=== PATIENT | female | born 1995 | race African-American/Black ===

== ENCOUNTER → 2016-06-06 | Outpatient (CLI) | payer OTHER ==
[~2016-06-06] MED LIST: CEPH500C PO; METR70GE16 VG
--- NOTE | 2016-06-06 14:19 | Diagnostic Imaging Report ---
First trimester OB ultrasound. INDICATION: Dating. FINDINGS: There is a normal-appearing single intrauterine . An embryo is seen with cardiac activity at 174 beats per minute. The crown-rump length is at 8 weeks and 2 days. REINA is 01/14/17. The ovaries are obscured by bowel gas. IMPRESSION: Live single intrauterine . Dictated by: Dictated on workstation # [id number]
== END ==
LOC: RAD 13:30
PROVIDERS: ATTEND Family Medicine
DX: Z34.91 Encounter for supervision of normal pregnancy, unspecified, first trimester (principal)
CPT/HCPCS: 76801

== ENCOUNTER 2016-06-16 11:25 | Emergency (ER) | payer OTHER ==
[~2016-06-16] VITALS: Ht 170.2 cm; Wt 72.6 kg
--- NOTE | 2016-06-16 11:50 | ED GU-Female ---
General Chief Complaint: -Female Stated Complaint: 9 WKS PREG/CRAMPING/VAG BLEEDING Nursing Triage Note: Stated she has been having cramping for 1 week. Stated at beginning of week she had mod bleeding that lasted 2 days. No bleeding at this time. Cramping all day has cont. No urinary sx Nursing Sepsis Screen: No Definite Risk Source: patient, other (FRIEND) Exam Limitations: no limitations History of Present Illness Time seen by provider: 11:50 Initial Comments 21-year-old female patient presents to the emergency department with complaints of vaginal bleeding beginning last Saturday. Lasted for approximately 2 days. States she's had cramping for approximately one week. States the cramping moves around and currently is in the left upper abdomen. Patient states she had an ultrasound as an outpatient last week which showed a viable intrauterine . States she is now 9 weeks 5 days gestation. Denies abnormal vaginal discharge, fever, nausea, vomiting, dysuria, frequency, hematuria. Patient was seen by Dr. Heredia last week. Reports she was treated for bacterial vaginosis and finished the antibiotics last week. Timing/Duration: week, intermittent Severity/Quality: cramping Location: other (LUQ) Radiation: none Activities at Onset: none Prior Genitourinary Problems: similar symptoms Sexual Villas History: less than 2 months ago, single partner Modifying Factors: Worsens With Other (denies modifying factors.) Allergies and Home Medications Allergies Coded Allergies: No Known Drug Allergies (Unverified , 06/16/16) Home Medications Cephalexin 500 Mg Capsule, 500 MG PO TID, #15 Ref 0 Prescribed by: SAQIB AKUR on 01/06/16 1719 Metronidazole 70 Gm Gel.w.appl, 70 GM VG UD, #1 Ref 0 Prescribed by: SAQIB KAUR on 01/06/16 1744 Constitutional: No chills, No dizziness, No fever, No malaise EENTM: no symptoms reported Respiratory: No cough, No short of breath Cardiovascular: No chest pain, No edema, No palpitations Gastrointestinal: abdominal pain (LUQ), No constipation, No diarrhea, No loss of appetite, No nausea, No vomiting Genitourinary: see HPI, denies burning, denies discharge, denies dysuria, denies frequency, denies flank pain, denies hematuria, denies pain : Yes Expected Date of Delivery: Jan 14, 2017 Musculoskeletal: No back pain Skin: no symptoms reported Psychiatric/Neurological: No Symptoms Reported All Other Systemes Reviewed Negative Unless Noted: Yes (Negative excepted noted.) Past Gunuald-Mhmnub-Lnazrs Hx Patient Social History Alcohol Use: Denies Use Recreational Drug Use: No Type Used: Cigarettes 2nd Hand Smoke Exposure: No Recent Foreign Travel: No Contact w/Someone Who Travel: No Recent Infectious Disease Expo: No Recent Hopitalizations: No Immunizations Up To Date Tetanus Booster (TDap): Less than 5yrs Seasonal Allergies Seasonal Allergies: No Surgeries HX Surgeries: No Respiratory Hx Respiratory Disorders: No Cardiovascular Hx Cardiac Disorders: No Neurological Hx Neurological Disorders: No Reproductive System : Yes Hx : 2 Hx Para: 0 Hx Total # of Abortions (Spona: 1 Hx Reproductive Disorders: No Female Reproductive Disorders: Denies Genitourinary Hx Genitourinary Disorders: No Gastrointestinal Hx Gastrointestinal Disorders: No Musculoskeletal Hx Musculoskeletal Disorders: No Endocrine Hx Endocrine Disorders: No HEENT HX ENT Disorders: No Cancer Hx Cancer: No Psychosocial Hx Psychiatric Problems: No Reviewed Nursing Assessment Reviewed/Agree w Nursing PMH: Yes Family Medical History Significant Family History: No Pertinent Family Hx Physical Exam Vital Signs Vital Sign - Last 12Hours 06/16/16 11:36 Temp 97.5 Pulse 80 Resp 18 B/P (MAP) 125/76 Pulse Ox 100 Capillary Refill : Less Than 3 Seconds General Appearance: WD/WN, no apparent distress HEENT: PERRL/EOMI, pharynx normal Neck: supple, normal inspection Cardiovascular: normal peripheral pulses, regular rate, rhythm, no edema, no murmur Respiratory: lungs clear, normal breath sounds, no respiratory distress Gastrointestinal: normal bowel sounds, non tender (unable to reproduce tenderness. ), soft, no organomegaly, No distended Pelvic: other (deferred by patient. patient requests to f/u with Dr. Heredia for pelvic exam.) Back: normal inspection Extremities: no pedal edema, normal capillary refill Neurologic/Psychiatric: alert, normal mood/affect, oriented x 3 Skin: normal color, warm/dry Progress/Results/Core Measures Results/Orders Lab Results Laboratory Tests Test 06/16/16 11:50 Range/Units White Blood Count 5.0 4.3-11.0 10^3/uL Red Blood Count 4.51 4.35-5.85 10^6/uL Hemoglobin 12.5 11.5-16.0 G/DL Hematocrit 36 35-52 % Mean Corpuscular Volume 79 L 80-99 FL Mean Corpuscular Hemoglobin 28 25-34 PG Mean Corpuscular Hemoglobin Concent 35 32-36 G/DL Red Cell Distribution Width 17.3 H 10.0-14.5 % Platelet Count 218 130-400 10^3/uL Mean Platelet Volume 9.2 7.4-10.4 FL Neutrophils (%) (Auto) 56 42-75 % Lymphocytes (%) (Auto) 32 12-44 % Monocytes (%) (Auto) 11 0-12 % Eosinophils (%) (Auto) 1 0-10 % Basophils (%) (Auto) 0 0-10 % Neutrophils # (Auto) 2.8 1.8-7.8 X 10^3 Lymphocytes # (Auto) 1.6 1.0-4.0 X 10^3 Monocytes # (Auto) 0.6 0.0-1.0 X 10^3 Eosinophils # (Auto) 0.1 0.0-0.3 10^3/uL Basophils # (Auto) 0.0 0.0-0.1 10^3/uL Urine Color YELLOW Urine Clarity CLEAR Urine pH 6.5 5-9 Urine Specific [place] 1.015 L 1.016-1.022 Urine Protein NEGATIVE NEGATIVE Urine Glucose (UA) NEGATIVE NEGATIVE Urine Ketones NEGATIVE NEGATIVE Urine Nitrite NEGATIVE NEGATIVE Urine Bilirubin NEGATIVE NEGATIVE Urine Urobilinogen NORMAL NORMAL MG/DL Urine Leukocyte Esterase 1+ H NEGATIVE Urine RBC (Auto) NEGATIVE NEGATIVE Urine RBC NONE /HPF Urine WBC NONE /HPF Urine Squamous Epithelial Cells TNTC H /HPF Urine Crystals NONE /LPF Urine Bacteria FEW H /HPF Urine Casts NONE /LPF Urine Mucus NEGATIVE /LPF Urine Culture Indicated NO Human Chorionic Gonadotropin, Quant [id number] H <5 MIU/ML My Orders Orders - SAQIB KAUR Cbc With Automated Diff (06/16/16 11:31) Hcg,Quantitative (06/16/16 11:31) Ua Culture If Indicated (06/16/16 11:31) Us Ob Single Fetus<14 [id number] (06/16/16 11:31) Vital Signs/I&O Vital Sign - Last 12Hours 06/16/16 06/16/16 11:36 13:42 Temp 97.5 97.9 Pulse 80 90 Resp 18 18 B/P (MAP) 125/76 Pulse Ox 100 99 Blood Pressure Mean: 92 Diagnostic Imaging Diagonstic Imaging: Ultrasound Plain Films/CT/US/NM/MRI: pelvis Comments INDICATION: Vaginal bleeding. The recent OB ultrasound exam of 06/06/16 noted a single live intrauterine approximately 8 weeks 2 days gestation plus or minus one week. On this exam the gestational sac containing the fetus is again evident. heart motion was noted at a rate of 174 bpm and was recorded. The crown rump length measurement suggest estimated gestational age is 9 weeks 5 days. This would correspond to measurements on the previous study. There is no obvious abnormality identified. The amniotic fluid volume is within normal limits. At this time it is not certain where the placenta will develop. There is no obvious subchorionic hemorrhage identified. No pelvic mass or free fluid collection. IMPRESSION: 1. There is a single live intrauterine approximately 9 weeks 5 days gestation plus or minus one week. EDC remains January 14, 2017. 2. There were no obvious abnormalities identified. If a more sensitive evaluation of anatomy is desired, then a short-term (8-10 weeks) followup exam should be obtained. 3. There is no subchorionic hemorrhage to account for patient's vaginal bleeding. Dictated on workstation # [id number] Reviewed: Reviewed by Me (radiology report reviewed by me) Departure Communication Progress Notes All laboratory and diagnostic findings discussed with the patient. Patient again refuses pelvic exam and states she'll follow-up with Dr. Heredia for outpatient pelvic exam. I have advised patient to repeat labs on Saturday or Saturday and follow-up with Dr. Heredia this week for recheck and scheduling outpatient repeat ultrasound. All return precautions were discussed with the patient as described in the discharge instructions of this report. Patient voices understanding and agrees with the treatment plan. Patient case discussed with Dr. Woodward, he agrees with the plan of care. Impression Impression: Primary Impression: Threatened miscarriage in early Disposition: HOME, SELF-CARE Condition: Improved Departure-Patient Inst. Decision time for Depature: 13:11 Referrals: ALBERT HEREDIA MD (PCP) Primary Care Physician GLENROY FLORES MD (Family) Primary Care Physician Patient Instructions: Threatened Miscarriage (DC) Add. Discharge Instructions: All discharge instructions reviewed with patient and/or family. Voiced understanding. Tylenol [id number] as needed for cramps or pain. Drink plenty of fluids. Rest. No strenuous activity, intercourse, or tampons until released by Dr. Heredia. Follow-up with Dr. Heredia this week for recheck and scheduling repeat outpatient ultrasound. Call for appointment time Saturday. Repeat labs on Saturday or Saturday. Return to the emergency department for worsened pain, fever, inability to urinate, vaginal bleeding with greater than 2 pads per hour for greater than 2 hours, vaginal discharge, or any other concerns. 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 HEREDIA. Copy Copies To 1: ALBERT HEREDIA MD, GRETCHEN L PA Jun 16, 2016 11:50
[2016-06-16 12:01] LABS: BASOPHILS % (AUTO) 0 % (0-10); EOSINOPHILS # (AUTO) 0.1 10^3/uL (0.0-0.3); EOSINOPHILS % (AUTO) 1 % (0-10); LYMPHOCYTES # (AUTO) 1.6 X 10^3 (1.0-4.0); LYMPHOCYTES % (AUTO) 32 % (12-44); MEAN CORPUSCULAR HEMOGLOBIN 28 PG (25-34); MEAN CORPUSCULAR HGB CONC 35 G/DL (32-36); MEAN CORPUSCULAR VOLUME 79 FL (80-99); MEAN PLATELET VOLUME 9.2 FL (7.4-10.4); MONOCYTES # (AUTO) 0.6 X 10^3 (0.0-1.0); MONOCYTES % (AUTO) 11 % (0-12); NEUTROPHILS # (AUTO) 2.8 X 10^3 (1.8-7.8); NEUTROPHILS % (AUTO) 56 % (42-75); PLATELET COUNT 218 10^3/uL (130-400); RED BLOOD COUNT 4.51 10^6/uL (4.35-5.85); RED CELL DISTRIBUTION WIDTH 17.3 % (10.0-14.5)
[2016-06-16 12:02] LABS: BILIRUBIN,URINE NEGATIVE (NEGATIVE); KETONES,URINE NEGATIVE (NEGATIVE); LEUKOCYTE ESTERASE ,URINE 1+ (NEGATIVE); NITRITE,URINE NEGATIVE (NEGATIVE); PH,URINE 6.5 (5-9); PROTEIN,URINE NEGATIVE (NEGATIVE); UROBILINOGEN,URINE NORMAL (NORMAL)
[2016-06-16 12:13] LABS: SQUAMOUS EPITHELIAL CELL,UR TNTC /HPF
--- NOTE | 2016-06-16 12:29 | Diagnostic Imaging Report ---
PROCEDURE: US OB SINGLE FETUS <14 WKS. TECHNIQUE: Multiple real-time grayscale images were obtained over the gravid uterus in various projections. INDICATION: Vaginal bleeding. The recent OB ultrasound exam of 06/06/16 noted a single live intrauterine approximately 8 weeks 2 days gestation plus or minus one week. On this exam the gestational sac containing the fetus is again evident. heart motion was noted at a rate of 174 bpm and was recorded. The crown rump length measurement suggest estimated gestational age is 9 weeks 5 days. This would correspond to measurements on the previous study. There is no obvious abnormality identified. The amniotic fluid volume is within normal limits. At this time it is not certain where the placenta will develop. There is no obvious subchorionic hemorrhage identified. No pelvic mass or free fluid collection. IMPRESSION: 1. There is a single live intrauterine approximately 9 weeks 5 days gestation plus or minus one week. EDC remains January 14, 2017. 2. There were no obvious abnormalities identified. If a more sensitive evaluation of anatomy is desired, then a short-term (8-10 weeks) followup exam should be obtained. 3. There is no subchorionic hemorrhage to account for patient's vaginal bleeding. Dictated by: Dictated on workstation # [id number]
[2016-06-16 13:42] VITALS: BP 115/71
== END 2016-06-16 13:36 | disposition home or self-care (01) ==
LOC: EDUNIT# 11:25 → ER 11:27
DX: O20.0 Threatened abortion (principal); Z3A.09 9 weeks gestation of pregnancy
CPT/HCPCS: 36415; 76801; 81000; 84702; 85025; 99282

== ENCOUNTER 2016-08-22 18:30 | Emergency (ER) | payer OTHER ==
[~2016-08-22] VITALS: Ht 170.2 cm; Wt 74.8 kg
--- NOTE | 2016-08-22 19:08 | ED Abdominal Pain ---
General Chief Complaint: -Female Stated Complaint: 19 WEEKS /CRAMPING,PRESSURE Nursing Triage Note: PT REPORTS SHE IS 19 WEEKS AND 3 DAYS , SHE C/O ABD CRAMPING, LOW BACK PAIN, AND VAGINAL PRESSURE FOR 3 DAYS. SHE DENIES ANY BLEEDING. Sepsis Screen: No Definite Risk Source of Information: Patient, Spouse Exam Limitations: No Limitations History of Present Illness Time Seen By Provider: 18:59 Initial Comments Patient is a 21-year-old female G2 P 0010 at 19 weeks and 3 days presenting with a 1-2 day progressively worsening abdominal crampy like pain is especially located in the right and left lower quadrants. She has had no nausea or vomiting or diarrhea. No constipation. No anorexia. She is a patient of Dr. You at [facility]. She denies any vaginal bleeding but didn't have some increased vaginal discharge which she said she had checked a week or 2 ago and was told that it was not from an infectious source. Allergies and Home Medications Allergies Coded Allergies: No Known Drug Allergies (Unverified , 06/16/16) Home Medications Cephalexin 500 Mg Capsule, 500 MG PO TID, #15 Ref 0 Prescribed by: SAQIB KAUR on 01/06/16 1719 Metronidazole 70 Gm Gel.w.appl, 70 GM VG UD, #1 Ref 0 Prescribed by: SAQIB KAUR on 01/06/16 1744 Review of Systems Constitutional: No chills, No diaphoresis, No fever, No malaise Respiratory: Denies Cough, Denies Shortness of Air Cardiovascular: Denies Chest Pain, Denies Irregular Heart Rate, Denies Lightheadedness, Denies Syncope Gastrointestinal: See HPI, Abdominal Pain (cramping right lower quadrant and left lower quadrant pain), Denies Nausea, Denies Poor Appetite, Denies Vomiting Musculoskeletal: No back pain, No joint pain Skin: No pruritus, No rash Past Obbnsbf-Jcmwyz-Wfujqv Hx Patient Social History Alcohol Use: Denies Use Recreational Drug Use: No Smoking Status: Current Everyday Smoker Type Used: Cigarettes 2nd Hand Smoke Exposure: No Recent Foreign Travel: No Contact w/Someone Who Travel: No Recent Infectious Disease Expo: No Recent Hopitalizations: No Immunizations Up To Date Tetanus Booster (TDap): Less than 5yrs Seasonal Allergies Seasonal Allergies: No Surgeries HX Surgeries: No Respiratory Hx Respiratory Disorders: No Cardiovascular Hx Cardiac Disorders: No Neurological Hx Neurological Disorders: No Reproductive System Hx Reproductive Disorders: No Female Reproductive Disorders: Denies Genitourinary Hx Genitourinary Disorders: No Gastrointestinal Hx Gastrointestinal Disorders: No Musculoskeletal Hx Musculoskeletal Disorders: No Endocrine Hx Endocrine Disorders: No HEENT HX ENT Disorders: No Cancer Hx Cancer: No Psychosocial Hx Psychiatric Problems: No Family Medical History Significant Family History: No Pertinent Family Hx Physical Exam Vital Signs VS - Last 72 Hours, by Label 08/22/16 18:56 Temp 98.2 Pulse 79 Resp 16 B/P (MAP) 130/82 Pulse Ox 98 O2 Delivery Room Air Capillary Refill : Less Than 3 Seconds General Appearance: WD/WN, no apparent distress HEENT: PERRL/EOMI, pharynx normal Neck: non-tender, normal inspection Respiratory: chest non-tender, lungs clear, normal breath sounds Cardiovascular: normal peripheral pulses, regular rate, rhythm, no edema Peripheral Pulses: 3+ Dorsalis Pedis (R), 3+ Left Dors-Pedis (L) Gastrointestinal: normal bowel sounds, soft, tenderness (right and left lower quadrants) Genital/Rectal: other ( heart tones regular at 1 60 bpm.) Extremities: non-tender, normal inspection, no pedal edema, normal capillary refill Neurologic/Psychiatric: alert, oriented x 3 Skin: normal color, warm/dry Lymphatic: no adenopathy Progress/Results/Core Measures Results/Orders Lab Results Laboratory Tests Test 08/22/16 19:17 08/22/16 19:31 Range/Units Urine Color YELLOW Urine Clarity SLIGHTLY CLOUDY Urine pH 7 5-9 Urine Specific [place] 1.005 L 1.016-1.022 Urine Protein NEGATIVE NEGATIVE Urine Glucose (UA) NEGATIVE NEGATIVE Urine Ketones NEGATIVE NEGATIVE Urine Nitrite NEGATIVE NEGATIVE Urine Bilirubin NEGATIVE NEGATIVE Urine Urobilinogen NORMAL NORMAL MG/DL Urine Leukocyte Esterase 2+ H NEGATIVE Urine RBC (Auto) NEGATIVE NEGATIVE Urine RBC NONE /HPF Urine WBC 5-10 H /HPF Urine Crystals NONE /LPF Urine Bacteria MODERATE H /HPF Urine Casts NONE /LPF Urine Mucus SMALL H /LPF Urine Culture Indicated YES White Blood Count 8.5 4.3-11.0 10^3/uL Red Blood Count 3.91 L 4.35-5.85 10^6/uL Hemoglobin 11.7 11.5-16.0 G/DL Hematocrit 33 L 35-52 % Mean Corpuscular Volume 83 80-99 FL Mean Corpuscular Hemoglobin 30 25-34 PG Mean Corpuscular Hemoglobin Concent 36 32-36 G/DL Red Cell Distribution Width 15.5 H 10.0-14.5 % Platelet Count 208 130-400 10^3/uL Mean Platelet Volume 10.0 7.4-10.4 FL Neutrophils (%) (Auto) 66 42-75 % Lymphocytes (%) (Auto) 22 12-44 % Monocytes (%) (Auto) 10 0-12 % Eosinophils (%) (Auto) 2 0-10 % Basophils (%) (Auto) 0 0-10 % Neutrophils # (Auto) 5.6 1.8-7.8 X 10^3 Lymphocytes # (Auto) 1.9 1.0-4.0 X 10^3 Monocytes # (Auto) 0.8 0.0-1.0 X 10^3 Eosinophils # (Auto) 0.2 0.0-0.3 10^3/uL Basophils # (Auto) 0.0 0.0-0.1 10^3/uL Sodium Level 138 135-145 MMOL/L Potassium Level 3.5 L 3.6-5.0 MMOL/L Chloride Level 108 H 98-107 MMOL/L Carbon Dioxide Level 22 21-32 MMOL/L Anion Gap 8 5-14 MMOL/L Blood Urea Nitrogen 5 L 7-18 MG/DL Creatinine 0.65 0.60-1.30 MG/DL Estimat Glomerular Filtration Rate > 60 BUN/Creatinine Ratio 8 Glucose Level 83 70-105 MG/DL Calcium Level 9.0 8.5-10.1 MG/DL Total Bilirubin 0.5 0.1-1.0 MG/DL Aspartate Amino Transf (AST/SGOT) 17 5-34 U/L Alanine Aminotransferase (ALT/SGPT) 15 0-55 U/L Alkaline Phosphatase 48 40-136 U/L Total Protein 6.6 6.4-8.2 GM/DL Albumin 3.4 3.2-4.5 GM/DL My Orders Orders - JEFERSON JACQUES Ua Culture If Indicated (08/22/16 19:09) Cbc With Automated Diff (08/22/16 19:11) Comprehensive Metabolic Panel (08/22/16 19:11) Urine Culture (08/22/16 19:17) Vital Signs/I&O Vital Sign - Last 12Hours 08/22/16 18:56 Temp 98.2 Pulse 79 Resp 16 B/P (MAP) 130/82 Pulse Ox 98 O2 Delivery Room Air Blood Pressure Mean: 98 Progress Note : Time: 19:27 Progress Note Presents with bilateral lower quadrant pain could be consistent with labor pain. She is not having constipation. No vaginal bleeding and the fetus is not in distress per Doppler heart tones. Consults Consults : Consulting Physician: BLAS GUTIERREZ MD Consults Notes [address] left message on voice mail. Dr Heredia 2019: Left voicemail Departure Impression Impression: Primary Impression: Urinary tract infection Qualified Codes: N30.00 - Acute cystitis without hematuria Additional Impression: Pelvic pain affecting in second trimester, antepartum Disposition: HOME, SELF-CARE Condition: Stable Departure-Patient Inst. Decision time for Depature: 20:21 Referrals: ALBERT HEREDIA MD (PCP/Family) Primary Care Physician Patient Instructions: Urinary Tract Infection, Adult (DC) Add. Discharge Instructions: You have a urinary tract infection and this may be the cause of your lower abdominal cramping and pain. There'll be a culture obtained which will take 2-3 days to get the results. You may call back to the ER or have your primary care physician or Dr. Heredia call and get those results for you to make sure the antibiotic to be placed you on will treat them. You will be on a medicine called Keflex to be taken twice daily with food for the next 7 days. If you're having nausea vomiting or other intolerable symptoms you can talk your primary care physician or if it is after hours and you're unable to tolerate the symptoms you may return to the ER. All discharge instructions reviewed with patient and/or family. Voiced understanding. Scripts Cephalexin (Cephalexin) 500 Mg Tablet 500 MG PO BID WITH MEALS for 7 Days, #14 TAB 0 Refills Prov: JEFERSON JACQUES 08/22/16 Copy Copies To 1: ALBERT HEREDIA MD, TITUS J Aug 22, 2016 19:08
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
[2016-08-22 19:21] LABS: BILIRUBIN,URINE NEGATIVE (NEGATIVE); KETONES,URINE NEGATIVE (NEGATIVE); LEUKOCYTE ESTERASE ,URINE 2+ (NEGATIVE); NITRITE,URINE NEGATIVE (NEGATIVE); PH,URINE 7 (5-9); PROTEIN,URINE NEGATIVE (NEGATIVE); UROBILINOGEN,URINE NORMAL (NORMAL)
[2016-08-22 19:45] LABS: BASOPHILS % (AUTO) 0 % (0-10); EOSINOPHILS # (AUTO) 0.2 10^3/uL (0.0-0.3); EOSINOPHILS % (AUTO) 2 % (0-10); LYMPHOCYTES # (AUTO) 1.9 X 10^3 (1.0-4.0); LYMPHOCYTES % (AUTO) 22 % (12-44); MEAN CORPUSCULAR HEMOGLOBIN 30 PG (25-34); MEAN CORPUSCULAR HGB CONC 36 G/DL (32-36); MEAN CORPUSCULAR VOLUME 83 FL (80-99); MONOCYTES # (AUTO) 0.8 X 10^3 (0.0-1.0); MONOCYTES % (AUTO) 10 % (0-12); NEUTROPHILS # (AUTO) 5.6 X 10^3 (1.8-7.8); NEUTROPHILS % (AUTO) 66 % (42-75); PLATELET COUNT 208 10^3/uL (130-400); RED BLOOD COUNT 3.91 10^6/uL (4.35-5.85); RED CELL DISTRIBUTION WIDTH 15.5 % (10.0-14.5); WHITE BLOOD COUNT 8.5 10^3/uL (4.3-11.0)
[2016-08-22 19:57] LABS: ALANINE AMINOTRANSFERASE 15 U/L (0-55); ALBUMIN 3.4 GM/DL (3.2-4.5); ANION GAP 8 MMOL/L (5-14); ASPARTATE AMINO TRANSFERASE 17 U/L (5-34); BILIRUBIN,TOTAL 0.5 MG/DL (0.1-1.0); BLOOD UREA NITROGEN 5 MG/DL (7-18); BUN/CREATININE RATIO 8; CARBON DIOXIDE 22 MMOL/L (21-32); CHLORIDE 108 MMOL/L (98-107); CREATININE SERUM 0.65 MG/DL (0.60-1.30); GFR ESTIMATED > 60; GLUCOSE 83 MG/DL (70-105); POTASSIUM 3.5 MMOL/L (3.6-5.0); SODIUM 138 MMOL/L (135-145); TOTAL PROTEIN 6.6 GM/DL (6.4-8.2)
[2016-08-22] MEDS ORDERED: CEPH500T PO (20:28)
[2016-08-22] MEDS ORDERED: RX-CEPHALEXIN (KEFLEX) 250 MG CAP PPK#4 PO STA (20:29)
[2016-08-22 20:42] VITALS: BP 115/75
== END 2016-08-22 20:42 | disposition home or self-care (01) ==
LOC: EDUNIT# 18:30 → ER 18:33
DX: O23.42 Unspecified infection of urinary tract in pregnancy, second trimester (principal); O99.332 Smoking (tobacco) complicating pregnancy, second trimester; F17.210 Nicotine dependence, cigarettes, uncomplicated; Z3A.19 19 weeks gestation of pregnancy
CPT/HCPCS: 36415; 80053; 81000; 85025; 87088; 99283

== ENCOUNTER → 2016-08-30 | Outpatient (CLI) | payer MEDICAID, OTHER ==
[~2016-08-30] MED LIST changes: +CEPH500T PO
--- NOTE | 2016-08-30 12:19 | Diagnostic Imaging Report ---
INDICATION: survey. TECHNIQUE: Multiple real-time grayscale images were obtained over the gravid uterus. COMPARISON: 06/16/2016. FINDINGS: heart rate is 153 beats per minute. The placenta is anterior. No placenta previa. The amniotic fluid appears adequate. There is no ventriculomegaly. The posterior fossa appears unremarkable. The four-chamber view, the stomach, the spine, the bladder, and kidneys appear unremarkable. The cord insertion and three-vessel cord are not well demonstrated due to position. Current gestational age based on REINA of 01/14/2017 is 20 weeks and 3 days with concordant growth parameters within normal limits. Biometrical measurements are as follows: Biparietal 5.1 cm, age 21 weeks 3 days. Head circumference 18.3 cm, age 20 weeks 5 days. Abdominal circumference 14.8 cm, age 20 weeks 1 days. Femur length 3.4 cm, age 20 weeks 6 days. Sonographic estimate age: 20 weeks 6 days. Sonographic estimated date of delivery: 01-11-17. Estimated Weight: 354 gm (+/- 52 gm). LMP percentile: 46%. heart rate: 153 beats per minute. number: 1 of 1. IMPRESSION: Followup study within one to two weeks is suggested to attempt better evaluation of the cord insertion and three-vessel cord. Dictated by: Dictated on workstation # [id number]
== END ==
LOC: RAD 09:57
PROVIDERS: ATTEND Family Medicine
DX: Z36 Encounter for antenatal screening of mother (principal); Z3A.20 20 weeks gestation of pregnancy
CPT/HCPCS: 76805

== ENCOUNTER 2016-09-11 10:23 | Outpatient (CLI) | payer MEDICAID ==
[~2016-09-11] VITALS: Ht 170.2 cm; Wt 74.8 kg
[2016-09-11 10:52] VITALS: BP 129/76
[2016-09-11 11:17] LABS: BASOPHILS % (AUTO) 0 % (0-10); EOSINOPHILS # (AUTO) 0.1 10^3/uL (0.0-0.3); EOSINOPHILS % (AUTO) 2 % (0-10); LYMPHOCYTES # (AUTO) 1.3 X 10^3 (1.0-4.0); LYMPHOCYTES % (AUTO) 21 % (12-44); MEAN CORPUSCULAR HEMOGLOBIN 30 PG (25-34); MEAN CORPUSCULAR HGB CONC 35 G/DL (32-36); MEAN CORPUSCULAR VOLUME 86 FL (80-99); MEAN PLATELET VOLUME 10.1 FL (7.4-10.4); MONOCYTES # (AUTO) 0.6 X 10^3 (0.0-1.0); MONOCYTES % (AUTO) 10 % (0-12); NEUTROPHILS # (AUTO) 4.3 X 10^3 (1.8-7.8); NEUTROPHILS % (AUTO) 68 % (42-75); PLATELET COUNT 186 10^3/uL (130-400); RED BLOOD COUNT 3.98 10^6/uL (4.35-5.85); RED CELL DISTRIBUTION WIDTH 14.4 % (10.0-14.5); WHITE BLOOD COUNT 6.3 10^3/uL (4.3-11.0)
[2016-09-11 11:34] LABS: ALANINE AMINOTRANSFERASE 20 U/L (0-55); ALBUMIN 3.4 GM/DL (3.2-4.5); ANION GAP 11 MMOL/L (5-14); ASPARTATE AMINO TRANSFERASE 21 U/L (5-34); BILIRUBIN,TOTAL 0.5 MG/DL (0.1-1.0); BLOOD UREA NITROGEN 4 MG/DL (7-18); BUN/CREATININE RATIO 6; CALCIUM 8.7 MG/DL (8.5-10.1); CARBON DIOXIDE 19 MMOL/L (21-32); CHLORIDE 108 MMOL/L (98-107); CREATININE SERUM 0.62 MG/DL (0.60-1.30); GFR ESTIMATED > 60; GLUCOSE 73 MG/DL (70-105); POTASSIUM 3.2 MMOL/L (3.6-5.0); SODIUM 138 MMOL/L (135-145); TOTAL PROTEIN 6.6 GM/DL (6.4-8.2)
[2016-09-11 11:52] LABS: BILIRUBIN,URINE NEGATIVE (NEGATIVE); KETONES,URINE NEGATIVE (NEGATIVE); LEUKOCYTE ESTERASE ,URINE 2+ (NEGATIVE); NITRITE,URINE NEGATIVE (NEGATIVE); PH,URINE 7 (5-9); PROTEIN,URINE NEGATIVE (NEGATIVE); UROBILINOGEN,URINE NORMAL (NORMAL)
[2016-09-11 12:07] LABS: WBC,URINE RARE /HPF
[2016-09-11] MEDS ORDERED: MULT1CAP27 PO (12:10)
--- NOTE | 2016-09-12 10:10 | Physician Query-Final Dx ---
RUBÉN MARQUEZ 09/12/16 1009: Clinic Account Progress/Dx Physician Query: Please give diagnosis Date of Service Sep 11, 2016 at 10:23 ALBERT HEREDIA MD 09/24/16 1336: Clinic Account Progress/Dx DIAGNOSIS: Diagnosis Backpain Urinary Tract infect during RUBÉN MARQUEZ Sep 12, 2016 10:09 ALBERT HEREDIA MD Sep 24, 2016 13:36
== END 2016-09-11 12:34 | disposition home or self-care (01) ==
LOC: WSo 10:23 → LDRP 10:24 → WSo 12:34
PROVIDERS: ATTEND Family Medicine
DX: O23.42 Unspecified infection of urinary tract in pregnancy, second trimester (principal); O26.892 Other specified pregnancy related conditions, second trimester; M54.9 Dorsalgia, unspecified; Z3A.22 22 weeks gestation of pregnancy
CPT/HCPCS: 36415; 80053; 81000; 85025; 99212

== ENCOUNTER 2016-11-01 17:21 | Outpatient (CLI) | payer OTHER, MEDICAID ==
[~2016-11-01] VITALS: Ht 170.2 cm; Wt 81.6 kg
[~2016-11-01 17:21] MED LIST changes: +MULT1CAP27 PO
[2016-11-01 17:40] VITALS: BP 140/87
[2016-11-01] MEDS ORDERED: FAMO-119 PO (17:46)
[2016-11-01 17:56] LABS: BILIRUBIN,URINE NEGATIVE (NEGATIVE); KETONES,URINE NEGATIVE (NEGATIVE); LEUKOCYTE ESTERASE ,URINE NEGATIVE (NEGATIVE); NITRITE,URINE NEGATIVE (NEGATIVE); PH,URINE 7 (5-9); PROTEIN,URINE NEGATIVE (NEGATIVE); UROBILINOGEN,URINE NORMAL (NORMAL)
[2016-11-01 18:07] LABS: SQUAMOUS EPITHELIAL CELL,UR 0-2 /HPF
[2016-11-01 18:15] VITALS: BP 138/82
--- NOTE | 2016-11-02 09:36 | Physician Query-Final Dx ---
RUBÉN MARQUEZ 11/02/16 0935: Clinic Account Progress/Dx Physician Query: Please give diagnosis Date of Service Nov 01, 2016 at 17:21 ALBERT HEREDIA MD 11/02/16 1002: Clinic Account Progress/Dx DIAGNOSIS: Diagnosis 29 week gestation Third trimester Round Ligament pain RUBÉN MARQUEZ Nov 02, 2016 09:35 ALBERT HEREDIA MD Nov 02, 2016 10:02
== END 2016-11-01 18:23 | disposition home or self-care (01) ==
LOC: WSo 17:21 → LDRP 17:21 → WSo 18:23
PROVIDERS: ATTEND Family Medicine
DX: O99.613 Diseases of the digestive system complicating pregnancy, third trimester (principal); R10.2 Pelvic and perineal pain; Z3A.29 29 weeks gestation of pregnancy
CPT/HCPCS: 81000; 87088; 99213

== ENCOUNTER → 2016-11-26 | Outpatient (CLI) | payer OTHER, MEDICAID ==
[~2016-11-26] MED LIST changes: +FAMO-119 PO
[2016-11-26 15:55] LABS: MEAN PLATELET VOLUME 10.5 FL (7.4-10.4); RED BLOOD COUNT 3.65 10^6/uL (4.35-5.85); RED CELL DISTRIBUTION WIDTH 12.2 % (10.0-14.5); WHITE BLOOD COUNT 7.7 10^3/uL (4.3-11.0)
[2016-11-26 16:20] LABS: ALANINE AMINOTRANSFERASE 15 U/L (0-55); ALBUMIN 3.3 GM/DL (3.2-4.5); ANION GAP 6 MMOL/L (5-14); ASPARTATE AMINO TRANSFERASE 22 U/L (5-34); BILIRUBIN,TOTAL 0.4 MG/DL (0.1-1.0); BLOOD UREA NITROGEN 7 MG/DL (7-18); BUN/CREATININE RATIO 9; CALCIUM 9.1 MG/DL (8.5-10.1); CARBON DIOXIDE 22 MMOL/L (21-32); CHLORIDE 109 MMOL/L (98-107); CREATININE SERUM 0.81 MG/DL (0.60-1.30); GFR ESTIMATED > 60; GLUCOSE 82 MG/DL (70-105); POTASSIUM 3.8 MMOL/L (3.6-5.0); SODIUM 137 MMOL/L (135-145)
== END ==
LOC: LAB 15:34
PROVIDERS: ATTEND Family Medicine
DX: R03.0 Elevated blood-pressure reading, without diagnosis of hypertension (principal)
CPT/HCPCS: 36415; 80053; 85027

== ENCOUNTER 2016-11-27 05:31 | Outpatient (CLI) | payer OTHER, MEDICAID ==
[2016-11-27] VITALS (18 sets, daily range): BP systolic 140–184; BP diastolic 81–115
[~2016-11-27] VITALS: Ht 170.2 cm; Wt 85.7 kg
[2016-11-27 05:49] LABS: BILIRUBIN,URINE NEGATIVE (NEGATIVE); KETONES,URINE NEGATIVE (NEGATIVE); LEUKOCYTE ESTERASE ,URINE 1+ (NEGATIVE); NITRITE,URINE NEGATIVE (NEGATIVE); PH,URINE 6 (5-9); PROTEIN,URINE 3+ (NEGATIVE); UROBILINOGEN,URINE NORMAL (NORMAL)
[2016-11-27 06:03] LABS: WBC,URINE RARE /HPF
[2016-11-27] MEDS ORDERED: LABETALOL HCL 20 MG/4 ML VIAL IV ONE ×3 (06:30→08:45)
[2016-11-27 06:34] LABS: BASOPHILS % (AUTO) 0 % (0-10); EOSINOPHILS # (AUTO) 0.1 10^3/uL (0.0-0.3); EOSINOPHILS % (AUTO) 2 % (0-10); LYMPHOCYTES # (AUTO) 1.7 X 10^3 (1.0-4.0); LYMPHOCYTES % (AUTO) 25 % (12-44); MEAN CORPUSCULAR HEMOGLOBIN 31 PG (25-34); MEAN CORPUSCULAR HGB CONC 35 G/DL (32-36); MEAN CORPUSCULAR VOLUME 88 FL (80-99); MEAN PLATELET VOLUME 10.4 FL (7.4-10.4); MONOCYTES # (AUTO) 0.8 X 10^3 (0.0-1.0); MONOCYTES % (AUTO) 11 % (0-12); NEUTROPHILS # (AUTO) 4.3 X 10^3 (1.8-7.8); NEUTROPHILS % (AUTO) 62 % (42-75); PLATELET COUNT 182 10^3/uL (130-400); RED BLOOD COUNT 3.58 10^6/uL (4.35-5.85); RED CELL DISTRIBUTION WIDTH 12.1 % (10.0-14.5); WHITE BLOOD COUNT 6.8 10^3/uL (4.3-11.0)
[2016-11-27 06:55] LABS: ALANINE AMINOTRANSFERASE 14 U/L (0-55); ALBUMIN 3.1 GM/DL (3.2-4.5); ANION GAP 8 MMOL/L (5-14); ASPARTATE AMINO TRANSFERASE 18 U/L (5-34); BILIRUBIN,TOTAL 0.4 MG/DL (0.1-1.0); BLOOD UREA NITROGEN 7 MG/DL (7-18); BUN/CREATININE RATIO 10; CALCIUM 8.7 MG/DL (8.5-10.1); CARBON DIOXIDE 19 MMOL/L (21-32); CHLORIDE 110 MMOL/L (98-107); CREATININE SERUM 0.72 MG/DL (0.60-1.30); GFR ESTIMATED > 60; GLUCOSE 73 MG/DL (70-105); LACTATE DEHYDROGENASE 196 U/L (125-220); POTASSIUM 3.5 MMOL/L (3.6-5.0); SODIUM 137 MMOL/L (135-145); TOTAL PROTEIN 6.4 GM/DL (6.4-8.2); URIC ACID 5.6 MG/DL (2.6-7.2)
[2016-11-27 08:15] LABS: PROTEIN/CREATININE RATIO 0.58
[2016-11-27] MEDS ORDERED: INFLUENZA TRIvalent 2017-2018 0.5 ML/45 MCG SYR IM ONE (08:30)
[2016-11-27] MEDS ORDERED: BETAMETHASONE ACE/NA PHOS 6 MG/ML (CELESTONE SOLUSPAN) ONE (08:39)
--- NOTE | 2016-11-27 08:54 | Short Stay Summary ---
HPI History of Present Illness: 21 yo at 32w5d by LMP c/w 8 week ultrasound with previously uncomplicated presented to L&D with report of increasing blood pressure at home. She had elevated blood pressure in the office yesterday and reportedly had labs that were okay. She did have headache with visual disturbance yesterday which is resolved, and she has right lower abdominal pain. She admits swelling in her hands and feet in the mornings which is better later in the day. +FM. -LOF/VB/ Ctx. Date seen by provider: Nov 27, 2016 Time Seen by Provider: 08:40 Attending Physician Blas Guevara MD PCP Albert Heredia MD Consult Date of Admission Home Medications Home Medications Reviewed patient Home Medication Reconciliation Form Allergies Coded Allergies: No Known Drug Allergies (Unverified , 06/16/16) HAR-Teyrmr-Bmrvkh Hx Patient Social History Smoking Status: Former Smoker Type Used: Cigarettes 2nd Hand Smoke Exposure: No Recent Foreign Travel: No Contact w/other who traveled: No Recent Hopitalizations: No Recent Infectious Disease Expo: No Physical Abuse Screen: No Sexual Abuse: No Immunizations Up To Date Tetanus Booster (TDap): Less than 5yrs Past Medical History PMHx: Denies PSurgHx: Denies Family Medical History Significant Family History: Other Conditions/Hx (cousin with sickle cell disease) Review of Systems ([facility]) Constitutional: see HPI EENTM: see HPI Respiratory: No cough, No short of breath Cardiovascular: No chest pain Gastrointestinal: see HPI Genitourinary: no symptoms reported Musculoskeletal: no symptoms reported Skin: no symptoms reported Psychiatric/Neurological: No Symptoms Reported Reviewed Test Results Reviewed Test Results Lab Laboratory Tests Test 11/27/16 05:39 11/27/16 06:20 Range/Units Urine Color YELLOW Urine Clarity CLEAR Urine pH 6 5-9 Urine Specific [place] 1.015 L 1.016-1.022 Urine Protein 63 H 6-12 MG/DL Urine Glucose (UA) NEGATIVE NEGATIVE Urine Ketones NEGATIVE NEGATIVE Urine Nitrite NEGATIVE NEGATIVE Urine Bilirubin NEGATIVE NEGATIVE Urine Urobilinogen NORMAL NORMAL MG/DL Urine Leukocyte Esterase 1+ H NEGATIVE Urine RBC (Auto) NEGATIVE NEGATIVE Urine RBC NONE /HPF Urine WBC RARE /HPF Urine Squamous Epithelial Cells 5-10 /HPF Urine Crystals NONE /LPF Urine Bacteria FEW H /HPF Urine Casts NONE /LPF Urine Mucus NEGATIVE /LPF Urine Culture Indicated NO Urine Creatinine 108 30-125 MG/DL Urine Protein/Creatinine Ratio 0.58 White Blood Count 6.8 4.3-11.0 10^3/uL Red Blood Count 3.58 L 4.35-5.85 10^6/uL Hemoglobin 11.0 L 11.5-16.0 G/DL Hematocrit 32 L 35-52 % Mean Corpuscular Volume 88 80-99 FL Mean Corpuscular Hemoglobin 31 25-34 PG Mean Corpuscular Hemoglobin Concent 35 32-36 G/DL Red Cell Distribution Width 12.1 10.0-14.5 % Platelet Count 182 130-400 10^3/uL Mean Platelet Volume 10.4 7.4-10.4 FL Neutrophils (%) (Auto) 62 42-75 % Lymphocytes (%) (Auto) 25 12-44 % Monocytes (%) (Auto) 11 0-12 % Eosinophils (%) (Auto) 2 0-10 % Basophils (%) (Auto) 0 0-10 % Neutrophils # (Auto) 4.3 1.8-7.8 X 10^3 Lymphocytes # (Auto) 1.7 1.0-4.0 X 10^3 Monocytes # (Auto) 0.8 0.0-1.0 X 10^3 Eosinophils # (Auto) 0.1 0.0-0.3 10^3/uL Basophils # (Auto) 0.0 0.0-0.1 10^3/uL Sodium Level 137 135-145 MMOL/L Potassium Level 3.5 L 3.6-5.0 MMOL/L Chloride Level 110 H 98-107 MMOL/L Carbon Dioxide Level 19 L 21-32 MMOL/L Anion Gap 8 5-14 MMOL/L Blood Urea Nitrogen 7 7-18 MG/DL Creatinine 0.72 0.60-1.30 MG/DL Estimat Glomerular Filtration Rate > 60 BUN/Creatinine Ratio 10 Glucose Level 73 70-105 MG/DL Uric Acid 5.6 2.6-7.2 MG/DL Calcium Level 8.7 8.5-10.1 MG/DL Total Bilirubin 0.4 0.1-1.0 MG/DL Aspartate Amino Transf (AST/SGOT) 18 5-34 U/L Alanine Aminotransferase (ALT/SGPT) 14 0-55 U/L Alkaline Phosphatase 84 40-136 U/L Lactate Dehydrogenase 196 125-220 U/L Total Protein 6.4 6.4-8.2 GM/DL Albumin 3.1 L 3.2-4.5 GM/DL Physical Exam-([facility]) Physical Exam Vital Signs VS - Last 72 Hours, by Label 11/27/16 11/27/16 11/27/16 11/27/16 05:45 06:05 06:20 06:50 Temp 97.6 Pulse 71 63 85 Resp 18 18 18 18 B/P (MAP) 160/103 163/104 184/115 181/105 O2 Delivery Room Air Room Air Room Air Room Air 11/27/16 07:05 Pulse 67 Resp 18 B/P (MAP) 149/81 O2 Delivery Room Air Capillary Refill : General Appearance: WD/WN, no apparent distress Respiratory: lungs clear, normal breath sounds Cardiovascular: regular rate, rhythm, no murmur Extremities: pedal edema (trace) Neurologic/Psychiatric: alert, normal mood/affect, other Reflexes: 1+ Knee (R), 1+ Knee (L) Skin: normal color, warm/dry Short Stay Diagnosis Discharge Diagnosis-Short Stay Admission Diagnosis 32 week intrauterine Preeclampsia with severe features Final Discharge Diagnosis 32 week intrauterine Preeclampsia with severe features- pr/cr ratio above 0.3, blood pressure max of 180/115, improved to 140s/80s with labetalol 20 mg, but returned to 165/98 and another 40 mg of IV labetalol given before transfer. First dose of betamethasone given before transfer due to possible need for delivery. Discussed with Dr. Coronado at [facility] in [place] who accepted in transfer. Conclusion Plan See final discharge diagnosis Copy Copies To 1: ALBERT HEREDIA MD,BLAS Hall MD Nov 27, 2016 08:54
[2016-11-27] MEDS ORDERED: BETAMETHASONE ACE/NA PHOS 6 MG/ML (CELESTONE SOLUSPAN) IM NR (09:00)
== END 2016-11-27 10:05 | disposition short-term general hospital (02) ==
LOC: LDRP 05:31 → WSo 05:31
PROVIDERS: ATTEND Family Medicine
DX: O14.13 Severe pre-eclampsia, third trimester (principal); Z3A.32 32 weeks gestation of pregnancy
CPT/HCPCS: 36415; 80053; 81000; 82570; 83615; 84156; 84550; 85025; 96372; 96374; 96376; 99213

== ENCOUNTER 2016-12-10 15:58 | Day surgery (SDC) | payer OTHER, MEDICAID ==
[~2016-12-10] VITALS: Ht 170.2 cm; Wt 77.3 kg
[2016-12-10 16:20] VITALS: BP 153/102
[2016-12-10] MEDS ORDERED: LABE100T2 PO (16:30)
[2016-12-10] MEDS ORDERED: IRON SUCROSE 300 MG/NS 250 ML (IVPB) IV ONE ×2 (16:45)
== END 2016-12-10 18:57 | disposition home or self-care (01) ==
LOC: SDC 15:58
PROVIDERS: ATTEND Family Medicine
DX: O90.81 Anemia of the puerperium (principal)
CPT/HCPCS: 96365

== ENCOUNTER 2018-12-03 20:06 | Emergency (ER) | payer MEDICAID, OTHER ==
[~2018-12-03] VITALS: Ht 170 cm; Wt 72.0 kg
[~2018-12-03 20:06] MED LIST changes: +LABE100T6 PO
[2018-12-03 20:54] LABS: BILIRUBIN,URINE NEGATIVE (NEGATIVE); CLARITY,URINE CLEAR; COLOR,URINE YELLOW; GLUCOSE, URINE (UA) NEGATIVE (NEGATIVE); KETONES,URINE NEGATIVE (NEGATIVE); LEUKOCYTE ESTERASE ,URINE 1+ (NEGATIVE); NITRITE,URINE NEGATIVE (NEGATIVE); PH,URINE 7 (5-9); PROTEIN,URINE NEGATIVE (NEGATIVE)
--- NOTE | 2018-12-03 21:03 | ED GU-Female ---
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 The patient states the cramping radiates into her vagina as well as her anus. She also complains of intermittent racing of her heart but does not present with tachycardia at this time. Patient denies heavy bleeding but does report spotting. Patient was pre-eclamptic with her first and presents with HTN during this visit; this is her second . Timing/Duration: this evening Severity/Quality: moderate, cramping Location: suprapubic, vaginal Radiation: vaginal Activities at Onset: none Prior Genitourinary Problems: none Sexual [place] History: single partner Modifying Factors: Improves With Lying down, Improves With Resting Associated Symptoms: abdominal pain (WALKER RUTLEDGE STUDENT) Initial Comments Here with report of cramping over the last couple of days as described above. Did have some spotting last week. Last sexual activity a few days ago without pain. Does have some discharge but states it's fairly normal. Does have history of bacterial vaginosis a few times and previous history of with preeclampsia and persistent hypertension. Timing/Duration: yesterday, changing over time Severity/Quality: cramping Location: suprapubic Sexual [place] History: less than 2 months ago, single partner Modifying Factors: Improves With Resting Associated Symptoms: abdominal pain; No nausea/vomiting, No urinary frequency (STAR BURCIAGA MD) Allergies and Home Medications Allergies Coded Allergies: ketorolac (Unverified Allergy, Unknown, ITCHING, 12/10/16) Home Medications Labetalol HCl 100 Mg Tablet, 100 MG PO BID Prescribed by: LES PICKETT on 12/10/16 1630 Multivitamin 1 Each Capsule, 1 EACH PO DAILY, (Reported) Patient Home Medication List Home Medication List Reviewed: Yes (STAR BURCIAGA MD) Review of Systems Review of Systems Constitutional: no symptoms reported EENTM: no symptoms reported Respiratory: no symptoms reported Cardiovascular: no symptoms reported Gastrointestinal: see HPI Genitourinary: no symptoms reported : Yes Expected Date of Delivery: July 05, 2019 LMP: Sep 26, 2018 Musculoskeletal: no symptoms reported Skin: no symptoms reported Psychiatric/Neurological: No Symptoms Reported Endocrine: No Symptoms Reported Hematologic/Lymphatic: No Symptoms Reported (WALKER RUTLEDGE) Respiratory: no symptoms reported Cardiovascular: no symptoms reported Gastrointestinal: see HPI Genitourinary: see HPI, discharge; denies dysuria (STAR BURCIAGA MD) Past Ljtiike-Wmovkp-Tjghtm Hx Past Med/Social Hx: Reviewed Nursing Past Med/Soc Hx (STAR BURCIAGA MD) Patient Social History Type Used: Cigarettes 2nd Hand Smoke Exposure: No Recent Foreign Travel: No Contact w/Someone Who Travel: No Recent Hopitalizations: No (POST 9 DAYS) (WALKER RUTLEDGE) Immunizations Up To Date Tetanus Booster (TDap): Less than 5yrs (WALKER RUTLEDGE) Seasonal Allergies Seasonal Allergies: No (WALKER RUTLEDGE) Past Medical History Surgeries: No Respiratory: No Cardiac: No Hypertension Neurological: No Reproductive Disorders: Yes (PRE-ECLAMPSIA WITH , DELIVERED 7WK EARLY 12/04) Female Reproductive Disorders: Denies Genitourinary: No Gastrointestinal: No Musculoskeletal: No Endocrine: No Cancer: No Psychosocial: No Integumentary: No (WALKER RUTLEDGE) Family Medical History Reviewed Nursing Family Hx (STAR BURCIAGA MD) Other Conditions/Hx (WALKER RUTLEDGE) Physical Exam Vital Signs Vital Signs - First Documented 12/03/18 20:29 Temp 37.5 Pulse 69 Resp 18 B/P (MAP) 133/92 (106) (STAR BURCIAGA MD) Vital Signs Capillary Refill : (WALKER RUTLEDGE) Height, Weight, BMI Height: 5'7.00" Weight: 170lbs. 6.0oz. [id number]; 26.7 BMI Method:Stated General Appearance: no apparent distress HEENT: PERRL/EOMI, pharynx normal Neck: non-tender, supple, normal inspection Cardiovascular: normal peripheral pulses, regular rate, rhythm, no edema, no gallop, no JVD, no murmur Respiratory: chest non-tender, lungs clear, normal breath sounds, no respiratory distress, no accessory muscle use Gastrointestinal: normal bowel sounds, non tender, soft, no organomegaly, no pulsatile mass Back: normal inspection, no CVA tenderness, no vertebral tenderness Extremities: normal range of motion, no pedal edema, no calf tenderness Neurologic/Psychiatric: alert, normal mood/affect, oriented x 3 Skin: normal color, warm/dry Lymphatic: no adenopathy (WALKER RUTLEDGE STUDENT) General Appearance: WD/WN, no apparent distress Cardiovascular: regular rate, rhythm, no murmur Respiratory: lungs clear, normal breath sounds Gastrointestinal: non tender, soft Pelvic: normal external exam, discharge (small amount of white doty discharge), other (posterior cervix with mild tenderness at round ligaments.) Neurologic/Psychiatric: alert, oriented x 3 Skin: normal color, warm/dry (STAR BURCIAGA MD) Progress/Results/Core Measures Suspected Sepsis SIRS Temperature: Pulse: Respiratory Rate: Blood Pressure / Mean: (WALKER RUTLEDGE STUDENT) Results/Orders Lab Results Laboratory Tests Test 12/03/18 20:35 12/03/18 21:45 Range/Units Urine Color YELLOW Urine Clarity CLEAR Urine pH 7 5-9 Urine Specific [place] 1.010 L 1.016-1.022 Urine Protein NEGATIVE NEGATIVE Urine Glucose (UA) NEGATIVE NEGATIVE Urine Ketones NEGATIVE NEGATIVE Urine Nitrite NEGATIVE NEGATIVE Urine Bilirubin NEGATIVE NEGATIVE Urine Urobilinogen NORMAL NORMAL MG/DL Urine Leukocyte Esterase 1+ H NEGATIVE Urine RBC (Auto) NEGATIVE NEGATIVE Urine RBC NONE /HPF Urine WBC RARE /HPF Urine Squamous Epithelial Cells 10-25 H /HPF Urine Crystals PRESENT H /LPF Urine Amorphous Sediment RARE KENYA PHOSPHATE H /LPF Urine Bacteria NEGATIVE /HPF Urine Casts NONE /LPF Urine Mucus NEGATIVE /LPF Urine Culture Indicated NO (STAR BURCIAGA MD) My Orders Orders - STAR BURCIAGA MD Wet Prep (12/03/18 21:28) Neisseria Gonorrhea Swab (12/03/18 21:28) Genital Culture (12/03/18 21:28) Chlamydia Trachomatis Swab (12/03/18 21:28) Abo Rh Type (12/03/18 21:29) (STAR BURCIAGA MD) Vital Signs/I&O 12/03/18 20:29 Temp 37.5 Pulse 69 Resp 18 B/P (MAP) 133/92 (106) (STAR BURCIAGA MD) Vital Signs/I&O Capillary Refill : (WALKER RUTLEDGE STUDENT) Progress Note : Progress Note Seen and evaluated the patient and agree with above except as indicated. I have directed the plan of care. UA ordered. We will go ahead and get a pelvic exam with cultures and wet mount. Bedside ultrasound performed and shows positive movement with heart tones of 165 and estimate gestational age 9-6/7 weeks by crown-rump length. Monitor patient. 2154: Pelvic complete. O positive blood type. Pending wet prep. 2206: Wet prep complete and shows few white cells with no yeast or cells. Pending cultures. We will hold treatment pending cultures. I will send a copy of the chart to Dr. Heredia. Discharged home with return precautions. Patient verbalize understanding instructions and agreement with plan. (STAR BURCIAGA MD) Departure Impression Primary Impression: Abdominal cramping affecting Disposition: 01 HOME, SELF-CARE Condition: Improved Departure-Patient Inst. Decision time for Depature: 22:08 (STAR BURCIAGA MD) Referrals: ALBERT HEREDIA MD (PCP/Family) Primary Care Physician Patient Instructions: Threatened Miscarriage (DC) Add. Discharge Instructions: All discharge instructions reviewed with patient and/or family. Voiced understanding. Follow-up with Dr. Heredia for recheck and further evaluation. Call clinic in the morning for appointment. Otherwise keep appointment next week as scheduled. Cultures are pending from the swabs and you will be called if you will need treatment for anything. Return for worse pain, vaginal bleeding, increasing discharge, problems with urination or other concerns as needed. Copy Copies To 1: ALBERT HEREDIA MD, BRODIE PA STUDENT Dec 03, 2018 21:03 STAR BURCIAGA MD Dec 03, 2018 21:34
[2018-12-03 21:04] LABS: AMORPHOUS SEDIMENT,UR RARE AMOR PHOSPHATE /LPF; BACTERIA,URINE NEGATIVE /HPF; WBC,URINE RARE /HPF
[2018-12-03 22:22] VITALS: BP 125/89
== END 2018-12-03 22:22 | disposition home or self-care (01) ==
LOC: EDUNIT# 20:06 → ER 20:08
DX: O26.891 Other specified pregnancy related conditions, first trimester (principal); R10.2 Pelvic and perineal pain; O10.911 Unspecified pre-existing hypertension complicating pregnancy, first trimester; Z88.6 Allergy status to analgesic agent; Z3A.10 10 weeks gestation of pregnancy
CPT/HCPCS: 36415; 81000; 86900; 86901; 87070; 87077; 87205; 87210; 87491; 87591

== ENCOUNTER → 2019-06-12 | Outpatient (CLI) | payer OTHER ==
[2019-06-12 19:18] LABS: PROTEIN URINE MG/DL 7 MG/DL (6-12)
[2019-06-12 19:41] LABS: PROTEIN 24 HOUR URINE 80 MG/24H (0-149); TOTAL VOLUME,URINE 1150 ML
== END ==
LOC: LABNPT 18:40
PROVIDERS: ATTEND Family Medicine
DX: O13.3 Gestational [pregnancy-induced] hypertension without significant proteinuria, third trimester (principal)
CPT/HCPCS: 84156

== ENCOUNTER 2019-06-19 03:05 | Outpatient (CLI) | payer OTHER ==
[~2019-06-19] VITALS: Ht 165 cm; Wt 90.0 kg
--- NOTE | 2019-06-19 03:10 | NUR ---
TOMER BARBOSA presented to unit via from ED, accompanied by S/O, with c/o PRESSURE/PAIN SINCE YESTERDAY. TOMER BARBOSA weighed, gowned, voided, and to bed. EFHM and TOCO applied, VS taken. TOMER BARBOSA oriented to bed controls, call light, TV, heat, and A/C controls.
[2019-06-19] MEDS ORDERED: FERR160T5 PO (03:19)
[2019-06-19] MEDS ORDERED: ASPI-999 PO (03:19)
[2019-06-19] MEDS ORDERED: SERT25TA PO (03:19)
[2019-06-19 03:45] VITALS: BP 138/86
--- NOTE | 2019-06-19 03:50 | NUR ---
notified of pt's arrival, complaint, sve, u/a results, history and vitals reported. new orders received.
--- NOTE | 2019-06-19 03:51 | NUR ---
Plan of care discussed with patient. U/A results given. Pt reports that she had trich before in the past and is familiar with the dx.
[2019-06-19 04:00] VITALS: BP_SYST 143; BP_SYST 144; BP_DIAS 87; BP_DIAS 88
[2019-06-19 04:15] VITALS: BP 139/88
[2019-06-19 04:30] VITALS: BP 140/88
[2019-06-19 04:45] VITALS: BP 140/94
--- NOTE | 2019-06-19 05:35 | NUR ---
SVE performed, no cervical change noted. pt ready to discharge home. monitor dc'd. pt is going to get dressed.
[2019-06-19] MEDS ORDERED: CEPH-507 PO (05:38)
--- NOTE | 2019-06-19 06:07 | NUR ---
Delia called into [facility] pharmacy per pt's request.
[2019-06-19] MEDS ORDERED: DCS100C PO (12:28)
[2019-06-19] MEDS ORDERED: HYDR-83 PO (12:28)
[2019-06-19] MEDS ORDERED: IBUP-844 PO (12:28)
[2019-06-19] MEDS ORDERED: METR500T PO (16:43)
[2019-06-20] MEDS ORDERED: METR500T PO (07:44)
--- NOTE | 2019-06-22 08:34 | Physician Query-Final Dx ---
Clinic Account Progress/Dx Physician Query: Please give diagnosis Please include # weeks gestation Date of Service June 19, 2019 at 03:05 KASSIDY SOTO June 22, 2019 08:34
== END 2019-06-19 05:50 | disposition home or self-care (01) ==
LOC: LDRP 03:05 → WSo 03:05
PROVIDERS: ATTEND Family Medicine
DX: O26.899 Other specified pregnancy related conditions, unspecified trimester (principal); R10.9 Unspecified abdominal pain; Z3A.00 Weeks of gestation of pregnancy not specified
CPT/HCPCS: 99214

== ENCOUNTER 2019-06-19 03:05 | Inpatient (IN) | payer OTHER ==
[2019-06-19] VITALS (14 sets, daily range): BP systolic 118–165; BP diastolic 70–99
[~2019-06-19] VITALS: Ht 172 cm; Wt 88.6 kg
[2019-06-19] MEDS ORDERED: FERR160T5 PO (03:19)
[2019-06-19] MEDS ORDERED: ASPI-999 PO (03:19)
[2019-06-19] MEDS ORDERED: SERT25TA PO (03:19)
[2019-06-19 03:28] LABS: BILIRUBIN,URINE NEGATIVE (NEGATIVE); CLARITY,URINE CLEAR; COLOR,URINE YELLOW; GLUCOSE, URINE (UA) NEGATIVE (NEGATIVE); KETONES,URINE NEGATIVE (NEGATIVE); LEUKOCYTE ESTERASE ,URINE 3+ (NEGATIVE); NITRITE,URINE NEGATIVE (NEGATIVE); PROTEIN,URINE NEGATIVE (NEGATIVE)
[2019-06-19 03:43] LABS: BACTERIA,URINE TRACE /HPF; SQUAMOUS EPITHELIAL CELL,UR 0-2 /HPF; TRICHOMONAS,URINE FEW /HPF
--- NOTE | 2019-06-19 03:50 | NUR ---
notified of pt's arrival, complaint, sve, u/a results, history and vitals reported. new orders received.
--- NOTE | 2019-06-19 03:51 | NUR ---
Plan of care discussed with patient. U/A results given. Pt reports that she had trich before in the past and is familiar with the dx.
[2019-06-19] MEDS ORDERED: metroNIDAZOLE 500 MG (FLAGYL) TAB PO ONE (04:00)
--- NOTE | 2019-06-19 05:35 | NUR ---
SVE performed, no cervical change noted. pt ready to discharge home. monitor dc'd. pt is going to get dressed.
[2019-06-19] MEDS ORDERED: CEPH-507 PO (05:38)
--- NOTE | 2019-06-19 05:50 | NUR ---
Discharge instructions verbalized with pt. Pt verbalized understanding. Labor precautions given, Discussed need for partner to be treated for STD as well. Pt verbalized understanding. Pt dc'd home with s/o at side.
--- NOTE | 2019-06-19 06:07 | NUR ---
Delia called into [facility] pharmacy per pt's request.
--- NOTE | 2019-06-19 11:46 | NUR ---
TOMER BARBOSA presented to unit via ambulatory from ED, accompanied by signifanct other , with c/o CONTRACTIONS. TOMER BARBOSA weighed, gowned, voided, and to bed. EFHM and TOCO applied, VS taken. TOMER BARBOSA oriented to bed controls, call light, TV, heat, and A/C controls. 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
[2019-06-19] MEDS: LACTATED RINGERS 1,000 ML IV PRN ×3 (12:04→13:25)
[2019-06-19] MEDS ORDERED: fentaNYL INJECTION 100 MCG/2 ML AMP ONE (12:13)
--- NOTE | 2019-06-19 12:14 | History & Physical-OB ---
OB - Chief Complaint & HPI Date/Time Date of Admission: Date of Admission: June 19, 2019 at 11:54 Date seen by a Provider: June 19, 2019 Time Seen by a Provider: 12:11 Chief Complaint/History OB-Reason for Admission/Chief: Section Hx : 3 Hx Para: 1 Expected Date of Delivery: July 04, 2019 Gestational Age in Weeks: 37 Gestational Age in Days: 6 Indication for : desires repeat Other reason for admission: Labor and previous Admission Nurse Assessment Rev: Yes History of Labs O pos Antibody neg RI RPR NR HBsAg NR HIV NR GC neg GBS unknown(PSYCHIATRIC may have this) Allergies and Home Medications Allergies Coded Allergies: ketorolac (Unverified Allergy, Unknown, ITCHING, 12/10/16) Home Medications Cephalexin 500 Mg Capsule, 500 MG PO BID PRN Prescribed by: VERONIQUE IRAHETA on 06/19/19 0538 Multivitamin 1 Each Capsule, 1 EACH PO DAILY, (Reported) Patient Home Medication List Home Medication List Reviewed: Yes OB - History Hx of Present Care: Yes Ultrasounds: Normal mid trimester US Obstetrical Complications: Gestational Hypertension Medical Complications: None Obstetrical History Hx : 3 Hx Para: 1 Hx Total # of Abortions (Spona: 1 Patient Past Medical History PMHx: Denies PSurgHx: Denies Social History/Family History Alcohol Use: Denies Use Recreational Drug Use: No 2nd Hand Smoke Exposure: No Immunizations Tetanus Booster (TDap): Less than 5yrs OB - Admission Exam Physical Exam Vitals: Vital Signs 06/19/19 06/19/19 04:08 05:50 Temp 36.6 Pulse 71 Resp 18 B/P (MAP) 140/94 Pulse Ox 100 O2 Delivery Room Air HEENT: NCAT Heart: Rhythm Normal Lungs: Clear Abdomen: Gravid Extremities: Normal Reflexes: Normal Heart Rate: 130's Accelerations: Accelerations Present Decelerations: No Decelerations Short 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) Contractions on Admission: 6-10 Minutes Apart Labs Laboratory Tests Test 06/19/19 03:20 Range/Units Urine Color YELLOW Urine Clarity CLEAR Urine pH 7.0 5-9 Urine Specific [place] <=1.005 1.016-1.022 Urine Protein NEGATIVE NEGATIVE Urine Glucose (UA) NEGATIVE NEGATIVE Urine Ketones NEGATIVE NEGATIVE Urine Nitrite NEGATIVE NEGATIVE Urine Bilirubin NEGATIVE NEGATIVE Urine Urobilinogen 0.2 < = 1.0 MG/DL Urine Leukocyte Esterase 3+ H NEGATIVE Urine RBC (Auto) NEGATIVE NEGATIVE Urine RBC NONE /HPF Urine WBC 10-25 H /HPF Urine Squamous Epithelial Cells 0-2 /HPF Urine Crystals NONE /LPF Urine Bacteria TRACE /HPF Urine Casts NONE /LPF Urine Mucus NEGATIVE /LPF Urine Trichomonas FEW H /HPF Urine Culture Indicated NO OB - Assessment/Plan/Diagnosis Assessment Assessment: active labor, section Admission Dx 24 yo @ 37.6 weeks Active labor Pains with contractions lower abdomen Admission Status: Inpatient Order (span 2 midnights) Reason for Inpatient Admission: Repeat section Plan Plan: Section KANE WORTHY DO June 19, 2019 12:14
[2019-06-19] MEDS ORDERED: ceFAZolin 2 GM IV Premixed 50 ML IV NR (12:15)
[2019-06-19] MEDS ORDERED: D5 LR IV SOLUTION 1,000 ML IV SCH (12:15)
[2019-06-19] MEDS ORDERED: OXYTOCIN PRE-MIX DRIP 500 ML IV SCH (12:20)
[2019-06-19] MEDS ORDERED: METOCLOPRAMIDE INJ 10 MG/2 ML (REGLAN) ONE (12:21)
[2019-06-19] MEDS ORDERED: CITRIC ACID/SOB CIT (BICITRA) 30 ML UDC ONE (12:21)
[2019-06-19] MEDS ORDERED: ceFAZolin 2 GM IV Premixed 50 ML ONE (12:21)
[2019-06-19] MEDS ORDERED: DEXAMETHASONE 10 MG/ML (DECADRON) 1 ML VIAL ONE (12:23)
[2019-06-19] MEDS ORDERED: ONDANSETRON 4 MG/2 ML (SDV) Z0FRAN ONE (12:23)
[2019-06-19 12:28] LABS: BASOPHILS % (AUTO) 0 % (0-10); EOSINOPHILS # (AUTO) 0.1 10^3/uL (0.0-0.3); EOSINOPHILS % (AUTO) 1 % (0-10); HEMATOCRIT 33 % (35-52); HEMOGLOBIN 11.2 G/DL (11.5-16.0); LYMPHOCYTES # (AUTO) 1.8 X 10^3 (1.0-4.0); LYMPHOCYTES % (AUTO) 19 % (12-44); MEAN CORPUSCULAR HEMOGLOBIN 28 PG (25-34); MEAN CORPUSCULAR HGB CONC 34 G/DL (32-36); MEAN CORPUSCULAR VOLUME 83 FL (80-99); MEAN PLATELET VOLUME 10.4 FL (7.4-10.4); MONOCYTES # (AUTO) 0.9 X 10^3 (0.0-1.0); MONOCYTES % (AUTO) 10 % (0-12); NEUTROPHILS # (AUTO) 6.5 X 10^3 (1.8-7.8); NEUTROPHILS % (AUTO) 70 % (42-75); PLATELET COUNT 196 10^3/uL (130-400); RED CELL DISTRIBUTION WIDTH 15.4 % (10.0-14.5); WHITE BLOOD COUNT 9.3 10^3/uL (4.3-11.0)
[2019-06-19] MEDS ORDERED: DCS100C PO (12:28)
[2019-06-19] MEDS ORDERED: IBUP-844 PO (12:28)
[2019-06-19] MEDS ORDERED: HYDR-83 PO (12:28)
[2019-06-19] MEDS ORDERED: ONDANSETRON 4 MG/2 ML (SDV) Z0FRAN IVP PRN (12:30)
[2019-06-19] MEDS ORDERED: MEASLES,MUMPS,RUBELLA 1 EA INJ SC SCH (12:30)
[2019-06-19] MEDS ORDERED: TETANUS,DIPTH,PERTUSS P/F (BOOSTRIX) 0.5 ML VIAL IM SCH (12:30)
--- NOTE | 2019-06-19 12:31 | Discharge Inst-Women's Service ---
Discharge Inst-Women's Serv Depart Medication/Instructions New, Converted or Re-Newed RX: RX on Chart Final Diagnosis POD 2 RLTCS Problems Reviewed?: Yes Consults/Follow Up Additional Follow Up: Yes Orders/Referrals Dr. Lucero in 7-10 days and in [address] Rondon Activity Activity: Activity as Tolerated Driving Instructions: No Driving for 1 Week NO SMOKING: NO SMOKING Nothing Inside Vagina: No Douching, No [place], No Tampons Diet Discharge Diet: No Restrictions Symptoms to Report to : Bleeding Excessive, Pain Increased, Fever Over 101 Degrees F, Vaginal Bleeding Increase, Questions/Concerns For Any Problems or Questions: Contact Your Physician Skin/Wound Care Infection Signs and Symptoms: Increased Redness, Foul Odor of Wound, Increased Drainage, Skin Itchy or Has a Rash, Increased Swelling, Temperature Above 101 F Operative Area Clean and Dry: Keep Incision Clean/Dry Stitches/Deepika/Dermabond: Dermabond, Care of Stitches Bathing Instructions: ShowKANE Cisneros DO June 19, 2019 12:30
[2019-06-19] MEDS ORDERED: CATHETER FLUSH 10 ML SYR IV PRN (12:45)
[2019-06-19] MEDS ORDERED: METOCLOPRAMIDE INJ 10 MG/2 ML (REGLAN) IV ONE (12:45)
[2019-06-19] MEDS ORDERED: CITRIC ACID/SOB CIT (BICITRA) 30 ML UDC PO ONE (12:45)
--- NOTE | 2019-06-19 12:45 | NUR ---
Ambulated to OR per OR staff.
[2019-06-19 12:49] LABS: ALANINE AMINOTRANSFERASE 10 U/L (0-55); ALBUMIN 3.4 GM/DL (3.2-4.5); ALKALINE PHOSPHATASE 147 U/L (40-136); BILIRUBIN,TOTAL 0.4 MG/DL (0.1-1.0); BUN/CREATININE RATIO 5; CALCIUM 8.8 MG/DL (8.5-10.1); CARBON DIOXIDE 18 MMOL/L (21-32); CHLORIDE 110 MMOL/L (98-107); CREATININE SERUM 0.65 MG/DL (0.60-1.30); GFR ESTIMATED > 60; GLUCOSE 71 MG/DL (70-105); POTASSIUM 3.3 MMOL/L (3.6-5.0); SODIUM 138 MMOL/L (135-145); TOTAL PROTEIN 6.8 GM/DL (6.4-8.2)
[2019-06-19] MEDS ORDERED: BUPIVACAINE 0.5% 30 ML (SENSORCAINE) VIAL ONE (13:22)
[2019-06-19] MEDS ORDERED: BUPIVACAINE 0.25% 30 ML (SENSORCAINE) VIAL ONE (13:22)
[2019-06-19] MEDS ORDERED: PHENYLEPHRINE 100 MCG/ML 10 ML (ANESTHESIA) SYR ONE (13:23)
[2019-06-19] MEDS ORDERED: OXYTOCIN PRE-MIX DRIP 1,000 ML IV ONE (13:39)
[2019-06-19] MEDS ORDERED: CATHETER FLUSH 10 ML SYR IV SCH ×2 (14:00)
[2019-06-19] MEDS ORDERED: metroNIDAZOLE 500MG/100ML IVPB 100 ML IV ONE (14:15)
[2019-06-19] MEDS: KETOROLAC 30 MG/ML VIAL IV SCH ×2 (14:17→20:04)
--- NOTE | 2019-06-19 14:55 | NUR ---
Report from Kimberlyn Calero Rn from PACU following a repeat .
[2019-06-19] MEDS ORDERED: METR500T PO (16:43)
[2019-06-19] MEDS: HYDROcodone/APAP 5 MG/325 MG (LORTAB) TAB PO PRN (16:45)
--- NOTE | 2019-06-19 18:00 | NUR ---
Fundus deviated to pt right. Up to BR with assistance and voided 700ml. Ambulate well - then walked to nursery to see infant (level 2 status).
--- NOTE | 2019-06-19 19:00 | NUR ---
[id number] charting entries: refer to chart [id number]
[2019-06-19] MEDS: DOCUSATE SODIUM 100 MG (COLACE) CAP PO SCH (20:06)
--- NOTE | 2019-06-19 20:10 | OPERATIVE REPORT ---
DATE OF SERVICE: 06/19/2019 PREOPERATIVE DIAGNOSES: 1. A 24-year-old G3, P1 at 37 weeks and 6 days gestation. 2. Previous section. 3. Active labor. POSTOPERATIVE DIAGNOSES: 1. A 24-year-old G3, P1 at 37 weeks and 6 days gestation. 2. Previous section. 3. Active labor. PROCEDURE: Repeat low transverse section. SURGEON: Jose Worthy DO ANESTHESIA: Spinal. ESTIMATED BLOOD LOSS: 400 mL. URINE OUTPUT: 75 mL clear at the end of procedure. FLUIDS: 1000 mL lactated Ringer's solution. FINDINGS: A live female with weight pending. Apgars of 8 and 8. Grossly normal appearing uterus, bilateral fallopian tubes and ovaries. SPECIMEN SENT WAS: Placenta. INDICATIONS FOR PROCEDURE: A 24-year-old female is a patient consulted to me from [facility] for repeat . She was starting to have some elevated blood pressures in the office. Biophysical profile done earlier today was found to be 8/8; however, on presentation [facility]. She did have contractions every 3 to 4 minutes and was reporting significant amounts of discomfort and pain with these. She was sent over to the hospital where her contractions were confirmed and an active pattern of every 3 to 4 minutes. Due to the patient's contraction pattern and significant amounts of pain, I discussed with the patient proceeding with delivery today. Risks of procedure have already been discussed with the patient in detail. After all of her questions were answered, consent was obtained, the patient was taken to the operating room. OPERATIVE REPORT IN DETAIL: Once in the operating room, spinal analgesia was found to be adequate, placed in supine position with leftward tilt, prepped and draped in normal sterile fashion. Timeout was performed. I then made an elliptical Pfannenstiel skin incision around the previously existing scar and excised the previously existing keloid. I proceeded my incision until fascia was encountered at which point I extended the fascial incision laterally using Bovie cautery. The superior aspect of the fascial incision was then grasped with Humera clamps, tented upward and dissected off the underlying rectus muscles. The inferior aspect of the fascial incision was grasped with Humera clamps, tented up and dissected off the underlying rectus muscles. The rectus muscles were dissected down the midline using sharp dissection, which exposed the peritoneum, which I entered bluntly and extended using blunt traction. An Finesse ring retractor was placed in the peritoneal incision, which offered excellent lateral sidewall retraction. The lower uterine segment was identified and found to be thinned out. I made a low transverse incision to the vesicouterine peritoneum and bluntly dissected off the lower uterine segment. Membranes are encountered. Shortly thereafter extended the uterine incision laterally and superiorly using blunt traction. Membranes were ruptured using Allis clamp. Clear fluid was noted. The infant was found in vertex presentation. With gentle fundal pressure, the 's head was elevated to the incision where it is partially delivered. There is a delay, unable to get the head through the incision. A Kiwi vacuum extractor was placed on the flexion point of the skull, which allows me to elevate and lift the 's head out through the incision. After that was done, I released the Kiwi vacuum extractor. The nares and oropharynx were bulb suctioned. Anterior and posterior shoulders were delivered. was then brought to the operative field. The cord was doubly clamped and cut and was handed off to blind hooker and nurses that are in attendance. Cord blood was collected. Three-vessel cord with intact placenta was delivered spontaneously thereafter. IV Pitocin was initiated to facilitate uterine contraction. Uterine fundus confirmed by manual massage. Uterus was then exteriorized and cleared of all endometrial clots and debris. I then proceeded with closing the uterine incision using 0 Vicryl suture in running locked fashion. Second layer of imbricating 0 Monocryl was placed. Excellent hemostasis was noted after doing this. I then placed the uterus back in the pelvis and copiously irrigated the pelvis using normal saline. Once again, no active bleeding noted from any of my dissection planes. I placed Interceed antiadhesive over my low transverse incision and proceeded with closing the peritoneum using 3-0 Vicryl suture in running fashion. The rectus muscle was reapproximated using 3-0 Vicryl suture in interrupted fashion. The fascia was reapproximated using 0 Vicryl suture in running fashion. Subcutaneous tissue is thin; therefore I leave it open and closed the skin using 4-0 Monocryl running subcuticular. Dermabond was applied to incision and sterile dressing with adhesive white tape. Two grams of Ancef were given preoperatively for infection prophylaxis. The patient tolerated the procedure well and sent to recovery area in stable condition. Lap and sponge counts were correct at the end of the procedure. Instrument counts correct as well. Job ID: [id number] DocumentID: [id number] Dictated Date: 06/19/2019 14:08:55 Plush Cutter Date: 06/19/2019 20:09:19 Dictated By: JOSE WORTHY DO
[2019-06-19] MEDS ORDERED: ASPIRIN 81 MG CHEW (CHILDREN'S ASA) PO ONE (21:00)
[2019-06-20] MEDS: HYDROcodone/APAP 5 MG/325 MG (LORTAB) TAB PO PRN ×3 (00:15→16:31)
[2019-06-20 00:46] VITALS: BP 131/86
[2019-06-20] MEDS: KETOROLAC 30 MG/ML VIAL IV SCH ×2 (02:18→08:13)
[2019-06-20 06:32] LABS: BASOPHILS % (AUTO) 0 % (0-10); EOSINOPHILS % (AUTO) 0 % (0-10); HEMATOCRIT 28 % (35-52); HEMOGLOBIN 9.7 G/DL (11.5-16.0); LYMPHOCYTES # (AUTO) 1.5 X 10^3 (1.0-4.0); LYMPHOCYTES % (AUTO) 10 % (12-44); MEAN CORPUSCULAR HEMOGLOBIN 29 PG (25-34); MEAN CORPUSCULAR HGB CONC 35 G/DL (32-36); MEAN CORPUSCULAR VOLUME 83 FL (80-99); MEAN PLATELET VOLUME 10.7 FL (7.4-10.4); MONOCYTES # (AUTO) 1.8 X 10^3 (0.0-1.0); MONOCYTES % (AUTO) 12 % (0-12); NEUTROPHILS # (AUTO) 11.4 X 10^3 (1.8-7.8); NEUTROPHILS % (AUTO) 78 % (42-75); PLATELET COUNT 213 10^3/uL (130-400); RED CELL DISTRIBUTION WIDTH 15.5 % (10.0-14.5); WHITE BLOOD COUNT 14.6 10^3/uL (4.3-11.0)
--- NOTE | 2019-06-20 07:42 | Postpartum Progress Note ---
Note Note Day # 1 Subjective: Patient is without complaints. Ambulating, voiding. Tolerating a regular diet without nausea or vomiting. Normal lochia. Pain is well controlled with oral pain medications. Objective: Physical Exam: General - Alert and oriented, no apparent distress Abdomen - Soft, appropriately tender to palpation, non-distended, fundus firm at umbilicus Extremities - no edema, negative Dayana's bilaterally Incision- c/d/i Assessment: POD 1 RLTCS Trichomoniasis diagnosis prior to delivery Acute blood loss anemia Plan: Routine care. Encourage breast feeding. Encourage ambulation. Ferrous sulfate supplementation. Plan for discharge tomorrow Vitals - Labs Vital Signs - I&O Vital Signs Date Time Temp Pulse Resp B/P (MAP) Pulse Ox O2 Delivery O2 Flow Rate FiO2 06/20/19 00:46 36.5 67 16 131/86 (101) 100 06/19/19 21:00 36.3 68 16 146/87 (106) 100 06/19/19 20:26 Room Air 06/19/19 16:00 36.7 58 16 165/93 (117) 100 06/19/19 15:00 36.7 54 16 135/82 (99) 100 Room Air 06/19/19 14:40 Room Air 06/19/19 14:40 36.7 18 136/97 (110) 100 Room Air 06/19/19 14:30 15 134/99 (111) 99 Room Air 06/19/19 14:28 Room Air 06/19/19 14:20 17 133/89 (104) 99 Room Air 06/19/19 14:20 Room Air 06/19/19 14:10 13 129/84 (99) 98 Room Air 06/19/19 14:05 Room Air 06/19/19 14:00 20 123/72 (89) 97 Room Air 06/19/19 13:53 Room Air 06/19/19 13:53 36.5 19 118/70 (86) 99 Room Air 06/19/19 12:00 36.9 83 16 99 Room Air I & O 06/20/19 07:00 Intake Total 1150 ml Output Total 1090 ml Balance 60 ml Labs Laboratory Tests 06/19/19 11:50: Urine Protein 14H, Urine Creatinine 90, Urine Protein/Creatinine Ratio 0.16 06/19/19 12:00: White Blood Count 9.3, Red Blood Count 3.98L, Hemoglobin 11.2L, Hematocrit 33L, Mean Corpuscular Volume 83, Mean Corpuscular Hemoglobin 28, Mean Corpuscular Hemoglobin Concent 34, Red Cell Distribution Width 15.4H, Platelet Count 196, Mean Platelet Volume 10.4, Neutrophils (%) (Auto) 70, Lymphocytes (%) (Auto) 19, Monocytes (%) (Auto) 10, Eosinophils (%) (Auto) 1, Basophils (%) (Auto) 0, Neutrophils # (Auto) 6.5, Lymphocytes # (Auto) 1.8, Monocytes # (Auto) 0.9, Eosinophils # (Auto) 0.1, Basophils # (Auto) 0.0, Sodium Level 138, Potassium Level 3.3L, Chloride Level 110H, Carbon Dioxide Level 18L, Anion Gap 10, Blood Urea Nitrogen 3L, Creatinine 0.65, Estimat Glomerular Filtration Rate > 60, BUN/Creatinine Ratio 5, Glucose Level 71, Calcium Level 8.8, Corrected Calcium 9.3, Total Bilirubin 0.4, Aspartate Amino Transf (AST/SGOT) 18, Alanine Aminotransferase (ALT/SGPT) 10, Alkaline Phosphatase 147H, Total Protein 6.8, Albumin 3.4 06/20/19 06:01: White Blood Count 14.6H, Red Blood Count 3.37L, Hemoglobin 9.7L, Hematocrit 28L, Mean Corpuscular Volume 83, Mean Corpuscular Hemoglobin 29, Mean Corpuscular Hemoglobin Concent 35, Red Cell Distribution Width 15.5H, Platelet Count 213, Mean Platelet Volume 10.7H, Neutrophils (%) (Auto) 78H, Lymphocytes (%) (Auto) 10L, Monocytes (%) (Auto) 12, Eosinophils (%) (Auto) 0, Basophils (%) (Auto) 0, Neutrophils # (Auto) 11.4H, Lymphocytes # (Auto) 1.5, Monocytes # (Auto) 1.8H, Eosinophils # (Auto) 0.0, Basophils # (Auto) 0.0 KANE WORTHY DO June 20, 2019 07:42
[2019-06-20] MEDS ORDERED: METR500T PO (07:44)
[2019-06-20] MEDS ORDERED: metroNIDAZOLE 500 MG (FLAGYL) TAB PO SCH (09:00)
[2019-06-20] MEDS ORDERED: IBUPROFEN 600 MG (MOTRIN) TAB PO ONE ×2 (09:08→14:36)
[2019-06-20 09:17] VITALS: BP 139/84
[2019-06-20] MEDS: metroNIDAZOLE 500 MG (FLAGYL) TAB PO SCH ×2 (09:18→20:51)
[2019-06-20] MEDS: DOCUSATE SODIUM 100 MG (COLACE) CAP PO SCH ×2 (09:18→20:51)
--- NOTE | 2019-06-20 09:29 | NUR ---
pt up to shower at this time. fresh ice water to bedside table. s.o. and infant remain in room
--- NOTE | 2019-06-20 09:32 | Anesthesia-Regional Post-Op ---
Regional Patient Condition Mental Status: Alert, Oriented x3 Circulation: Same as Pre-Op Headache: Absent Sensation: Full Recovery Motor Block: Absent Post Op Complications Complications None Follow Up Care/Instructions Patient Instructions None needed. Anesthesia/Patient Condition Patient is doing well, no complaints, stable vital signs, no apparent adverse anesthesia problems. No complications reported per nursing. MOISES ROCHA CRNA June 20, 2019 09:32
[2019-06-20] MEDS: IBUPROFEN 600 MG (MOTRIN) TAB PO SCH ×2 (14:52→20:51)
[2019-06-20 14:53] VITALS: BP 121/68
--- NOTE | 2019-06-20 16:31 | NUR ---
Warm blanket give to pt to place on shoulders
[2019-06-20 21:00] VITALS: BP 135/75
--- NOTE | 2019-06-20 21:00 | NUR ---
pt up ambulating around in room. assessment completed. bed linens changed. s/o remains at bedside. pt denies any needs at this time. will continue to monitor.
[2019-06-21] MEDS: HYDROcodone/APAP 5 MG/325 MG (LORTAB) TAB PO PRN ×2 (00:33→09:23)
[2019-06-21 03:00] VITALS: BP 159/78
[2019-06-21] MEDS: IBUPROFEN 600 MG (MOTRIN) TAB PO SCH ×2 (03:50→13:45)
--- NOTE | 2019-06-21 08:54 | Postpartum Progress Note ---
Note Note Day # 2 Subjective: Patient is without complaints. Ambulating, voiding. Tolerating a regular diet without nausea or vomiting. Normal lochia. Pain is well controlled with oral pain medications. Objective: Physical Exam: General - Alert and oriented, no apparent distress Abdomen - Soft, appropriately tender to palpation, non-distended, fundus firm at umbilicus Extremities - no edema, negative Dayana's bilaterally Incision- c/d/i Assessment: POD 2 RLTCS Acute blood loss anemia Plan: Routine care. Encourage breast feeding. Encourage ambulation. Ferrous sulfate supplementation. [facility] Vitals - Labs Vital Signs - I&O Vital Signs Date Time Temp Pulse Resp B/P (MAP) Pulse Ox O2 Delivery O2 Flow Rate FiO2 06/21/19 03:00 36.8 80 18 159/78 (105) 99 06/20/19 21:00 36.4 71 16 135/75 (95) 98 06/20/19 14:53 36.9 76 16 121/68 (85) 98 06/20/19 09:17 36.5 73 16 139/84 (102) 98 KANE WORTHY DO June 21, 2019 08:54
[2019-06-21 09:19] VITALS: BP 132/88
--- NOTE | 2019-06-21 09:19 | NUR ---
AM shift assessment completed and vital signs obtained, see interventions. Plan of care reviewed with patient. Patient verbalizes understanding and denies any current questions or concerns at this time. Addendum: 06/21/19 at 0938 by TUNG CORRAL RN Scheduled Colace, Flagyl PO given. Lortab 1 PO given for patient's c/o pain rated 3/10.
[2019-06-21] MEDS: metroNIDAZOLE 500 MG (FLAGYL) TAB PO SCH (09:22)
[2019-06-21] MEDS: DOCUSATE SODIUM 100 MG (COLACE) CAP PO SCH (09:23)
--- NOTE | 2019-06-21 13:42 | NUR ---
Discharge instructions and medications reviewed with patient both written and verbally. Patient verbalizes understanding and questions answered.
--- NOTE | 2019-06-21 15:05 | NUR ---
Patient discharged at this time and ambulated down to awaiting private vehicle accompanied by this RN. No signs or symptoms of distress noted.
== END 2019-06-21 15:05 | disposition home or self-care (01) | DRG 787 ==
LOC: WSo 03:05 → LDRP 03:06 → WSo 05:50 → LDRP 11:54 → WS 12:42 → LDRP 14:55
PROVIDERS: ADMIT Obstetrics & Gynecology; ATTEND Family Medicine
PROC: 10D00Z1 Extraction of Products of Conception, Low, Open Approach (ICD-10-PCS; principal; 2019-06-19 12:51)
DX: O34.211 Maternal care for low transverse scar from previous cesarean delivery (principal); O90.81 Anemia of the puerperium; D62 Acute posthemorrhagic anemia; O98.32 Other infections with a predominantly sexual mode of transmission complicating childbirth; A59.9 Trichomoniasis, unspecified; O13.4 Gestational [pregnancy-induced] hypertension without significant proteinuria, complicating childbirth; Z37.0 Single live birth; Z3A.37 37 weeks gestation of pregnancy; Z87.891 Personal history of nicotine dependence
CPT/HCPCS: 36415; 80053; 81000; 82570; 84156; 85025; 86850; 86900; 86901; 94664; 99212; 99214

== ENCOUNTER 2019-06-24 19:28 | Emergency (ER) | payer OTHER ==
[~2019-06-24] VITALS: Ht 170 cm; Wt 83.3 kg
[~2019-06-24 19:28] MED LIST changes: +ASPI-999 PO; +CEPH-507 PO; +DCS100C PO; +FERR160T5 PO; +HYDR-83 PO; +IBUP-844 PO; +METR500T PO; +SERT25TA PO
[2019-06-24] MEDS ORDERED: hydrALAZINE (APESOLINE) 20 MG/ML VIAL IV ONE (20:00)
[2019-06-24 20:04] LABS: BILIRUBIN,URINE NEGATIVE (NEGATIVE); CLARITY,URINE CLEAR; COLOR,URINE YELLOW; GLUCOSE, URINE (UA) NEGATIVE (NEGATIVE); KETONES,URINE NEGATIVE (NEGATIVE); LEUKOCYTE ESTERASE ,URINE 1+ (NEGATIVE); NITRITE,URINE NEGATIVE (NEGATIVE); PH,URINE 6.5 (5-9); PROTEIN,URINE NEGATIVE (NEGATIVE)
[2019-06-24 20:05] LABS: BASOPHILS % (AUTO) 0 % (0-10); EOSINOPHILS # (AUTO) 0.2 10^3/uL (0.0-0.3); EOSINOPHILS % (AUTO) 3 % (0-10); HEMATOCRIT 30 % (35-52); LYMPHOCYTES # (AUTO) 2.6 X 10^3 (1.0-4.0); LYMPHOCYTES % (AUTO) 34 % (12-44); MEAN CORPUSCULAR HEMOGLOBIN 28 PG (25-34); MEAN CORPUSCULAR HGB CONC 33 G/DL (32-36); MEAN CORPUSCULAR VOLUME 85 FL (80-99); MEAN PLATELET VOLUME 9.6 FL (7.4-10.4); MONOCYTES # (AUTO) 0.7 X 10^3 (0.0-1.0); MONOCYTES % (AUTO) 9 % (0-12); NEUTROPHILS # (AUTO) 4.2 X 10^3 (1.8-7.8); NEUTROPHILS % (AUTO) 55 % (42-75); PLATELET COUNT 291 10^3/uL (130-400); RED CELL DISTRIBUTION WIDTH 15.7 % (10.0-14.5); WHITE BLOOD COUNT 7.7 10^3/uL (4.3-11.0)
--- OUTSIDE RECORDS SUMMARY | 2019-06-24 20:12 | XMS REPORT ---
Author Author Rosalba CROSS Organization [facility] Address [address] [place] [address] Care Team Providers Care Car Shunter Name Role Phone KEL CROSS Unavailable PROBLEMS Type Condition ICD9-CM Code RDF30-ZC Code Onset Dates Condition S tatus SNOMED Code Problem Iron deficiency anemia, unspecified D50.9 Active 27256772 Problem Anemia complicating , unspecified trimester O99.019 Active 93862738 Problem Chronic depressive disorder F32.9 Ac tive 14184595 Problem Gastro-esophageal reflux disease without esophagitis K21.9 Active 665959720 Problem History of pre-eclampsia in prior , cur rently O09.299 Active 917264969875454 Problem anemia O90.81 Active 19 4750002 Problem Previous section complicating O 34.219 Active 667809866 Problem Elevated blood pressure affe cting in third trimester, antepartum O16.3 Active 37955392 Problem Mood disorder F39 Active 457629 05 Problem Irregular periods N92.6 Active 80 347117 Problem Hx of delivery, currently O09.219 Active 072078866 Problem Hx of section Z98.891 Active 086873530 ALLERGIES No Known Allergies ENCOUNTERS Encounter Location Date Diagnosis [facility] [id number] [place] [address] 13 Mar, 2019 [facility] [address] [id number] [place] [address] 16 Feb, 2019 Hx of delivery, currently pregna nt O09.219 [facility] [address] [id number] [place] [address] 14 Feb, 2019 care in second trimester Z34.92 ; 22 weeks gestation of Z3A.22 ; Normal in multigravida Z34.80 and Screen for STD (sexually transmitted disease) Z11.3 [place] [id number] [place] [address] 09 Feb, 2019 Hx of delivery, currently pregna nt O09.219 [place] [address] [address] 07 Feb, 2019 [place] [address] [address] Feb, Hx of delivery, currently pregna nt O09.219 [place] [address] [address] Feb, care in second trimester Z34.92 ; 18 weeks gestation of Z3A.18 and Hx of delivery, currently O09.219 [place] [address] [address] 19 Jan, 2019 care in second trimester Z34.92 ; 18 weeks gestation of Z3A.18 ; Hx of delivery, currently O09.219 ; History of pre-eclampsia in prior , currently O09.299 and Previous section complicating O34.219 [place] [address] [address] 11 Jan, 2019 [place] [address] [address] Jan, [place] [address] [address] Jan, [place] [address] [address] Dec, care in second trimester Z34.92 ; Urinary tract infection in mother during second trimester of O23.42 ; Other specified related conditions, second trimester O26.892 ; 14 weeks gestation of Z3A.14 ; History of pre-eclampsia in prior , currently O09.299 ; Hx of delivery, currently O09.219 and Previous section complicating O34.219 [place] [id number] [address] Dec, Normal in multigravida Z34.80 ; 10 weeks gestation of Z3A.10 ; Pap smear for cervical cancer screening Z12.4 ; Screen for STD (sexually transmitted disease) Z11.3 ; Hx of delivery, currently O09.219 ; Encounter for immunization Z23 and Hx of section Z98.891 [place] [address] [address] Dec, [place] [address] [address] Dec, [facility] [address] [id number] [address] [place] [address] Dec, Unspecified abdominal pain R 10.9 ; Other specified related conditions, unspecified trimester O26.899 and Shortness of breath R06.02 [place] [address] [address] Nov, Normal in multigravida Z34.80 ; 10 weeks gestation of Z3A.10 ; Pap smear for cervical cancer screening Z12.4 ; Screen for STD (sexually transmitted disease) Z11.3 ; Hx of delivery, currently O09.219 ; Hx of section Z98.891 ; Encounter for immunization Z23 and History of pre-eclampsia in prior , currently O09.299 [place] [id number] [place] [address] Oct, [place] [address] [address] Oct, Encounter for test Z32.00 [facility] [address] [id number] [address] [place] [address] May, [facility] [address] [id number] [address] [place] [address] Apr, Irregular periods N92.6 and High risk heterosexual behavior Z72.51 [place] [address] [address] Mar, Contraception management Z30.9 and Contr aceptive education Z30.09 [place] [address] [address] Jan, Chronic depressive disorder F32.9 [facility] [address] [address] 11 Jan, 2018 Mood disorder F39 and High risk medicati on use Z79.899 [place] [address] [address] Jan, Chronic depressive disorder F32.9 [facility] [address] [facility] [id number] [address] [address] Dec, Flank pain R10.9 ; Unprotect ed sex Z72.51 ; Acute midline thoracic back pain M54.6 ; Acute vaginitis N76.0 and Other specified bacterial agents as the cause of diseases classified elsewhere B96.89 [place] [address] [address] Dec, Chronic depressive disorder F32.9 [facility] [address] [facility] [id number] [place] [address] Aug, Bacterial conjunctivitis H10 .9 [place] [address] [address] June, Encounter for test, result unk nown Z32.00 [place] [address] [address] May, [place] [address] [address] Apr, [place] [address] [address] Apr, [place] [address] [address] Jan, [place] [address] [address] Jan, Screening for deficiency anemia Z13.0 [place] [address] [address] Jan, [place] [address] [address] Jan, [place] [address] [address] Dec, [place] [address] [address] Dec, care and examination Z39.2 ; control counseling Z30.09 ; Pre-eclampsia in period O14.95 ; Iron deficiency anemia, unspecified D50.9 and Anemia complicating , unspecified trimester O99.019 [place] [address] [address] Nov, Encounter for immunization Z23 [address] [address] Nov, [place] [address] [address] Nov, Elevated blood pressure reading R03.0 an d anemia O90.81 [place] [address] [address] Nov, anemia O90.81 [place] [address] [address] Nov, Screening, deficiency anemia, iron Z13.0 [place] [address] [address] Nov, Elevated blood pressure reading R03.0 an d Gestational proteinuria in third trimester O12.13 [place] [address] [address] Nov, [address] [address] Nov, 32 weeks gestation of Z3A.32 ; Third trimester Z34.93 and Elevated blood pressure affecting in third trimester, antepartum O16.3 [place] [address] [address] 21 Oct, 2016 30 weeks gestation of Z3A.30 ; Encounter for immunization Z23 and Third trimester Z34.93 [place] [address] [address] 14 Oct, 2016 [facility] [id number] [place] [address] 13 Oct, 2016 Dysuria R30.0 [place] [address] [address] 05 Oct, 2016 27 weeks gestation of Z3A.27 ; Second trimester Z34.92 ; Gastro-esophageal reflux disease without esophagitis K21.9 and Diseases of the digestive system complicating , second trimester O99.612 [place] [address] [address] Sep, Screening for deficiency anemia Z13.0 [place] [address] [address] Sep, 23 weeks gestation of Z3A.23 a nd Second trimester Z34.92 [place] [address] [address] Aug, [facility] [address] [facility] [id number] [address] [place] [address] Aug, Acute cystitis without hemat uria N30.00 and Dysuria R30.0 [place] [address] [address] Aug, [address] [address] Aug, 19 weeks gestation of Z3A.19 a nd Second trimester Z33.1 [place] [address] [address] Aug, [place] [address] [address] Jul, [place] [address] [address] 13 Jul, 2016 15 weeks gestation of Z3A.15 a nd Second trimester Z33.1 [place] [address] [address] 17 Jun, 2016 Normal in multigravida Z34.80 and 11 weeks gestation of Z3A.11 [facility] [place] [id number] [place] [address] June, [facility] [place] [address] [address] May, Vaginal discharge N89.8 and Other specified related conditions, first trimester O26.891 [place] [address] [address] 14 May, 2016 [place] [address] [address] May, 6 weeks gestation of Z3A.01 an d Normal in multigravida Z34.80 [facility] [id number] [place] [address] 08 May, 2016 Pain of upper abdomen R10.10 and Acute vaginitis N76.0 [place] [id number] [place] [address] Apr, [place] [address] [address] Apr, [place] [address] [address] Apr, Encounter for test, result unk nown Z32.00 [facility] [place] [id number] [place] [address] Apr, Pelvic pain R10.2 ; Other sp ecified bacterial agents as the cause of diseases classified elsewhere B96.89 and Acute vaginitis N76.0 [place] [id number] [place] [address] Dec, Encounter for test Z32.00 [place] [address] [address] 14 May, 2014 [place] [address] [address] May, [place] [address] [address] Mar, [place] [address] [address] Nov, [place] [address] [address] Nov, [place] [address] [address] Oct, [place] [address] [address] Sep, [place] [address] [address] Aug, IMMUNIZATIONS No Known Immunizations SOCIAL HISTORY Never Assessed REASON FOR VISIT STD check/ : Patient is here today for a STD Check and a Test , Patient reports having unprotected sex last month, patient stated they have b een having abdominal pain, irregular period, nausea for one month..Dagoberto Rea MA PLAN OF CARE Activity Details Follow Up prn Reason: VITAL SIGNS Height 65.5 in 2018-05-06 Weight 144 lbs 2018-05-06 Temperature 98.4 degrees Fahrenheit 2018-05-06 Heart Rate 110 bpm 2018-05-06 Respiratory Rate 20 2018-05-06 BMI 23.6 kg/m2 2018-05-06 Blood pressure systolic 121 mmHg 2018-05-06 Blood pressure diastolic 62 mmHg 2018-05-06 MEDICATIONS Medication Instructions Dosage Frequency Start Date End Date Duration S tatus Abilify 2 MG Orally Once a day 1 tablet 24h Jan, 30 day(s) Active Xulane 150-35 MCG/24HR Transdermal weekly 1 patch to skin Mar, 63 days Unknown Flagyl 500 mg Orally 2 times a day 1 tablet 12h Dec, 7 days Unknown RESULTS No Results PROCEDURES Procedure Date Ordered Result Body Site FUNGUS ISOLATION CULTURE May 06, 2018 URINALYSIS, AUTO, W/O SCOPE May 06, 2018 URINE TEST May 06, 2018 Bacterial Vaginosis In House May 06, 2018 TRICHOMONAS ASSAY W/OPTIC May 06, 2018 No Charge May 06, 2018 INSTRUCTIONS MEDICATIONS ADMINISTERED No Known Medications MEDICAL (GENERAL) HISTORY Type Description Date Medical History gestational HTN, pre-eclampsia Surgical History section 11/2016 Hospitalization History childbirth 11/2016
--- OUTSIDE RECORDS SUMMARY | 2019-06-24 20:12 | XMS REPORT ---
Author Author Rosalba Rai Doctor Organization [facility] Address Unknown Phone Unavailable Care Team Providers Care Commercial Plumber Name Role Phone Migration, Doctor Unavailable Unavailable PROBLEMS Type Condition ICD9-CM Code [id number] Code Onset Dates Condition S tatus SNOMED Code Problem Gastro-esophageal reflux disease without esophagitis K21.9 Active 148653959 Problem Elevated blood pressure affe cting in third trimester, antepartum O16.3 Active 85346517 Problem Mood disorder F39 Active 702259 05 Problem Irregular periods N92.6 Active 80 385578 Problem anemia O90.81 Active 19 5181284 Problem Iron deficiency anemia, unspecified D50.9 Active 65938418 Problem Anemia complicating , unspecified trimester O99.019 Active 82954837 Problem Chronic depressive disorder F32.9 Ac tive 13265444 ALLERGIES No Information ENCOUNTERS Encounter Location Date Diagnosis [facility] [id number] [place] [address] May, [facility] [address] [place] [id number] [address] [place] [address] Apr, Irregular periods N92.6 and High risk heterosexual behavior Z72.51 [facility] [address] [place] [place] [id number] [address] [place] [address] Mar, Contraception management Z30 .9 and Contraceptive education Z30.09 [facility] [address] [facility] [id number] [address] [place] [address] Jan, Chronic depressive disorder F32.9 [facility] [address] [place] [id number] [address] [place] [address] Jan, Mood disorder F39 and High r isk medication use Z79.899 [place] [id number] [place] [id number] [address] [place] [address] Jan, Chronic depressive disorder F32.9 [facility] [address] [id number] [address] [place] [address] Dec, Flank pain R10.9 ; Unprotect ed sex Z72.51 ; Acute midline thoracic back pain M54.6 ; Acute vaginitis N76.0 and Other specified bacterial agents as the cause of diseases classified elsewhere B96.89 [facility] [address] [id number] [address] [place] [address] Dec, Chronic depressive disorder F32.9 [facility] [address] [id number] [address] [place] [address] Aug, Bacterial conjunctivitis H10 .9 [facility] [address] [facility] [id number] [address] [place] [address] June, Encounter for test , result unknown Z32.00 [facility] [address] [facility] [id number] [address] [place] [address] May, [facility] [address] [id number] [address] [place] [address] Apr, [facility] [address] [facility] [id number] [address] [place] [address] Apr, [facility] [address] [facility] [id number] [address] [place] [address] Jan, [facility] [address] [facility] [id number] [address] [place] [address] Jan, Screening for deficiency ane lisa Z13.0 [facility] [address] [id number] [address] [place] [address] Jan, [facility] [address] [facility] [id number] [address] [place] [address] Jan, [facility] [address] [facility] [id number] [address] [place] [address] Dec, [facility] [address] [facility] [id number] [address] [place] [address] Dec, care and examinat ion Z39.2 ; control counseling Z30.09 ; Pre-eclampsia in period O14.95 ; Iron deficiency anemia, unspecified D50.9 and Anemia complicating , unspecified trimester O99.019 [place] [address] [place] [id number] [place] [address] Nov, Encounter for immunization Z 23 [place] [address] [place] [id number] [place] [address] Nov, [place] [address] [place] [phone] Nov, Elevated blood pressure read ing R03.0 and anemia O90.81 [place] [address] [place] [id number] [address] [place] [address] Nov, anemia O90.81 [place] [address] [place] [id number] [address] [place] [address] Nov, Screening, deficiency anemia , iron Z13.0 [place] [address] [place] [id number] [place] [address] Nov, Elevated blood pressure read ing R03.0 and Gestational proteinuria in third trimester O12.13 [place] [address] [place] [id number] [address] [place] [address] Nov, [place] [address] [place] [id number] [address] [place] [address] Nov, 32 weeks gestation of pregna ncy Z3A.32 ; Third trimester Z34.93 and Elevated blood pressure affecting in third trimester, antepartum O16.3 [place] [address] [place] [id number] [place] [address] Oct, 30 weeks gestation of pregna ncy Z3A.30 ; Encounter for immunization Z23 and Third trimester Z34.93 [place] [address] [place] [id number] [address] [place] [address] Oct, [facility] [address] [facility] [id number] [address] [place] [address] 13 Oct, 2016 Dysuria R30.0 [place] [address] [place] [id number] [place] [address] Oct, 27 weeks gestation of pregna ncy Z3A.27 ; Second trimester Z34.92 ; Gastro-esophageal reflux disease without esophagitis K21.9 and Diseases of the digestive system complicating , second trimester O99.612 [place] [address] [place] [id number] [address] [place] [address] Sep, Screening for deficiency ane lisa Z13.0 [place] [address] [place] [id number] [place] [address] Sep, 23 weeks gestation of pregna ncy Z3A.23 and Second trimester Z34.92 [place] [address] [address] Aug, [facility] [address] [place] [id number] [address] [place] [address] Aug, Acute cystitis without hemat uria N30.00 and Dysuria R30.0 [facility] [address] [place] [id number] [address] [place] [address] Aug, [place] [address] [address] Aug, 19 weeks gestation of pregna ncy Z3A.19 and Second trimester Z33.1 [place] [address] [place] [id number] [address] [place] [address] Aug, [place] [address] [place] [id number] [place] [address] Jul, [place] [address] [place] [id number] [place] [address] Jul, 15 weeks gestation of pregna ncy Z3A.15 and Second trimester Z33.1 [facility] [address] [id number] [address] [place] [address] 17 Jun, 2016 Normal in multigra edgar Z34.80 and 11 weeks gestation of Z3A.11 [facility] [address] [id number] [address] [place] [address] June, [facility] [address] [id number] [address] [place] [address] May, Vaginal discharge N89.8 and Other specified related conditions, first trimester O26.891 [place] [address] [id number] [address] [place] [address] May, [place] [address] [id number] [address] [place] [address] May, 6 weeks gestation of pregnan cy Z3A.01 and Normal in multigravida Z34.80 [facility] [address] [id number] [address] [place] [address] May, Pain of upper abdomen R10.10 and Acute vaginitis N76.0 [place] [address] [id number] [address] [place] [address] Apr, [place] [address] [id number] [address] [place] [address] Apr, [place] [address] [id number] [address] [place] [address] Apr, Encounter for test , result unknown Z32.00 [facility] [address] [id number] [address] [place] [address] Apr, Pelvic pain R10.2 ; Other sp ecified bacterial agents as the cause of diseases classified elsewhere B96.89 and Acute vaginitis N76.0 [place] [id number] [id number] [address] [place] [address] Dec, Encounter for test Z32.00 [place] [address] [id number] [address] [place] [address] May, [facility] [address] [id number] [address] [place] [address] May, [facility] [address] [facility] [id number] [address] [place] [address] Mar, [facility] [address] [facility] [id number] [address] [place] [address] Nov, [facility] [address] [facility] [id number] [address] [place] [address] Nov, [facility] [address] [facility] [id number] [address] [place] [address] Oct, [facility] [address] [facility] [id number] [address] [place] [address] Sep, [facility] [address] [facility] [id number] [address] [place] [address] Aug, IMMUNIZATIONS No Known Immunizations SOCIAL HISTORY Never Assessed REASON FOR VISIT EMR-[facility] PLAN OF CARE VITAL SIGNS MEDICATIONS Unknown Medications RESULTS No Results PROCEDURES No Known procedures INSTRUCTIONS MEDICATIONS ADMINISTERED No Known Medications MEDICAL (GENERAL) HISTORY Type Description Date Medical History gestational HTN, pre-eclampsia Surgical History section Hospitalization History childbirth
--- OUTSIDE RECORDS SUMMARY | 2019-06-24 20:12 | XMS REPORT ---
Author Author Rosalba Rai Doctor Organization [facility] Address Unknown Phone Unavailable Care Team Providers Care Army Helicopter Pilot Name Role Phone Migration, Doctor Unavailable Unavailable PROBLEMS Type Condition ICD9-CM Code [id number] Code Onset Dates Condition S tatus SNOMED Code Problem Gastro-esophageal reflux disease without esophagitis K21.9 Active 808078196 Problem Elevated blood pressure affe cting in third trimester, antepartum O16.3 Active 07070097 Problem Mood disorder F39 Active 645709 05 Problem Irregular periods N92.6 Active 80 321783 Problem anemia O90.81 Active 19 6945541 Problem Iron deficiency anemia, unspecified D50.9 Active 31055438 Problem Anemia complicating , unspecified trimester O99.019 Active 10219498 Problem Chronic depressive disorder F32.9 Ac tive 66978850 ALLERGIES No Information ENCOUNTERS Encounter Location Date Diagnosis [facility] [address] [place] [address] May, [facility] [address] [place] [id number] [address] [place] [address] Apr, Irregular periods N92.6 and High risk heterosexual behavior Z72.51 [facility] [address] [place] [id number] [place] [address] Mar, Contraception management Z30 .9 and Contraceptive education Z30.09 [facility] [address] [facility] [id number] [address] [place] [address] Jan, Chronic depressive disorder F32.9 [facility] [address] [place] [id number] [place] [address] Jan, Mood disorder F39 and High r isk medication use Z79.899 [place] [address] [place] [id number] [place] [address] Jan, Chronic depressive disorder F32.9 [facility] [address] [id number] [address] [place] [address] Dec, Flank pain R10.9 ; Unprotect ed sex Z72.51 ; Acute midline thoracic back pain M54.6 ; Acute vaginitis N76.0 and Other specified bacterial agents as the cause of diseases classified elsewhere B96.89 [facility] [address] [id number] [address] [place] [address] Dec, Chronic depressive disorder F32.9 [facility] [address] [id number] [address] [place] [address] Aug, Bacterial conjunctivitis H10 .9 [facility] [address] [facility] [id number] [address] [place] [address] June, Encounter for test , result unknown Z32.00 [facility] [address] [facility] [id number] [address] [place] [address] May, [facility] [address] [id number] [address] [place] [address] Apr, [facility] [address] [facility] [id number] [address] [place] [address] Apr, [facility] [address] [facility] [id number] [address] [place] [address] Jan, [facility] [address] [facility] [id number] [address] [place] [address] Jan, Screening for deficiency ane lisa Z13.0 [facility] [address] [id number] [address] [place] [address] Jan, [facility] [address] [facility] [id number] [address] [place] [address] Jan, [facility] [address] [facility] [id number] [address] [place] [id number] Dec, [facility] [address] [facility] [id number] [address] [place] [address] Dec, care and examinat ion Z39.2 ; control counseling Z30.09 ; Pre-eclampsia in period O14.95 ; Iron deficiency anemia, unspecified D50.9 and Anemia complicating , unspecified trimester O99.019 [place] [address] [place] [id number] [place] [address] Nov, Encounter for immunization Z 23 [place] [address] [place] [id number] [place] [address] Nov, [place] [address] [place] [address] Nov, Elevated blood pressure read ing R03.0 and anemia O90.81 [place] [address] [place] [id number] [place] [address] Nov, anemia O90.81 [place] [address] [place] [id number] [place] [address] Nov, Screening, deficiency anemia , iron Z13.0 [place] [address] [place] [id number] [place] [address] Nov, Elevated blood pressure read ing R03.0 and Gestational proteinuria in third trimester O12.13 [place] [address] [place] [id number] [place] [address] Nov, [place] [address] [place] [id number] [place] [address] Nov, 32 weeks gestation of pregna ncy Z3A.32 ; Third trimester Z34.93 and Elevated blood pressure affecting in third trimester, antepartum O16.3 [place] [address] [place] [id number] [place] [address] Oct, 30 weeks gestation of pregna ncy Z3A.30 ; Encounter for immunization Z23 and Third trimester Z34.93 [place] [address] [place] [id number] [place] [address] Oct, [facility] [address] [facility] [id number] [address] [place] [address] 13 Oct, 2016 Dysuria R30.0 [place] [address] [place] [id number] [place] [address] Oct, 27 weeks gestation of pregna ncy Z3A.27 ; Second trimester Z34.92 ; Gastro-esophageal reflux disease without esophagitis K21.9 and Diseases of the digestive system complicating , second trimester O99.612 [place] [address] [place] [id number] [address] [place] [address] Sep, Screening for deficiency ane lisa Z13.0 [place] [address] [place] [id number] [place] [address] Sep, 23 weeks gestation of pregna ncy Z3A.23 and Second trimester Z34.92 [place] [address] [address] Aug, [facility] [address] [place] [id number] [address] [place] [address] Aug, Acute cystitis without hemat uria N30.00 and Dysuria R30.0 [facility] [address] [place] [id number] [place] [address] Aug, [place] [address] [address] Aug, 19 weeks gestation of pregna ncy Z3A.19 and Second trimester Z33.1 [place] [address] [place] [id number] [address] [place] [address] Aug, [place] [address] [place] [id number] [place] [address] Jul, [place] [address] [place] [id number] [place] [address] Jul, 15 weeks gestation of pregna ncy Z3A.15 and Second trimester Z33.1 [facility] [address] [id number] [address] [place] [address] 17 Jun, 2016 Normal in multigra edgar Z34.80 and 11 weeks gestation of Z3A.11 [facility] [address] [id number] [address] [place] [address] June, [facility] [address] [id number] [address] [place] [address] May, Vaginal discharge N89.8 and Other specified related conditions, first trimester O26.891 [place] [address] [id number] [address] [place] [address] May, [place] [address] [id number] [address] [place] [address] May, 6 weeks gestation of pregnan cy Z3A.01 and Normal in multigravida Z34.80 [facility] [address] [id number] [address] [place] [phone] May, Pain of upper abdomen R10.10 and Acute vaginitis N76.0 [place] [address] [id number] [address] [place] [address] Apr, [place] [address] [id number] [address] [place] [address] Apr, [place] [address] [id number] [address] [place] [address] Apr, Encounter for test , result unknown Z32.00 [facility] [address] [id number] [address] [place] [address] Apr, Pelvic pain R10.2 ; Other sp ecified bacterial agents as the cause of diseases classified elsewhere B96.89 and Acute vaginitis N76.0 [place] [address] [id number] [address] [place] [address] Dec, Encounter for test Z32.00 [place] [address] [id number] [address] [place] [address] May, [facility] [address] [id number] [address] [place] [address] May, [facility] [address] [id number] [address] [place] [address] Mar, [facility] [address] [id number] [address] [place] [address] Nov, [facility] [address] [id number] [address] [place] [phone] Nov, [facility] [address] [id number] [address] [place] [address] Oct, [facility] [address] [facility] [id number] [address] [place] [address] Sep, [facility] [address] [facility] [id number] [address] [place] [address] Aug, IMMUNIZATIONS No Known Immunizations SOCIAL HISTORY Never Assessed REASON FOR VISIT EMR-[facility] PLAN OF CARE VITAL SIGNS MEDICATIONS Medication Instructions Dosage Frequency Start Date End Date Duration S tatus Twyla by Oral route Sep, Activ e Abilify 5 mg 1 tablet by Oral route 1 time per day 15 2011 Active RESULTS No Results PROCEDURES No Known procedures INSTRUCTIONS MEDICATIONS ADMINISTERED No Known Medications MEDICAL (GENERAL) HISTORY Type Description Date Medical History gestational HTN, pre-eclampsia Surgical History section Hospitalization History childbirth
--- OUTSIDE RECORDS SUMMARY | 2019-06-24 20:13 | XMS REPORT ---
Author Author Rosalba HEREDIA Organization [facility] Address [address] [place] [address] Care Team Providers Care Band Saw Operator Cake Cutting Name Role Phone ALBERT HEREDIA Unavailable PROBLEMS Type Condition ICD9-CM Code DDD69-CX Code Onset Dates Condition S tatus SNOMED Code Problem Iron deficiency anemia, unspecified D50.9 Active 22291204 Problem Anemia complicating , unspecified trimester O99.019 Active 18443463 Problem Gastro-esophageal reflux disease without esophagitis K21.9 Active 032290403 Problem anemia O90.81 Active 19 7843497 Problem Elevated blood pressure affe cting in third trimester, antepartum O16.3 Active [id number] ALLERGIES No Information ENCOUNTERS Encounter Location Date Diagnosis [facility] [address] [facility] [id number] [address] [place] [phone] Aug, Bacterial conjunctivitis H10 .9 [facility] [address] [place] [address] June, Encounter for test , result unknown Z32.00 [facility] [address] [place] [id number] [address] [place] [phone] May, [facility] [address] [place] [address] Apr, [facility] [address] [place] [id number] [address] [place] [address] Apr, [facility] [address] [place] [id number] [address] [place] [address] Jan, [facility] [address] [place] [id number] [address] [place] [phone] Jan, Screening for deficiency ane lisa Z13.0 [place] [address] [place] [id number] [address] [place] [phone] Jan, [place] [address] [address] Jan, [place] [address] [place] [id number] [address] [place] [address] Dec, [place] [address] [address] Dec, care and examinat ion Z39.2 ; control counseling Z30.09 ; Pre-eclampsia in period O14.95 ; Iron deficiency anemia, unspecified D50.9 and Anemia complicating , unspecified trimester O99.019 [place] [address] [place] [id number] [address] [place] [address] Nov, Encounter for immunization Z 23 [place] [address] [address] Nov, [place] [address] [address] Nov, Elevated blood pressure read ing R03.0 and anemia O90.81 [place] [address] [place] [id number] [address] [place] [address] Nov, anemia O90.81 [place] [address] [place] [address] Nov, Screening, deficiency anemia , iron Z13.0 [place] [address] [place] [id number] [address] [place] [phone] Nov, Elevated blood pressure read ing R03.0 and Gestational proteinuria in third trimester O12.13 [place] [address] [place] [id number] [address] [place] [phone] Nov, [place] [address] [place] [id number] [address] [place] [address] Nov, 32 weeks gestation of pregna ncy Z3A.32 ; Third trimester Z34.93 and Elevated blood pressure affecting in third trimester, antepartum O16.3 [place] [address] [address] 21 Oct, 2016 30 weeks gestation of pregna ncy Z3A.30 ; Encounter for immunization Z23 and Third trimester Z34.[address] [address] 14 Oct, 2016 [facility] [address] [address] 13 Oct, 2016 Dysuria [address] [address] 05 Oct, 2016 27 weeks gestation of pregna ncy Z3A.27 ; Second trimester Z34.92 ; Gastro-esophageal reflux disease without esophagitis K21.9 and Diseases of the digestive system complicating , second trimester O99.612 [place] [address] [address] Sep, Screening for deficiency ane lisa Z13.[address] [address] Sep, 23 weeks gestation of pregna ncy Z3A.23 and Second trimester Z34.[address] [address] Aug, [facility] [address] [address] Aug, Acute cystitis without hemat uria N30.00 and Dysuria R30.[address] [address] Aug, [place] [address] [address] Aug, 19 weeks gestation of pregna ncy Z3A.19 and Second trimester Z33.1 [place] [address] [id number] [address] [place] [address] Aug, [facility] [address] [id number] [address] [place] [address] Jul, [facility] [address] [id number] [address] [place] [address] Jul, 15 weeks gestation of pregna ncy Z3A.15 and Second trimester Z33.1 [facility] [address] [id number] [address] [place] [address] June, Normal in multigra edgar Z34.80 and 11 weeks gestation of Z3A.11 [facility] [place] [address] [facility] [id number] [address] [place] [address] June, [facility] [place] [address] [facility] [id number] [address] [place] [address] May, Vaginal discharge N89.8 and Other specified related conditions, first trimester O26.891 [place] [address] [facility] [id number] [address] [place] [address] May, [place] [address] [facility] [id number] [address] [place] [address] 12 May, 2016 6 weeks gestation of pregnan cy Z3A.01 and Normal in multigravida Z34.80 [facility] IN [facility] [address] [facility] [id number] [address] [place] [address] May, Pain of upper abdomen R10.10 and Acute vaginitis N76.0 [place] [address] [id number] [address] [place] [address] Apr, [place] [address] [facility] [id number] [address] [place] [address] Apr, [facility] [address] [facility] [id number] [address] [place] [address] Apr, Encounter for test , result unknown Z32.00 [facility] [address] [id number] [address] [place] [address] 12 Apr, 2016 Pelvic pain R10.2 ; Other sp ecified bacterial agents as the cause of diseases classified elsewhere B96.89 and Acute vaginitis N76.0 [facility] [address] [id number] [address] [place] [id number] 17 Dec, 2015 Encounter for test Z32.00 [facility] [address] [id number] [address] [place] [id number] 14 May, 2014 [facility] [address] [id number] [address] [place] [phone] May, [facility] [address] [id number] [address] [place] [address] Mar, [facility] [address] [id number] [address] [place] [phone] Nov, [facility] [address] [id number] [address] [place] [phone] Nov, [facility] [address] [id number] [address] [place] [address] Oct, [facility] [address] [id number] [address] [place] [phone] Sep, [facility] [address] [id number] [address] [place] [address] Aug, IMMUNIZATIONS No Known Immunizations SOCIAL HISTORY Never Assessed REASON FOR VISIT Requests return call PLAN OF CARE VITAL SIGNS MEDICATIONS No Known Medications RESULTS No Results PROCEDURES No Known procedures INSTRUCTIONS MEDICATIONS ADMINISTERED No Known Medications MEDICAL (GENERAL) HISTORY Type Description Date Surgical History section Hospitalization History childbirth
--- OUTSIDE RECORDS SUMMARY | 2019-06-24 20:13 | XMS REPORT ---
Author Author Rosalba HERNANDEZ Organization [facility] Address [address] [place] [address] Care Team Providers Care Driver Sales Name Role Phone BRIAN HERNANDEZ Unavailable PROBLEMS Type Condition ICD9-CM Code LKT86-XS Code Onset Dates Condition S tatus SNOMED Code Problem Chronic depressive disorder F32.9 Ac tive 03905909 Problem Iron deficiency anemia, unspecified D50.9 Active 53078077 Problem Elevated blood pressure affe cting in third trimester, antepartum O16.3 Active 00391943 Problem Gastro-esophageal reflux disease without esophagitis K21.9 Active 894242794 Problem Anemia complicating , unspecified trimester O99.019 Active 14636043 Problem anemia O90.81 Active 19 4162234 ALLERGIES No Information ENCOUNTERS Encounter Location Date Diagnosis [facility] [address] [place] [id number] [address] [place] [phone] Jan, [facility] [address] [place] [id number] [address] [place] [phone] Jan, [facility] [address] [place] [id number] [address] [place] [address] Jan, [facility] [address] [place] [id number] [address] [place] [address] Jan, Chronic depressive disorder F32.9 [facility] [address] [facility] [id number] [address] [place] [address] Dec, Flank pain R10.9 ; Unprotect ed sex Z72.51 ; Acute midline thoracic back pain M54.6 ; Acute vaginitis N76.0 and Other specified bacterial agents as the cause of diseases classified elsewhere B96.89 [facility] [address] [place] [id number] [address] [place] [address] Dec, Chronic depressive disorder F32.9 [facility] [address] [place] [address] Aug, Bacterial conjunctivitis H10 .9 [facility] [address] [place] [id number] [address] [place] [address] 10 Jun, 2017 Encounter for test , result unknown Z32.00 [facility] [address] [address] May, [facility] [address] [place] [id number] [place] [address] Apr, [facility] [address] [address] Apr, [facility] [address] [address] Jan, [facility] [address] [address] Jan, Screening for deficiency ane lisa Z13.0 [place] [address] [address] Jan, [facility] [address] [address] Jan, [facility] [address] [address] Dec, [facility] [address] [address] Dec, care and examinat ion Z39.2 ; control counseling Z30.09 ; Pre-eclampsia in period O14.95 ; Iron deficiency anemia, unspecified D50.9 and Anemia complicating , unspecified trimester O99.019 [facility] [address] [place] [id number] [address] [place] [address] 30 Nov, 2016 Encounter for immunization Z 23 [facility] [address] [place] [address] Nov, [place] [address] [address] Nov, Elevated blood pressure read ing R03.0 and anemia O90.81 [place] [address] [address] Nov, anemia O90.81 [place] [address] [address] Nov, Screening, deficiency anemia , iron Z13.0 [place] [address] [address] Nov, Elevated blood pressure read ing R03.0 and Gestational proteinuria in third trimester O12.13 [place] [address] [address] Nov, [place] [address] [address] Nov, 32 weeks gestation of pregna ncy Z3A.32 ; Third trimester Z34.93 and Elevated blood pressure affecting in third trimester, antepartum O16.3 [place] [address] [address] Oct, 30 weeks gestation of pregna ncy Z3A.30 ; Encounter for immunization Z23 and Third trimester Z34.93 [place] [address] [address] Oct, [facility] [address] [place] [id number] [address] [place] [address] Oct, Dysuria R30.0 [place] [address] [address] Oct, 27 weeks gestation of pregna ncy Z3A.27 ; Second trimester Z34.92 ; Gastro-esophageal reflux disease without esophagitis K21.9 and Diseases of the digestive system complicating , second trimester O99.612 [facility] [address] [id number] [address] [place] [address] Sep, Screening for deficiency ane lisa Z13.0 [facility] [address] [id number] [address] [place] [address] Sep, 23 weeks gestation of pregna ncy Z3A.23 and Second trimester Z34.92 [place] [address] [id number] [address] [place] [address] Aug, [facility] [address] [id number] [address] [place] [address] Aug, Acute cystitis without hemat uria N30.00 and Dysuria R30.0 [place] [address] [id number] [address] [place] [address] Aug, [place] [address] [facility] [id number] [address] [place] [address] Aug, 19 weeks gestation of pregna ncy Z3A.19 and Second trimester Z33.1 [place] [address] [id number] [address] [place] [address] Aug, [place] [address] [id number] [address] [place] [address] Jul, [place] [address] [id number] [address] [place] [address] Jul, 15 weeks gestation of pregna ncy Z3A.15 and Second trimester Z33.1 [facility] [address] [id number] [address] [place] [address] June, Normal in multigra edgar Z34.80 and 11 weeks gestation of Z3A.11 [facility] [address] [id number] [address] [place] [address] June, [facility] [address] [id number] [address] [place] [address] May, Vaginal discharge N89.8 and Other specified related conditions, first trimester O26.891 [facility] [address] [id number] [address] [place] [address] May, [facility] [address] [id number] [address] [place] [address] May, 6 weeks gestation of pregnan cy Z3A.01 and Normal in multigravida Z34.80 [facility] IN [facility] [address] [id number] [address] [place] [phone] 08 May, 2016 Pain of upper abdomen R10.10 and Acute vaginitis N76.0 [facility] [address] [id number] [address] [place] [address] Apr, [place] [address] [facility] [id number] [address] [place] [phone] Apr, [place] [address] [address] [facility] [id number] [address] [place] [address] Apr, Encounter for test , result unknown Z32.00 [facility] IN [facility] [address] [id number] [address] [place] [address] Apr, Pelvic pain R10.2 ; Other sp ecified bacterial agents as the cause of diseases classified elsewhere B96.89 and Acute vaginitis N76.0 [place] [address] [facility] [id number] [address] [place] [address] Dec, Encounter for test Z32.00 [facility] [address] [id number] [address] [place] [address] May, [facility] [address] [facility] [id number] [address] [place] [address] May, [facility] [address] [facility] [id number] [address] [place] [address] Mar, [facility] [address] [place] [id number] [address] [place] [phone] Nov, [facility] [address] [facility] [id number] [address] [place] [address] Nov, [facility] [address] [facility] [id number] [address] [place] [address] Oct, [facility] [address] [facility] [id number] [address] [place] [address] Sep, [facility] [address] [facility] [id number] [address] [place] [address] Aug, IMMUNIZATIONS No Known Immunizations SOCIAL HISTORY Never Assessed REASON FOR VISIT f/u PLAN OF CARE Activity Details Follow Up Next available Reason:depres nisha VITAL SIGNS MEDICATIONS Unknown Medications RESULTS No Results PROCEDURES Procedure Date Ordered Result Body Site Psychotherapy, patient and family, 45 minutes, established p atient Jan 20, 2018 INSTRUCTIONS MEDICATIONS ADMINISTERED No Known Medications MEDICAL (GENERAL) HISTORY Type Description Date Surgical History section Hospitalization History childbirth
--- OUTSIDE RECORDS SUMMARY | 2019-06-24 20:13 | XMS REPORT ---
Author Author Rosalba MAX [facility] Address [address] [place] [address] Care Team Providers Care Design Supervisor Name Role Phone GOVIND MAX Unavailable PROBLEMS Type Condition ICD9-CM Code [id number] Code Onset Dates Condition S tatus SNOMED Code Problem Gastro-esophageal reflux disease without esophagitis K21.9 Active 134372642 Problem Mood disorder F39 Active 542892 05 Problem Chronic depressive disorder F32.9 Ac tive 59826001 Problem anemia O90.81 Active 19 7518076 Problem Elevated blood pressure affe cting in third trimester, antepartum O16.3 Active 32390216 Problem Anemia complicating , unspecified trimester O99.019 Active 17006645 Problem Iron deficiency anemia, unspecified D50.9 Active 86147343 ALLERGIES No Known Allergies ENCOUNTERS Encounter Location Date Diagnosis [facility] [address] [place] [place] [id number] [place] [address] Feb, [facility] [id number] [place] [address] Jan, [facility] [id number] [place] [address] Jan, Mood disorder F39 and High r isk medication use Z79.899 [facility] [id number] [place] [address] Jan, Chronic depressive disorder F32.9 [facility] [id number] [place] [phone] Dec, Flank pain R10.9 ; Unprotect ed sex Z72.51 ; Acute midline thoracic back pain M54.6 ; Acute vaginitis N76.0 and Other specified bacterial agents as the cause of diseases classified elsewhere B96.89 [facility] [address] [facility] [id number] [address] [place] [address] Dec, Chronic depressive disorder F32.9 [facility] [address] [facility] [id number] [address] [place] [address] Aug, Bacterial conjunctivitis H10 .9 [facility] [address] [facility] [id number] [address] [place] [address] June, Encounter for test , result unknown Z32.00 [facility] [address] [facility] [id number] [address] [place] [address] May, [facility] [address] [id number] [place] [phone] Apr, [facility] [id number] [place] [address] Apr, [facility] [id number] [place] [address] Jan, [facility] [address] [place] [id number] [address] [place] [address] Jan, Screening for deficiency ane lisa Z13.0 [facility] [id number] [place] [address] Jan, [facility] [id number] [place] [address] Jan, [facility] [id number] [place] [address] Dec, [facility] [id number] [place] [address] Dec, care and examinat ion Z39.2 ; control counseling Z30.09 ; Pre-eclampsia in period O14.95 ; Iron deficiency anemia, unspecified D50.9 and Anemia complicating , unspecified trimester O99.019 [facility] [id number] [place] [address] Nov, Encounter for immunization Z 23 [facility] [address] [facility] [id number] [address] [place] [address] Nov, [facility] [address] [facility] [id number] [address] [place] [address] Nov, Elevated blood pressure read ing R03.0 and anemia O90.81 [facility] [address] [facility] [id number] [address] [place] [address] Nov, anemia O90.81 [facility] [address] [facility] [id number] [address] [place] [address] Nov, Screening, deficiency anemia , iron Z13.0 [place] [address] [facility] [id number] [address] [place] [address] Nov, Elevated blood pressure read ing R03.0 and Gestational proteinuria in third trimester O12.13 [facility] [address] [id number] [place] [address] Nov, [facility] [address] [facility] [id number] [address] [place] [address] Nov, 32 weeks gestation of pregna ncy Z3A.32 ; Third trimester Z34.93 and Elevated blood pressure affecting in third trimester, antepartum O16.3 [facility] [address] [facility] [id number] [address] [place] [address] Oct, 30 weeks gestation of pregna ncy Z3A.30 ; Encounter for immunization Z23 and Third trimester Z34.93 [facility] [address] [facility] [id number] [address] [place] [address] [address], [address] [facility] [address] [facility] [id number] [address] [place] [address] Oct, Dysuria R30.0 [facility] [address] [facility] [id number] [address] [place] [address] Oct, 27 weeks gestation of pregna ncy Z3A.27 ; Second trimester Z34.92 ; Gastro-esophageal reflux disease without esophagitis K21.9 and Diseases of the digestive system complicating , second trimester O99.612 [place] [address] [id number] [place] [address] Sep, Screening for deficiency ane lisa Z13.0 [place] [id number] [address] [place] [address] Sep, 23 weeks gestation of pregna ncy Z3A.23 and Second trimester Z34.92 [place] [address] [id number] [place] [address] Aug, [facility] [place] [id number] [place] [address] Aug, Acute cystitis without hemat uria N30.00 and Dysuria R30.0 [place] [id number] [address] [place] [address] Aug, [place] [address] [place] [id number] [address] [place] [address] Aug, 19 weeks gestation of pregna ncy Z3A.19 and Second trimester Z33.1 [place] [address] [id number] [place] [address] Aug, [place] [id number] [place] [address] Jul, [place] [address] [place] [id number] [place] [address] Jul, 15 weeks gestation of pregna ncy Z3A.15 and Second trimester Z33.1 [place] [address] [id number] [place] [address] June, Normal in multigra edgar Z34.80 and 11 weeks [address]A.11 [facility] [address] [id number] [place] [address] June, [facility] [address] [id number] [address] [place] [address] May, Vaginal discharge N89.8 and Other specified related conditions, first trimester O26.891 [facility] [address] [id number] [address] [place] [address] May, [place] [address] [facility] [id number] [address] [place] [address] May, 6 weeks gestation of pregnan cy Z3A.01 and Normal in multigravida Z34.80 [facility] [address] [id number] [address] [place] [address] May, Pain of upper abdomen R10.10 and Acute vaginitis N76.0 [place] [address] [facility] [id number] [address] [place] [address] Apr, [place] [address] [facility] [id number] [address] [place] [address] Apr, [place] [address] [facility] [id number] [address] [place] [address] Apr, Encounter for test , result unknown Z32.00 [facility] [address] [facility] [id number] [address] [place] [address] Apr, Pelvic pain R10.2 ; Other sp ecified bacterial agents as the cause of diseases classified elsewhere B96.89 and Acute vaginitis N76.0 [place] [address] [facility] [id number] [address] [place] [address] Dec, Encounter for test Z32.00 [place] [address] [facility] [id number] [address] [place] [address] May, [place] [address] [facility] [id number] [address] [place] [address] May, [place] [address] [facility] [id number] [address] [place] [address] Mar, [facility] [address] [facility] [id number] [address] [place] [address] Nov, [facility] [address] [facility] [id number] [address] [place] [address] Nov, [facility] [address] [facility] [id number] [address] [place] [address] Oct, [facility] [address] [facility] [id number] [address] [place] [address] Sep, [facility] [address] [facility] [id number] [address] [place] [address] Aug, IMMUNIZATIONS No Known Immunizations SOCIAL HISTORY Never Assessed REASON FOR VISIT bilateral flank pain that is making her nauseated et have a headache. pt reports there could be a chance for STDs. also some lower abdominal pain. denies dysuri aTerrance zaidi PLAN OF CARE Activity Details Follow Up prn Reason: VITAL SIGNS Height 65.5 in 2018-01-13 Weight 145.6 lbs 2018-01-13 Temperature 97.0 degrees Fahrenheit 2018-01-13 Heart Rate 74 bpm 2018-01-13 Respiratory Rate 20 2018-01-13 BMI 23.86 kg/m2 2018-01-13 Blood pressure systolic 126 mmHg 2018-01-13 Blood pressure diastolic 80 mmHg 2018-01-13 MEDICATIONS Medication Instructions Dosage Frequency Start Date End Date Duration S tat Flagyl 500 mg Orally 2 times a day 1 tablet 12h Dec, 7 days Active RESULTS No Results PROCEDURES Procedure Date Ordered Result Body Site URINALYSIS, AUTO, W/O SCOPE Jan 13, 2018 URINE TEST Jan 13, 2018 CULTURE, BACTERIA, OTHER Jan 13, 2018 No Charge Jan 13, 2018 Bacterial Vaginosis In House Jan 13, 2018 TRICHOMONAS ASSAY W/OPTIC Jan 13, 2018 INSTRUCTIONS MEDICATIONS ADMINISTERED No Known Medications MEDICAL (GENERAL) HISTORY Type Description Date Medical History gestational HTN, pre-eclampsia Surgical History section Hospitalization History childbirth
--- OUTSIDE RECORDS SUMMARY | 2019-06-24 20:13 | XMS REPORT ---
Author Author Rosalba HEREDIA Organization [facility] Address [address] [place] [address] Care Team Providers Care Child Protective Investigator Name Role Phone ALBERT HEREDIA Unavailable PROBLEMS Type Condition ICD9-CM Code [id number] Code Onset Dates Condition S tatus SNOMED Code Problem Iron deficiency anemia, unspecified D50.9 Active 04766184 Problem Anemia complicating , unspecified trimester O99.019 Active 91638118 Problem Gastro-esophageal reflux disease without esophagitis K21.9 Active 664760999 Problem anemia O90.81 Active 19 3837818 Problem Elevated blood pressure affe cting in third trimester, antepartum O16.3 Active 92009637 ALLERGIES No Information ENCOUNTERS Encounter Location Date Diagnosis [facility] [address] [facility] [id number] [address] [place] [address] Aug, Bacterial conjunctivitis H10 .9 [facility] [id number] [place] [address] June, Encounter for test , result unknown Z32.00 [facility] [address] [place] [id number] [address] [place] [address] May, [facility] [address] [place] [address] Apr, [facility] [address] [place] [id number] [address] [place] [address] Apr, [facility] [address] [place] [id number] [address] [place] [address] Jan, [facility] [address] [address] [id number] [place] [address] Jan, Screening for deficiency ane lisa Z13.0 [place] [address] [place] [id number] [place] [address] Jan, [place] [address] [address] Jan, [place] [address] [place] [id number] [address] [place] [address] Dec, [place] [address] [address] Dec, care and examinat ion Z39.2 ; control counseling Z30.09 ; Pre-eclampsia in period O14.95 ; Iron deficiency anemia, unspecified D50.9 and Anemia complicating , unspecified trimester O99.019 [place] [address] [place] [id number] [address] [place] [address] Nov, Encounter for immunization Z 23 [place] [address] [address] Nov, [place] [address] [address] Nov, Elevated blood pressure read ing R03.0 and anemia O90.81 [place] [address] [place] [id number] [place] [address] Nov, anemia O90.81 [place] [address] [place] [address] Nov, Screening, deficiency anemia , iron Z13.0 [place] [address] [place] [id number] [place] [address] Nov, Elevated blood pressure read ing R03.0 and Gestational proteinuria in third trimester O12.13 [place] [address] [place] [id number] [place] [address] Nov, [place] [address] [place] [id number] [place] [address] Nov, 32 weeks gestation of pregna ncy Z3A.32 ; Third trimester Z34.93 and Elevated blood pressure affecting in third trimester, antepartum O16.3 [place] [address] [address] 21 Oct, 2016 30 weeks gestation of pregna ncy Z3A.30 ; Encounter for immunization Z23 and Third trimester Z34.[address] [address] 14 Oct, 2016 [facility] [address] [address] 13 Oct, 2016 Dysuria R30.[address] [address] 05 Oct, 2016 27 weeks gestation of pregna ncy Z3A.27 ; Second trimester Z34.92 ; Gastro-esophageal reflux disease without esophagitis K21.9 and Diseases of the digestive system complicating , second trimester O99.612 [place] [address] [address] Sep, Screening for deficiency ane lisa Z13.[address] [address] Sep, 23 weeks gestation of pregna ncy Z3A.23 and Second trimester Z34.[address] [address] Aug, [facility] [address] [address] Aug, Acute cystitis without hemat uria N30.00 and Dysuria R30.[address] [address] Aug, [place] [address] [address] Aug, 19 weeks gestation of pregna ncy Z3A.19 and Second trimester Z33.1 [place] [address] [id number] [address] [place] [address] Aug, [facility] [place] [address] [id number] [address] [place] [address] Jul, [facility] [address] [id number] [address] [place] [address] Jul, 15 weeks gestation of pregna ncy Z3A.15 and Second trimester Z33.1 [facility] [place] [address] [id number] [address] [place] [address] June, Normal in multigra edgar Z34.80 and 11 weeks gestation of Z3A.11 [facility] [place] [address] [facility] [id number] [address] [place] [address] June, [facility] [place] [address] [facility] [id number] [address] [place] [address] May, Vaginal discharge N89.8 and Other specified related conditions, first trimester O26.891 [place] [address] [facility] [id number] [address] [place] [address] May, [place] [address] [facility] [id number] [address] [place] [address] 12 May, 2016 6 weeks gestation of pregnan cy Z3A.01 and Normal in multigravida Z34.80 [facility] [address] [facility] [id number] [address] [place] [address] May, Pain of upper abdomen R10.10 and Acute vaginitis N76.0 [place] [address] [id number] [address] [place] [address] Apr, [place] [address] [facility] [id number] [address] [place] [address] Apr, [facility] [address] [facility] [id number] [address] [place] [address] Apr, Encounter for test , result unknown Z32.00 [facility] [address] [id number] [address] [place] [address] Apr, Pelvic pain R10.2 ; Other sp ecified bacterial agents as the cause of diseases classified elsewhere B96.89 and Acute vaginitis N76.0 [facility] [place] [address] [id number] [address] [place] [phone] 17 Dec, 2015 Encounter for test Z32.00 [facility] [place] [address] [id number] [address] [place] [address] 14 May, 2014 [facility] [place] [address] [id number] [address] [place] [address] May, [facility] [place] [address] [id number] [address] [place] [address] Mar, [facility] [place] [address] [id number] [address] [place] [address] Nov, [facility] [place] [address] [id number] [address] [place] [address] Nov, [facility] [place] [address] [id number] [address] [place] [address] Oct, [facility] [place] [address] [id number] [address] [place] [address] Sep, [facility] [place] [address] [id number] [address] [place] [address] Aug, IMMUNIZATIONS No Known Immunizations SOCIAL HISTORY Never Assessed REASON FOR VISIT Samples PLAN OF CARE VITAL SIGNS MEDICATIONS Medication Instructions Dosage Frequency Start Date End Date Duration S tatus NuvaRing 0.12-0.015 MG/24HR 1 ring Apr, 60 days Active RESULTS No Results PROCEDURES No Known procedures INSTRUCTIONS MEDICATIONS ADMINISTERED No Known Medications MEDICAL (GENERAL) HISTORY Type Description Date Surgical History section Hospitalization History childbirth
--- OUTSIDE RECORDS SUMMARY | 2019-06-24 20:13 | XMS REPORT ---
Author Author Rosalba HERNANDEZ Organization [facility] Address [address] [place] [address] Care Team Providers Care Costume Shop Coordinator Name Role Phone BRIAN HERNANDEZ Unavailable PROBLEMS Type Condition ICD9-CM Code [id number] Code Onset Dates Condition S tatus SNOMED Code Problem Chronic depressive disorder F32.9 Ac tive 21285796 Problem Iron deficiency anemia, unspecified D50.9 Active 97431167 Problem Elevated blood pressure affe cting in third trimester, antepartum O16.3 Active 13935814 Problem Gastro-esophageal reflux disease without esophagitis K21.9 Active 303560184 Problem Anemia complicating , unspecified trimester O99.019 Active 29920171 Problem anemia O90.81 Active 19 [id number] ALLERGIES No Information ENCOUNTERS Encounter Location Date Diagnosis [facility] [address] [facility] [id number] [address] [place] [phone] Jan, [facility] [address] [facility] [id number] [address] [place] [address] Jan, [facility] [address] [facility] [id number] [address] [place] [address] Dec, Chronic depressive disorder F32.9 [facility] [address] [facility] [id number] [address] [place] [address] Aug, Bacterial conjunctivitis H10 .9 [facility] [address] [facility] [id number] [address] [place] [address] June, Encounter for test , result unknown Z32.00 [facility] [address] [facility] [id number] [address] [place] [address] May, [facility] [address] [facility] [id number] [address] [place] [address] Apr, [facility] [address] [place] [id number] [address] [place] [address] Apr, [facility] [address] [address] Jan, [facility] [address] [address] Jan, Screening for deficiency ane lisa Z13.0 [place] [address] [address] Jan, [place] [address] [address] Jan, [place] [address] [address] Dec, [place] [address] [address] Dec, care and examinat ion Z39.2 ; control counseling Z30.09 ; Pre-eclampsia in period O14.95 ; Iron deficiency anemia, unspecified D50.9 and Anemia complicating , unspecified trimester O99.019 [place] [address] [address] [place] [id number] [address] [place] [address] Nov, Encounter for immunization Z 23 [place] [address] [address] Nov, [place] [address] [address] Nov, Elevated blood pressure read ing R03.0 and anemia O90.81 [place] [address] [address] Nov, anemia O90.81 [place] [address] [place] [id number] [address] [place] [address] Nov, Screening, deficiency anemia , iron Z13.0 [place] [address] [address] [place] [id number] [place] [phone] 09 Nov, 2016 Elevated blood pressure read ing R03.0 and Gestational proteinuria in third trimester O12.13 [place] [address] [address] [place] [id number] [address] [place] [address] 09 Nov, 2016 [place] [address] [place] [id number] [address] [place] [address] Nov, 32 weeks gestation of pregna ncy Z3A.32 ; Third trimester Z34.93 and Elevated blood pressure affecting in third trimester, antepartum O16.3 [place] [address] [address] [place] [id number] [address] [place] [address] Oct, 30 weeks gestation of pregna ncy Z3A.30 ; Encounter for immunization Z23 and Third trimester Z34.93 [place] [address] [address] Oct, [facility] N [address] [place] [address] Oct, Dysuria R30.0 [place] [address] [address] Oct, 27 weeks gestation of pregna ncy Z3A.27 ; Second trimester Z34.92 ; Gastro-esophageal reflux disease without esophagitis K21.9 and Diseases of the digestive system complicating , second trimester O99.612 [place] [address] [address] [place] [id number] [address] [place] [address] Sep, Screening for deficiency ane lisa Z13.0 [place] [address] [facility] [id number] [address] [place] [address] Sep, 23 weeks gestation of pregna ncy Z3A.23 and Second trimester Z34.92 [place] [address] [facility] [id number] [address] [place] [address] Aug, [facility] [address] [place] [id number] [address] [place] [address] Aug, Acute cystitis without hemat uria N30.00 and Dysuria R30.0 [facility] [address] [id number] [address] [place] [address] Aug, [facility] [address] [id number] [address] [place] [address] Aug, 19 weeks gestation of pregna ncy Z3A.19 and Second trimester Z33.1 [facility] [address] [id number] [address] [place] [phone] Aug, [facility] [address] [id number] [address] [place] [address] Jul, [facility] [address] [facility] [id number] [address] [place] [phone] Jul, 15 weeks gestation of pregna ncy Z3A.15 and Second trimester Z33.1 [place] [address] [facility] [id number] [address] [place] [address] June, Normal in multigra edgar Z34.80 and 11 weeks gestation of Z3A.11 [facility] [address] [facility] [id number] [address] [place] [phone] June, [facility] [address] [facility] [id number] [address] [place] [address] May, Vaginal discharge N89.8 and Other specified related conditions, first trimester O26.891 [facility] [address] [id number] [address] [place] [address] May, [facility] [address] [facility] [id number] [address] [place] [phone] 12 May, 2016 6 weeks gestation of pregnan cy Z3A.01 and Normal in multigravida Z34.80 [facility] [address] [facility] [id number] [address] [place] [phone] 08 May, 2016 Pain of upper abdomen R10.10 and Acute vaginitis N76.0 [facility] [address] [id number] [address] [place] [phone] Apr, [facility] [address] [id number] [address] [place] [address] Apr, [facility] [address] [id number] [address] [place] [address] Apr, Encounter for test , result unknown Z32.00 [facility] [address] [id number] [address] [place] [address] 12 Apr, 2016 Pelvic pain R10.2 ; Other sp ecified bacterial agents as the cause of diseases classified elsewhere B96.89 and Acute vaginitis N76.0 [facility] [address] [id number] [address] [place] [phone] 17 Dec, 2015 Encounter for test Z32.00 [facility] [address] [id number] [address] [place] [phone] 14 May, 2014 [facility] [address] [id number] [address] [place] [address] May, [facility] [address] [id number] [address] [place] [phone] Mar, [facility] [address] [id number] [address] [place] [phone] Nov, [facility] [address] [id number] [address] [place] [phone] Nov, [facility] [address] [id number] [address] [place] [phone] Oct, [facility] [address] [id number] [address] [place] [phone] Sep, [facility] [address] [id number] [address] [place] [phone] Aug, IMMUNIZATIONS No Known Immunizations SOCIAL HISTORY Never Assessed REASON FOR VISIT Intake PLAN OF CARE Activity Details Follow Up next available Reason:roberth cameron VITAL SIGNS MEDICATIONS Unknown Medications RESULTS No Results PROCEDURES Procedure Date Ordered Result Body Site Psychotherapy, patient &/family, 45 minutes, established patient Jan 06, 2018 INSTRUCTIONS MEDICATIONS ADMINISTERED No Known Medications MEDICAL (GENERAL) HISTORY Type Description Date Surgical History section Hospitalization History childbirth
--- OUTSIDE RECORDS SUMMARY | 2019-06-24 20:13 | XMS REPORT ---
Author Author Rosalba HEREDIA Organization [facility] Address [address] [place] [address] Care Team Providers Care Diagnostic Sales Specialist Name Role Phone ALBERT HEREDIA Unavailable PROBLEMS Type Condition ICD9-CM Code [id number] Code Onset Dates Condition S tatus SNOMED Code Problem Iron deficiency anemia, unspecified D50.9 Active 45647732 Problem Anemia complicating , unspecified trimester O99.019 Active 70331403 Problem Gastro-esophageal reflux disease without esophagitis K21.9 Active 873043957 Problem anemia O90.81 Active 19 0776609 Problem Elevated blood pressure affe cting in third trimester, antepartum O16.3 Active 50267378 ALLERGIES No Information ENCOUNTERS Encounter Location Date Diagnosis [facility] [address] [facility] [id number] [address] [place] [address] Aug, Bacterial conjunctivitis H10 .9 [facility] [address] [place] [address] June, Encounter for test , result unknown Z32.00 [facility] [address] [place] [id number] [address] [place] [phone] May, [facility] [address] [place] [address] Apr, [facility] [address] [place] [id number] [address] [place] [phone] Apr, [facility] [address] [place] [id number] [address] [place] [phone] Jan, [facility] [address] [place] [id number] [address] [place] [phone] Jan, Screening for deficiency ane lisa Z13.0 [place] [address] [place] [id number] [address] [place] [phone] Jan, [place] [address] [address] Jan, [place] [address] [place] [id number] [address] [place] [address] Dec, [place] [address] [address] Dec, care and examinat ion Z39.2 ; control counseling Z30.09 ; Pre-eclampsia in period O14.95 ; Iron deficiency anemia, unspecified D50.9 and Anemia complicating , unspecified trimester O99.019 [place] [address] [place] [id number] [address] [place] [phone] Nov, Encounter for immunization Z 23 [place] [address] [address] Nov, [place] [address] [address] Nov, Elevated blood pressure read ing R03.0 and anemia O90.81 [place] [address] [place] [id number] [address] [place] [address] Nov, anemia O90.81 [place] [address] [place] [address] Nov, Screening, deficiency anemia , iron Z13.0 [place] [address] [place] [id number] [address] [place] [address] Nov, Elevated blood pressure read ing R03.0 and Gestational proteinuria in third trimester O12.13 [place] [address] [place] [id number] [address] [place] [address] Nov, [place] [address] [place] [id number] [address] [place] [phone] Nov, 32 weeks gestation of pregna ncy Z3A.32 ; Third trimester Z34.93 and Elevated blood pressure affecting in third trimester, antepartum O16.3 [place] [address] [address] 21 Oct, 2016 30 weeks gestation of pregna ncy Z3A.30 ; Encounter for immunization Z23 and Third trimester Z34.[address] [address] 14 Oct, 2016 [facility] [address] [address] 13 Oct, 2016 Dysuria R30.[address] [address] 05 Oct, 2016 27 weeks gestation of pregna ncy Z3A.27 ; Second trimester Z34.92 ; Gastro-esophageal reflux disease without esophagitis K21.9 and Diseases of the digestive system complicating , second trimester O99.612 [place] [address] [address] Sep, Screening for deficiency ane lisa Z13.[address] [address] Sep, 23 weeks gestation of pregna ncy Z3A.23 and Second trimester Z34.[address] [address] Aug, [facility] [address] [address] Aug, Acute cystitis without hemat uria N30.00 and Dysuria R30.[address] [address] Aug, [place] [address] [address] Aug, 19 weeks gestation of pregna ncy Z3A.19 and Second trimester Z33.1 [place] [address] [id number] [address] [place] [address] Aug, [facility] [address] [id number] [address] [place] [phone] Jul, [facility] [address] [id number] [address] [place] [phone] Jul, 15 weeks gestation of pregna ncy Z3A.15 and Second trimester Z33.1 [facility] [address] [id number] [address] [place] [address] June, Normal in multigra edgar Z34.80 and 11 weeks gestation of Z3A.11 [facility] [place] [address] [facility] [id number] [address] [place] [phone] June, [facility] [place] [address] [facility] [id number] [address] [place] [address] May, Vaginal discharge N89.8 and Other specified related conditions, first trimester O26.891 [place] [address] [facility] [id number] [address] [place] [phone] May, [place] [address] [facility] [id number] [address] [place] [phone] 12 May, 2016 6 weeks gestation of pregnan cy Z3A.01 and Normal in multigravida Z34.80 [facility] [address] [facility] [id number] [address] [place] [phone] May, Pain of upper abdomen R10.10 and Acute vaginitis N76.0 [place] [address] [id number] [address] [place] [phone] Apr, [place] [address] [facility] [id number] [address] [place] [phone] Apr, [facility] [address] [facility] [id number] [address] [place] [phone] Apr, Encounter for test , result unknown Z32.00 [facility] [address] [id number] [address] [place] [address] Apr, Pelvic pain R10.2 ; Other sp ecified bacterial agents as the cause of diseases classified elsewhere B96.89 and Acute vaginitis N76.0 [facility] [address] [id number] [address] [place] [phone] Dec, Encounter for test Z32.00 [facility] [address] [id number] [address] [place] [phone] May, [facility] [address] [id number] [address] [place] [phone] May, [facility] [address] [id number] [address] [place] [phone] Mar, [facility] [address] [id number] [address] [place] [phone] Nov, [facility] [address] [id number] [address] [place] [phone] Nov, [facility] [address] [id number] [address] [place] [phone] Oct, [facility] [address] [id number] [address] [place] [phone] Sep, [facility] [address] [id number] [address] [place] [phone] Aug, IMMUNIZATIONS No Known Immunizations SOCIAL HISTORY Never Assessed REASON FOR VISIT control PLAN OF CARE VITAL SIGNS MEDICATIONS Medication Instructions Dosage Frequency Start Date End Date Duration S tatus NuvaRing 0.12-0.015 MG/24HR 1 ring Apr, Active RESULTS No Results PROCEDURES No Known procedures INSTRUCTIONS MEDICATIONS ADMINISTERED No Known Medications MEDICAL (GENERAL) HISTORY Type Description Date Surgical History section Hospitalization History childbirth
--- OUTSIDE RECORDS SUMMARY | 2019-06-24 20:13 | XMS REPORT ---
Author Author Rosalba ZAPATA Organization [facility] Address [address] [place] [address] Care Team Providers Care Cloth Boil Off Machine Operator Name Role Phone JACOBO ZAPATA Unavailable PROBLEMS Type Condition ICD9-CM Code ZYL66-EW Code Onset Dates Condition S tatus SNOMED Code Problem Iron deficiency anemia, unspecified D50.9 Active 12423409 Problem Anemia complicating , unspecified trimester O99.019 Active 01595723 Problem Gastro-esophageal reflux disease without esophagitis K21.9 Active 331984724 Problem anemia O90.81 Active 19 5484901 Problem Elevated blood pressure affe cting in third trimester, antepartum O16.3 Active [id number] ALLERGIES No Known Allergies ENCOUNTERS Encounter Location Date Diagnosis [facility] [address] [place] [id number] [address] [place] [address] Aug, Bacterial conjunctivitis H10 .9 [place] [address] [place] [id number] [place] [address] June, Encounter for test , result unknown Z32.00 [place] [address] [place] [id number] [address] [place] [address] May, [place] [address] [place] [id number] [place] [address] Apr, [facility] [address] [id number] [address] [place] [address] Apr, [place] [address] [place] [id number] [place] [address] Jan, [facility] [address] [place] [id number] [address] [place] [address] Jan, Screening for deficiency ane lisa Z13.0 [place] [address] [place] [address] 14 Jan, 2017 [place] [address] [address] Jan, [place] [address] [place] [id number] [address] [place] [address] Dec, [place] [address] [address] Dec, care and examinat ion Z39.2 ; control counseling Z30.09 ; Pre-eclampsia in period O14.95 ; Iron deficiency anemia, unspecified D50.9 and Anemia complicating , unspecified trimester O99.019 [place] [address] [place] [id number] [place] [address] Nov, Encounter for immunization Z 23 [place] [address] [address] Nov, [place] [address] [address] Nov, Elevated blood pressure read ing R03.0 and anemia O90.81 [place] [address] [place] [id number] [place] [address] Nov, anemia O90.81 [place] [address] [place] [id number] [place] [address] Nov, Screening, deficiency anemia , iron Z13.0 [place] [address] [place] [id number] [address] [place] [address] Nov, Elevated blood pressure read ing R03.0 and Gestational proteinuria in third trimester O12.13 [place] [address] [place] [id number] [address] [place] [address] Nov, [place] [address] [place] [id number] [address] [place] [address] Nov, 32 weeks gestation of pregna ncy Z3A.32 ; Third trimester Z34.93 and Elevated blood pressure affecting in third trimester, antepartum O16.3 [place] [address] [address] 21 Oct, 2016 30 weeks gestation of pregna ncy Z3A.30 ; Encounter for immunization Z23 and Third trimester Z34.[address] [address] 14 Oct, 2016 [facility] [address] [address] 13 Oct, 2016 D[address]uria [address] [address] 05 Oct, 2016 27 weeks gestation of pregna ncy Z3A.27 ; Second trimester Z34.92 ; Gastro-esophageal reflux disease without esophagitis K21.9 and Diseases of the digestive system complicating , second trimester O99.[address] [address] Sep, Screening for deficiency ane lisa Z13.[address] [address] Sep, 23 weeks gestation of pregna ncy Z3A.23 and Second trimester Z34.[address] [address] Aug, [facility] [address] [address] Aug, Acute cystitis without hemat uria N30.00 and Dysuria R30.[address] [address] Aug, [address] [address] Aug, 19 weeks gestation of pregna ncy Z3A.19 and Second trimester Z33.1 [facility] [address] [id number] [address] [place] [address] Aug, [facility] [address] [id number] [address] [place] [address] Jul, [place] [address] [id number] [address] [place] [address] Jul, 15 weeks gestation of pregna ncy Z3A.15 and Second trimester Z33.1 [facility] [address] [id number] [address] [place] [address] June, Normal in multigra edgar Z34.80 and 11 weeks gestation of Z3A.11 [facility] [address] [facility]NOTE 3] [id number] [address] [place] [address] June, [facility] [place] [address] [address] [facility] 3] [id number] [address] [place] [address] May, Vaginal discharge N89.8 and Other specified related conditions, first trimester O26.891 [place] [address] [id number] [address] [place] [address] May, [place] [address] [facility] [id number] [address] [place] [address] 12 May, 2016 6 weeks gestation of pregnan cy Z3A.01 and Normal in multigravida Z34.80 [facility] [address] [facility]] [id number] [address] [place] [address] 08 May, 2016 Pain of upper abdomen R10.10 and Acute vaginitis N76.0 [place] [address] [id number] [address] [place] [address] Apr, [place] [address] [facility]] [id number] [address] [place] [address] Apr, [facility] [address] [facility]] [id number] [address] [place] [address] Apr, Encounter for test , result unknown Z32.00 [facility] [address] [id number] [address] [place] [address] Apr, Pelvic pain R10.2 ; Other sp ecified bacterial agents as the cause of diseases classified elsewhere B96.89 and Acute vaginitis N76.0 [facility] [address] [id number] [address] [place] [address] 17 Dec, 2015 Encounter for test Z32.00 [facility] [address] [id number] [address] [place] [address] 14 May, 2014 [facility] [address] [id number] [address] [place] [address] May, [facility] [address] [id number] [address] [place] [address] Mar, [facility] [address] [id number] [address] [place] [address] Nov, [facility] [address] [id number] [address] [place] [address] Nov, [facility] [address] [id number] [address] [place] [address] Oct, [facility] [address] [id number] [address] [place] [address] Sep, [facility] [address] [facility] [id number] [address] [place] [address] Aug, IMMUNIZATIONS No Known Immunizations SOCIAL HISTORY Never Assessed REASON FOR VISIT swollen eye, pain and redness x 4 days. Also is watering with matter.--GISSELLE Sandoval PLAN OF CARE Activity Details Follow Up 1 Week, prn Reason:if sympto ms worsen or not improving VITAL SIGNS Height 65.5 in 2017-08-28 Weight 152 lbs 2017-08-28 Temperature 97.4 degrees Fahrenheit 2017-08-28 Heart Rate 76 bpm 2017-08-28 Respiratory Rate 18 2017-08-28 BMI 24.91 kg/m2 2017-08-28 Blood pressure systolic 128 mmHg 2017-08-28 Blood pressure diastolic 84 mmHg 2017-08-28 MEDICATIONS Medication Instructions Dosage Frequency Start Date End Date Duration S tatus Gentamicin Sulfate 0.3 % Ophthalmic every 4 hrs 1 drop into affecte d eye 4h Aug, 07 days Active Labetalol HCl 100 mg Orally Twice a day 1 tablet 12h 30 days Active Zoloft 25 MG Orally Once a day 1/2 tablet for the f irst 7 days then switch to 1 tablet daily 24h Jan, 30 day(s) Active NuvaRing 0.12-0.015 MG/24HR 1 ring Apr, Active Ranitidine HCl 150 MG Orally Once a day 1 tablet at bedtime 24h Oct, 30 day(s) Active Benadryl Active RESULTS No Results PROCEDURES No Known procedures INSTRUCTIONS MEDICATIONS ADMINISTERED No Known Medications MEDICAL (GENERAL) HISTORY Type Description Date Surgical History section Hospitalization History childbirth
--- OUTSIDE RECORDS SUMMARY | 2019-06-24 20:13 | XMS REPORT ---
Author Author Rosalba HEREDIA Organization [facility] Address [address] [place] [address] Care Team Providers Care Molder Floor Name Role Phone ALBERT HEREDIA Unavailable PROBLEMS Type Condition ICD9-CM Code KXI24-XJ Code Onset Dates Condition S tatus SNOMED Code Problem Iron deficiency anemia, unspecified D50.9 Active 97392080 Problem Anemia complicating , unspecified trimester O99.019 Active 07440679 Problem Gastro-esophageal reflux disease without esophagitis K21.9 Active 614059117 Problem anemia O90.81 Active 19 1776762 Problem Elevated blood pressure affe cting in third trimester, antepartum O16.3 Active 23805946 ALLERGIES No Known Allergies ENCOUNTERS Encounter Location Date Diagnosis [facility] [address] [facility] [id number] [address] [place] [address] Aug, Bacterial conjunctivitis H10 .9 [facility] [address] [facility] [id number] [address] [place] [address] June, Encounter for test , result unknown Z32.00 [facility] [address] [facility] [id number] [address] [place] [address] May, [facility] [address] [place] [id number] [address] [place] [address] Apr, [facility] [address] [place] [id number] [address] [place] [address] Apr, [facility] [address] [place] [id number] [address] [place] [address] Jan, [facility] [address] [place] [id number] [address] [place] [address] Jan, Screening for deficiency ane lisa Z13.0 [place] [address] [place] [id number] [address] [place] [address] Jan, [place] [address] [address] Jan, [place] [address] [place] [id number] [address] [place] [address] Dec, [place] [address] [address] Dec, care and examinat ion Z39.2 ; control counseling Z30.09 ; Pre-eclampsia in period O14.95 ; Iron deficiency anemia, unspecified D50.9 and Anemia complicating , unspecified trimester O99.019 [place] [address] [place] [id number] [address] [place] [address] Nov, Encounter for immunization Z 23 [place] [address] [address] Nov, [place] [address] [address] Nov, Elevated blood pressure read ing R03.0 and anemia O90.81 [place] [address] [place] [id number] [address] [place] [address] Nov, anemia O90.81 [place] [address] [place] [id number] [address] [place] [address] Nov, Screening, deficiency anemia , iron Z13.0 [place] [address] [place] [id number] [address] [place] [phone] Nov, Elevated blood pressure read ing R03.0 and Gestational proteinuria in third trimester O12.13 [place] [address] [place] [id number] [address] [place] [address] Nov, [place] [address] [place] [id number] [address] [place] [address] Nov, 32 weeks gestation of pregna ncy Z3A.32 ; Third trimester Z34.93 and Elevated blood pressure affecting in third trimester, antepartum O16.3 [place] [address] [address] 21 Oct, 2016 30 weeks gestation of pregna ncy Z3A.30 ; Encounter for immunization Z23 and Third trimester Z34.[address] [address] 14 Oct, [address] [facility] [address] [address] 13 Oct, 2016 Dysuria R30.[address] [address] 05 Oct, 2016 27 weeks gestation of pregna ncy Z3A.27 ; Second trimester Z34.92 ; Gastro-esophageal reflux disease without esophagitis K21.9 and Diseases of the digestive system complicating , second trimester O99.612 [place] [address] [address] Sep, Screening for deficiency ane lisa Z13.[address] [address] Sep, 23 weeks gestation of pregna ncy Z3A.23 and Second trimester Z34.[address] [address] Aug, [facility] [address] [address] Aug, Acute cystitis without hemat uria N30.00 and Dysuria R30.[address] [address] Aug, [place] [address] [address] Aug, 19 weeks gestation of pregna ncy Z3A.19 and Second trimester Z33.1 [facility] [address] [id number] [address] [place] [address] Aug, [facility] [address] [facility] [id number] [address] [place] [phone] Jul, [facility] [address] [facility] [id number] [address] [place] [address] Jul, 15 weeks gestation of pregna ncy Z3A.15 and Second trimester Z33.1 [facility] [address] [facility] [id number] [address] [place] [address] June, Normal in multigra edgar Z34.80 and 11 weeks gestation of Z3A.11 [facility] [address] [facility] [id number] [address] [place] [address] June, [facility] [place] [address] [facility] [id number] [address] [place] [address] May, Vaginal discharge N89.8 and Other specified related conditions, first trimester O26.891 [facility] [address] [facility] [id number] [address] [place] [address] May, [place] [address] [facility] [id number] [address] [place] [address] 12 May, 2016 6 weeks gestation of pregnan cy Z3A.01 and Normal in multigravida Z34.80 [facility] [address] [facility] [id number] [address] [place] [address] May, Pain of upper abdomen R10.10 and Acute vaginitis N76.0 [facility] [address] [id number] [address] [place] [address] Apr, [facility] [address] [facility] [id number] [address] [place] [address] Apr, [facility] [address] [facility] [id number] [address] [place] [address] Apr, Encounter for test , result unknown Z32.00 [facility] [address] [id number] [address] [place] [address] 12 Apr, 2016 Pelvic pain R10.2 ; Other sp ecified bacterial agents as the cause of diseases classified elsewhere B96.89 and Acute vaginitis N76.0 [facility] [address] [id number] [address] [place] [address] 17 Dec, 2015 Encounter for test Z32.00 [facility] [address] [id number] [address] [place] [id number] 14 May, 2014 [facility] [address] [id number] [address] [place] [phone] May, [facility] [address] [id number] [address] [place] [phone] Mar, [facility] [address] [id number] [address] [place] [phone] Nov, [facility] [address] [id number] [address] [place] [phone] Nov, [facility] [address] [id number] [address] [place] [phone] Oct, [facility] [address] [id number] [address] [place] [phone] Sep, [facility] [address] [id number] [address] [place] [phone] Aug, IMMUNIZATIONS No Known Immunizations SOCIAL HISTORY Never Assessed REASON FOR VISIT OB---tcuppettRN PLAN OF CARE Activity Details Follow Up 3 Months with Gault blood pr essure check Reason: VITAL SIGNS Height 65.5 in 2017-01-08 Weight 161.6 lbs 2017-01-08 Temperature 98.2 degrees Fahrenheit 2017-01-08 Heart Rate 84 bpm 2017-01-08 Respiratory Rate 18 2017-01-08 BMI 26.48 kg/m2 2017-01-08 Blood pressure systolic 130 mmHg 2017-01-08 Blood pressure diastolic 88 mmHg 2017-01-08 MEDICATIONS Medication Instructions Dosage Frequency Start Date End Date Duration S tatus Ranitidine HCl 150 MG Orally Once a day 1 tablet at bedtime 24h 05 Oct, 2016 30 day(s) Not-Taking Flintstones Gummies Complete - Not-Taking Benadryl Not-Taking Ferrous Sulfate 325 (65 Fe) MG Orally Once a day 1 tablet 24h 2 3 Nov, 2016 30 day(s) Active Cephalexin 500 MG Orally every 12 hrs 1 capsule 12h Not-Taking Twyla by Oral route Sep, Not-T aking Abilify 5 mg 1 tablet by Oral route 1 time per day 15 Oc 2011 Not-Taking Vitamins 0.8 MG Orally Once a day 1 tablet 24h Not-Taking Labetalol HCl 100 mg Orally Twice a day 1 tablet 12h 30 days Active Ortho Tri-Cyclen (28) 0.18/0.215/0.25 MG-35 MCG Orally Once a day 1 tablet 24h Dec, 28 day(s) Active RESULTS Name Result Date Reference Range TEST, URINE (IN HOUSE) 2017-01-08 RESULTS Negative Lot # [id number] Control + Exp date 05/18/18 PROCEDURES Procedure Date Ordered Result Body Site URINE TEST Jan 08, 2017 INSTRUCTIONS MEDICATIONS ADMINISTERED No Known Medications MEDICAL (GENERAL) HISTORY Type Description Date Surgical History section Hospitalization History childbirth
--- OUTSIDE RECORDS SUMMARY | 2019-06-24 20:13 | XMS REPORT ---
Author Author Rosalba ACOSTA Organization [facility] Address [address] [place] [address] Care Team Providers Care Radiation Technician Name Role Phone JOSR ACSOTA Unavailable PROBLEMS Type Condition ICD9-CM Code EOC37-AT Code Onset Dates Condition S tatus SNOMED Code Problem Gastro-esophageal reflux disease without esophagitis K21.9 Active 489903509 Problem Mood disorder F39 Active 535739 05 Problem Chronic depressive disorder F32.9 Ac tive 22537466 Problem anemia O90.81 Active 19 8647812 Problem Elevated blood pressure affe cting in third trimester, antepartum O16.3 Active 89634338 Problem Anemia complicating , unspecified trimester O99.019 Active 54989335 Problem Iron deficiency anemia, unspecified D50.9 Active 48002177 ALLERGIES No Known Allergies ENCOUNTERS Encounter Location Date Diagnosis [facility] [address] [place] [id number] [address] [place] [phone] Feb, [facility] [address] [id number] [address] [place] [phone] Jan, [facility] [address] [id number] [address] [place] [phone] Jan, Mood disorder F39 and High r isk medication use Z79.899 [facility] [address] [facility] [id number] [address] [place] [phone] Jan, Chronic depressive disorder F32.9 [facility] [address] [facility] [id number] [address] [place] [phone] Dec, Flank pain R10.9 ; Unprotect ed sex Z72.51 ; Acute midline thoracic back pain M54.6 ; Acute vaginitis N76.0 and Other specified bacterial agents as the cause of diseases classified elsewhere B96.89 [facility] [address] [facility] [id number] [address] [place] [phone] Dec, Chronic depressive disorder F32.9 [facility] [address] [facility] [id number] [address] [place] [phone] Aug, Bacterial conjunctivitis H10 .9 [facility] [address] [facility] [id number] [address] [place] [phone] June, Encounter for test , result unknown Z32.00 [facility] [address] [facility] [id number] [address] [place] [phone] May, [facility] [address] [place] [id number] [address] [place] [phone] Apr, [facility] [address] [place] [id number] [address] [place] [phone] Apr, [facility] [address] [id number] [address] [place] [phone] Jan, [facility] [address] [place] [id number] [address] [place] [phone] Jan, Screening for deficiency ane lisa Z13.0 [facility] [address] [id number] [address] [place] [phone] Jan, [facility] [address] [place] [id number] [address] [place] [phone] Jan, [facility] [address] [id number] [address] [place] [phone] Dec, [facility] [address] [place] [id number] [address] [place] [id number] Dec, care and examinat ion Z39.2 ; control counseling Z30.09 ; Pre-eclampsia in period O14.95 ; Iron deficiency anemia, unspecified D50.9 and Anemia complicating , unspecified trimester O99.019 [facility] [address] [id number] [address] [place] [phone] Nov, Encounter for immunization Z 23 [facility] [address] [facility] [id number] [address] [place] [phone] Nov, [facility] [address] [facility] [id number] [address] [place] [phone] Nov, Elevated blood pressure read ing R03.0 and anemia O90.81 [facility] [address] [facility] [id number] [address] [place] [address] Nov, anemia O90.81 [facility] [address] [facility] [id number] [address] [place] [phone] Nov, Screening, deficiency anemia , iron Z13.0 [place] [address] [facility] [id number] [address] [place] [phone] Nov, Elevated blood pressure read ing R03.0 and Gestational proteinuria in third trimester O12.13 [facility] [address] [place] [id number] [address] [place] [phone] Nov, [facility] [address] [facility] [id number] [address] [place] [phone] Nov, 32 weeks gestation of pregna ncy Z3A.32 ; Third trimester Z34.93 and Elevated blood pressure affecting in third trimester, antepartum O16.3 [facility] [address] [facility] [id number] [address] [place] [phone] Oct, 30 weeks gestation of pregna ncy Z3A.30 ; Encounter for immunization Z23 and Third trimester Z34.93 [facility] [address] [facility] [id number] [address] [place] [id number] 14 Oct, 2016 [facility] [address] [facility] [id number] [address] [place] [phone] Oct, Dysuria R30.0 [facility] [address] [facility] [id number] [address] [place] [address] Oct, 27 weeks gestation of pregna ncy Z3A.27 ; Second trimester Z34.92 ; Gastro-esophageal reflux disease without esophagitis K21.9 and Diseases of the digestive system complicating , second trimester O99.612 [place] [address] [place] [id number] [address] [place] [address] Sep, Screening for deficiency ane lisa Z13.0 [place] [id number] [address] [place] [phone] Sep, 23 weeks gestation of pregna ncy Z3A.23 and Second trimester Z34.92 [place] [address] [place] [id number] [address] [place] [phone] Aug, [facility] [place] [address] [place] [id number] [place] [phone] Aug, Acute cystitis without hemat uria N30.00 and Dysuria R30.0 [place] [id number] [address] [place] [phone] Aug, [place] [address] [place] [id number] [address] [place] [phone] Aug, 19 weeks gestation of pregna ncy Z3A.19 and Second trimester Z33.1 [place] [address] [place] [id number] [address] [place] [phone] Aug, [place] [id number] [place] [address] Jul, [place] [address] [place] [id number] [address] [place] [phone] Jul, 15 weeks gestation of pregna ncy Z3A.15 and Second trimester Z33.1 [place] [address] [place] [id number] [address] [place] [address] June, Normal in multigra edgar Z34.80 and 11 weeks gestation of Z3A.11 [facility] [address] [id number] [address] [place] [phone] June, [facility]ALK IN [facility] [address] [id number] [address] [place] [phone] May, Vaginal discharge N89.8 and Other specified related conditions, first trimester O26.891 [facility] [address] [id number] [address] [place] [phone] May, [place] [address] [facility] [id number] [address] [place] [address] May, 6 weeks gestation of pregnan cy Z3A.01 and Normal in multigravida Z34.80 [facility] [address] [id number] [address] [place] [phone] May, Pain of upper abdomen R10.10 and Acute vaginitis N76.0 [place] [address] [facility] [id number] [address] [place] [phone] Apr, [place] [address] [facility] [id number] [address] [place] [phone] Apr, [place] [address] [facility] [id number] [address] [place] [phone] Apr, Encounter for test , result unknown Z32.00 [facility] [address] [facility] [id number] [address] [place] [address] Apr, Pelvic pain R10.2 ; Other sp ecified bacterial agents as the cause of diseases classified elsewhere B96.89 and Acute vaginitis N76.0 [place] [address] [facility] [id number] [address] [place] [phone] Dec, Encounter for test Z32.00 [place] [address] [facility] [id number] [address] [place] [phone] May, [place] [address] [facility] [id number] [address] [place] [address] May, [place] [address] [facility] [id number] [address] [place] [phone] Mar, [facility] [address] [facility] [id number] [address] [place] [phone] Nov, [facility] [address] [facility] [id number] [address] [place] [phone] Nov, [facility] [address] [facility] [id number] [address] [place] [phone] Oct, [facility] [address] [facility] [id number] [address] [place] [phone] Sep, [facility] [address] [facility] [id number] [address] [place] [phone] Aug, IMMUNIZATIONS No Known Immunizations SOCIAL HISTORY Never Assessed REASON FOR VISIT Psychiatric intake- yadira peterson PLAN OF CARE Activity Details Follow Up 4 Weeks Reason: VITAL SIGNS Height 65.5 in 2018-01-28 Weight 145 lbs 2018-01-28 Heart Rate 107 bpm 2018-01-28 Respiratory Rate 20 2018-01-28 BMI 23.76 kg/m2 2018-01-28 Blood pressure systolic 112 mmHg 2018-01-28 Blood pressure diastolic 56 mmHg 2018-01-28 MEDICATIONS Medication Instructions Dosage Frequency Start Date End Date Duration S tatus Flagyl 500 mg Orally 2 times a day 1 tablet 12h Dec, 7 days Active Abilify 2 MG Orally Once a day 1 tablet 24h Jan, 30 day(s) Active RESULTS No Results PROCEDURES No Known procedures INSTRUCTIONS MEDICATIONS ADMINISTERED No Known Medications MEDICAL (GENERAL) HISTORY Type Description Date Medical History gestational HTN, pre-eclampsia Surgical History section Hospitalization History childbirth
--- OUTSIDE RECORDS SUMMARY | 2019-06-24 20:13 | XMS REPORT ---
Author Author Rosalba HEREDIA Organization [facility] Address [address] [place] [address] Care Team Providers Care Retail Route Supervisor Name Role Phone ALBERT HEREDIA Unavailable PROBLEMS Type Condition ICD9-CM Code DLU97-OG Code Onset Dates Condition S tatus SNOMED Code Problem Iron deficiency anemia, unspecified D50.9 Active 53182815 Problem Anemia complicating , unspecified trimester O99.019 Active 40007596 Problem Gastro-esophageal reflux disease without esophagitis K21.9 Active 683966134 Problem anemia O90.81 Active 19 5818260 Problem Elevated blood pressure affe cting in third trimester, antepartum O16.3 Active 60822581 ALLERGIES No Information ENCOUNTERS Encounter Location Date Diagnosis [facility] [address] [facility] [id number] [address] [place] [phone] Aug, Bacterial conjunctivitis H10 .9 [facility] [id number] [place] [address] June, Encounter for test , result unknown Z32.00 [facility] [address] [place] [id number] [address] [place] [phone] May, [facility] [id number] [place] [address] Apr, [facility] [address] [place] [id number] [address] [place] [phone] Apr, [facility] [address] [place] [id number] [address] [place] [phone] Jan, [facility] [address] [place] [id number] [address] [place] [phone] Jan, Screening for deficiency ane lisa Z13.0 [place] [address] [place] [id number] [address] [place] [phone] Jan, [place] [address] [address] Jan, [place] [address] [place] [id number] [address] [place] [phone] Dec, [place] [address] [address] Dec, care and examinat ion Z39.2 ; control counseling Z30.09 ; Pre-eclampsia in period O14.95 ; Iron deficiency anemia, unspecified D50.9 and Anemia complicating , unspecified trimester O99.019 [place] [address] [place] [id number] [address] [place] [phone] Nov, Encounter for immunization Z 23 [place] [address] [address] Nov, [place] [address] [address] Nov, Elevated blood pressure read ing R03.0 and anemia O90.81 [place] [address] [place] [id number] [place] [phone] Nov, anemia O90.81 [place] [address] [place] [phone] Nov, Screening, deficiency anemia , iron Z13.0 [place] [address] [place] [id number] [place] [phone] Nov, Elevated blood pressure read ing R03.0 and Gestational proteinuria in third trimester O12.13 [place] [address] [place] [id number] [place] [phone] Nov, [place] [address] [place] [id number] [place] [id number] Nov, 32 weeks gestation of pregna ncy Z3A.32 ; Third trimester Z34.93 and Elevated blood pressure affecting in third trimester, antepartum O16.3 [place] [address] [address] 21 Oct, 2016 30 weeks gestation of pregna ncy Z3A.30 ; Encounter for immunization Z23 and Third trimester Z34.[address] [address] 14 Oct, 2016 [facility] [address] [address] 13 Oct, 2016 Dysuria [address] [address] 05 Oct, 2016 27 weeks gestation of pregna ncy Z3A.27 ; Second trimester Z34.92 ; Gastro-esophageal reflux disease without esophagitis K21.9 and Diseases of the digestive system complicating , second trimester O99.612 [place] [address] [address] Sep, Screening for deficiency ane lisa Z13.[address] [address] Sep, 23 weeks gestation of pregna ncy Z3A.23 and Second trimester Z34.[address] [address] Aug, [facility] [address] [address] Aug, Acute cystitis without hemat uria N30.00 and Dysuria R30.[address] [address] Aug, [place] [address] [address] Aug, 19 weeks gestation of pregna ncy Z3A.19 and Second trimester Z33.1 [place] [address] [id number] [address] [place] [phone] Aug, [facility] [address] [id number] [address] [place] [phone] Jul, [facility] [address] [id number] [address] [place] [phone] Jul, 15 weeks gestation of pregna ncy Z3A.15 and Second trimester Z33.1 [facility] [address] [id number] [address] [place] [phone] June, Normal in multigra edgar Z34.80 and 11 weeks gestation of Z3A.11 [facility] [place] [address] [facility] [id number] [address] [place] [phone] June, [facility] [place] [address] [facility] [id number] [address] [place] [phone] May, Vaginal discharge N89.8 and Other specified related conditions, first trimester O26.891 [place] [address] [facility] [id number] [address] [place] [phone] May, [place] [address] [facility] [id number] [address] [place] [id number] 12 May, 2016 6 weeks gestation of pregnan cy Z3A.01 and Normal in multigravida Z34.80 [facility]ALK IN [facility] [address] [facility] [id number] [address] [place] [address] May, Pain of upper abdomen R10.10 and Acute vaginitis N76.0 [place] [address] [id number] [address] [place] [phone] Apr, [place] [address] [facility] [id number] [address] [place] [phone] Apr, [facility] [address] [facility] [id number] [address] [place] [phone] Apr, Encounter for test , result unknown Z32.00 [facility] [address] [id number] [address] [place] [id number] 12 Apr, 2016 Pelvic pain R10.2 ; Other sp ecified bacterial agents as the cause of diseases classified elsewhere B96.89 and Acute vaginitis N76.0 [facility] [address] [id number] [address] [place] [id number] 17 Dec, 2015 Encounter for test Z32.00 [facility] [address] [id number] [address] [place] [id number] 14 May, 2014 [facility] [address] [id number] [address] [place] [phone] May, [facility] [address] [id number] [address] [place] [phone] Mar, [facility] [address] [id number] [address] [place] [phone] Nov, [facility] [address] [id number] [address] [place] [phone] Nov, [facility] [address] [id number] [address] [place] [id number] Oct, [facility] [address] [id number] [address] [place] [phone] Sep, [facility] [address] [id number] [address] [place] [phone] Aug, IMMUNIZATIONS No Known Immunizations SOCIAL HISTORY Never Assessed REASON FOR VISIT test (walk-in) PLAN OF CARE VITAL SIGNS MEDICATIONS No Known Medications RESULTS Name Result Date Reference Range TEST, URINE (IN HOUSE) 2017-06-27 RESULTS Negative Lot # [id number] Control + Exp date 08/2018 PROCEDURES Procedure Date Ordered Result Body Site URINE TEST June 27, 2017 INSTRUCTIONS MEDICATIONS ADMINISTERED No Known Medications MEDICAL (GENERAL) HISTORY Type Description Date Surgical History section Hospitalization History childbirth
--- OUTSIDE RECORDS SUMMARY | 2019-06-24 20:14 | XMS REPORT ---
Author Author Rosalba ACEVES Organization [facility] Address [address] [place] [address] Care Team Providers Care Shuttler Name Role Phone DILLAN ACEVES Unavailable PROBLEMS Type Condition ICD9-CM Code PIU25-XF Code Onset Dates Condition S tatus SNOMED Code Problem Iron deficiency anemia, unspecified D50.9 Active 62650297 Problem Anemia complicating , unspecified trimester O99.019 Active 90063924 Problem Gastro-esophageal reflux disease without esophagitis K21.9 Active 730035540 Problem anemia O90.81 Active 19 1781150 Problem Elevated blood pressure affe cting in third trimester, antepartum O16.3 Active [id number] ALLERGIES No Information ENCOUNTERS Encounter Location Date Diagnosis [place] [id number] [place] [id number] [place] [address] June, Encounter for test , result unknown Z32.00 [place] [address] [place] [id number] [place] [address] May, [place] [address] [place] [id number] [address] [place] [address] Apr, [place] [id number] [place] [address] Apr, [place] [address] [place] [id number] [address] [place] [address] Jan, [place] [address] [place] [id number] [place] [address] Jan, Screening for deficiency ane lisa Z13.0 [facility] [address] [place] [id number] [address] [place] [address] Jan, [place] [address] [place] [address] [place] [address] Jan, [facility] [address] [place] [id number] [address] [place] [address] Dec, [place] [address] [place] [id number] [place] [address] Dec, care and examinat ion Z39.2 ; control counseling Z30.09 ; Pre-eclampsia in period O14.95 ; Iron deficiency anemia, unspecified D50.9 and Anemia complicating , unspecified trimester O99.019 [place] [address] [place] [address] Nov, Encounter for immunization Z 23 [place] [address] [place] [id number] [address] [place] [address] Nov, [place] [address] [place] [address] Nov, Elevated blood pressure read ing R03.0 and anemia O90.81 [place] [address] [place] [id number] [address] [place] [address] Nov, anemia O90.81 [place] [address] [place] [id number] [place] [address] Nov, Screening, deficiency anemia , iron Z13.0 [place] [address] [place] [id number] [place] [address] Nov, Elevated blood pressure read ing R03.0 and Gestational proteinuria in third trimester O12.13 [place] [address] [facility] [id number] [place] [address] Nov, [place] [address] [place] [id number] [address] [place] [address] Nov, 32 weeks gestation of pregna ncy Z3A.32 ; Third trimester Z34.93 and Elevated blood pressure affecting in third trimester, antepartum O16.3 [place] [address] [place] [id number] [place] [address] 21 Oct, 2016 30 weeks gestation of pregna ncy Z3A.30 ; Encounter for immunization Z23 and Third trimester Z34.93 [place] [id number] [place] [address] 14 Oct, 2016 [facility] [address] [place] [id number] [address] [place] [address] 13 Oct, 2016 Dysuria R30.0 [place] [address] [address] Oct, 27 weeks gestation of pregna ncy Z3A.27 ; Second trimester Z34.92 ; Gastro-esophageal reflux disease without esophagitis K21.9 and Diseases of the digestive system complicating , second trimester O99.612 [place] [address] [address] Sep, Screening for deficiency ane lisa Z13.0 [place] [address] [address] Sep, 23 weeks gestation of pregna ncy Z3A.23 and Second trimester Z34.92 [place] [address] [place] [id number] [place] [address] Aug, [facility] [address] [place] [id number] [address] [place] [address] Aug, Acute cystitis without hemat uria N30.00 and Dysuria R30.0 [facility] [address] [place] [address] Aug, [place] [address] [address] Aug, 19 weeks gestation of pregna ncy Z3A.19 and Second trimester Z33.1 [place] [address] [place] [id number] [place] [address] Aug, [place] [address] [place] [id number] [address] [place] [address] 27 Jul, 2016 [place] [address] [id number] [address] [place] [address] 13 Jul, 2016 15 weeks gestation of pregna ncy Z3A.15 and Second trimester Z33.1 [place] [address] [id number] [address] [place] [address] 17 Jun, 2016 Normal in multigra edgar Z34.80 and 11 weeks gestation of Z3A.11 [facility] [place] [address] [id number] [address] [place] [address] June, [facility] [place] [address] [id number] [address] [place] [address] 20 May, 2016 Vaginal discharge N89.8 and Other specified related conditions, first trimester O26.891 [place] [address] [facility] [id number] [place] [address] May, [place] [address] [id number] [address] [place] [address] 12 May, 2016 6 weeks gestation of pregnan cy Z3A.01 and Normal in multigravida Z34.80 [facility] [place] [address] [id number] [address] [place] [address] 08 May, 2016 Pain of upper abdomen R10.10 and Acute vaginitis N76.0 [place] [address] [id number] [address] [place] [address] Apr, [place] [address] [id number] [address] [place] [address] Apr, [place] [address] [facility] [id number] [place] [address] Apr, Encounter for test , result unknown Z32.00 [facility] [place] [id number] [id number] [address] [place] [address] Apr, Pelvic pain R10.2 ; Other sp ecified bacterial agents as the cause of diseases classified elsewhere B96.89 and Acute vaginitis N76.0 [facility] [address] [id number] [address] [place] [address] Dec, Encounter for test Z32.00 [facility] [address] [id number] [address] [place] [address] May, [facility] [address] [id number] [address] [place] [address] May, [facility] [address] [id number] [address] [place] [address] Mar, [facility] [address] [id number] [address] [place] [address] Nov, [facility] [address] [facility] [id number] [place] [address] Nov, [facility] [address] [id number] [address] [place] [address] Oct, [facility] [address] [id number] [address] [place] [address] Sep, [facility] [address] [id number] [address] [place] [address] Aug, IMMUNIZATIONS No Known Immunizations SOCIAL HISTORY Never Assessed REASON FOR VISIT follow up PLAN OF CARE VITAL SIGNS MEDICATIONS Unknown Medications RESULTS No Results PROCEDURES No Known procedures INSTRUCTIONS MEDICATIONS ADMINISTERED No Known Medications MEDICAL (GENERAL) HISTORY Type Description Date Surgical History section
--- OUTSIDE RECORDS SUMMARY | 2019-06-24 20:14 | XMS REPORT ---
Author Author Rosalba HEREDIA Organization [facility] [place] Address [address] [place] [address] Care Team Providers Care Academic Advising Director Name Role Phone ALBERT HEREDIA Unavailable PROBLEMS Type Condition ICD9-CM Code [id number] Code Onset Dates Condition S tatus SNOMED Code Problem Iron deficiency anemia, unspecified D50.9 Active 39075895 Problem Anemia complicating , unspecified trimester O99.019 Active 70556899 Problem Gastro-esophageal reflux disease without esophagitis K21.9 Active 204462476 Problem anemia O90.81 Active 19 7639583 Problem Elevated blood pressure affe cting in third trimester, antepartum O16.3 Active [id number] ALLERGIES No Information ENCOUNTERS Encounter Location Date Diagnosis [place] [address] [place] [id number] [place] [address] June, Encounter for test , result unknown Z32.00 [place] [address] [place] [id number] [place] [address] May, [place] [address] [place] [id number] [place] [address] Apr, [place] [id number] [place] [address] Apr, [place] [address] [place] [id number] [place] [address] Jan, [place] [address] [place] [id number] [place] [address] Jan, Screening for deficiency ane lisa Z13.0 [facility] [place] [address] [facility] [id number] [address] [place] [address] Jan, [place] [address] [place] [id number] [place] [address] Jan, [facility] [place] [address] [facility] [id number] [address] [place] [address] Dec, [place] [address] [place] [id number] [place] [address] Dec, care and examinat ion Z39.2 ; control counseling Z30.09 ; Pre-eclampsia in period O14.95 ; Iron deficiency anemia, unspecified D50.9 and Anemia complicating , unspecified trimester O99.019 [place] [address] [place] [id number] [place] [address] Nov, Encounter for immunization Z 23 [place] [address] [place] [id number] [place] [address] Nov, [place] [address] [place] [id number] [address] [place] [address] Nov, Elevated blood pressure read ing R03.0 and anemia O90.81 [place] [address] [place] [id number] [address] [place] [address] Nov, anemia O90.81 [place] [address] [place] [id number] [place] [address] Nov, Screening, deficiency anemia , iron Z13.0 [place] [address] [place] [id number] [place] [address] Nov, Elevated blood pressure read ing R03.0 and Gestational proteinuria in third trimester O12.13 [place] [address] [facility] [id number] [address] [place] [address] Nov, [place] [address] [place] [id number] [place] [address] Nov, 32 weeks gestation of pregna ncy Z3A.32 ; Third trimester Z34.93 and Elevated blood pressure affecting in third trimester, antepartum O16.3 [place] [address] [address] Oct, 30 weeks gestation of pregna ncy Z3A.30 ; Encounter for immunization Z23 and Third trimester Z34.93 [place] [address] [address] 14 Oct, 2016 [facility] [address] [address] 13 Oct, 2016 Dysuria R30.0 [place] [address] [address] Oct, 27 weeks gestation of pregna ncy Z3A.27 ; Second trimester Z34.92 ; Gastro-esophageal reflux disease without esophagitis K21.9 and Diseases of the digestive system complicating , second trimester O99.612 [place] [address] [address] Sep, Screening for deficiency ane lisa Z13.0 [place] [address] [address] Sep, 23 weeks gestation of pregna ncy Z3A.23 and Second trimester Z34.92 [place] [address] [address] Aug, [facility] [address] [place] [id number] [place] [address] Aug, Acute cystitis without hemat uria N30.00 and Dysuria R30.0 [place] [address] [address] Aug, [place] [address] [address] Aug, 19 weeks gestation of pregna ncy Z3A.19 and Second trimester Z33.1 [place] [address] [address] Aug, [place] [address] [place] [address] [place] [address] Jul, [place] [address] [id number] [address] [place] [address] Jul, 15 weeks gestation of pregna ncy Z3A.15 and Second trimester Z33.1 [place] [address] [facility] [id number] [address] [place] [address] 17 Jun, 2016 Normal in multigra edgar Z34.80 and 11 weeks gestation of Z3A.11 [facility] [place] [address] [id number] [address] [place] [address] June, [facility] [place] [address] [id number] [address] [place] [address] 20 May, 2016 Vaginal discharge N89.8 and Other specified related conditions, first trimester O26.891 [place] [address] [facility] [id number] [address] [place] [address] May, [place] [address] [id number] [address] [place] [address] 12 May, 2016 6 weeks gestation of pregnan cy Z3A.01 and Normal in multigravida Z34.80 [facility] [place] [address] [id number] [address] [place] [address] 08 May, 2016 Pain of upper abdomen R10.10 and Acute vaginitis N76.0 [place] [address] [id number] [address] [place] [address] Apr, [place] [address] [id number] [address] [place] [address] Apr, [place] [address] [facility] [id number] [address] [place] [address] Apr, Encounter for test , result unknown Z32.00 [facility] [place] [address] [facility] [id number] [address] [place] [address] Apr, Pelvic pain R10.2 ; Other sp ecified bacterial agents as the cause of diseases classified elsewhere B96.89 and Acute vaginitis N76.0 [facility] [place] [address] [id number] [address] [place] [address] Dec, Encounter for test Z32.00 [facility] [place] [address] [id number] [address] [place] [address] May, [facility] [place] [address] [id number] [address] [place] [address] May, [facility] [place] [address] [id number] [address] [place] [address] Mar, [facility] [place] [address] [id number] [address] [place] [address] Nov, [facility] [place] [address] [id number] [address] [place] [address] Nov, [facility] [place] [address] [id number] [address] [place] [address] Oct, [facility] [place] [address] [id number] [address] [place] [address] Sep, [facility] [place] [address] [id number] [address] [place] [address] Aug, IMMUNIZATIONS No Known Immunizations SOCIAL HISTORY Never Assessed REASON FOR VISIT Lab (walk-in) hemoglobin PLAN OF CARE VITAL SIGNS MEDICATIONS Unknown Medications RESULTS Name Result Date Reference Range HEMOGLOBIN (IN HOUSE) 2017-01-31 HEMOGLOBIN 11.2 11.5 - 16 gm/dL Lot # [id number] Exp date 01/07/18 PROCEDURES Procedure Date Ordered Result Body Site HEMOGLOBIN Jan 31, 2017 INSTRUCTIONS MEDICATIONS ADMINISTERED No Known Medications MEDICAL (GENERAL) HISTORY Type Description Date Surgical History section
--- OUTSIDE RECORDS SUMMARY | 2019-06-24 20:14 | XMS REPORT ---
Author Author Rosalba HEREDIA Organization [facility] Address [address] [place] [address] Care Team Providers Care Tension Worker Name Role Phone ALBERT HEREDIA Unavailable PROBLEMS Type Condition ICD9-CM Code [id number] Code Onset Dates Condition S tatus SNOMED Code Problem Iron deficiency anemia, unspecified D50.9 Active 35973031 Problem Anemia complicating , unspecified trimester O99.019 Active 40992203 Problem Gastro-esophageal reflux disease without esophagitis K21.9 Active 229536450 Problem anemia O90.81 Active 19 4276934 Problem Elevated blood pressure affe cting in third trimester, antepartum O16.3 Active 12275144 ALLERGIES No Information ENCOUNTERS Encounter Location Date Diagnosis [facility] IN [facility] [address] [facility] [id number] [address] [place] [address] Aug, Bacterial conjunctivitis H10 .9 [facility] [address] [place] [address] June, Encounter for test , result unknown Z32.00 [facility] [address] [place] [id number] [address] [place] [address] May, [facility] [address] [place] [address] Apr, [facility] [address] [place] [id number] [address] [place] [phone] Apr, [facility] [address] [place] [id number] [address] [place] [phone] Jan, [facility] [address] [place] [id number] [address] [place] [phone] Jan, Screening for deficiency ane lisa Z13.0 [place] [address] [place] [id number] [address] [place] [phone] Jan, [place] [address] [address] Jan, [place] [address] [place] [id number] [address] [place] [address] Dec, [place] [address] [address] Dec, care and examinat ion Z39.2 ; control counseling Z30.09 ; Pre-eclampsia in period O14.95 ; Iron deficiency anemia, unspecified D50.9 and Anemia complicating , unspecified trimester O99.019 [place] [address] [place] [id number] [address] [place] [address] Nov, Encounter for immunization Z 23 [place] [address] [address] Nov, [place] [address] [address] Nov, Elevated blood pressure read ing R03.0 and anemia O90.81 [place] [address] [place] [id number] [address] [place] [address] Nov, anemia O90.81 [place] [address] [place] [address] Nov, Screening, deficiency anemia , iron Z13.0 [place] [address] [place] [id number] [address] [place] [address] Nov, Elevated blood pressure read ing R03.0 and Gestational proteinuria in third trimester O12.13 [place] [address] [place] [id number] [address] [place] [address] Nov, [place] [address] [place] [id number] [address] [place] [address] Nov, 32 weeks gestation of pregna ncy Z3A.32 ; Third trimester Z34.93 and Elevated blood pressure affecting in third trimester, antepartum O16.3 [place] [address] [address] 21 Oct, 2016 30 weeks gestation of pregna ncy Z3A.30 ; Encounter for immunization Z23 and Third trimester Z34.[address] [address] 14 Oct, 2016 [facility] [address] [address] 13 Oct, 2016 [address] [address] 05 Oct, 2016 27 weeks gestation of pregna ncy Z3A.27 ; Second trimester Z34.92 ; Gastro-esophageal reflux disease without esophagitis K21.9 and Diseases of the digestive system complicating , second trimester O99.612 [place] [address] [address] Sep, Screening for deficiency ane lisa Z13.[address] [address] Sep, 23 weeks gestation of pregna ncy Z3A.23 and Second trimester Z34.[address] [address] Aug, [facility] [address] [address] Aug, Acute cystitis without hemat uria N30.00 and Dysuria R30.[address] [address] Aug, [place] [address] [address] Aug, 19 weeks gestation of pregna ncy Z3A.19 and Second trimester Z33.1 [place] [id number] [id number] [address] [place] [phone] Aug, [facility] [address] [id number] [address] [place] [address] Jul, [facility] [address] [id number] [address] [place] [address] Jul, 15 weeks gestation of pregna ncy Z3A.15 and Second trimester Z33.1 [facility] [address] [id number] [address] [place] [address] June, Normal in multigra edgar Z34.80 and 11 weeks gestation of Z3A.11 [facility] [place] [address] [facility] [id number] [address] [place] [address] June, [facility] [place] [address] [address] [facility] [id number] [address] [place] [address] May, Vaginal discharge N89.8 and Other specified related conditions, first trimester O26.891 [place] [address] [facility] [id number] [address] [place] [address] May, [place] [address] [facility] [id number] [address] [place] [address] 12 May, 2016 6 weeks gestation of pregnan cy Z3A.01 and Normal in multigravida Z34.80 [facility] [address] [facility] [id number] [address] [place] [address] May, Pain of upper abdomen R10.10 and Acute vaginitis N76.0 [place] [address] [id number] [address] [place] [address] Apr, [place] [address] [facility] [id number] [address] [place] [address] Apr, [facility] [address] [facility] [id number] [address] [place] [address] Apr, Encounter for test , result unknown Z32.00 [facility] [address] [id number] [address] [place] [address] 12 Apr, 2016 Pelvic pain R10.2 ; Other sp ecified bacterial agents as the cause of diseases classified elsewhere B96.89 and Acute vaginitis N76.0 [facility] [address] [id number] [address] [place] [address] 17 Dec, 2015 Encounter for test Z32.00 [facility] [address] [id number] [address] [place] [id number] 14 May, 2014 [facility] [address] [id number] [address] [place] [address] May, [facility] [address] [id number] [address] [place] [address] Mar, [facility] [address] [id number] [address] [place] [address] Nov, [facility] [address] [id number] [address] [place] [address] Nov, [facility] [address] [id number] [address] [place] [address] Oct, [facility] [address] [id number] [address] [place] [address] Sep, [facility] [address] [id number] [address] [place] [address] Aug, IMMUNIZATIONS No Known Immunizations SOCIAL HISTORY Never Assessed REASON FOR VISIT OB f/u-2 wk -- kristen cabral, swelling on face since 8 pm last night PLAN OF CARE Activity Details Follow Up 1 Week Reason: VITAL SIGNS Height 65.5 in 2016-11-22 Weight 188.0 lbs 2016-11-22 Temperature 98.0 degrees Fahrenheit 2016-11-22 BMI 30.809 kg/m2 2016-11-22 Blood pressure systolic 136 mmHg 2016-11-22 Blood pressure diastolic 82 mmHg 2016-11-22 MEDICATIONS Medication Instructions Dosage Frequency Start Date End Date Duration S amadeo Ranitidine HCl 150 MG Orally Once a day 1 tablet at bedtime 24h Oct, 30 day(s) Active Flintstones Gummies Complete - Active Benadryl Not-Taking Abilify 5 mg 1 tablet by Oral route 1 time per day 15 Oc 2011 Not-Taking Twyla by Oral route Sep, Not-T aking Vitamins 0.8 MG Orally Once a day 1 tablet 24h Not-Taking Cephalexin 500 MG Orally every 12 hrs 1 capsule 12h Not-Taking RESULTS Name Result Date Reference Range UA OB DIP (IN HOUSE) 2016-11-22 Glucose neg Protein trace PROCEDURES Procedure Date Ordered Result Body Site URINE-NO MICRO Nov 22, 2016 INSTRUCTIONS MEDICATIONS ADMINISTERED No Known Medications MEDICAL (GENERAL) HISTORY Type Description Date Surgical History section Hospitalization History childbirth
--- OUTSIDE RECORDS SUMMARY | 2019-06-24 20:14 | XMS REPORT ---
Author Author Rosalba HEREDIA Organization [facility] Address [address] [place] [address] Care Team Providers Care State Director Name Role Phone ALBERT HEREDIA Unavailable PROBLEMS Type Condition ICD9-CM Code ZLU79-CC Code Onset Dates Condition S tatus SNOMED Code Problem Iron deficiency anemia, unspecified D50.9 Active 11473949 Problem Anemia complicating , unspecified trimester O99.019 Active 29613796 Problem Gastro-esophageal reflux disease without esophagitis K21.9 Active 441218631 Problem anemia O90.81 Active 19 4872345 Problem Elevated blood pressure affe cting in third trimester, antepartum O16.3 Active 63648739 ALLERGIES No Information ENCOUNTERS Encounter Location Date Diagnosis [place] [id number] [place] [address] June, Encounter for test , result unknown Z32.00 [place] [address] [place] [id number] [address] [place] [address] May, [place] [address] [place] [id number] [address] [place] [address] Apr, [place] [address] [place] [address] Apr, [place] [address] [place] [id number] [address] [place] [address] Jan, [place] [address] [place] [id number] [address] [place] [address] Jan, Screening for deficiency ane lisa Z13.0 [facility] [address] [facility] [id number] [address] [place] [address] Jan, [place] [address] [place] [id number] [address] [place] [address] Jan, [facility] [address] [facility] [id number] [address] [place] [address] Dec, [place] [address] [place] [id number] [address] [place] [address] Dec, care and examinat ion Z39.2 ; control counseling Z30.09 ; Pre-eclampsia in period O14.95 ; Iron deficiency anemia, unspecified D50.9 and Anemia complicating , unspecified trimester O99.019 [place] [address] [place] [id number] [address] [place] [address] Nov, Encounter for immunization Z 23 [place] [address] [place] [id number] [address] [place] [address] Nov, [place] [address] [place] [id number] [address] [place] [address] Nov, Elevated blood pressure read ing R03.0 and anemia O90.81 [place] [address] [place] [id number] [address] [place] [address] Nov, anemia O90.81 [place] [address] [place] [id number] [address] [place] [address] Nov, Screening, deficiency anemia , iron Z13.0 [place] [address] [place] [id number] [address] [place] [address] Nov, Elevated blood pressure read ing R03.0 and Gestational proteinuria in third trimester O12.13 [place] [address] [facility] [id number] [address] [place] [address] Nov, [place] [address] [place] [id number] [address] [place] [address] Nov, 32 weeks gestation of pregna ncy Z3A.32 ; Third trimester Z34.93 and Elevated blood pressure affecting in third trimester, antepartum O16.3 [place] [address] [address] Oct, 30 weeks gestation of pregna ncy Z3A.30 ; Encounter for immunization Z23 and Third trimester Z34.93 [place] [address] [address] 14 Oct, 2016 [facility] [address] [address] 13 Oct, 2016 Dysuria R30.0 [place] [address] [address] Oct, 27 weeks gestation of pregna ncy Z3A.27 ; Second trimester Z34.92 ; Gastro-esophageal reflux disease without esophagitis K21.9 and Diseases of the digestive system complicating , second trimester O99.612 [place] [address] [address] Sep, Screening for deficiency ane lisa Z13.0 [place] [address] [address] Sep, 23 weeks gestation of pregna ncy Z3A.23 and Second trimester Z34.92 [place] [address] [address] Aug, [facility] [address] [place] [id number] [address] [place] [address] Aug, Acute cystitis without hemat uria N30.00 and Dysuria R30.0 [place] [address] [address] Aug, [place] [address] [address] Aug, 19 weeks gestation of pregna ncy Z3A.19 and Second trimester Z33.1 [place] [address] [address] Aug, [place] [address] [place] [address] [place] [address] Jul, [place] [address] [id number] [address] [place] [address] Jul, 15 weeks gestation of pregna ncy Z3A.15 and Second trimester Z33.1 [place] [address] [facility] [id number] [address] [place] [address] 17 Jun, 2016 Normal in multigra edgar Z34.80 and 11 weeks gestation of Z3A.11 [facility] [place] [address] [id number] [address] [place] [address] June, [facility] [place] [address] [id number] [address] [place] [address] 20 May, 2016 Vaginal discharge N89.8 and Other specified related conditions, first trimester O26.891 [place] [address] [facility] [id number] [address] [place] [address] May, [place] [address] [id number] [address] [place] [address] 12 May, 2016 6 weeks gestation of pregnan cy Z3A.01 and Normal in multigravida Z34.80 [facility] [place] [address] [id number] [address] [place] [address] 08 May, 2016 Pain of upper abdomen R10.10 and Acute vaginitis N76.0 [place] [address] [id number] [address] [place] [address] Apr, [place] [address] [id number] [address] [place] [address] Apr, [place] [address] [facility] [id number] [address] [place] [address] Apr, Encounter for test , result unknown Z32.00 [facility] [place] [address] [facility] [id number] [address] [place] [address] Apr, Pelvic pain R10.2 ; Other sp ecified bacterial agents as the cause of diseases classified elsewhere B96.89 and Acute vaginitis N76.0 [facility] [address] [id number] [address] [place] [address] Dec, Encounter for test Z32.00 [facility] [address] [id number] [address] [place] [address] May, [facility] [address] [id number] [address] [place] [address] May, [facility] [address] [id number] [address] [place] [address] Mar, [facility] [address] [id number] [address] [place] [address] Nov, [facility] [address] [facility] [id number] [address] [place] [address] Nov, [facility] [address] [id number] [address] [place] [address] Oct, [facility] [address] [id number] [address] [place] [address] Sep, [facility] [address] [id number] [address] [place] [address] Aug, IMMUNIZATIONS No Known Immunizations SOCIAL HISTORY Never Assessed REASON FOR VISIT PLAN OF CARE VITAL SIGNS MEDICATIONS Unknown Medications RESULTS No Results PROCEDURES No Known procedures INSTRUCTIONS MEDICATIONS ADMINISTERED No Known Medications MEDICAL (GENERAL) HISTORY Type Description Date Surgical History section
--- OUTSIDE RECORDS SUMMARY | 2019-06-24 20:14 | XMS REPORT ---
Author Author Rosalba OCONNOR Organization [facility] Address [address] [place] [address] Care Team Providers Care [employer] [place] Name Role Phone ART OCONNOR Unavailable PROBLEMS Type Condition ICD9-CM Code VWW56-HS Code Onset Dates Condition S tatus SNOMED Code Problem anemia O90.81 Active 19 9510065 Problem Gastro-esophageal reflux disease without esophagitis K21.9 Active 199327414 ALLERGIES No Information SOCIAL HISTORY Never Assessed PLAN OF CARE VITAL SIGNS MEDICATIONS Unknown Medications RESULTS No Results PROCEDURES No Known procedures IMMUNIZATIONS No Known Immunizations
--- OUTSIDE RECORDS SUMMARY | 2019-06-24 20:14 | XMS REPORT ---
Author Author Rosalba HEREDIA Organization [facility] Address [address] [place] [address] Care Team Providers Care Brand Marketing Coordinator Name Role Phone ALBERT HEREDIA Unavailable PROBLEMS Type Condition ICD9-CM Code CMK03-ZC Code Onset Dates Condition S tatus SNOMED Code Problem Iron deficiency anemia, unspecified D50.9 Active 21980608 Problem Anemia complicating , unspecified trimester O99.019 Active 66346314 Problem Gastro-esophageal reflux disease without esophagitis K21.9 Active 741720334 Problem anemia O90.81 Active 19 8117920 Problem Elevated blood pressure affe cting in third trimester, antepartum O16.3 Active [id number] ALLERGIES No Information ENCOUNTERS Encounter Location Date Diagnosis [place] [address] [place] [id number] [place] [phone] June, Encounter for test , result unknown Z32.00 [place] [address] [place] [id number] [place] [phone] May, [place] [address] [place] [id number] [address] [place] [phone] Apr, [place] [address] [place] [address] Apr, [place] [address] [place] [id number] [address] [place] [address] Jan, [place] [address] [place] [id number] [place] [address] Jan, Screening for deficiency ane lisa Z13.0 [facility] [address] [facility] [id number] [address] [place] [phone] Jan, [place] [address] [place] [id number] [place] [address] Jan, [facility] [address] [facility] [id number] [address] [place] [address] Dec, [place] [address] [place] [id number] [address] [place] [phone] Dec, care and examinat ion Z39.2 ; control counseling Z30.09 ; Pre-eclampsia in period O14.95 ; Iron deficiency anemia, unspecified D50.9 and Anemia complicating , unspecified trimester O99.019 [place] [address] [place] [id number] [address] [place] [address] Nov, Encounter for immunization Z 23 [place] [address] [place] [id number] [address] [place] [address] Nov, [place] [address] [place] [id number] [address] [place] [address] Nov, Elevated blood pressure read ing R03.0 and anemia O90.81 [place] [address] [place] [id number] [place] [phone] Nov, anemia O90.81 [place] [address] [place] [id number] [place] [phone] Nov, Screening, deficiency anemia , iron Z13.0 [place] [address] [place] [id number] [address] [place] [address] Nov, Elevated blood pressure read ing R03.0 and Gestational proteinuria in third trimester O12.13 [place] [address] [facility] [id number] [address] [place] [id number] Nov, [place] [address] [place] [id number] [address] [place] [phone] Nov, 32 weeks gestation of pregna ncy Z3A.32 ; Third trimester Z34.93 and Elevated blood pressure affecting in third trimester, antepartum O16.3 [place] [address] [address] Oct, 30 weeks gestation of pregna ncy Z3A.30 ; Encounter for immunization Z23 and Third trimester Z34.93 [place] [address] [address] 14 Oct, 2016 [facility] [address] [address] 13 Oct, 2016 Dysuria R30.0 [place] [address] [address] Oct, 27 weeks gestation of pregna ncy Z3A.27 ; Second trimester Z34.92 ; Gastro-esophageal reflux disease without esophagitis K21.9 and Diseases of the digestive system complicating , second trimester O99.612 [place] [address] [address] Sep, Screening for deficiency ane lisa Z13.0 [place] [address] [address] Sep, 23 weeks gestation of pregna ncy Z3A.23 and Second trimester Z34.92 [place] [address] [address] Aug, [facility] [address] [place] [id number] [place] [address] Aug, Acute cystitis without hemat uria N30.00 and Dysuria R30.0 [place] [address] [address] Aug, [place] [address] [address] Aug, 19 weeks gestation of pregna ncy Z3A.19 and Second trimester Z33.1 [place] [address] [address] Aug, [place] [address] [place] [id number] [place] [phone] Jul, [place] [address] [id number] [address] [place] [address] Jul, 15 weeks gestation of pregna ncy Z3A.15 and Second trimester Z33.1 [place] [address] [facility] [id number] [address] [place] [id number] 17 Jun, 2016 Normal in multigra edgar Z34.80 and 11 weeks gestation of Z3A.11 [facility] [place] [address] [id number] [address] [place] [address] June, [facility] [place] [address] [id number] [address] [place] [phone] 20 May, 2016 Vaginal discharge N89.8 and Other specified related conditions, first trimester O26.891 [place] [address] [facility] [id number] [address] [place] [address] May, [place] [address] [id number] [address] [place] [address] 12 May, 2016 6 weeks gestation of pregnan cy Z3A.01 and Normal in multigravida Z34.80 [facility] [place] [address] [id number] [address] [place] [phone] 08 May, 2016 Pain of upper abdomen R10.10 and Acute vaginitis N76.0 [place] [address] [id number] [address] [place] [phone] Apr, [place] [address] [id number] [address] [place] [address] Apr, [place] [address] [facility] [id number] [address] [place] [address] Apr, Encounter for test , result unknown Z32.00 [facility] [place] [address] [facility] [id number] [address] [place] [address] Apr, Pelvic pain R10.2 ; Other sp ecified bacterial agents as the cause of diseases classified elsewhere B96.89 and Acute vaginitis N76.0 [facility] [address] [id number] [address] [place] [phone] Dec, Encounter for test Z32.00 [facility] [address] [id number] [address] [place] [phone] May, [facility] [address] [id number] [address] [place] [phone] May, [facility] [address] [id number] [address] [place] [phone] Mar, [facility] [address] [id number] [address] [place] [phone] Nov, [facility] [address] [id number] [address] [place] [address] Nov, [facility] [address] [id number] [address] [place] [phone] Oct, [facility] [address] [id number] [address] [place] [phone] Sep, [facility] [address] [id number] [address] [place] [address] Aug, IMMUNIZATIONS No Known Immunizations SOCIAL HISTORY Never Assessed REASON FOR VISIT refill PLAN OF CARE VITAL SIGNS MEDICATIONS Medication Instructions Dosage Frequency Start Date End Date Duration S tatus Zoloft 25 MG Orally Once a day 1/2 tablet for the f irst 7 days then switch to 1 tablet daily 24h Jan, 30 day(s) Active RESULTS No Results PROCEDURES No Known procedures INSTRUCTIONS MEDICATIONS ADMINISTERED No Known Medications MEDICAL (GENERAL) HISTORY Type Description Date Surgical History section
--- OUTSIDE RECORDS SUMMARY | 2019-06-24 20:14 | XMS REPORT ---
Author Author Rosalba HEREDIA Organization [facility] Address [address] [place] [address] Care Team Providers Care Manager Of Allied Health Services Name Role Phone ALBERT HEREDIA Unavailable PROBLEMS Type Condition ICD9-CM Code OZG77-UQ Code Onset Dates Condition S tatus SNOMED Code Problem Iron deficiency anemia, unspecified D50.9 Active 69673195 Problem Anemia complicating , unspecified trimester O99.019 Active 48731087 Problem Gastro-esophageal reflux disease without esophagitis K21.9 Active 464306217 Problem anemia O90.81 Active 19 2423840 Problem Elevated blood pressure affe cting in third trimester, antepartum O16.3 Active 17649504 ALLERGIES No Information ENCOUNTERS Encounter Location Date Diagnosis [place] [address] [place] [id number] [place] [address] June, Encounter for test , result unknown Z32.00 [place] [address] [place] [id number] [place] [address] May, [place] [address] [place] [id number] [address] [place] [address] Apr, [place] [id number] [place] [address] Apr, [place] [address] [place] [id number] [address] [place] [address] Jan, [place] [address] [place] [id number] [place] [address] Jan, Screening for deficiency ane lisa Z13.0 [facility] [address] [facility] [id number] [address] [place] [address] Jan, [place] [address] [place] [id number] [place] [address] Jan, [facility] [address] [facility] [id number] [address] [place] [address] Dec, [place] [address] [place] [id number] [address] [place] [address] Dec, care and examinat ion Z39.2 ; control counseling Z30.09 ; Pre-eclampsia in period O14.95 ; Iron deficiency anemia, unspecified D50.9 and Anemia complicating , unspecified trimester O99.019 [place] [address] [place] [id number] [address] [place] [address] Nov, Encounter for immunization Z 23 [place] [address] [place] [id number] [address] [place] [address] Nov, [place] [address] [place] [id number] [address] [place] [address] Nov, Elevated blood pressure read ing R03.0 and anemia O90.81 [place] [address] [place] [id number] [address] [place] [address] Nov, anemia O90.81 [place] [address] [place] [id number] [address] [place] [address] Nov, Screening, deficiency anemia , iron Z13.0 [place] [address] [place] [id number] [address] [place] [address] Nov, Elevated blood pressure read ing R03.0 and Gestational proteinuria in third trimester O12.13 [place] [address] [facility] [id number] [address] [place] [address] Nov, [place] [address] [place] [id number] [address] [place] [address] Nov, 32 weeks gestation of pregna ncy Z3A.32 ; Third trimester Z34.93 and Elevated blood pressure affecting in third trimester, antepartum O16.3 [place] [address] [address] Oct, 30 weeks gestation of pregna ncy Z3A.30 ; Encounter for immunization Z23 and Third trimester Z34.93 [place] [address] [address] 14 Oct, 2016 [facility] [address] [address] 13 Oct, 2016 Dysuria R30.0 [place] [address] [address] Oct, 27 weeks gestation of pregna ncy Z3A.27 ; Second trimester Z34.92 ; Gastro-esophageal reflux disease without esophagitis K21.9 and Diseases of the digestive system complicating , second trimester O99.612 [place] [address] [address] Sep, Screening for deficiency ane lisa Z13.0 [place] [address] [address] Sep, 23 weeks gestation of pregna ncy Z3A.23 and Second trimester Z34.92 [place] [address] [address] Aug, [facility] [address] [place] [id number] [place] [address] Aug, Acute cystitis without hemat uria N30.00 and Dysuria R30.0 [place] [address] [address] Aug, [place] [address] [address] Aug, 19 weeks gestation of pregna ncy Z3A.19 and Second trimester Z33.1 [place] [address] [address] Aug, [place] [address] [place] [address] [place] [address] Jul, [place] [address] [id number] [address] [place] [address] Jul, 15 weeks gestation of pregna ncy Z3A.15 and Second trimester Z33.1 [place] [address] [facility] [id number] [address] [place] [address] 17 Jun, 2016 Normal in multigra edgar Z34.80 and 11 weeks gestation of Z3A.11 [facility] [place] [address] [id number] [address] [place] [address] June, [facility] [place] [address] [id number] [address] [place] [address] 20 May, 2016 Vaginal discharge N89.8 and Other specified related conditions, first trimester O26.891 [place] [address] [facility] [id number] [address] [place] [address] May, [place] [address] [id number] [address] [place] [address] 12 May, 2016 6 weeks gestation of pregnan cy Z3A.01 and Normal in multigravida Z34.80 [facility] [place] [address] [id number] [address] [place] [address] 08 May, 2016 Pain of upper abdomen R10.10 and Acute vaginitis N76.0 [place] [address] [id number] [address] [place] [address] Apr, [place] [address] [id number] [address] [place] [address] Apr, [place] [address] [facility] [id number] [address] [place] [address] Apr, Encounter for test , result unknown Z32.00 [facility] [place] [address] [facility] [id number] [address] [place] [address] Apr, Pelvic pain R10.2 ; Other sp ecified bacterial agents as the cause of diseases classified elsewhere B96.89 and Acute vaginitis N76.0 [facility] [address] [id number] [address] [place] [address] Dec, Encounter for test Z32.00 [facility] [address] [id number] [address] [place] [address] May, [facility] [address] [id number] [address] [place] [address] May, [facility] [address] [id number] [address] [place] [address] Mar, [facility] [address] [id number] [address] [place] [address] Nov, [facility] [address] [id number] [address] [place] [address] Nov, [facility] [address] [id number] [address] [place] [address] Oct, [facility] [address] [id number] [address] [place] [address] Sep, [facility] [address] [id number] [address] [place] [address] Aug, IMMUNIZATIONS No Known Immunizations SOCIAL HISTORY Never Assessed REASON FOR VISIT Phone Call PLAN OF CARE VITAL SIGNS MEDICATIONS Unknown Medications RESULTS No Results PROCEDURES No Known procedures INSTRUCTIONS MEDICATIONS ADMINISTERED No Known Medications MEDICAL (GENERAL) HISTORY Type Description Date Surgical History section
--- OUTSIDE RECORDS SUMMARY | 2019-06-24 20:14 | XMS REPORT ---
Author Author Rosalba GIBBONS Organization [facility] [place] Address [address] [place] [address] Care Team Providers Care Coater Slate Name Role Phone CHANEL GIBBONS Unavailable PROBLEMS Type Condition ICD9-CM Code ORB49-NL Code Onset Dates Condition S tatus SNOMED Code Problem Iron deficiency anemia, unspecified D50.9 Active 95241330 Problem Anemia complicating , unspecified trimester O99.019 Active 86604739 Problem Gastro-esophageal reflux disease without esophagitis K21.9 Active 837408269 Problem anemia O90.81 Active 19 3574283 Problem Elevated blood pressure affe cting in third trimester, antepartum O16.3 Active [id number] ALLERGIES No Information ENCOUNTERS Encounter Location Date Diagnosis [place] [address] [place] [id number] [place] [address] June, Encounter for test , result unknown Z32.00 [place] [address] [place] [id number] [place] [address] May, [place] [address] [place] [address] Apr, [place] [address] [place] [address] Apr, [place] [address] [place] [address] Jan, [place] [address] [place] [id number] [place] [address] Jan, Screening for deficiency ane lisa Z13.0 [place] [address] [place] [id number] [place] [address] Jan, [place] [address] [place] [id number] [place] [address] Jan, [place] [address] [place] [id number] [place] [address] Dec, [place] [address] [place] [id number] [place] [phone] Dec, care and examinat ion Z39.2 ; control counseling Z30.09 ; Pre-eclampsia in period O14.95 ; Iron deficiency anemia, unspecified D50.9 and Anemia complicating , unspecified trimester O99.019 [place] [address] [place] [id number] [place] [address] Nov, Encounter for immunization Z 23 [place] [address] [place] [id number] [place] [address] Nov, [place] [address] [place] [id number] [place] [address] Nov, Elevated blood pressure read ing R03.0 and anemia O90.81 [place] [address] [place] [address] Nov, anemia O90.81 [place] [address] [place] [id number] [place] [address] Nov, Screening, deficiency anemia , iron Z13.0 [place] [address] [place] [address] Nov, Elevated blood pressure read ing R03.0 and Gestational proteinuria in third trimester O12.13 [place] [address] [place] [id number] [place] [address] Nov, [place] [address] [place] [id number] [place] [address] Nov, 32 weeks gestation of pregna ncy Z3A.32 ; Third trimester Z34.93 and Elevated blood pressure affecting in third trimester, antepartum O16.3 [place] [address] [place] [id number] [place] [address] Oct, 30 weeks gestation of pregna ncy Z3A.30 ; Encounter for immunization Z23 and Third trimester Z34.93 [facility] [place] [address] [place] [id number] [place] [phone] 14 Oct, 2016 [facility] [address] [place] [address] [id number] [place] [address] 13 Oct, 2016 Dysuria R30.0 [facility] [place] [address] [place] [id number] [place] [address] Oct, 27 weeks gestation of pregna ncy Z3A.27 ; Second trimester Z34.92 ; Gastro-esophageal reflux disease without esophagitis K21.9 and Diseases of the digestive system complicating , second trimester O99.612 [place] [address] [address] Sep, Screening for deficiency ane lisa Z13.0 [place] [address] [place] [id number] [place] [address] Sep, 23 weeks gestation of pregna ncy Z3A.23 and Second trimester Z34.92 [place] [address] [place] [id number] [place] [address] Aug, [facility] [address] [place] [id number] [place] [address] Aug, Acute cystitis without hemat uria N30.00 and Dysuria R30.0 [facility] [place] [address] [place] [id number] [place] [address] Aug, [place] [address] [address] Aug, 19 weeks gestation of pregna ncy Z3A.19 and Second trimester Z33.1 [facility] [place] [address] [place] [id number] [place] [address] Aug, [facility] [place] [address] [place] [address] Jul, [facility] [place] [address] [id number] [address] [place] [address] Jul, 15 weeks gestation of pregna ncy Z3A.15 and Second trimester Z33.1 [facility] [place] [address] [id number] [address] [place] [address] June, Normal in multigra edgar Z34.80 and 11 weeks gestation of Z3A.11 [facility] [place] [address] [id number] [address] [place] [address] June, [facility] [place] [address] [id number] [address] [place] [address] May, Vaginal discharge N89.8 and Other specified related conditions, first trimester O26.891 [place] [address] [facility] [id number] [address] [place] [address] May, [place] [address] [id number] [address] [place] [address] May, 6 weeks gestation of pregnan cy Z3A.01 and Normal in multigravida Z34.80 [facility] [place] [address] [id number] [address] [place] [address] May, Pain of upper abdomen R10.10 and Acute vaginitis N76.0 [place] [address] [id number] [address] [place] [address] Apr, [place] [address] [id number] [address] [place] [address] Apr, [place] [address] [facility] [id number] [address] [place] [address] Apr, Encounter for test , result unknown Z32.00 [facility] [address] [id number] [address] [place] [address] Apr, Pelvic pain R10.2 ; Other sp ecified bacterial agents as the cause of diseases classified elsewhere B96.89 and Acute vaginitis N76.0 [facility] [place] [address] [id number] [address] [place] [address] Dec, Encounter for test Z32.00 [facility] [place] [address] [id number] [address] [place] [address] 14 May, 2014 [facility] [place] [address] [id number] [address] [place] [address] May, [facility] [place] [address] [id number] [address] [place] [address] Mar, [facility] [place] [address] [id number] [address] [place] [address] Nov, [facility] [place] [address] [id number] [address] [place] [address] Nov, [facility] [place] [address] [id number] [address] [place] [address] Oct, [facility] [place] [address] [id number] [address] [place] [address] Sep, [facility] [place] [address] [id number] [address] [place] [address] Aug, IMMUNIZATIONS No Known Immunizations SOCIAL HISTORY Never Assessed REASON FOR VISIT [facility]ARE VITAL SIGNS MEDICATIONS Unknown Medications RESULTS Name Result Date Reference Range HEMOGLOBIN (IN HOUSE) 2016-12-10 HEMOGLOBIN 5.2 11.5 - 16 gm/dL Lot # [id number] Exp date 09/09/17 PROCEDURES Procedure Date Ordered Result Body Site HEMOGLOBIN Dec 10, 2016 INSTRUCTIONS MEDICATIONS ADMINISTERED No Known Medications MEDICAL (GENERAL) HISTORY Type Description Date Surgical History section
--- OUTSIDE RECORDS SUMMARY | 2019-06-24 20:14 | XMS REPORT ---
Author Author Rosalba HEREDIA Organization [facility] Address [address] [place] [address] Care Team Providers Care Baby Registry Sales Consultant Name Role Phone ALBERT HEREDIA Unavailable PROBLEMS Type Condition ICD9-CM Code ZYC16-RT Code Onset Dates Condition S tatus SNOMED Code Problem Iron deficiency anemia, unspecified D50.9 Active 59497078 Problem Anemia complicating , unspecified trimester O99.019 Active 08783431 Problem Gastro-esophageal reflux disease without esophagitis K21.9 Active 814126130 Problem anemia O90.81 Active 19 8399718 Problem Elevated blood pressure affe cting in third trimester, antepartum O16.3 Active [id number] ALLERGIES No Information ENCOUNTERS Encounter Location Date Diagnosis [place] [address] [place] [id number] [place] [address] June, Encounter for test , result unknown Z32.00 [place] [address] [place] [id number] [place] [address] May, [place] [address] [place] [id number] [address] [place] [address] Apr, [place] [address] [place] [address] Apr, [place] [address] [place] [id number] [address] [place] [address] Jan, [place] [address] [place] [id number] [place] [address] Jan, Screening for deficiency ane lisa Z13.0 [facility] [address] [facility] [id number] [address] [place] [address] Jan, [place] [address] [place] [id number] [place] [address] Jan, [facility] [address] [facility] [id number] [address] [place] [address] Dec, [place] [address] [place] [id number] [place] [address] Dec, care and examinat ion Z39.2 ; control counseling Z30.09 ; Pre-eclampsia in period O14.95 ; Iron deficiency anemia, unspecified D50.9 and Anemia complicating , unspecified trimester O99.019 [place] [address] [place] [id number] [place] [address] Nov, Encounter for immunization Z 23 [place] [address] [place] [id number] [place] [address] Nov, [place] [address] [place] [id number] [place] [address] Nov, Elevated blood pressure read ing R03.0 and anemia O90.81 [place] [address] [place] [id number] [place] [address] Nov, anemia O90.81 [place] [address] [place] [id number] [place] [address] Nov, Screening, deficiency anemia , iron Z13.0 [place] [address] [place] [id number] [place] [address] Nov, Elevated blood pressure read ing R03.0 and Gestational proteinuria in third trimester O12.13 [place] [address] [facility] [id number] [address] [place] [address] Nov, [place] [address] [place] [id number] [place] [address] Nov, 32 weeks gestation of pregna ncy Z3A.32 ; Third trimester Z34.93 and Elevated blood pressure affecting in third trimester, antepartum O16.3 [place] [address] [address] Oct, 30 weeks gestation of pregna ncy Z3A.30 ; Encounter for immunization Z23 and Third trimester Z34.93 [place] [address] [address] 14 Oct, 2016 [facility] [address] [address] 13 Oct, 2016 Dysuria R30.0 [place] [address] [address] Oct, 27 weeks gestation of pregna ncy Z3A.27 ; Second trimester Z34.92 ; Gastro-esophageal reflux disease without esophagitis K21.9 and Diseases of the digestive system complicating , second trimester O99.612 [place] [address] [address] Sep, Screening for deficiency ane lisa Z13.0 [place] [address] [address] Sep, 23 weeks gestation of pregna ncy Z3A.23 and Second trimester Z34.92 [place] [address] [address] Aug, [facility] [address] [place] [id number] [place] [address] Aug, Acute cystitis without hemat uria N30.00 and Dysuria R30.0 [place] [address] [address] Aug, [place] [address] [address] Aug, 19 weeks gestation of pregna ncy Z3A.19 and Second trimester Z33.1 [place] [address] [address] Aug, [place] [address] [place] [address] [place] [address] Jul, [place] [address] [id number] [address] [place] [address] Jul, 15 weeks gestation of pregna ncy Z3A.15 and Second trimester Z33.1 [place] [address] [facility] [id number] [address] [place] [address] 17 Jun, 2016 Normal in multigra edgar Z34.80 and 11 weeks gestation of Z3A.11 [facility] [place] [address] [id number] [address] [place] [address] June, [facility] [place] [address] [id number] [address] [place] [address] 20 May, 2016 Vaginal discharge N89.8 and Other specified related conditions, first trimester O26.891 [place] [address] [facility] [id number] [address] [place] [address] May, [place] [address] [id number] [address] [place] [address] 12 May, 2016 6 weeks gestation of pregnan cy Z3A.01 and Normal in multigravida Z34.80 [facility] [place] [address] [id number] [address] [place] [address] 08 May, 2016 Pain of upper abdomen R10.10 and Acute vaginitis N76.0 [place] [address] [id number] [address] [place] [address] Apr, [place] [address] [id number] [address] [place] [address] Apr, [place] [address] [facility] [facility] [id number] [address] [place] [address] Apr, Encounter for test , result unknown Z32.00 [facility] [place] [address] [facility] [id number] [address] [place] [address] Apr, Pelvic pain R10.2 ; Other sp ecified bacterial agents as the cause of diseases classified elsewhere B96.89 and Acute vaginitis N76.0 [facility] [address] [id number] [address] [place] [address] Dec, Encounter for test Z32.00 [facility] [address] [id number] [address] [place] [address] 14 May, 2014 [facility] [address] [id number] [address] [place] [address] May, [facility] [address] [id number] [address] [place] [address] Mar, [facility] [address] [id number] [address] [place] [address] Nov, [facility] [address] [id number] [address] [place] [address] Nov, [facility] [address] [id number] [address] [place] [address] Oct, [facility] [address] [id number] [address] [place] [address] Sep, [facility] [address] [id number] [address] [place] [address] Aug, IMMUNIZATIONS No Known Immunizations SOCIAL HISTORY Never Assessed REASON FOR VISIT Lab (walk-in) PLAN OF CARE VITAL SIGNS MEDICATIONS Unknown Medications RESULTS Name Result Date Reference Range HEMOGLOBIN (IN HOUSE) 2016-12-17 HEMOGLOBIN 9.0 11.5 - 16 gm/dL Lot # [id number] Exp date 09/09/17 PROCEDURES Procedure Date Ordered Result Body Site HEMOGLOBIN Dec 17, 2016 INSTRUCTIONS MEDICATIONS ADMINISTERED No Known Medications MEDICAL (GENERAL) HISTORY Type Description Date Surgical History section
--- OUTSIDE RECORDS SUMMARY | 2019-06-24 20:14 | XMS REPORT ---
Author Author Rosalba HEREDIA Organization [facility] Address [address] [place] [address] Care Team Providers Care Surface Plate Finisher Name Role Phone ALBERT HEREDIA Unavailable PROBLEMS Type Condition ICD9-CM Code ODR87-[id number] Code Onset Dates Condition S tatus SNOMED Code Problem Iron deficiency anemia, unspecified D50.9 Active 59486140 Problem Anemia complicating , unspecified trimester O99.019 Active 80478338 Problem Gastro-esophageal reflux disease without esophagitis K21.9 Active 099985546 Problem anemia O90.81 Active 19 9954350 Problem Elevated blood pressure affe cting in third trimester, antepartum O16.3 Active 01254555 ALLERGIES No Information ENCOUNTERS Encounter Location Date Diagnosis [facility] [address] [facility] [id number] [place] [phone] Apr, [facility] [address] [facility] [id number] [place] [phone] Apr, [facility] [address] [facility] [id number] [place] [phone] Jan, [facility] [address] [facility] [id number] [place] [address] Jan, Screening for deficiency ane lisa Z13.0 [facility] [address] [facility] [id number] [place] [phone] Jan, [facility] [address] [place] [id number] [place] [phone] Jan, [facility] [address] [facility] [id number] [place] [phone] Dec, [facility] [address] [place] [id number] [address] [place] [phone] Dec, care and examinat ion Z39.2 ; control counseling Z30.09 ; Pre-eclampsia in period O14.95 ; Iron deficiency anemia, unspecified D50.9 and Anemia complicating , unspecified trimester O99.019 [place] [address] [place] [id number] [place] [address] Nov, Encounter for immunization Z 23 [place] [address] [place] [id number] [place] [phone] Nov, [place] [id number] [place] [address] Nov, Elevated blood pressure read ing R03.0 and anemia O90.81 [place] [address] [place] [id number] [place] [address] Nov, anemia O90.81 [place] [address] [place] [id number] [place] [phone] Nov, Screening, deficiency anemia , iron Z13.0 [place] [address] [place] [id number] [place] [address] Nov, Elevated blood pressure read ing R03.0 and Gestational proteinuria in third trimester O12.13 [place] [address] [place] [id number] [place] [address] Nov, [place] [address] [place] [id number] [place] [phone] Nov, 32 weeks gestation of pregna ncy Z3A.32 ; Third trimester Z34.93 and Elevated blood pressure affecting in third trimester, antepartum O16.3 [place] [address] [place] [id number] [place] [address] Oct, 30 weeks gestation of pregna ncy Z3A.30 ; Encounter for immunization Z23 and Third trimester Z34.93 [place] [address] [place] [id number] [place] [address] Oct, [facility] [address] [facility] [id number] [place] [phone] 13 Oct, 2016 Dysuria R30.0 [place] [address] [place] [id number] [place] [phone] Oct, 27 weeks gestation of pregna ncy Z3A.27 ; Second trimester Z34.92 ; Gastro-esophageal reflux disease without esophagitis K21.9 and Diseases of the digestive system complicating , second trimester O99.612 [place] [address] [place] [id number] [place] [address] Sep, Screening for deficiency ane lisa Z13.0 [place] [address] [place] [id number] [place] [phone] Sep, 23 weeks gestation of pregna ncy Z3A.23 and Second trimester Z34.92 [place] [address] [address] Aug, [facility] [address] [place] [id number] [address] [place] [address] Aug, Acute cystitis without hemat uria N30.00 and Dysuria R30.0 [facility] [address] [place] [id number] [place] [phone] Aug, [place] [address] [address] Aug, 19 weeks gestation of pregna ncy Z3A.19 and Second trimester Z33.1 [place] [address] [place] [id number] [address] [place] [address] Aug, [place] [address] [place] [id number] [place] [address] Jul, [place] [address] [place] [id number] [place] [phone] Jul, 15 weeks gestation of pregna ncy Z3A.15 and Second trimester Z33.1 [facility] [address] [id number] [address] [place] [phone] 17 Jun, 2016 Normal in multigra edgar Z34.80 and 11 weeks gestation of Z3A.11 [facility] [address] [id number] [address] [place] [phone] June, [facility] [address] [id number] [address] [place] [address] May, Vaginal discharge N89.8 and Other specified related conditions, first trimester O26.891 [place] [address] [id number] [address] [place] [address] May, [place] [address] [id number] [address] [place] [address] May, 6 weeks gestation of pregnan cy Z3A.01 and Normal in multigravida Z34.80 [facility] [address] [id number] [address] [place] [address] May, Pain of upper abdomen R10.10 and Acute vaginitis N76.0 [place] [address] [id number] [address] [place] [phone] Apr, [place] [address] [id number] [address] [place] [address] Apr, [place] [address] [id number] [address] [place] [address] Apr, Encounter for test , result unknown Z32.00 [facility] [address] [id number] [address] [place] [phone] Apr, Pelvic pain R10.2 ; Other sp ecified bacterial agents as the cause of diseases classified elsewhere B96.89 and Acute vaginitis N76.0 [place] [address] [id number] [address] [place] [phone] Dec, Encounter for test Z32.00 [place] [address] [id number] [address] [place] [phone] May, [facility] [address] [id number] [address] [place] [address] May, [facility] [address] [id number] [address] [place] [phone] Mar, [facility] [address] [id number] [address] [place] [address] Nov, [facility] [address] [id number] [address] [place] [phone] Nov, [facility] [address] [id number] [address] [place] [phone] Oct, [facility] [address] [id number] [address] [place] [address] Sep, [facility] [address] [facility] [id number] [place] [phone] Aug, IMMUNIZATIONS No Known Immunizations SOCIAL HISTORY Never Assessed REASON FOR VISIT Requests return call PLAN OF CARE VITAL SIGNS MEDICATIONS Medication Instructions Dosage Frequency Start Date End Date Duration S tatus Clotrimazole-7 1 % Vaginal Once a day 1 application at bedtime 24h Aug, Aug, 7 day(s) Active RESULTS No Results PROCEDURES No Known procedures INSTRUCTIONS MEDICATIONS ADMINISTERED No Known Medications MEDICAL (GENERAL) HISTORY Type Description Date Surgical History section
--- OUTSIDE RECORDS SUMMARY | 2019-06-24 20:14 | XMS REPORT ---
Author Author Rosalba HEREDIA Organization [facility] Address [address] [place] [address] Care Team Providers Care Endoscopy Rn Name Role Phone ALBERT HEREDIA Unavailable PROBLEMS Type Condition ICD9-CM Code [id number] Code Onset Dates Condition S tatus SNOMED Code Problem anemia O90.81 Active 19 7997200 Problem Gastro-esophageal reflux disease without esophagitis K21.9 Active 257292405 ALLERGIES No Known Allergies SOCIAL HISTORY Never Assessed PLAN OF CARE Activity Details Follow Up 4 Weeks Reason: VITAL SIGNS Height 65.5 in 2016-07-04 Weight 159.2 lbs 2016-07-04 Temperature 97.6 degrees Fahrenheit 2016-07-04 Heart Rate 76 bpm 2016-07-04 Respiratory Rate 18 2016-07-04 BMI 26.089 kg/m2 2016-07-04 Blood pressure systolic 122 mmHg 2016-07-04 Blood pressure diastolic 70 mmHg 2016-07-04 MEDICATIONS Medication Instructions Dosage Frequency Start Date End Date Duration S tatus Flintstondia Gummidia Complete - Active RESULTS No Results PROCEDURES Procedure Date Ordered Result Body Site URINE-NO MICRO July 04, 2016 IMMUNIZATIONS No Known Immunizations
--- OUTSIDE RECORDS SUMMARY | 2019-06-24 20:14 | XMS REPORT ---
Author Author Rosalba HEREDIA Organization [facility] Address [address] [place] [address] Care Team Providers Care Alarm Installer Name Role Phone ALBERT HEREDIA Unavailable PROBLEMS Type Condition ICD9-CM Code [id number] Code Onset Dates Condition S tatus SNOMED Code Problem Iron deficiency anemia, unspecified D50.9 Active 73793532 Problem Anemia complicating , unspecified trimester O99.019 Active 57152328 Problem Gastro-esophageal reflux disease without esophagitis K21.9 Active 335184974 Problem anemia O90.81 Active 19 1273130 Problem Elevated blood pressure affe cting in third trimester, antepartum O16.3 Active 50233500 ALLERGIES No Information ENCOUNTERS Encounter Location Date Diagnosis [place] [address] [place] [id number] [place] [address] June, Encounter for test , result unknown Z32.00 [place] [address] [place] [id number] [address] [place] [address] May, [place] [address] [place] [id number] [address] [place] [address] Apr, [place] [id number] [place] [address] Apr, [place] [address] [place] [id number] [place] [address] Jan, [place] [address] [place] [id number] [address] [place] [address] Jan, Screening for deficiency ane lisa Z13.0 [facility] [address] [facility] [id number] [address] [place] [address] Jan, [place] [address] [place] [id number] [address] [place] [address] Jan, [facility] [address] [facility] [id number] [address] [place] [address] Dec, [place] [address] [place] [id number] [place] [phone] Dec, care and examinat ion Z39.2 ; control counseling Z30.09 ; Pre-eclampsia in period O14.95 ; Iron deficiency anemia, unspecified D50.9 and Anemia complicating , unspecified trimester O99.019 [place] [address] [place] [id number] [place] [address] Nov, Encounter for immunization Z 23 [place] [address] [place] [id number] [address] [place] [address] Nov, [place] [address] [place] [id number] [address] [place] [address] Nov, Elevated blood pressure read ing R03.0 and anemia O90.81 [place] [address] [place] [id number] [place] [address] Nov, anemia O90.81 [place] [address] [place] [id number] [place] [address] Nov, Screening, deficiency anemia , iron Z13.0 [place] [address] [place] [id number] [place] [address] Nov, Elevated blood pressure read ing R03.0 and Gestational proteinuria in third trimester O12.13 [place] [address] [facility] [id number] [address] [place] [address] Nov, [place] [address] [place] [id number] [place] [address] Nov, 32 weeks gestation of pregna ncy Z3A.32 ; Third trimester Z34.93 and Elevated blood pressure affecting in third trimester, antepartum O16.3 [place] [address] [address] Oct, 30 weeks gestation of pregna ncy Z3A.30 ; Encounter for immunization Z23 and Third trimester Z34.93 [place] [address] [address] 14 Oct, 2016 [facility] [address] [address] 13 Oct, 2016 Dysuria R30.0 [place] [address] [address] Oct, 27 weeks gestation of pregna ncy Z3A.27 ; Second trimester Z34.92 ; Gastro-esophageal reflux disease without esophagitis K21.9 and Diseases of the digestive system complicating , second trimester O99.612 [place] [address] [address] Sep, Screening for deficiency ane lisa Z13.0 [place] [address] [address] Sep, 23 weeks gestation of pregna ncy Z3A.23 and Second trimester Z34.92 [place] [address] [address] Aug, [facility] [address] [place] [id number] [address] [place] [address] Aug, Acute cystitis without hemat uria N30.00 and Dysuria R30.0 [place] [address] [address] Aug, [place] [address] [address] Aug, 19 weeks gestation of pregna ncy Z3A.19 and Second trimester Z33.1 [place] [address] [address] Aug, [place] [address] [place] [address] [place] [address] Jul, [place] [address] [id number] [address] [place] [address] Jul, 15 weeks gestation of pregna ncy Z3A.15 and Second trimester Z33.1 [place] [address] [facility] [id number] [address] [place] [address] 17 Jun, 2016 Normal in multigra edgar Z34.80 and 11 weeks gestation of Z3A.11 [facility] [place] [address] [id number] [address] [place] [address] June, [facility] [place] [address] [id number] [address] [place] [address] 20 May, 2016 Vaginal discharge N89.8 and Other specified related conditions, first trimester O26.891 [place] [address] [facility] [id number] [address] [place] [address] May, [place] [address] [id number] [address] [place] [address] 12 May, 2016 6 weeks gestation of pregnan cy Z3A.01 and Normal in multigravida Z34.80 [facility] [place] [address] [id number] [address] [place] [address] 08 May, 2016 Pain of upper abdomen R10.10 and Acute vaginitis N76.0 [place] [address] [id number] [address] [place] [address] Apr, [place] [address] [id number] [address] [place] [address] Apr, [place] [address] [facility] [id number] [address] [place] [address] Apr, Encounter for test , result unknown Z32.00 [facility] [place] [address] [facility] [id number] [address] [place] [address] Apr, Pelvic pain R10.2 ; Other sp ecified bacterial agents as the cause of diseases classified elsewhere B96.89 and Acute vaginitis N76.0 [facility] [address] [id number] [address] [place] [address] Dec, Encounter for test Z32.00 [facility] [address] [id number] [address] [place] [address] May, [facility] [address] [id number] [address] [place] [address] May, [facility] [address] [id number] [address] [place] [address] Mar, [facility] [address] [id number] [address] [place] [address] Nov, [facility] [address] [id number] [address] [place] [address] Nov, [facility] [address] [id number] [address] [place] [address] Oct, [facility] [address] [id number] [address] [place] [address] Sep, [facility] [address] [id number] [address] [place] [address] Aug, IMMUNIZATIONS No Known Immunizations SOCIAL HISTORY Never Assessed REASON FOR VISIT Triage PLAN OF CARE VITAL SIGNS MEDICATIONS Medication Instructions Dosage Frequency Start Date End Date Duration S tatus Ferrous Sulfate 325 (65 Fe) MG Orally Once a day 1 tablet 24h 2 3 Nov, 2016 30 day(s) Active RESULTS No Results PROCEDURES No Known procedures INSTRUCTIONS MEDICATIONS ADMINISTERED No Known Medications MEDICAL (GENERAL) HISTORY Type Description Date Surgical History section
--- OUTSIDE RECORDS SUMMARY | 2019-06-24 20:14 | XMS REPORT ---
Author Author Rosalba OCONNOR Organization [facility] Address [address] [place] [address] Care Team Providers Care Wet Suit Gluer Name Role Phone ART OCONNOR Unavailable PROBLEMS Type Condition ICD9-CM Code [id number] Code Onset Dates Condition S tatus SNOMED Code Problem anemia O90.81 Active 19 1365872 Problem Gastro-esophageal reflux disease without esophagitis K21.9 Active 676303381 ALLERGIES No Known Allergies SOCIAL HISTORY Never Assessed PLAN OF CARE Activity Details Follow Up prn Reason: VITAL SIGNS Height 65.5 in 2016-06-07 Weight 162.2 lbs 2016-06-07 Temperature 97.6 degrees Fahrenheit 2016-06-07 Heart Rate 88 bpm 2016-06-07 Respiratory Rate 20 2016-06-07 BMI 26.58 kg/m2 2016-06-07 Blood pressure systolic 100 mmHg 2016-06-07 Blood pressure diastolic 70 mmHg 2016-06-07 MEDICATIONS Medication Instructions Dosage Frequency Start Date End Date Duration S tatus Vitamins 0.8 MG Orally Once a day 1 tablet 24h Active RESULTS Name Result Date Reference Range BACTERIAL VAGINOSIS (IN HOUSE) 2016-06-07 RESULTS negative Control + Lot # [id number] Exp date 2017-02 PROCEDURES Procedure Date Ordered Result Body Site TRICHOMONAS ASSAY W/OPTIC June 07, 2016 BARCENAS VAG, DNA, DIR PROBE June 07, 2016 CULTURE, BACTERIA, OTHER June 07, 2016 No Charge June 07, 2016 IMMUNIZATIONS No Known Immunizations
--- OUTSIDE RECORDS SUMMARY | 2019-06-24 20:15 | XMS REPORT ---
Author Author Rosalba ZHOU Organization [facility] Address [address] [place] [address] Care Team Providers Care Improvement Coordinator Name Role Phone BERNIE ZHOU Unavailable PROBLEMS Type Condition ICD9-CM Code [id number] Code Onset Dates Condition S tatus SNOMED Code Problem Iron deficiency anemia, unspecified D50.9 Active 40967504 Problem Anemia complicating , unspecified trimester O99.019 Active 10950956 Problem Gastro-esophageal reflux disease without esophagitis K21.9 Active 834725559 Problem anemia O90.81 Active 19 5525908 Problem Elevated blood pressure affe cting in third trimester, antepartum O16.3 Active [id number] ALLERGIES No Known Allergies ENCOUNTERS Encounter Location Date Diagnosis [id number] [id number] [place] [phone] May, [place] [address] [address] Apr, [place] [address] [place] [id number] [place] [phone] Apr, [place] [address] [place] [phone] Jan, [place] [address] [place] [id number] [place] [phone] Jan, Screening for deficiency ane lisa Z13.0 [place] [address] [address] Jan, [place] [address] [place] [id number] [place] [phone] Jan, [place] [address] [place] [id number] [place] [phone] Dec, [place] [address] [place] [id number] [address] [place] [phone] Dec, care and examinat ion Z39.2 ; control counseling Z30.09 ; Pre-eclampsia in period O14.95 ; Iron deficiency anemia, unspecified D50.9 and Anemia complicating , unspecified trimester O99.019 [place] [address] [place] [address] Nov, Encounter for immunization Z 23 [place] [address] [place] [id number] [address] [place] [phone] Nov, [place] [address] [place] [id number] [place] [phone] Nov, Elevated blood pressure read ing R03.0 and anemia O90.81 [place] [address] [place] [phone] Nov, anemia O90.81 [place] [address] [facility] [id number] [address] [place] [phone] Nov, Screening, deficiency anemia , iron Z13.0 [place] [address] [place] [id number] [address] [place] [phone] Nov, Elevated blood pressure read ing R03.0 and Gestational proteinuria in third trimester O12.13 [place] [address] [place] [id number] [place] [phone] Nov, [place] [address] [place] [id number] [address] [place] [phone] Nov, 32 weeks gestation of pregna ncy Z3A.32 ; Third trimester Z34.93 and Elevated blood pressure affecting in third trimester, antepartum O16.3 [place] [address] [place] [id number] [address] [place] [phone] Oct, 30 weeks gestation of pregna ncy Z3A.30 ; Encounter for immunization Z23 and Third trimester Z34.93 [place] [address] [facility] [id number] [address] [place] [phone] 14 Oct, 2016 [facility] [address] [facility] [id number] [address] [place] [phone] 13 Oct, 2016 Dysuria R30.0 [facility] [address] [place] [id number] [address] [place] [phone] 05 Oct, 2016 27 weeks gestation of pregna ncy Z3A.27 ; Second trimester Z34.92 ; Gastro-esophageal reflux disease without esophagitis K21.9 and Diseases of the digestive system complicating , second trimester O99.612 [place] [address] [place] [id number] [place] [phone] Sep, Screening for deficiency ane lisa Z13.0 [place] [address] [place] [id number] [address] [place] [phone] Sep, 23 weeks gestation of pregna ncy Z3A.23 and Second trimester Z34.92 [facility] [address] [place] [id number] [address] [place] [phone] Aug, [facility] [address] [place] [id number] [place] [phone] Aug, Acute cystitis without hemat uria N30.00 and Dysuria R30.0 [place] [address] [place] [id number] [address] [place] [phone] Aug, [place] [address] [place] [id number] [address] [place] [phone] Aug, 19 weeks gestation of pregna ncy Z3A.19 and Second trimester Z33.1 [place] [address] [place] [id number] [address] [place] [phone] Aug, [place] [address] [place] [id number] [address] [place] [phone] Jul, [place] [address] [address] Jul, 15 weeks gestation of pregna ncy Z3A.15 and Second trimester Z33.1 [place] [address] [facility] [id number] [address] [place] [phone] 17 Jun, 2016 Normal in multigra edgar Z34.80 and 11 weeks gestation of Z3A.11 [facility] [place] [address] [id number] [address] [place] [phone] June, [facility] [place] [address] [id number] [address] [place] [phone] May, Vaginal discharge N89.8 and Other specified related conditions, first trimester O26.891 [place] [address] [facility] [id number] [address] [place] [phone] May, [place] [address] [facility] [id number] [address] [place] [phone] May, 6 weeks gestation of pregnan cy Z3A.01 and Normal in multigravida Z34.80 [facility] [place] [address] [id number] [address] [place] [phone] May, Pain of upper abdomen R10.10 and Acute vaginitis N76.0 [place] [address] [id number] [address] [place] [phone] Apr, [place] [address] [id number] [address] [place] [phone] Apr, [place] [address] [facility] [id number] [address] [place] [phone] Apr, Encounter for test , result unknown Z32.00 [facility] [place] [address] [id number] [address] [place] [phone] Apr, Pelvic pain R10.2 ; Other sp ecified bacterial agents as the cause of diseases classified elsewhere B96.89 and Acute vaginitis N76.0 [place] [address] [id number] [address] [place] [phone] Dec, Encounter for test Z32.00 [facility] [address] [facility] [id number] [address] [place] [phone] May, [facility] [address] [facility] [id number] [address] [place] [phone] May, [facility] [address] [facility] [id number] [address] [place] [phone] Mar, [facility] [address] [facility] [id number] [address] [place] [phone] Nov, [facility] [address] [facility] [id number] [address] [place] [phone] Nov, [facility] [address] [facility] [id number] [address] [place] [phone] Oct, [facility] [address] [facility] [id number] [address] [place] [phone] Sep, [facility] [address] [facility] [id number] [address] [place] [phone] Aug, IMMUNIZATIONS No Known Immunizations SOCIAL HISTORY Never Assessed REASON FOR VISIT Vaginal discharge, lower abdominal and back pain, burning with urination. Judit espinosa is 29 weeks . GISSELLE Leblanc. PLAN OF CARE VITAL SIGNS Height 65.5 in 2016-10-31 Weight 180.1 lbs 2016-10-31 Temperature 97.8 degrees Fahrenheit 2016-10-31 Heart Rate 78 bpm 2016-10-31 Respiratory Rate 18 2016-10-31 BMI 29.51 kg/m2 2016-10-31 Blood pressure systolic 122 mmHg 2016-10-31 Blood pressure diastolic 74 mmHg 2016-10-31 MEDICATIONS Medication Instructions Dosage Frequency Start Date End Date Duration S amadeo Syed Complete - Active Ranitidine HCl 150 MG Orally Once a day 1 tablet at bedtime 24h Oct, 30 day(s) Active RESULTS Name Result Date Reference Range UA LONG DIP (IN HOUSE) 2016-10-31 Lot # [id number] Exp date 10/18/17 Clarity clear Color yellow Odor no GLU negative STALIN negative KET negative SG 1.020 BLO negative pH 6.0 Protein negative URO 0.2 NIT negative MAREN Trace Lot # [id number] Exp date 05/2017 PROCEDURES Procedure Date Ordered Result Body Site URINALYSIS, AUTO, W/O SCOPE Oct 31, 2016 INSTRUCTIONS MEDICATIONS ADMINISTERED No Known Medications MEDICAL (GENERAL) HISTORY Type Description Date Surgical History section
--- OUTSIDE RECORDS SUMMARY | 2019-06-24 20:15 | XMS REPORT ---
Author Author Rosalba HEREDIA Organization [facility] Address [address] [place] [address] Care Team Providers Care Plant Electrical Engineer Name Role Phone ALBERT HEREDIA Unavailable PROBLEMS Type Condition ICD9-CM Code WMP29-ZA Code Onset Dates Condition S tatus SNOMED Code Problem Iron deficiency anemia, unspecified D50.9 Active 22436594 Problem Anemia complicating , unspecified trimester O99.019 Active 00771330 Problem Gastro-esophageal reflux disease without esophagitis K21.9 Active 536029620 Problem anemia O90.81 Active 19 7045231 Problem Elevated blood pressure affe cting in third trimester, antepartum O16.3 Active 62753306 ALLERGIES No Information ENCOUNTERS Encounter Location Date Diagnosis [facility] [address] [facility] [id number] [address] [place] [address] Apr, [facility] [address] [facility] [id number] [address] [place] [phone] Apr, [facility] [address] [facility] [id number] [address] [place] [address] Jan, [facility] [address] [place] [id number] [address] [place] [phone] Jan, Screening for deficiency ane lisa Z13.0 [facility] [address] [facility] [id number] [address] [place] [phone] Jan, [facility] [address] [place] [id number] [address] [place] [address] Jan, [facility] [address] [facility] [id number] [address] [place] [phone] Dec, [facility] [address] [place] [id number] [address] [place] [phone] Dec, care and examinat ion Z39.2 ; control counseling Z30.09 ; Pre-eclampsia in period O14.95 ; Iron deficiency anemia, unspecified D50.9 and Anemia complicating , unspecified trimester O99.019 [place] [address] [place] [id number] [address] [place] [address] Nov, Encounter for immunization Z 23 [place] [address] [place] [id number] [address] [place] [address] Nov, [place] [id number] [place] [address] Nov, Elevated blood pressure read ing R03.0 and anemia O90.81 [place] [address] [place] [id number] [address] [place] [address] Nov, anemia O90.81 [place] [address] [place] [id number] [place] [address] Nov, Screening, deficiency anemia , iron Z13.0 [place] [address] [place] [id number] [address] [place] [address] Nov, Elevated blood pressure read ing R03.0 and Gestational proteinuria in third trimester O12.13 [place] [address] [place] [id number] [place] [address] Nov, [place] [address] [place] [id number] [place] [address] Nov, 32 weeks gestation of pregna ncy Z3A.32 ; Third trimester Z34.93 and Elevated blood pressure affecting in third trimester, antepartum O16.3 [place] [address] [place] [id number] [place] [address] Oct, 30 weeks gestation of pregna ncy Z3A.30 ; Encounter for immunization Z23 and Third trimester Z34.93 [place] [address] [place] [id number] [place] [address] Oct, [facility] [address] [facility] [id number] [address] [place] [address] 13 Oct, 2016 Dysuria R30.0 [place] [address] [place] [id number] [place] [address] Oct, 27 weeks gestation of pregna ncy Z3A.27 ; Second trimester Z34.92 ; Gastro-esophageal reflux disease without esophagitis K21.9 and Diseases of the digestive system complicating , second trimester O99.612 [place] [address] [place] [id number] [address] [place] [address] Sep, Screening for deficiency ane lisa Z13.0 [place] [address] [place] [id number] [place] [phone] Sep, 23 weeks gestation of pregna ncy Z3A.23 and Second trimester Z34.92 [place] [address] [address] Aug, [facility] [address] [place] [id number] [address] [place] [address] Aug, Acute cystitis without hemat uria N30.00 and Dysuria R30.0 [facility] [address] [place] [id number] [place] [address] Aug, [place] [address] [address] Aug, 19 weeks gestation of pregna ncy Z3A.19 and Second trimester Z33.1 [place] [address] [place] [id number] [address] [place] [address] Aug, [place] [address] [place] [id number] [place] [address] Jul, [place] [address] [place] [id number] [place] [address] Jul, 15 weeks gestation of pregna ncy Z3A.15 and Second trimester Z33.1 [facility] [address] [id number] [address] [place] [address] 17 Jun, 2016 Normal in multigra edgra Z34.80 and 11 weeks gestation of Z3A.11 [facility] [address] [id number] [address] [place] [phone] June, [facility] [address] [id number] [address] [place] [address] May, Vaginal discharge N89.8 and Other specified related conditions, first trimester O26.891 [place] [address] [id number] [address] [place] [address] May, [place] [address] [id number] [address] [place] [address] May, 6 weeks gestation of pregnan cy Z3A.01 and Normal in multigravida Z34.80 [facility] [address] [id number] [address] [place] [address] May, Pain of upper abdomen R10.10 and Acute vaginitis N76.0 [place] [address] [id number] [address] [place] [address] Apr, [place] [address] [id number] [address] [place] [address] Apr, [place] [address] [id number] [address] [place] [phone] Apr, Encounter for test , result unknown Z32.00 [facility] [address] [id number] [address] [place] [address] Apr, Pelvic pain R10.2 ; Other sp ecified bacterial agents as the cause of diseases classified elsewhere B96.89 and Acute vaginitis N76.0 [place] [address] [id number] [address] [place] [address] Dec, Encounter for test Z32.00 [place] [address] [id number] [address] [place] [address] May, [facility] [address] [id number] [address] [place] [phone] May, [facility] [address] [facility] [id number] [address] [place] [address] Mar, [facility] [address] [facility] [id number] [address] [place] [phone] Nov, [facility] [address] [facility] [id number] [address] [place] [address] Nov, [facility] [address] [facility] [id number] [address] [place] [address] Oct, [facility] [address] [facility] [id number] [address] [place] [address] Sep, [facility] [address] [place] [id number] [address] [place] [address] Aug, IMMUNIZATIONS No Known Immunizations SOCIAL HISTORY Never Assessed REASON FOR VISIT OB phone call. PLAN OF CARE VITAL SIGNS MEDICATIONS Unknown Medications RESULTS No Results PROCEDURES No Known procedures INSTRUCTIONS MEDICATIONS ADMINISTERED No Known Medications MEDICAL (GENERAL) HISTORY Type Description Date Surgical History section
--- OUTSIDE RECORDS SUMMARY | 2019-06-24 20:15 | XMS REPORT ---
Author Author Rosalba HEREDIA Organization [facility] Address [address] [place] [address] Care Team Providers Care Torch Shearer Name Role Phone ALBERT HEREDIA Unavailable PROBLEMS Type Condition ICD9-CM Code TXG87-ND Code Onset Dates Condition S tatus SNOMED Code Problem Iron deficiency anemia, unspecified D50.9 Active 24117389 Problem Anemia complicating , unspecified trimester O99.019 Active 20298970 Problem Gastro-esophageal reflux disease without esophagitis K21.9 Active 098914572 Problem anemia O90.81 Active 19 8841303 Problem Elevated blood pressure affe cting in third trimester, antepartum O16.3 Active [id number] ALLERGIES No Information ENCOUNTERS Encounter Location Date Diagnosis [facility] [address] [facility] [id number] [address] [place] [address] Apr, [facility] [address] [facility] [id number] [address] [place] [address] Apr, [facility] [address] [facility] [id number] [address] [place] [address] Jan, [facility] [address] [facility] [id number] [address] [place] [address] Jan, Screening for deficiency ane lisa Z13.0 [facility] [address] [facility] [id number] [address] [place] [address] Jan, [facility] [address] [place] [id number] [address] [place] [address] Jan, [facility] [address] [facility] [id number] [address] [place] [address] Dec, [facility] [address] [place] [id number] [address] [place] [address] Dec, care and examinat ion Z39.2 ; control counseling Z30.09 ; Pre-eclampsia in period O14.95 ; Iron deficiency anemia, unspecified D50.9 and Anemia complicating , unspecified trimester O99.019 [place] [address] [place] [id number] [address] [place] [address] Nov, Encounter for immunization Z 23 [place] [address] [place] [id number] [address] [place] [address] Nov, [place] [id number] [place] [address] Nov, Elevated blood pressure read ing R03.0 and anemia O90.81 [place] [address] [place] [id number] [address] [place] [address] Nov, anemia O90.81 [place] [address] [place] [id number] [address] [place] [address] Nov, Screening, deficiency anemia , iron Z13.0 [place] [address] [place] [id number] [address] [place] [address] Nov, Elevated blood pressure read ing R03.0 and Gestational proteinuria in third trimester O12.13 [place] [address] [place] [id number] [address] [place] [address] Nov, [place] [address] [place] [id number] [address] [place] [address] Nov, 32 weeks gestation of pregna ncy Z3A.32 ; Third trimester Z34.93 and Elevated blood pressure affecting in third trimester, antepartum O16.3 [place] [address] [place] [id number] [address] [place] [address] Oct, 30 weeks gestation of pregna ncy Z3A.30 ; Encounter for immunization Z23 and Third trimester Z34.93 [place] [address] [place] [id number] [address] [place] [address] Oct, [facility] [address] [facility] [id number] [address] [place] [address] 13 Oct, 2016 Dysuria R30.0 [place] [address] [place] [id number] [place] [address] Oct, 27 weeks gestation of pregna ncy Z3A.27 ; Second trimester Z34.92 ; Gastro-esophageal reflux disease without esophagitis K21.9 and Diseases of the digestive system complicating , second trimester O99.612 [place] [address] [place] [id number] [address] [place] [address] Sep, Screening for deficiency ane lisa Z13.0 [place] [address] [place] [id number] [place] [address] Sep, 23 weeks gestation of pregna ncy Z3A.23 and Second trimester Z34.92 [place] [address] [address] Aug, [facility] [address] [place] [id number] [address] [place] [address] Aug, Acute cystitis without hemat uria N30.00 and Dysuria R30.0 [facility] [address] [place] [id number] [address] [place] [address] Aug, [place] [address] [address] Aug, 19 weeks gestation of pregna ncy Z3A.19 and Second trimester Z33.1 [place] [address] [place] [id number] [address] [place] [address] Aug, [place] [address] [place] [id number] [place] [address] Jul, [place] [address] [place] [id number] [place] [address] Jul, 15 weeks gestation of pregna ncy Z3A.15 and Second trimester Z33.1 [facility] [address] [id number] [address] [place] [address] 17 Jun, 2016 Normal in multigra edgar Z34.80 and 11 weeks gestation of Z3A.11 [facility] [address] [id number] [address] [place] [address] June, [facility] [address] [id number] [address] [place] [address] May, Vaginal discharge N89.8 and Other specified related conditions, first trimester O26.891 [place] [address] [id number] [address] [place] [address] May, [place] [address] [id number] [address] [place] [address] May, 6 weeks gestation of pregnan cy Z3A.01 and Normal in multigravida Z34.80 [facility] [address] [id number] [address] [place] [address] May, Pain of upper abdomen R10.10 and Acute vaginitis N76.0 [place] [address] [id number] [address] [place] [address] Apr, [place] [address] [id number] [address] [place] [address] Apr, [place] [address] [id number] [address] [place] [address] Apr, Encounter for test , result unknown Z32.00 [facility] [address] [id number] [address] [place] [address] Apr, Pelvic pain R10.2 ; Other sp ecified bacterial agents as the cause of diseases classified elsewhere B96.89 and Acute vaginitis N76.0 [place] [address] [id number] [address] [place] [address] Dec, Encounter for test Z32.00 [place] [address] [id number] [address] [place] [address] May, [facility] [address] [id number] [address] [place] [address] May, [facility] [address] [facility] [id number] [address] [place] [address] Mar, [facility] [address] [facility] [id number] [address] [place] [address] Nov, [facility] [address] [facility] [id number] [address] [place] [address] Nov, [facility] [address] [facility] [id number] [address] [place] [address] Oct, [facility] [address] [facility] [id number] [address] [place] [address] Sep, [facility] [address] [facility] [id number] [address] [place] [address] Aug, IMMUNIZATIONS No Known Immunizations SOCIAL HISTORY Never Assessed REASON FOR VISIT Requests return call PLAN OF CARE VITAL SIGNS MEDICATIONS Unknown Medications RESULTS No Results PROCEDURES No Known procedures INSTRUCTIONS MEDICATIONS ADMINISTERED No Known Medications MEDICAL (GENERAL) HISTORY Type Description Date Surgical History section
--- OUTSIDE RECORDS SUMMARY | 2019-06-24 20:15 | XMS REPORT ---
Author Author Rosalba HEREDIA Organization [facility] Address [address] [place] [address] Care Team Providers Care Gallery Or Museum Curator Name Role Phone ALBERT HEREDIA Unavailable PROBLEMS Type Condition ICD9-CM Code GYC61-XF Code Onset Dates Condition S tatus SNOMED Code Problem Iron deficiency anemia, unspecified D50.9 Active 91406879 Problem Anemia complicating , unspecified trimester O99.019 Active 39285423 Problem Gastro-esophageal reflux disease without esophagitis K21.9 Active 190805572 Problem anemia O90.81 Active 19 3427731 Problem Elevated blood pressure affe cting in third trimester, antepartum O16.3 Active [id number] ALLERGIES No Known Allergies ENCOUNTERS Encounter Location Date Diagnosis [place] [id number] [place] [id number] [address] [place] [address] June, Encounter for test , result unknown Z32.00 [place] [address] [place] [id number] [address] [place] [phone] May, [place] [address] [place] [id number] [address] [place] [address] Apr, [place] [id number] [place] [address] Apr, [place] [address] [place] [id number] [address] [place] [address] Jan, [place] [address] [address] Jan, Screening for deficiency ane lisa Z13.0 [facility] [address] [place] [id number] [address] [place] [address] Jan, [place] [address] [place] [address] Jan, [facility] [address] [place] [id number] [address] [place] [address] Dec, [place] [address] [place] [id number] [address] [place] [address] Dec, care and examinat ion Z39.2 ; control counseling Z30.09 ; Pre-eclampsia in period O14.95 ; Iron deficiency anemia, unspecified D50.9 and Anemia complicating , unspecified trimester O99.019 [place] [address] [place] [id number] [address] [place] [address] Nov, Encounter for immunization Z 23 [place] [address] [place] [id number] [address] [place] [address] Nov, [place] [address] [place] [id number] [address] [place] [address] Nov, Elevated blood pressure read ing R03.0 and anemia O90.81 [place] [address] [place] [id number] [address] [place] [address] Nov, anemia O90.81 [place] [address] [place] [id number] [address] [place] [address] Nov, Screening, deficiency anemia , iron Z13.0 [place] [address] [place] [id number] [address] [place] [address] Nov, Elevated blood pressure read ing R03.0 and Gestational proteinuria in third trimester O12.13 [place] [address] [facility] [id number] [address] [place] [address] Nov, [place] [address] [place] [id number] [address] [place] [address] Nov, 32 weeks gestation of pregna ncy Z3A.32 ; Third trimester Z34.93 and Elevated blood pressure affecting in third trimester, antepartum O16.3 [place] [address] [place] [id number] [address] [place] [address] Oct, 30 weeks gestation of pregna ncy Z3A.30 ; Encounter for immunization Z23 and Third trimester Z34.93 [place] [address] [address] 14 Oct, 2016 [facility] [address] [address] 13 Oct, 2016 Dysuria R30.0 [facility] [address] [address] Oct, 27 weeks gestation of pregna ncy Z3A.27 ; Second trimester Z34.92 ; Gastro-esophageal reflux disease without esophagitis K21.9 and Diseases of the digestive system complicating , second trimester O99.612 [place] [address] [address] Sep, Screening for deficiency ane lisa Z13.0 [place] [address] [address] Sep, 23 weeks gestation of pregna ncy Z3A.23 and Second trimester Z34.92 [place] [address] [place] [id number] [address] [place] [address] Aug, [facility] [address] [place] [id number] [address] [place] [address] Aug, Acute cystitis without hemat uria N30.00 and Dysuria R30.0 [place] [address] [address] Aug, [place] [address] [address] Aug, 19 weeks gestation of pregna ncy Z3A.19 and Second trimester Z33.1 [place] [address] [address] Aug, [place] [address] [place] [id number] [address] [place] [address] 27 Jul, [address] [place] [address] [id number] [address] [place] [phone] 13 Jul, 2016 15 weeks gestation of pregna ncy Z3A.15 and Second trimester Z33.1 [place] [address] [id number] [address] [place] [address] 17 Jun, 2016 Normal in multigra edgar Z34.80 and 11 weeks gestation of Z3A.11 [facility] [place] [address] [id number] [address] [place] [address] June, [facility] [place] [address] [id number] [address] [place] [address] 20 May, 2016 Vaginal discharge N89.8 and Other specified related conditions, first trimester O26.891 [place] [address] [facility] [id number] [address] [place] [address] May, [place] [address] [id number] [address] [place] [address] 12 May, 2016 6 weeks gestation of pregnan cy Z3A.01 and Normal in multigravida Z34.80 [facility] [place] [address] [id number] [address] [place] [address] 08 May, 2016 Pain of upper abdomen R10.10 and Acute vaginitis N76.0 [place] [address] [id number] [address] [place] [address] Apr, [place] [address] [id number] [address] [place] [address] Apr, [place] [address] [facility] [id number] [address] [place] [address] Apr, Encounter for test , result unknown Z32.00 [facility] [place] [address] [id number] [address] [place] [address] Apr, Pelvic pain R10.2 ; Other sp ecified bacterial agents as the cause of diseases classified elsewhere B96.89 and Acute vaginitis N76.0 [facility] [address] [id number] [address] [place] [address] Dec, Encounter for test Z32.00 [facility] [address] [id number] [address] [place] [phone] May, [facility] [address] [id number] [address] [place] [phone] May, [facility] [address] [id number] [address] [place] [address] Mar, [facility] [address] [id number] [address] [place] [phone] Nov, [facility] [address] [id number] [address] [place] [phone] Nov, [facility] [address] [id number] [address] [place] [phone] Oct, [facility] [address] [id number] [address] [place] [address] Sep, [facility] [address] [id number] [address] [place] [address] Aug, IMMUNIZATIONS No Known Immunizations SOCIAL HISTORY Never Assessed REASON FOR VISIT OB f/u-4 wk-- kristen cabral PLAN OF CARE Activity Details Follow Up 2 Weeks Reason: VITAL SIGNS Height 65.5 in 2016-10-23 Weight 177.7 lbs 2016-10-23 Temperature 97.5 degrees Fahrenheit 2016-10-23 BMI 29.121 kg/m2 2016-10-23 Blood pressure systolic 118 mmHg 2016-10-23 Blood pressure diastolic 68 mmHg 2016-10-23 MEDICATIONS Medication Instructions Dosage Frequency Start Date End Date Duration S amadeo Powelll Not-Taking Flintstones Gummies Complete - Active Abilify 5 mg 1 tablet by Oral route 1 time per day 15 Oc 2011 Not-Taking Ranitidine HCl 150 MG Orally Once a day 1 tablet at bedtime 24h Oct, 30 day(s) Active Cephalexin 500 MG Orally every 12 hrs 1 capsule 12h Not-Taking Vitamins 0.8 MG Orally Once a day 1 tablet 24h Not-Taking Twyla by Oral route Sep, Not-T aking RESULTS Name Result Date Reference Range CBC 2016-10-23 WBC 7.4 3.4-10.8 RBC 3.67 3.77-5.28 Hemoglobin 11.5 11.1-15.9 Hematocrit 34.3 34.0-46.6 MCV 94 79-97 MCH 31.3 26.6-33.0 MCHC 33.5 31.5-35.7 RDW 13.8 12.3-15.4 Platelets 196 150-379 Neutrophils 69 Lymphs 21 Monocytes 8 Eos 2 Basos 0 Neutrophils (Absolute) 5.1 1.4-7.0 Lymphs (Absolute) 1.6 0.7-3.1 Monocytes(Absolute) 0.6 0.1-0.9 Eos (Absolute) 0.1 0.0-0.4 Baso (Absolute) 0.0 0.0-0.2 Immature Granulocytes 0 Immature Grans (Abs) 0.0 0.0-0.1 UA OB DIP (IN HOUSE) 2016-10-23 Glucose neg Protein trace GLUCOSE TEODORA 1 HOUR 2016-10-23 Gestational Diabetes Screen 69 65-1 39 PROCEDURES Procedure Date Ordered Result Body Site URINE-NO MICRO Oct 23, 2016 [facility] Oct [facility], 2016 VENIPUNCT, ROUTINE* Oct 23, 2016 INSTRUCTIONS MEDICATIONS ADMINISTERED No Known Medications MEDICAL (GENERAL) HISTORY Type Description Date Surgical History section
--- OUTSIDE RECORDS SUMMARY | 2019-06-24 20:15 | XMS REPORT ---
Author Author Rosalba GUTIERREZ [facility] Address [address] [place] [address] Care Team Providers Care Slunk Skinner Name Role Phone BLAS GUTIERREZ Unavailable PROBLEMS Type Condition ICD9-CM Code HWM89-IJ Code Onset Dates Condition S tatus SNOMED Code Problem Gastro-esophageal reflux disease without esophagitis K21.9 Active [id number] ALLERGIES No Information SOCIAL HISTORY Never Assessed PLAN OF CARE VITAL SIGNS MEDICATIONS Unknown Medications RESULTS No Results PROCEDURES No Known procedures IMMUNIZATIONS No Known Immunizations
--- OUTSIDE RECORDS SUMMARY | 2019-06-24 20:15 | XMS REPORT ---
Author Author Rosalba LOUIS [facility] IN [facility] Address [address] [place] [address] Care Team Providers Care Vp Security Name Role Phone SIDDHARTHA LOUIS Unavailable PROBLEMS Type Condition ICD9-CM Code PVX40-VZ Code Onset Dates Condition S tatus SNOMED Code Problem Iron deficiency anemia, unspecified D50.9 Active 53656275 Problem Anemia complicating , unspecified trimester O99.019 Active 02548341 Problem Gastro-esophageal reflux disease without esophagitis K21.9 Active 695320300 Problem anemia O90.81 Active 19 9188599 Problem Elevated blood pressure affe cting in third trimester, antepartum O16.3 Active 15619869 ALLERGIES No Known Allergies ENCOUNTERS Encounter Location Date Diagnosis [place] [id number] [place] [address] Apr, [facility] [address] [place] [id number] [address] [place] [address] Apr, [facility] [address] [place] [address] Jan, [facility] [address] [place] [address] Jan, Screening for deficiency ane lisa Z13.0 [facility] [address] [place] [id number] [address] [place] [address] Jan, [facility] [address] [place] [id number] [address] [place] [address] Jan, [facility] [address] [place] [id number] [address] [place] [address] Dec, [facility] [address] [place] [id number] [address] [place] [address] Dec, care and examinat ion Z39.2 ; control counseling Z30.09 ; Pre-eclampsia in period O14.95 ; Iron deficiency anemia, unspecified D50.9 and Anemia complicating , unspecified trimester O99.019 [place] [address] [place] [id number] [place] [address] Nov, Encounter for immunization Z 23 [place] [address] [address] Nov, [place] [address] [address] Nov, Elevated blood pressure read ing R03.0 and anemia O90.81 [place] [address] [address] Nov, anemia O90.81 [place] [address] [address] Nov, Screening, deficiency anemia , iron Z13.0 [place] [address] [address] Nov, Elevated blood pressure read ing R03.0 and Gestational proteinuria in third trimester O12.13 [place] [address] [address] Nov, [place] [address] [address] Nov, 32 weeks gestation of pregna ncy Z3A.32 ; Third trimester Z34.93 and Elevated blood pressure affecting in third trimester, antepartum O16.3 [place] [address] [place] [id number] [place] [address] Oct, 30 weeks gestation of pregna ncy Z3A.30 ; Encounter for immunization Z23 and Third trimester Z34.93 [place] [address] [address] Oct, [facility] [address] [facility] [id number] [address] [place] [phone] 13 Oct, 2016 Dysuria R30.0 [place] [address] [place] [id number] [place] [address] 05 Oct, 2016 27 weeks gestation of pregna ncy Z3A.27 ; Second trimester Z34.92 ; Gastro-esophageal reflux disease without esophagitis K21.9 and Diseases of the digestive system complicating , second trimester O99.612 [place] [address] [place] [id number] [place] [address] Sep, Screening for deficiency ane lisa Z13.0 [place] [address] [place] [id number] [place] [address] Sep, 23 weeks gestation of pregna ncy Z3A.23 and Second trimester Z34.92 [place] [address] [address] Aug, [email or web address] [address] [place] [id number] [place] [address] Aug, Acute cystitis without hemat uria N30.00 and Dysuria R30.0 [place] [address] [place] [id number] [address] [place] [address] Aug, [place] [address] [address] Aug, 19 weeks gestation of pregna ncy Z3A.19 and Second trimester Z33.1 [place] [address] [place] [address] Aug, [place] [address] [address] Jul, [place] [address] [address] Jul, 15 weeks gestation of pregna ncy Z3A.15 and Second trimester Z33.1 [facility] [address] [id number] [address] [place] [address] 17 Jun, 2016 Normal in multigra edgar Z34.80 and 11 weeks gestation of Z3A.11 [facility] [address] [id number] [address] [place] [address] June, [facility] [place] [address] [id number] [address] [place] [address] May, Vaginal discharge N89.8 and Other specified related conditions, first trimester O26.891 [place] [address] [id number] [address] [place] [address] May, [place] [address] [id number] [address] [place] [address] May, 6 weeks gestation of pregnan cy Z3A.01 and Normal in multigravida Z34.80 [facility] [place] [address] [id number] [address] [place] [address] May, Pain of upper abdomen R10.10 and Acute vaginitis N76.0 [place] [address] [id number] [address] [place] [address] Apr, [place] [address] [id number] [address] [place] [address] Apr, [place] [address] [id number] [address] [place] [address] Apr, Encounter for test , result unknown Z32.00 [facility] [address] [id number] [address] [place] [address] Apr, Pelvic pain R10.2 ; Other sp ecified bacterial agents as the cause of diseases classified elsewhere B96.89 and Acute vaginitis N76.0 [place] [address] [id number] [address] [place] [address] Dec, Encounter for test Z32.00 [place] [address] [facility] [id number] [address] [place] [address] May, [facility] [address] [facility] [id number] [address] [place] [address] May, [facility] [address] [facility] [id number] [address] [place] [address] Mar, [facility] [address] [facility] [id number] [address] [place] [address] Nov, [facility] [address] [facility] [id number] [address] [place] [address] Nov, [facility] [address] [facility] [id number] [address] [place] [address] Oct, [facility] [address] [facility] [id number] [address] [place] [address] Sep, [facility] [address] [facility] [id number] [address] [place] [address] Aug, IMMUNIZATIONS No Known Immunizations SOCIAL HISTORY Never Assessed REASON FOR VISIT headache since she woke up yesterday am. also reports pressure in left ear and l eft side of neck is sore. also complaining of pressure...not so much pain...when she voids. been going on for 2 days. [email or web address], pt is 21 weeks PLAN OF CARE Activity Details Follow Up prn Reason: VITAL SIGNS Height 65.5 in 2016-09-08 Weight 168.4 lbs 2016-09-08 Temperature 97.3 degrees Fahrenheit 2016-09-08 Heart Rate 72 bpm 2016-09-08 Respiratory Rate 18 2016-09-08 BMI 27.59 kg/m2 2016-09-08 Blood pressure systolic 126 mmHg 2016-09-08 Blood pressure diastolic 76 mmHg 2016-09-08 MEDICATIONS Medication Instructions Dosage Frequency Start Date End Date Duration S tatus Tylenol 325 MG Orally every 6 hrs 2 capsules as needed 6h Aug, Aug, 5 days Active Flintstones Gummies Complete - Active Keflex 500 MG Orally every 12 hrs 1 capsule 12h Aug, Aug, 7 days Active RESULTS Name Result Date Reference Range UA LONG DIP (IN HOUSE) 2016-09-08 Lot # [id number] Exp date 2017 Clarity clear Color yellow Odor none GLU negative STALIN negative KET negative SG 1.010 BLO negative pH 6.5 Protein trace URO 0.2 NIT negative MAREN trace Lot # [id number] Exp date 2017 02 PROCEDURES Procedure Date Ordered Result Body Site URINALYSIS, AUTO, W/O SCOPE September 08, 2016 INSTRUCTIONS MEDICATIONS ADMINISTERED No Known Medications MEDICAL (GENERAL) HISTORY Type Description Date Surgical History section
--- OUTSIDE RECORDS SUMMARY | 2019-06-24 20:15 | XMS REPORT ---
Author Author Rosalba HEREDIA Organization [facility] Address [address] [place] [address] Care Team Providers Care Hide Trimmer Name Role Phone ALBERT HEREDIA Unavailable PROBLEMS Type Condition ICD9-CM Code ZLH11-TL Code Onset Dates Condition S tatus SNOMED Code Problem Iron deficiency anemia, unspecified D50.9 Active 94017913 Problem Anemia complicating , unspecified trimester O99.019 Active 77960940 Problem Gastro-esophageal reflux disease without esophagitis K21.9 Active 523182958 Problem anemia O90.81 Active 19 5159454 Problem Elevated blood pressure affe cting in third trimester, antepartum O16.3 Active 53827789 ALLERGIES No Information ENCOUNTERS Encounter Location Date Diagnosis [place] [address] [place] [id number] [place] [address] June, Encounter for test , result unknown Z32.00 [place] [address] [place] [id number] [address] [place] [address] May, [place] [address] [place] [id number] [address] [place] [address] Apr, [place] [address] [place] [address] Apr, [place] [address] [place] [id number] [address] [place] [address] Jan, [place] [address] [place] [id number] [address] [place] [address] Jan, Screening for deficiency ane lisa Z13.0 [facility] [address] [facility] [id number] [address] [place] [address] Jan, [place] [address] [place] [id number] [address] [place] [address] Jan, [facility] [address] [facility] [id number] [address] [place] [address] Dec, [place] [address] [place] [id number] [address] [place] [address] Dec, care and examinat ion Z39.2 ; control counseling Z30.09 ; Pre-eclampsia in period O14.95 ; Iron deficiency anemia, unspecified D50.9 and Anemia complicating , unspecified trimester O99.019 [place] [address] [place] [id number] [address] [place] [address] Nov, Encounter for immunization Z 23 [place] [address] [place] [id number] [place] [address] Nov, [place] [address] [place] [id number] [address] [place] [address] Nov, Elevated blood pressure read ing R03.0 and anemia O90.81 [place] [address] [place] [id number] [address] [place] [address] Nov, anemia O90.81 [place] [address] [place] [id number] [address] [place] [address] Nov, Screening, deficiency anemia , iron Z13.0 [place] [address] [place] [id number] [place] [address] Nov, Elevated blood pressure read ing R03.0 and Gestational proteinuria in third trimester O12.13 [place] [address] [facility] [id number] [address] [place] [address] Nov, [place] [address] [place] [id number] [address] [place] [address] Nov, 32 weeks gestation of pregna ncy Z3A.32 ; Third trimester Z34.93 and Elevated blood pressure affecting in third trimester, antepartum O16.3 [place] [address] [address] Oct, 30 weeks gestation of pregna ncy Z3A.30 ; Encounter for immunization Z23 and Third trimester Z34.93 [place] [address] [address] 14 Oct, [address] [facility] [address] [address] 13 Oct, 2016 Dysuria R30.0 [place] [address] [address] Oct, 27 weeks gestation of pregna ncy Z3A.27 ; Second trimester Z34.92 ; Gastro-esophageal reflux disease without esophagitis K21.9 and Diseases of the digestive system complicating , second trimester O99.612 [place] [address] [address] Sep, Screening for deficiency ane lisa Z13.0 [place] [address] [address] Sep, 23 weeks gestation of pregna ncy Z3A.23 and Second trimester Z34.92 [place] [address] [address] Aug, [facility] [address] [place] [id number] [address] [place] [address] Aug, Acute cystitis without hemat uria N30.00 and Dysuria R30.0 [place] [address] [address] Aug, [place] [address] [address] Aug, 19 weeks gestation of pregna ncy Z3A.19 and Second trimester Z33.1 [place] [address] [address] Aug, [place] [address] [place] [id number] [place] [address] Jul, [place] [address] [id number] [address] [place] [address] Jul, 15 weeks gestation of pregna ncy Z3A.15 and Second trimester Z33.1 [place] [address] [facility] [id number] [address] [place] [address] 17 Jun, 2016 Normal in multigra edgar Z34.80 and 11 weeks gestation of Z3A.[address] [facility] [place] [address] [id number] [address] [place] [address] June, [facility] [place] [address] [id number] [address] [place] [address] 20 May, 2016 Vaginal discharge N89.8 and Other specified related conditions, first trimester O26.891 [place] [address] [facility] [id number] [address] [place] [address] May, [place] [address] [id number] [address] [place] [address] 12 May, 2016 6 weeks gestation of pregnan cy Z3A.01 and Normal in multigravida Z34.[address] [facility] [place] [address] [id number] [address] [place] [address] 08 May, 2016 Pain of upper abdomen R10.10 and Acute vaginitis N76.0 [place] [address] [id number] [address] [place] [address] Apr, [place] [address] [id number] [address] [place] [address] Apr, [place] [address] [facility] [id number] [address] [place] [address] Apr, Encounter for test , result unknown Z32.[address] [facility] [place] [address] [facility] [id number] [address] [place] [address] Apr, Pelvic pain R10.2 ; Other sp ecified bacterial agents as the cause of diseases classified elsewhere B96.89 and Acute vaginitis N76.0 [facility] [address] [id number] [address] [place] [address] Dec, Encounter for test Z32.00 [facility] [address] [id number] [address] [place] [address] 14 May, 2014 [facility] [address] [id number] [address] [place] [address] May, [facility] [address] [id number] [address] [place] [address] Mar, [facility] [address] [id number] [address] [place] [address] Nov, [facility] [address] [id number] [address] [place] [address] Nov, [facility] [address] [id number] [address] [place] [address] Oct, [facility] [address] [id number] [address] [place] [address] Sep, [facility] [address] [id number] [address] [place] [address] Aug, IMMUNIZATIONS Vaccine Route Administration Date Status FLUARIX QUAD (3 AND UP) 2016 IM Intramuscular Dec 17, 2016 Ad ministered SOCIAL HISTORY Never Assessed REASON FOR VISIT Flu shot -- kristen cabral PLAN OF CARE Activity Details Follow Up 1 Year Reason: VITAL SIGNS MEDICATIONS Unknown Medications RESULTS No Results PROCEDURES Procedure Date Ordered Result Body Site FLUARIX QUAD (3 AND UP) 2017 Dec 17, 2016 SINGLE IMMUNIZATION ADMIN Dec 17, 2016 INSTRUCTIONS MEDICATIONS ADMINISTERED No Known Medications MEDICAL (GENERAL) HISTORY Type Description Date Surgical History section
--- OUTSIDE RECORDS SUMMARY | 2019-06-24 20:15 | XMS REPORT ---
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 Name Role Phone CHANEL GIBBONS Unavailable PROBLEMS Type Condition ICD9-CM Code IQW21-UB Code Onset Dates Condition S tatus SNOMED Code Problem Iron deficiency anemia, unspecified D50.9 Active 15704136 Problem Anemia complicating , unspecified trimester O99.019 Active 67763377 Problem Gastro-esophageal reflux disease without esophagitis K21.9 Active 333304667 Problem anemia O90.81 Active 19 5663564 Problem Elevated blood pressure affe cting in third trimester, antepartum O16.3 Active 14805069 ALLERGIES No Information ENCOUNTERS Encounter Location Date Diagnosis [place] [id number] [place] [phone] Apr, [facility] [address] [place] [id number] [address] [place] [phone] Apr, [facility] [address] [place] [id number] [place] [phone] Jan, [facility] [address] [place] [address] Jan, Screening for deficiency ane lisa Z13.0 [facility] [address] [facility] [id number] [address] [place] [phone] Jan, [facility] [address] [place] [id number] [place] [address] Jan, [facility] [address] [place] [id number] [place] [phone] Dec, [facility] [address] [place] [id number] [place] [address] Dec, care and examinat ion Z39.2 ; control counseling Z30.09 ; Pre-eclampsia in period O14.95 ; Iron deficiency anemia, unspecified D50.9 and Anemia complicating , unspecified trimester O99.019 [place] [address] [address] [facility] [id number] [address] [place] [phone] Nov, Encounter for immunization Z 23 [place] [address] [place] [phone] Nov, [place] [address] [address] [place] [id number] [place] [address] Nov, Elevated blood pressure read ing R03.0 and anemia O90.81 [place] [address] [address] [facility] [id number] [address] [place] [phone] Nov, anemia O90.81 [place] [address] [address] [place] [id number] [place] [address] Nov, Screening, deficiency anemia , iron Z13.0 [place] [address] [address] [place] [id number] [place] [address] Nov, Elevated blood pressure read ing R03.0 and Gestational proteinuria in third trimester O12.13 [place] [address] [address] [place] [id number] [place] [address] Nov, [place] [address] [address] [place] [id number] [place] [phone] Nov, 32 weeks gestation of pregna ncy Z3A.32 ; Third trimester Z34.93 and Elevated blood pressure affecting in third trimester, antepartum O16.3 [place] [address] [address] [place] [id number] [place] [phone] Oct, 30 weeks gestation of pregna ncy Z3A.30 ; Encounter for immunization Z23 and Third trimester Z34.93 [place] [address] [address] [place] [id number] [place] [phone] Oct, [facility] [address] [facility] [id number] [address] [place] [phone] 13 Oct, 2016 Dysuria R30.0 [facility] [address] [place] [id number] [place] [phone] Oct, 27 weeks gestation of pregna ncy Z3A.27 ; Second trimester Z34.92 ; Gastro-esophageal reflux disease without esophagitis K21.9 and Diseases of the digestive system complicating , second trimester O99.612 [facility] [address] [place] [id number] [place] [phone] Sep, Screening for deficiency ane lisa Z13.0 [place] [address] [address] [place] [id number] [place] [phone] Sep, 23 weeks gestation of pregna ncy Z3A.23 and Second trimester Z34.92 [place] [address] [place] [id number] [place] [address] Aug, [facility] [address] [place] [id number] [address] [place] [phone] Aug, Acute cystitis without hemat uria N30.00 and Dysuria R30.0 [place] [address] [address] [place] [id number] [place] [address] Aug, [place] [address] [place] [id number] [address] [place] [phone] Aug, 19 weeks gestation of pregna ncy Z3A.19 and Second trimester Z33.1 [place] [address] [address] [place] [id number] [place] [phone] Aug, [place] [address] [place] [id number] [place] [phone] Jul, [place] [address] [place] [id number] [place] [address] Jul, 15 weeks gestation of pregna ncy Z3A.15 and Second trimester Z33.1 [place] [address] [id number] [address] [place] [phone] 17 Jun, 2016 Normal in multigra edgar Z34.80 and 11 weeks gestation of Z3A.11 [facility] [address] [id number] [address] [place] [phone] June, [facility] [address] [id number] [address] [place] [phone] May, Vaginal discharge N89.8 and Other specified related conditions, first trimester O26.891 [place] [address] [id number] [address] [place] [address] May, [place] [address] [id number] [address] [place] [phone] May, 6 weeks gestation of pregnan cy Z3A.01 and Normal in multigravida Z34.80 [facility] [address] [id number] [address] [place] [phone] May, Pain of upper abdomen R10.10 and Acute vaginitis N76.0 [place] [address] [id number] [address] [place] [phone] Apr, [place] [address] [id number] [address] [place] [phone] Apr, [place] [address] [id number] [address] [place] [phone] Apr, Encounter for test , result unknown Z32.00 [facility] [address] [id number] [address] [place] [phone] 12 Apr, 2016 Pelvic pain R10.2 ; Other sp ecified bacterial agents as the cause of diseases classified elsewhere B96.89 and Acute vaginitis N76.0 [facility] [address] [id number] [address] [place] [phone] Dec, Encounter for test Z32.00 [place] [address] [id number] [address] [place] [address] 14 May, 2014 [facility] [address] [facility] [id number] [address] [place] [phone] May, [facility] [address] [facility] [id number] [address] [place] [phone] Mar, [facility] [address] [facility] [id number] [address] [place] [phone] Nov, [facility] [address] [facility] [id number] [address] [place] [phone] Nov, [facility] [address] [facility] [id number] [address] [place] [phone] Oct, [facility] [address] [facility] [id number] [address] [place] [phone] Sep, [facility] [address] [facility] [id number] [address] [place] [phone] Aug, IMMUNIZATIONS No Known Immunizations SOCIAL HISTORY Never Assessed REASON FOR VISIT [facility] Hemoglobin--Critical access hospital PLAN OF CARE VITAL SIGNS MEDICATIONS Unknown Medications RESULTS Name Result Date Reference Range HEMOGLOBIN (IN HOUSE) 2016-09-25 HEMOGLOBIN 12.5 11.5 - 16 gm/dL Lot # [id number] Exp date 12/14/17 PROCEDURES Procedure Date Ordered Result Body Site HEMOGLOBIN Sep 25, 2016 INSTRUCTIONS MEDICATIONS ADMINISTERED No Known Medications MEDICAL (GENERAL) HISTORY Type Description Date Surgical History section
--- OUTSIDE RECORDS SUMMARY | 2019-06-24 20:15 | XMS REPORT ---
Author Author Rosalba HEREDIA Organization [facility] Address [address] [place] [address] Care Team Providers Care Communication Electronic Technician Name Role Phone ALBERT HEREDIA Unavailable PROBLEMS Type Condition ICD9-CM Code PPA42-SU Code Onset Dates Condition S tatus SNOMED Code Problem Iron deficiency anemia, unspecified D50.9 Active 64967737 Problem Anemia complicating , unspecified trimester O99.019 Active 33234317 Problem Gastro-esophageal reflux disease without esophagitis K21.9 Active 282495217 Problem anemia O90.81 Active 19 4858532 Problem Elevated blood pressure affe cting in third trimester, antepartum O16.3 Active 07113267 ALLERGIES No Known Allergies ENCOUNTERS Encounter Location Date Diagnosis [place] [address] [place] [address] May, [place] [id number] [place] [phone] Apr, [place] [address] [place] [id number] [address] [place] [phone] Apr, [place] [address] [place] [id number] [place] [phone] Jan, [place] [address] [place] [id number] [address] [place] [phone] Jan, Screening for deficiency ane lisa Z13.0 [facility] [address] [place] [id number] [place] [address] Jan, [place] [address] [place] [id number] [place] [phone] Jan, [facility] [address] [place] [id number] [place] [phone] Dec, [place] [address] [place] [id number] [place] [address] Dec, care and examinat ion Z39.2 ; control counseling Z30.09 ; Pre-eclampsia in period O14.95 ; Iron deficiency anemia, unspecified D50.9 and Anemia complicating , unspecified trimester O99.019 [place] [address] [address] [place] [id number] [place] [address] Nov, Encounter for immunization Z 23 [place] [address] [facility] [id number] [address] [place] [address] Nov, [place] [address] [place] [id number] [address] [place] [address] Nov, Elevated blood pressure read ing R03.0 and anemia O90.81 [place] [address] [address] [place] [id number] [place] [address] Nov, anemia O90.81 [place] [address] [facility] [id number] [address] [place] [phone] Nov, Screening, deficiency anemia , iron Z13.0 [place] [address] [place] [id number] [place] [address] Nov, Elevated blood pressure read ing R03.0 and Gestational proteinuria in third trimester O12.13 [place] [address] [place] [id number] [place] [address] Nov, [place] [address] [place] [id number] [place] [address] Nov, 32 weeks gestation of pregna ncy Z3A.32 ; Third trimester Z34.93 and Elevated blood pressure affecting in third trimester, antepartum O16.3 [place] [address] [facility] [id number] [address] [place] [phone] Oct, 30 weeks gestation of pregna ncy Z3A.30 ; Encounter for immunization Z23 and Third trimester Z34.93 [facility] [address] [facility] [id number] [address] [place] [address] 14 Oct, 2016 [facility] [address] [facility] [id number] [address] [place] [phone] 13 Oct, 2016 Dysuria R30.0 [facility] [address] [place] [id number] [place] [address] 05 Oct, 2016 27 weeks gestation of pregna ncy Z3A.27 ; Second trimester Z34.92 ; Gastro-esophageal reflux disease without esophagitis K21.9 and Diseases of the digestive system complicating , second trimester O99.612 [place] [address] [address] [place] [id number] [address] [place] [address] Sep, Screening for deficiency ane lisa Z13.0 [place] [address] [place] [id number] [place] [address] Sep, 23 weeks gestation of pregna ncy Z3A.23 and Second trimester Z34.92 [facility] [address] [place] [id number] [place] [phone] Aug, [facility] [address] [place] [id number] [place] [address] Aug, Acute cystitis without hemat uria N30.00 and Dysuria R30.0 [place] [address] [place] [id number] [place] [address] Aug, [facility] [address] [place] [id number] [place] [phone] Aug, 19 weeks gestation of pregna ncy Z3A.19 and Second trimester Z33.1 [facility] [address] [place] [id number] [place] [address] Aug, [facility] [address] [place] [id number] [place] [address] Jul, [facility] [address] [place] [id number] [place] [address] Jul, 15 weeks gestation of pregna ncy Z3A.15 and Second trimester Z33.1 [place] [address] [id number] [address] [place] [address] June, Normal in multigra edgar Z34.80 and 11 weeks gestation of Z3A.11 [facility] [place] [address] [id number] [address] [place] [phone] June, [facility] [place] [address] [id number] [address] [place] [address] May, Vaginal discharge N89.8 and Other specified related conditions, first trimester O26.891 [place] [address] [id number] [address] [place] [address] May, [place] [address] [id number] [address] [place] [address] May, 6 weeks gestation of pregnan cy Z3A.01 and Normal in multigravida Z34.80 [facility] [place] [address] [id number] [address] [place] [address] May, Pain of upper abdomen R10.10 and Acute vaginitis N76.0 [place] [address] [id number] [address] [place] [phone] Apr, [place] [address] [id number] [address] [place] [address] Apr, [place] [address] [id number] [address] [place] [phone] Apr, Encounter for test , result unknown Z32.00 [facility] [place] [address] [id number] [address] [place] [address] Apr, Pelvic pain R10.2 ; Other sp ecified bacterial agents as the cause of diseases classified elsewhere B96.89 and Acute vaginitis N76.0 [place] [address] [id number] [address] [place] [address] Dec, Encounter for test Z32.00 [facility] [address] [id number] [address] [place] [phone] May, [facility] [address] [id number] [address] [place] [phone] May, [facility] [address] [id number] [address] [place] [address] Mar, [facility] [address] [id number] [address] [place] [address] Nov, [facility] [address] [id number] [address] [place] [phone] Nov, [facility] [address] [id number] [address] [place] [phone] Oct, [facility] [address] [id number] [address] [place] [address] Sep, [facility] [address] [id number] [address] [place] [address] Aug, IMMUNIZATIONS No Known Immunizations SOCIAL HISTORY Never Assessed REASON FOR VISIT OB f/u-4 wk, PT was seen in the ER for a UTI at just a few days ago- De[facility] PLAN OF CARE Activity Details Follow Up 4 Weeks Reason: VITAL SIGNS Height 65.5 in 2016-08-28 Weight 165.7 lbs 2016-08-28 Temperature 97.8 degrees Fahrenheit 2016-08-28 Heart Rate 64 bpm 2016-08-28 Respiratory Rate 18 2016-08-28 BMI 27.155 kg/m2 2016-08-28 Blood pressure systolic 112 mmHg 2016-08-28 Blood pressure diastolic 78 mmHg 2016-08-28 MEDICATIONS Medication Instructions Dosage Frequency Start Date End Date Duration S amadeo Syed Complete - Active Benadryl Active Cephalexin 500 MG Orally every 12 hrs 1 capsule 12h Active RESULTS Name Result Date Reference Range UA OB DIP (IN HOUSE) 2016-08-28 Glucose negative Protein negative PDF Report 2016-08-28 PDF Report1 LCLS TETRA SCREEN 2016-08-28 Results Report Test Results: *Screen Negative* Gest. Age on Collection Date 20.1 Gestat. Age Based On REINA Maternal Age At REINA 20.8 Race Black Weight 165 Insulin Dep Diabetes No Multiple Gestation AFP Value 91.4 AFP MoM 1.54 hCG Value 02386 hCG MoM 0.63 uE3 Value 1.74 uE3 MoM 0.94 KATT Value 147.79 KATT MoM 0.77 OSBR Risk 1 IN 4914 DSR (Second Trimester) 1 [place] [address] DSR (By Age) 1 IN 1151 T18 Risk Not increased T18 (By Age) 1:4486 Interpretation Comments: PDF . PROCEDURES Procedure Date Ordered Result Body Site URINE-NO MICRO August 28, 2016 ALPHA-FETOPROTEIN, SERUM August 28, 2016 ASSAY OF ESTRIOL August 28, 2016 INHIBIN A August 28, 2016 VENIPUNCT, ROUTINE* August 28, 2016 CHORIONIC GONADOTROPIN TEST August 28, 2016 INSTRUCTIONS MEDICATIONS ADMINISTERED No Known Medications MEDICAL (GENERAL) HISTORY Type Description Date Surgical History section
--- OUTSIDE RECORDS SUMMARY | 2019-06-24 20:15 | XMS REPORT ---
Author Author Rosalba GUTIERREZ [facility] Address [address] [place] [address] Care Team Providers Care Assembler Trim Name Role Phone BLAS GUTIERREZ Unavailable PROBLEMS Type Condition ICD9-CM Code MVL50-AO Code Onset Dates Condition S tatus SNOMED Code Problem Gastro-esophageal reflux disease without esophagitis K21.9 Active [id number] ALLERGIES No Known Allergies SOCIAL HISTORY Never Assessed PLAN OF CARE VITAL SIGNS MEDICATIONS Medication Instructions Dosage Frequency Start Date End Date Duration S tatus Vitamins 0.8 MG Orally Once a day 1 tablet 24h Active RESULTS No Results PROCEDURES No Known procedures IMMUNIZATIONS No Known Immunizations
[2019-06-24 20:16] LABS: ALBUMIN 3.6 GM/DL (3.2-4.5)
[2019-06-24 20:17] LABS: BACTERIA,URINE TRACE /HPF; CHLORIDE 110 MMOL/L (98-107); POTASSIUM 3.9 MMOL/L (3.6-5.0); SODIUM 140 MMOL/L (135-145)
[2019-06-24 20:19] LABS: GLUCOSE 81 MG/DL (70-105); TOTAL PROTEIN 6.7 GM/DL (6.4-8.2)
[2019-06-24 20:20] LABS: CARBON DIOXIDE 20 MMOL/L (21-32)
[2019-06-24 20:21] LABS: BILIRUBIN,TOTAL 0.3 MG/DL (0.1-1.0)
[2019-06-24 20:23] LABS: ALKALINE PHOSPHATASE 114 U/L (40-136); CREATININE SERUM 0.67 MG/DL (0.60-1.30); GFR ESTIMATED > 60
[2019-06-24 20:24] LABS: BUN/CREATININE RATIO 12
[2019-06-24 20:25] LABS: INR 0.9 (0.8-1.4); MAGNESIUM 1.9 MG/DL (1.6-2.4); PROTHROMBIN TIME PATIENT 12.8 SEC (12.2-14.7)
[2019-06-24 20:26] LABS: ALANINE AMINOTRANSFERASE 21 U/L (0-55)
--- NOTE | 2019-06-24 20:43 | Diagnostic Imaging Report ---
PATIENT HISTORY: Hypertension. Low back pain. TECHNIQUE: Two views of the chest. COMPARISON: None. FINDINGS: The lung volumes are normal. No focal consolidation is seen. No large pleural effusion or pneumothorax is seen. The cardiomediastinal silhouette is normal in size and contour. No acute osseous abnormality is seen. IMPRESSION: No acute pulmonary abnormality is seen. Dictated by: Dictated on workstation # [id number]
[2019-06-24] MEDS ORDERED: IOHEXOL 350 MG/ML 100 ML (OMNIPAQUE 350) VIAL IV ONE (21:00)
[2019-06-24] MEDS ORDERED: NS 100 ML (IVPB) BAG IV ONE (21:00)
[2019-06-24] MEDS ORDERED: HOLD METFORMIN - RECEIVED CONTRAST 20 ML VIAL IV SCH (21:00)
--- NOTE | 2019-06-24 23:09 | ED Cardiac General ---
History of Present Illness General Chief Complaint: Cardiac/General Problems Stated Complaint: HIGH BP,BACK PAIN,EDEMA IN LEGS/FEET Nursing Triage Note: high blood pressure, intermittant lower back pain. s/p . Source: patient History of Present Illness Date Seen by Provider: June 24, 2019 Time Seen by Provider: 19:41 Initial Comments PT ARRIVES VIA POV FROM HOME STATES "MY BLOOD PRESSURE OR MY HEART OR SOMETHING" STATES ONE MINUTE MY HEART IS RACING AND THE NEXT MINUTE IT'S SHALLOW" - DESCRIBES FEELING HEART POUNDING AND BEATING HARD PT STATES SHE HAD A BABY 6 DAYS AGO BY REPEAT . CAME HOME ON 07/23/19 AND HAS HAD SYMPTOMS SINCE SHE DELIVERED PT STATES SHE HAD A FEW EPISODES OF ELEVATED BLOOD PRESSURE DURING , BUT DID NOT REQUIRE ANY MEDICATION, OTHERWISE DID NOT HAVE ANY PROBLEMS WITH OR DELIVER STATES SHE HAD PROBLEMS WITH HIGH BLOOD PRESSURE IN POST PERIOD WITH HER PREVIOUS DELIVERY WELL, AND WAS ON BLOOD PRESSURE MEDICATION FOR ABOUT 2 MONTHS. OTHERWISE, SHE HAD NOT HAD PROBLEMS WITH BLOOD PRESSURE STATES SHE SAW DR. HEREDIA YESTERDAY, AT HER BABY'S FIRST VISIT, AND HER BLOOD PRESSURE WAS 150/100 AND WAS STARTED ON LABETALOL--TOOK A DOSE YESTERDAY AND ONE DOSE TODAY AND HAS NOT HAD ANY PROBLEMS, BUT STATES "BUT I'M ALLERGIC TO IT--I HAD IT WITH MY SON" --BUT CANNOT STATE WHAT KIND OF REACTION SHE HAD, BUT STATES SHE "DOESN'T WANT TO TAKE IT ANYMORE" HAS A FOLLOW UP APPOINTMENT WITH DR. HEREDIA IN THE MORNING ONLY ON DIRECT QUESTIONING, DOES SHE REPORT "MAYBE A LITTLE BIT" OF CHEST PAIN, AND " MAYBE A LITTLE BIT" OF SHORTNESS OF BREATH EARLIER THIS MORNING, BUT NOT NOW. PT STATES SHE HAS HAD SWELLING IN HER FEET SINCE DELIVERY NO ABDOMINAL PAIN NO NAUSEA/VOMITING, STATES SHE WAS NAUSEATED EARLIER, BUT NOT NOW. NO VISION CHANGES DOES C/O HEADACHE NO PARESTHESIAS OR MOTOR DEFICITS. 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 WORTHY--HAS NOT ATTEMPTED TO CONTACT HIM FOR THIS PROBLEM Allergies and Home Medications Allergies Coded Allergies: labetalol (Verified Allergy, Mild, itching, 06/19/19) Home Medications Hydrocodone/Acetaminophen 1 Each Tablet, 1-2 TAB PO Q6HR PRN for PAIN-MODERATE (5-7) Prescribed by: KANE WORTHY on 06/19/19 1228 Ibuprofen 600 Mg Tablet, 600 MG PO Q6HR Prescribed by: KANE WORTHY on 06/19/19 1228 Patient Home Medication List Home Medication List Reviewed: Yes Review of Systems Review of Systems Constitutional: no symptoms reported; No chills, No diaphoresis, No dizziness, No fever, No malaise, No weakness EENTM: No Symptoms Reported; No Blurred Vision, No Double Vision Respiratory: Denies Cough; Shortness of Air Cardiovascular: See HPI, Chest Pain, Edema; Denies Lightheadedness; Palpitations; Denies Syncope Gastrointestinal: See HPI; Denies Abdominal Pain; Nausea; Denies Poor Appetite, Denies Poor Fluid Intake, Denies Vomiting Genitourinary: See HPI Musculoskeletal: no symptoms reported; No neck pain Skin: no symptoms reported Psychiatric/Neurological: See HPI, Headache; Denies Numbness, Denies Paresthesia, Denies Seizure, Denies Tingling, Denies Weakness Endocrine: No Symptoms Reported Hematologic/Lymphatic: No Symptoms Reported Past Vpyepoj-Oflblr-Lcrixb Hx Past Med/Social Hx: Reviewed and Corrections made Patient Social History Alcohol Use: Denies Use Recreational Drug Use: No Smoking Status: Former Smoker (<1/2 PPD--QUIT 11/2018 WHEN PREGNANY) Type Used: Cigarettes Former Smoker, Quit: Nov 18, 2018 2nd Hand Smoke Exposure: No Recent Foreign Travel: No Contact w/Someone Who Travel: No Recent Infectious Disease Expo: No Recent Hopitalizations: Yes (c-sect.) Physical Abuse: No Sexual Abuse: No Mistreated: No Fear: No Immunizations Up To Date Tetanus Booster (TDap): Less than 5yrs Seasonal Allergies Seasonal Allergies: No Past Medical History Surgeries: Yes ( X 2) Section Respiratory: No Currently Using CPAP: No Currently Using BIPAP: No Cardiac: Yes (HTN R/T PRE-ECLAMPSIA DURING LAST ) Hypertension Neurological: No : No Reproductive Disorders: Yes (PRE-ECLAMPSIA WITH , DELIVERED 7WK EARLY 12/04) Female Reproductive Disorders: Denies Genitourinary: No Gastrointestinal: No Musculoskeletal: No Endocrine: No HEENT: No Cancer: No Psychosocial: No Integumentary: No Blood Disorders: No Family Medical History Patient reports no known family medical history. Other Conditions/Hx Physical Exam Vital Signs Vital Signs - First Documented 06/24/19 19:37 Temp 36.4 Pulse 85 Resp 16 B/P (MAP) 165/107 (126) Pulse Ox 99 O2 Delivery Room Air Capillary Refill : Less Than 3 Seconds Height, Weight, BMI Height: 5'7.00" Weight: 170lbs. 6.0oz. 77.242966yz; 28.00 BMI Method:Stated General Appearance: No Apparent Distress, WD/WN HEENT: PERRL/EOMI Neck: Full Range of Motion, Normal Inspection, Non Tender, Supple; No Carotid Bruit, No JVD Respiratory: Normal Breath Sounds, No Accessory Muscle Use, No Respiratory Distress Cardiovascular: Regular Rate, Rhythm, No Edema, No JVD, No Murmur, Normal Peripheral Pulses Gastrointestinal: Normal Bowel Sounds, No Organomegaly, No Pulsatile Mass, Non Tender, Soft Extremity: Normal Capillary Refill, Normal Inspection, Normal Range of Motion, Non Tender, No Calf Tenderness, No Pedal Edema Neurologic/Psychiatric: Alert, Oriented x3, No Motor/Sensory Deficits, Normal Mood/Affect, hand sewer II-XII Norm as Tested Skin: Normal Color (PT IS BLACK), Warm/Dry; No Rash Progress/Results/Core Measures Results/Orders Lab Results Laboratory Tests Test 06/24/19 19:37 Range/Units White Blood Count 7.7 4.3-11.0 10^3/uL Red Blood Count 3.54 L 4.35-5.85 10^6/uL Hemoglobin 10.0 L 11.5-16.0 G/DL Hematocrit 30 L 35-52 % Mean Corpuscular Volume 85 80-99 FL Mean Corpuscular Hemoglobin 28 25-34 PG Mean Corpuscular Hemoglobin Concent 33 32-36 G/DL Red Cell Distribution Width 15.7 H 10.0-14.5 % Platelet Count 291 130-400 10^3/uL Mean Platelet Volume 9.6 7.4-10.4 FL Neutrophils (%) (Auto) 55 42-75 % Lymphocytes (%) (Auto) 34 12-44 % Monocytes (%) (Auto) 9 0-12 % Eosinophils (%) (Auto) 3 0-10 % Basophils (%) (Auto) 0 0-10 % Neutrophils # (Auto) 4.2 1.8-7.8 X 10^3 Lymphocytes # (Auto) 2.6 1.0-4.0 X 10^3 Monocytes # (Auto) 0.7 0.0-1.0 X 10^3 Eosinophils # (Auto) 0.2 0.0-0.3 10^3/uL Basophils # (Auto) 0.0 0.0-0.1 10^3/uL Prothrombin Time 12.8 12.2-14.7 SEC INR Comment 0.9 0.8-1.4 Activated Partial Thromboplast Time 29 24-35 SEC Urine Color YELLOW Urine Clarity CLEAR Urine pH 6.5 5-9 Urine Specific [place] 1.010 L 1.016-1.022 Urine Protein NEGATIVE NEGATIVE Urine Glucose (UA) NEGATIVE NEGATIVE Urine Ketones NEGATIVE NEGATIVE Urine Nitrite NEGATIVE NEGATIVE Urine Bilirubin NEGATIVE NEGATIVE Urine Urobilinogen 0.2 < = 1.0 MG/DL Urine Leukocyte Esterase 1+ H NEGATIVE Urine RBC (Auto) 3+ H NEGATIVE Urine RBC 10-25 H /HPF Urine WBC 2-5 /HPF Urine Squamous Epithelial Cells 2-5 /HPF Urine Crystals NONE /LPF Urine Bacteria TRACE /HPF Urine Casts NONE /LPF Urine Mucus NEGATIVE /LPF Urine Culture Indicated NO Sodium Level 140 135-145 MMOL/L Potassium Level 3.9 3.6-5.0 MMOL/L Chloride Level 110 H 98-107 MMOL/L Carbon Dioxide Level 20 L 21-32 MMOL/L Anion Gap 10 5-14 MMOL/L Blood Urea Nitrogen 8 7-18 MG/DL Creatinine 0.67 0.60-1.30 MG/DL Estimat Glomerular Filtration Rate > 60 BUN/Creatinine Ratio 12 Glucose Level 81 70-105 MG/DL Calcium Level 9.0 8.5-10.1 MG/DL Corrected Calcium 9.3 8.5-10.1 MG/DL Magnesium Level 1.9 1.6-2.4 MG/DL Total Bilirubin 0.3 0.1-1.0 MG/DL Aspartate Amino Transf (AST/SGOT) 22 5-34 U/L Alanine Aminotransferase (ALT/SGPT) 21 0-55 U/L Alkaline Phosphatase 114 40-136 U/L Troponin I < 0.028 <0.028 NG/ML B-Type Natriuretic Peptide 27.8 <100.0 PG/ML Total Protein 6.7 6.4-8.2 GM/DL Albumin 3.6 3.2-4.5 GM/DL My Orders Orders - GLENROY BUTLER DO Ed Iv/Invasive Line Start (06/24/19 19:40) Ekg Tracing (06/24/19 19:40) Monitor-Rhythm Ecg Trace Only (06/24/19 19:40) BNP (06/24/19 19:40) Cbc With Automated Diff (06/24/19 19:40) Comprehensive Metabolic Panel (06/24/19 19:40) Magnesium (06/24/19 19:40) Protime With Inr (06/24/19 19:40) Partial Thromboplastin Time (06/24/19 19:40) Ua Culture If Indicated (06/24/19 19:40) Troponin I (06/24/19 19:40) Chest Pa/Lat (2 View) (06/24/19 19:56) Hydralazine Injection (Apresoline Inject (06/24/19 20:00) Ct Angio Chest W (06/24/19 20:54) Iohexol Injection (Omnipaque 350 Mg/Ml 1 (06/24/19 21:00) Received Contrast (Hold Metformin- Contr (06/24/19 21:00) Ns (Ivpb) (Sodium Chloride 0.9% Ivpb Bag (06/24/19 21:00) Medications Given in ED Current Medications Medications Dose Ordered Sig/Suzette Route Start Time Stop Time Status Last Admin Dose Admin Hydralazine HCl 10 mg ONCE ONCE IV 06/24/19 20:00 06/24/19 20:01 DC 06/24/19 20:08 10 MG Iohexol 75 ml ONCE ONCE IV 06/24/19 21:00 06/24/19 21:14 DC 06/24/19 22:15 75 ML Sodium Chloride 100 ml ONCE ONCE IV 06/24/19 21:00 06/24/19 21:14 DC 06/24/19 22:15 100 ML Vital Signs/I&O 06/24/19 06/24/19 19:37 23:17 Temp 36.4 36.3 Pulse 85 76 Resp 16 16 B/P (MAP) 165/107 (126) 141/89 (126) Pulse Ox 99 99 O2 Delivery Room Air Room Air Blood Pressure Mean: 126 Progress Progress Note : Progress Note GIVEN HYDRALAZINE FOR ELEVATED BLOOD PRESSURE--PT STATES SHE FEELS MUCH BETTER--HEADACHE IS COMPLETELY GONE AND NO LONGER HAS PALPITATIONS. UNEVENTFUL ER STAY Initial ECG Impression Date: June 24, 2019 Initial ECG Impression Time: 19:50 Initial ECG Rate: 65 Initial ECG Rhythm: Normal Sinus Diagnostic Imaging Comments CXR--NO ACUTE PROCESS, PER RADIOLOGIST REPORT AT 2052 CT CHEST ANGIOGRAM--NO ACUTE PROCESS, PER [facility] VIA FAX AT 2300 Reviewed: Reviewed by Me Departure Impression Primary Impression: hypertension Disposition: HOME, SELF-CARE Condition: Improved Departure-Patient Inst. Referrals: ALBERT HEREDIA MD (PCP/Family) Primary Care Physician Patient Instructions: High Blood Pressure in Adults Add. Discharge Instructions: CONTINUE CURRENT MEDICATIONS KEEP YOUR APPOINTMENT WITH YOUR DR TOMORROW RETURN TO ER IF SYMPTOMS WORSEN All discharge instructions reviewed with patient and/or family. Voiced understanding. GLENROY BUTLER DO June 24, 2019 23:09
[2019-06-24 23:17] VITALS: BP 141/89
--- NOTE | 2019-06-25 06:51 | Diagnostic Imaging Report ---
PROCEDURE: CT angiography of the chest with contrast. TECHNIQUE: Multiple contiguous axial images were obtained through the chest after uneventful bolus administration of intravenous contrast. 3D reconstructed CTA MIP acquisitions were also performed. Auto Exposure Controls were utilized during the CT exam to meet ALARA standards for radiation dose reduction. INDICATION: Hypertension and pain post . FINDINGS: There is good opacification of pulmonary arteries without intraluminal filling defect. Thoracic aorta has a normal appearance. The lungs are clear, bilaterally. There is no evidence of pulmonary mass or infiltrate. There is no significant pleural or pericardial fluid. There may be small hiatal hernia. Mildly prominent axillary region lymph nodes are noted. No osseous abnormality is appreciated. IMPRESSION: No CTA evidence of pulmonary embolism or other acute abnormality within the thorax. Dictated by: Dictated on workstation # [id number]
== END 2019-06-24 23:20 | disposition home or self-care (01) ==
LOC: EDUNIT# 19:28 → ER 19:30
DX: O16.5 Unspecified maternal hypertension, complicating the puerperium (principal); Z87.891 Personal history of nicotine dependence
CPT/HCPCS: 36415; 71046; 71275; 80053; 81000; 83735; 83880; 84484; 85025; 85610; 85730; 93041

== ENCOUNTER 2019-12-25 12:07 | Emergency (ER) | payer OTHER ==
[~2019-12-25] VITALS: Ht 170.1 cm; Wt 76.6 kg
[~2019-12-25 12:07] MED LIST changes: +ACHD5005 PO; -HYDR-83 PO
[2019-12-25] MEDS ORDERED: diphenhydrAMINE 50 MG/ML INJ (BENADRYL) IVP ONE (12:45)
[2019-12-25] MEDS ORDERED: KETOROLAC 30 MG/ML VIAL IVP ONE (12:45)
[2019-12-25] MEDS ORDERED: NS IV 500 ML 500 ML IV SCH (12:45)
[2019-12-25] MEDS ORDERED: PROCHLORPERAZINE 10 MG/2ML INJ (COMPAZINE) IV ONE (12:45)
--- NOTE | 2019-12-25 12:55 | ED Chest Pain ---
General Chief Complaint: Chest Wall Stated Complaint: CP,MCBRIDE, Nursing Triage Note: Pt reports, "My chest hurts so bad. I feel like my heart has stopped. I feel like if I go to sleep I won't wake back up." Pt reports pain began Saturday and pain moves from different area to different area. Pt c/o eyes twitching, legs going numb. Nursing Sepsis Screen: No Definite Risk Source: patient Exam Limitations: no limitations History of Present Illness Date Seen by Provider: Dec 25, 2019 Time Seen by Provider: 12:52 Initial Comments ER with a global headache that started on Saturday and has gotten progressively worse. Began rather mild. She also reports some left-sided chest pain worse with movement and deep breathing. No fevers no chills no cough no sore throat no myalgias. She was seen at [facility] recently and given antibiotic for unknown reason but denies improvement Timing/Duration: changing over time Severity/Quality: moderate Location: central Radiation: no radiation Activities at Onset: none Allergies and Home Medications Allergies Coded Allergies: labetalol (Verified Allergy, Mild, itching, 06/19/19) Home Medications Hydrocodone/Acetaminophen 1 Each Tablet, 1-2 TAB PO Q6HR PRN for PAIN-MODERATE (5-7) Prescribed by: KANE WORTHY on 06/19/19 1228 Ibuprofen 600 Mg Tablet, 600 MG PO Q6HR Prescribed by: KANE WORTHY on 06/19/19 1228 Patient Home Medication List Home Medication List Reviewed: Yes Review of Systems Review of Systems Constitutional: see HPI EENTM: No Symptoms Reported Respiratory: No Symptoms Reported Cardiovascular: See HPI, Chest Pain Gastrointestinal: No Symptoms Reported Genitourinary: No Symptoms Reported Musculoskeletal: no symptoms reported Skin: no symptoms reported Psychiatric/Neurological: No Symptoms Reported Endocrine: No Symptoms Reported Hematologic/Lymphatic: No Symptoms Reported Past Jvgglhv-Zvxhct-Rryvdo Hx Patient Social History Alcohol Use: Denies Use Recreational Drug Use: No Smoking Status: Former Smoker Type Used: Cigarettes Former Smoker, Quit: Nov 18, 2018 2nd Hand Smoke Exposure: No Recent Foreign Travel: No Contact w/Someone Who Travel: No Recent Infectious Disease Expo: No Recent Hopitalizations: No Physical Abuse: No Sexual Abuse: No Mistreated: No Fear: No Immunizations Up To Date Tetanus Booster (TDap): Less than 5yrs Seasonal Allergies Seasonal Allergies: No Past Medical History Surgeries: Yes ( X 2) Section Respiratory: No Currently Using CPAP: No Currently Using BIPAP: No Cardiac: Yes (HTN R/T PRE-ECLAMPSIA DURING LAST ) Hypertension Neurological: No Reproductive Disorders: Yes (PRE-ECLAMPSIA WITH , DELIVERED 7WK EARLY 12/04) Female Reproductive Disorders: Denies Genitourinary: No Gastrointestinal: No Musculoskeletal: No Endocrine: No HEENT: No Cancer: No Psychosocial: No Integumentary: No Blood Disorders: No Family Medical History Patient reports no known family medical history. Other Conditions/Hx Physical Exam Vital Signs Vital Signs - First Documented 12/25/19 12:32 Temp 36.9 Pulse 68 Resp 20 B/P (MAP) 127/95 (106) Pulse Ox 99 O2 Delivery Room Air Capillary Refill : Less Than 3 Seconds Height, Weight, BMI Height: 5'7.00" Weight: 170lbs. 6.0oz. 77.223518un; 26.00 BMI Method:Stated General Appearance: No Apparent Distress, WD/WN Neck: Full Range of Motion, Normal Inspection Respiratory: No Accessory Muscle Use, No Respiratory Distress Cardiovascular: Regular Rate, Rhythm, Normal Peripheral Pulses Gastrointestinal: Normal Bowel Sounds, Non Tender, Soft Neurologic/Psychiatric: Alert, Oriented x3 Skin: Normal Color, Warm/Dry Progress/Results/Core Measures Results/Orders My Orders Orders - KAIA JACOBSON APRN Cbc With Automated Diff (12/25/19 12:38) Hs C Reactive Protein (12/25/19 12:38) Hcg,Qualitative Serum (12/25/19 12:38) Comprehensive Metabolic Panel (12/25/19 12:38) Ekg Tracing (12/25/19 12:38) Troponin I (12/25/19 12:38) Covid 19 Inhouse Test (12/25/19 12:38) Ketorolac Injection (Toradol Injection) (12/25/19 12:45) Diphenhydramine Injection (Benadryl Inje (12/25/19 12:45) Prochlorperazine Injection (Compazine In (12/25/19 12:45) Ns Iv 500 Ml (Sodium Chloride 0.9%) (12/25/19 12:45) Chest 1 View, Ap/Pa Only (12/25/19 12:51) Vital Signs/I&O 12/25/19 12:32 Temp 36.9 Pulse 68 Resp 20 B/P (MAP) 127/95 (106) Pulse Ox 99 O2 Delivery Room Air Blood Pressure Mean: 106 Departure Impression Primary Impression: Pleuritic chest pain Additional Impression: Headache Disposition: 01 HOME, SELF-CARE Condition: Stable Departure-Patient Inst. Decision time for Depature: 12:55 Referrals: ALBERT HEREDIA MD (PCP/Family) Primary Care Physician Patient Instructions: Headache, Adult, Chest Pain Add. Discharge Instructions: 1. Return to ER for any concerns 2. Follow-up with your doctor next week 3. All discharge instructions reviewed with patient and/or family. Voiced understanding. KAIA JACOBSON AGRICULTURAL EQUIPMENT SALES ENGINEER Dec 25, 2019 12:55
[2019-12-25 13:18] LABS: BASOPHILS % (AUTO) 0 % (0-10); EOSINOPHILS # (AUTO) 0.1 10^3/uL (0.0-0.3); EOSINOPHILS % (AUTO) 1 % (0-10); HEMATOCRIT 34 % (35-52); HEMOGLOBIN 11.9 g/dL (11.5-16.0); LYMPHOCYTES # (AUTO) 4.2 10^3/uL (1.0-4.0); LYMPHOCYTES % (AUTO) 53 % (12-44); MEAN CORPUSCULAR HEMOGLOBIN 30 pg (25-34); MEAN CORPUSCULAR HGB CONC 35 g/dL (32-36); MEAN CORPUSCULAR VOLUME 87 fL (80-99); MEAN PLATELET VOLUME 9.9 fL (9.0-12.2); MONOCYTES # (AUTO) 0.7 10^3/uL (0.0-1.0); MONOCYTES % (AUTO) 8 % (0-12); NEUTROPHILS % (AUTO) 38 % (42-75); PLATELET COUNT 226 10^3/uL (130-400)
[2019-12-25 13:24] LABS: CHLORIDE 106 MMOL/L (98-107); SODIUM 139 MMOL/L (135-145)
[2019-12-25 13:25] LABS: CALCIUM 8.6 MG/DL (8.5-10.1)
[2019-12-25 13:26] LABS: GLUCOSE 89 MG/DL (70-105)
[2019-12-25 13:27] LABS: CARBON DIOXIDE 23 MMOL/L (21-32)
[2019-12-25 13:28] LABS: BILIRUBIN,TOTAL 0.3 MG/DL (0.1-1.0)
[2019-12-25 13:29] LABS: ALKALINE PHOSPHATASE 81 U/L (40-136)
[2019-12-25 13:30] LABS: CREATININE SERUM 0.77 MG/DL (0.60-1.30); GFR ESTIMATED > 60
[2019-12-25 13:31] LABS: BUN/CREATININE RATIO 8
[2019-12-25 13:33] LABS: ALANINE AMINOTRANSFERASE 12 U/L (0-55)
--- NOTE | 2019-12-25 13:41 | Diagnostic Imaging Report ---
Indication: Chest pain. Compared: 06/24/2019 Findings: The lungs are clear. There is no failure, effusion or pneumothorax. Impression: No acute-appearing abnormality. Dictated by: Dictated on workstation # [id number]
[2019-12-25 13:45] VITALS: BP 125/82
[2019-12-25] MEDS ORDERED: KCL 10 MEQ TAB (MICRO K) PO ONE (13:45)
[2019-12-26] MEDS ORDERED: CYCL5TAB PO (22:30)
== END 2019-12-25 13:48 | disposition home or self-care (01) ==
LOC: EDUNIT# 12:07 → ER 12:09
DX: R07.81 Pleurodynia (principal); R51.9 Headache, unspecified; Z20.828 Contact with and (suspected) exposure to other viral communicable diseases; Z87.891 Personal history of nicotine dependence; Z88.8 Allergy status to other drugs, medicaments and biological substances
CPT/HCPCS: 71045; 80053; 84484; 84703; 85025; 86141; 93005; 99284; U0002; 36415; 87635

== ENCOUNTER 2019-12-26 19:48 | Emergency (ER) | payer OTHER ==
[~2019-12-26] VITALS: Ht 170 cm; Wt 77.3 kg
--- NOTE | 2019-12-26 20:13 | ED Chest Pain ---
General Chief Complaint: Chest Wall Stated Complaint: CHEST PAIN Nursing Triage Note: left sided pleuritic chest pain since saturday. left arm/leg numbness x2 days. seen 12/25/2019 for same. Nursing Sepsis Screen: No Definite Risk History of Present Illness Date Seen by Provider: Dec 26, 2019 Time Seen by Provider: 20:13 Allergies and Home Medications Allergies Coded Allergies: labetalol (Verified Allergy, Mild, itching, 06/19/19) Home Medications Cyclobenzaprine HCl 5 Mg Tablet, 5 MG PO TID PRN for PAIN-SEVERE (8-10) Prescribed by: SORAYA MARTINEZ on 12/26/19 2230 Hydrocodone/Acetaminophen 1 Each Tablet, 1-2 TAB PO Q6HR PRN for PAIN-MODERATE (5-7) Prescribed by: KANE WORTHY on 06/19/19 1228 Ibuprofen 600 Mg Tablet, 600 MG PO Q6HR Prescribed by: KANE WORTHY on 06/19/19 1228 Patient Home Medication List Home Medication List Reviewed: Yes Review of Systems Review of Systems Constitutional: no symptoms reported EENTM: No Symptoms Reported Respiratory: No Symptoms Reported Cardiovascular: No Symptoms Reported Gastrointestinal: No Symptoms Reported Genitourinary: No Symptoms Reported Musculoskeletal: other (chest wall pain ) Skin: no symptoms reported Psychiatric/Neurological: No Symptoms Reported Endocrine: No Symptoms Reported Hematologic/Lymphatic: No Symptoms Reported Past Xkktfpf-Phplxy-Fziehe Hx Patient Social History Alcohol Use: Denies Use Recreational Drug Use: No Smoking Status: Current Everyday Smoker Type Used: Cigarettes Former Smoker, Quit: Nov 18, 2018 2nd Hand Smoke Exposure: No Recent Foreign Travel: No Contact w/Someone Who Travel: No Recent Infectious Disease Expo: No Recent Hopitalizations: No Immunizations Up To Date Tetanus Booster (TDap): Less than 5yrs Seasonal Allergies Seasonal Allergies: No Past Medical History Surgeries: Yes ( X 2) Section Respiratory: No Currently Using CPAP: No Currently Using BIPAP: No Cardiac: Yes (HTN R/T PRE-ECLAMPSIA DURING LAST ) Hypertension Neurological: No Reproductive Disorders: Yes (PRE-ECLAMPSIA WITH , DELIVERED 7WK EARLY 12/04) Female Reproductive Disorders: Denies Genitourinary: No Gastrointestinal: No Musculoskeletal: No Endocrine: No HEENT: No Cancer: No Psychosocial: No Integumentary: No Blood Disorders: No Family Medical History Patient reports no known family medical history. Other Conditions/Hx Physical Exam Vital Signs Vital Signs - First Documented 12/26/19 19:55 Temp 36.2 Pulse 88 Resp 18 B/P (MAP) 147/98 (114) Pulse Ox 95 O2 Delivery Room Air Capillary Refill : Less Than 3 Seconds Height, Weight, BMI Height: 5'7.00" Weight: 170lbs. 6.0oz. 77.312034fn; 26.00 BMI Method:Stated General Appearance: No Apparent Distress, WD/WN HEENT: PERRL/EOMI, Normal ENT Inspection, Pharynx Normal (Chest wall tenderness with palpation ) Neck: Full Range of Motion, Normal Inspection Respiratory: Lungs Clear, Normal Breath Sounds Cardiovascular: Regular Rate, Rhythm, No Edema, No Murmur, Normal Peripheral Pulses; No Extra Beats Gastrointestinal: Normal Bowel Sounds, Non Tender, Soft Extremity: Normal Capillary Refill Neurologic/Psychiatric: Alert, Oriented x3, No Motor/Sensory Deficits, Normal Mood/Affect Skin: Normal Color, Warm/Dry Focused Exam Respiratory: No Pleural Rub, No Wheezing Progress/Results/Core Measures Results/Orders Lab Results Laboratory Tests Test 12/26/19 21:32 Range/Units White Blood Count 6.9 4.3-11.0 10^3/uL Red Blood Count 3.88 3.80-5.11 10^6/uL Hemoglobin 11.6 11.5-16.0 g/dL Hematocrit 33 L 35-52 % Mean Corpuscular Volume 86 80-99 fL Mean Corpuscular Hemoglobin 30 25-34 pg Mean Corpuscular Hemoglobin Concent 35 32-36 g/dL Red Cell Distribution Width 11.9 10.0-14.5 % Platelet Count 213 130-400 10^3/uL Mean Platelet Volume 9.7 9.0-12.2 fL Immature Granulocyte % (Auto) 0 % Neutrophils (%) (Auto) 51 42-75 % Lymphocytes (%) (Auto) 40 12-44 % Monocytes (%) (Auto) 7 0-12 % Eosinophils (%) (Auto) 1 0-10 % Basophils (%) (Auto) 0 0-10 % Neutrophils # (Auto) 3.5 1.8-7.8 10^3/uL Lymphocytes # (Auto) 2.8 1.0-4.0 10^3/uL Monocytes # (Auto) 0.5 0.0-1.0 10^3/uL Eosinophils # (Auto) 0.1 0.0-0.3 10^3/uL Basophils # (Auto) 0.0 0.0-0.1 10^3/uL Immature Granulocyte # (Auto) 0.0 0.0-0.1 10^3/uL Sodium Level 139 135-145 MMOL/L Potassium Level 3.4 L 3.6-5.0 MMOL/L Chloride Level 106 98-107 MMOL/L Carbon Dioxide Level 20 L 21-32 MMOL/L Anion Gap 13 5-14 MMOL/L Blood Urea Nitrogen 10 7-18 MG/DL Creatinine 0.77 0.60-1.30 MG/DL Estimat Glomerular Filtration Rate > 60 BUN/Creatinine Ratio 13 Glucose Level 96 70-105 MG/DL Calcium Level 9.0 8.5-10.1 MG/DL My Orders Orders - SORAYA MARTINEZ APRN Ekg Tracing (12/26/19 20:27) Basic Metabolic Panel (12/26/19 21:05) Cbc With Automated Diff (12/26/19 21:05) Cyclobenzaprine Tablet (Flexeril Tablet) (12/26/19 22:00) Ibuprofen Tablet (Motrin Tablet) (12/26/19 22:00) Medications Given in ED Current Medications Medications Dose Ordered Sig/Suzette Route Start Time Stop Time Status Last Admin Dose Admin Cyclobenzaprine HCl 5 mg ONCE ONCE PO 12/26/19 22:00 12/26/19 22:01 DC 12/26/19 22:02 5 MG Ibuprofen 600 mg ONCE ONCE PO 12/26/19 22:00 12/26/19 22:01 DC 12/26/19 22:02 600 MG Vital Signs/I&O 12/26/19 12/26/19 19:55 22:33 Temp 36.2 36.3 Pulse 88 84 Resp 18 18 B/P (MAP) 147/98 (114) 145/89 (114) Pulse Ox 95 99 O2 Delivery Room Air Room Air Blood Pressure Mean: 114 Progress Progress Note : Progress Note EKG ordered, no change from yesterday. Reviewed results of tests performed yesterday with her and discussed repeating BMP to evaluate potassium level. Of fered Toradol and Norflex inj. Requested PO instead of IM. Ordered Flexeril 5mg PO and Ibuprofen 600mg PO. Potassium level reviewed and stable at 3.4. States pain 0/10 apx. 30 minutes after receiving Flexeril and Ibuprofen. Reviewed plan of care, agreeable with plan. Requested work note for AM. Departure Impression Primary Impression: Pleuritic chest pain Disposition: 01 HOME, SELF-CARE Condition: Improved Departure-Patient Inst. Decision time for Depature: 22:26 Referrals: ALBERT RONDON MD (PCP/Family) Primary Care Physician Patient Instructions: Pleuritic Chest Pain (DC) Add. Discharge Instructions: Plan: 1. May take Ibuprofen or Tylenol as directed per package as needed for pain. 2. May use Flexeril 5mg by mouth three times a day as needed for pain. 3. Follow up with Dr. Rondon next week. 4. Return for any new or worsening symptoms. All discharge instructions reviewed with patient and/or family. Voiced understanding. Scripts Cyclobenzaprine HCl (Cyclobenzaprine HCl) 5 Mg Tablet 5 MG PO TID PRN for PAIN-SEVERE (8-10) for 5 Days, #30 TAB 0 Refills Prov: SORAYA MARTINEZ [employer]CREATION WORKER 12/26/19 SORAYA MARTINEZ [employer]CREATION WORKER Dec 26, 2019 20:13
[2019-12-26 21:58] LABS: BASOPHILS % (AUTO) 0 % (0-10); EOSINOPHILS # (AUTO) 0.1 10^3/uL (0.0-0.3); EOSINOPHILS % (AUTO) 1 % (0-10); HEMATOCRIT 33 % (35-52); HEMOGLOBIN 11.6 g/dL (11.5-16.0); LYMPHOCYTES # (AUTO) 2.8 10^3/uL (1.0-4.0); LYMPHOCYTES % (AUTO) 40 % (12-44); MEAN CORPUSCULAR HEMOGLOBIN 30 pg (25-34); MEAN CORPUSCULAR HGB CONC 35 g/dL (32-36); MEAN CORPUSCULAR VOLUME 86 fL (80-99); MEAN PLATELET VOLUME 9.7 fL (9.0-12.2); MONOCYTES # (AUTO) 0.5 10^3/uL (0.0-1.0); MONOCYTES % (AUTO) 7 % (0-12); NEUTROPHILS # (AUTO) 3.5 10^3/uL (1.8-7.8); NEUTROPHILS % (AUTO) 51 % (42-75); PLATELET COUNT 213 10^3/uL (130-400); WHITE BLOOD COUNT 6.9 10^3/uL (4.3-11.0)
[2019-12-26] MEDS ORDERED: IBUPROFEN 600 MG (MOTRIN) TAB PO ONE (22:00)
[2019-12-26] MEDS ORDERED: CYCLOBENZAPRINE 10 MG (FLEXERIL) TAB PO ONE (22:00)
[2019-12-26 22:16] LABS: BUN/CREATININE RATIO 13; CARBON DIOXIDE 20 MMOL/L (21-32); CHLORIDE 106 MMOL/L (98-107); CREATININE SERUM 0.77 MG/DL (0.60-1.30); GFR ESTIMATED > 60; GLUCOSE 96 MG/DL (70-105); POTASSIUM 3.4 MMOL/L (3.6-5.0); SODIUM 139 MMOL/L (135-145)
[2019-12-26] MEDS ORDERED: CYCL5TAB PO (22:30)
[2019-12-26 22:33] VITALS: BP 145/89
== END 2019-12-26 22:35 | disposition home or self-care (01) ==
LOC: EDUNIT# 19:48 → ER 19:50
DX: R07.1 Chest pain on breathing (principal); F17.210 Nicotine dependence, cigarettes, uncomplicated; Z88.8 Allergy status to other drugs, medicaments and biological substances
CPT/HCPCS: 36415; 80048; 85025; 93005

== ENCOUNTER → 2020-03-13 | Emergency (ER) | payer OTHER ==
[~2020-03-13] VITALS: Ht 175 cm; Wt 74.0 kg
[~2020-03-13] MED LIST changes: +CYCL5TAB PO; +PROP40TA5 PO
[2020-03-13 21:05] VITALS: BP 146/102
[2020-03-13 21:33] LABS: BASOPHILS % (AUTO) 0 % (0-10); EOSINOPHILS # (AUTO) 0.1 10^3/uL (0.0-0.3); EOSINOPHILS % (AUTO) 2 % (0-10); HEMATOCRIT 34 % (35-52); HEMOGLOBIN 11.9 g/dL (11.5-16.0); LYMPHOCYTES # (AUTO) 2.5 10^3/uL (1.0-4.0); LYMPHOCYTES % (AUTO) 47 % (12-44); MEAN CORPUSCULAR HEMOGLOBIN 30 pg (25-34); MEAN CORPUSCULAR HGB CONC 35 g/dL (32-36); MEAN CORPUSCULAR VOLUME 88 fL (80-99); MEAN PLATELET VOLUME 9.7 fL (9.0-12.2); MONOCYTES # (AUTO) 0.4 10^3/uL (0.0-1.0); MONOCYTES % (AUTO) 8 % (0-12); NEUTROPHILS # (AUTO) 2.3 10^3/uL (1.8-7.8); NEUTROPHILS % (AUTO) 44 % (42-75); PLATELET COUNT 255 10^3/uL (130-400); WHITE BLOOD COUNT 5.3 10^3/uL (4.3-11.0)
[2020-03-13 21:34] LABS: ALBUMIN 4.1 GM/DL (3.2-4.5)
[2020-03-13 21:35] LABS: CHLORIDE 108 MMOL/L (98-107); POTASSIUM 3.6 MMOL/L (3.6-5.0); SODIUM 141 MMOL/L (135-145)
[2020-03-13 21:36] LABS: CALCIUM 9.1 MG/DL (8.5-10.1)
[2020-03-13 21:37] LABS: GLUCOSE 100 MG/DL (70-105); TOTAL PROTEIN 7.3 GM/DL (6.4-8.2)
[2020-03-13 21:38] LABS: CARBON DIOXIDE 22 MMOL/L (21-32)
[2020-03-13 21:39] LABS: BILIRUBIN,TOTAL 0.3 MG/DL (0.1-1.0)
[2020-03-13 21:40] LABS: ALKALINE PHOSPHATASE 110 U/L (40-136)
[2020-03-13 21:41] LABS: CREATININE SERUM 0.86 MG/DL (0.60-1.30); GFR ESTIMATED > 60
[2020-03-13 21:42] LABS: BUN/CREATININE RATIO 12
[2020-03-13 21:44] LABS: ALANINE AMINOTRANSFERASE 11 U/L (0-55)
[2020-03-13 22:19] LABS: TSH (THYROID ANALYZER) 1.79 UIU/ML (0.35-4.94)
--- NOTE | 2020-03-13 22:52 | ED Cardiac General ---
History of Present Illness General Chief Complaint: Cardiac/General Problems Stated Complaint: CHEST PAIN/HAND AND FEET TINGLING/GENERALIZED PAIN Nursing Triage Note: PATIENT STATES SITTING AT WORK WHEN SIDE/CHEST STARTED HURTING, PATIENT STATES NECK AND BACK PAIN. VERBALZIED ARM/LEG NUMBNESS. SYMPTOMS ON/OFF SINCE DECEMBER Source: patient Exam Limitations: no limitations History of Present Illness Date Seen by Provider: Mar 13, 2020 Time Seen by Provider: 21:05 Initial Comments This 24-year-old young lady presents to the emergency room with a constellation of complaints including atypical chest pain that radiates to her back and neck, right upper quadrant pain, paresthesias of the extremities, and palpitations. She has been having all of these symptoms intermittently for several months. She has been seen in the emergency room several times for the symptoms. No serious pathologies have been identified. 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 She does not feel like she was excessively anxious or panicky at the time. Allergies and Home Medications Allergies Coded Allergies: labetalol (Verified Allergy, Mild, itching, 06/19/19) Home Medications Cyclobenzaprine HCl 5 Mg Tablet, 5 MG PO TID PRN for PAIN-SEVERE (8-10) Prescribed by: SORAYA MARTINEZ on 12/26/19 2230 Hydrocodone/Acetaminophen 1 Each Tablet, 1-2 TAB PO Q6HR PRN for PAIN-MODERATE (5-7) Prescribed by: KANE WORTHY on 06/19/19 1228 Ibuprofen 600 Mg Tablet, 600 MG PO Q6HR Prescribed by: KANE WORTHY on 06/19/19 1228 Propranolol HCl 40 Mg Tablet, 40 MG PO BID Prescribed by: FRANCOIS LEES on 03/13/20 2251 Patient Home Medication List Home Medication List Reviewed: Yes Review of Systems Review of Systems Constitutional: no symptoms reported EENTM: No Symptoms Reported Respiratory: See HPI Cardiovascular: See HPI Gastrointestinal: See HPI Genitourinary: No Symptoms Reported Musculoskeletal: no symptoms reported Skin: no symptoms reported Psychiatric/Neurological: See HPI Endocrine: No Symptoms Reported Hematologic/Lymphatic: No Symptoms Reported Past Scghwqw-Bfxftm-Xngecr Hx Past Med/Social Hx: Reviewed Nursing Past Med/Soc Hx Patient Social History Alcohol Use: Denies Use Type Used: Cigarettes Former Smoker, Quit: Nov 18, 2018 2nd Hand Smoke Exposure: No Recent Infectious Disease Expo: No Recent Hopitalizations: No Immunizations Up To Date Tetanus Booster (TDap): Less than 5yrs Seasonal Allergies Seasonal Allergies: No Past Medical History Surgeries: Yes ( X 2) Section Respiratory: No Currently Using CPAP: No Currently Using BIPAP: No Cardiac: Yes (HTN R/T PRE-ECLAMPSIA DURING LAST ) Hypertension Neurological: No Reproductive Disorders: Yes (PRE-ECLAMPSIA WITH , DELIVERED 7WK EARLY 12/04) Female Reproductive Disorders: Denies Genitourinary: No Gastrointestinal: No Musculoskeletal: No Endocrine: No HEENT: No Cancer: No Psychosocial: No Integumentary: No Blood Disorders: No Family Medical History Patient reports no known family medical history. Other Conditions/Hx Physical Exam Vital Signs Vital Signs - First Documented 03/13/20 21:05 Temp 36.4 Pulse 60 Resp 20 B/P (MAP) 146/102 (117) Pulse Ox 99 O2 Delivery Room Air Capillary Refill : Less Than 3 Seconds Height, Weight, BMI Height: 5'7.00" Weight: 170lbs. 6.0oz. 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 Norm as Tested Skin: Normal Color, Warm/Dry Progress/Results/Core Measures Results/Orders Lab Results Laboratory Tests Test 03/13/20 21:05 Range/Units White Blood Count 5.3 4.3-11.0 10^3/uL Red Blood Count 3.91 3.80-5.11 10^6/uL Hemoglobin 11.9 11.5-16.0 g/dL Hematocrit 34 L 35-52 % Mean Corpuscular Volume 88 80-99 fL Mean Corpuscular Hemoglobin 30 25-34 pg Mean Corpuscular Hemoglobin Concent 35 32-36 g/dL Red Cell Distribution Width 12.4 10.0-14.5 % Platelet Count 255 130-400 10^3/uL Mean Platelet Volume 9.7 9.0-12.2 fL Immature Granulocyte % (Auto) 0 % Neutrophils (%) (Auto) 44 42-75 % Lymphocytes (%) (Auto) 47 H 12-44 % Monocytes (%) (Auto) 8 0-12 % Eosinophils (%) (Auto) 2 0-10 % Basophils (%) (Auto) 0 0-10 % Neutrophils # (Auto) 2.3 1.8-7.8 10^3/uL Lymphocytes # (Auto) 2.5 1.0-4.0 10^3/uL Monocytes # (Auto) 0.4 0.0-1.0 10^3/uL Eosinophils # (Auto) 0.1 0.0-0.3 10^3/uL Basophils # (Auto) 0.0 0.0-0.1 10^3/uL Immature Granulocyte # (Auto) 0.0 0.0-0.1 10^3/uL Sodium Level 141 135-145 MMOL/L Potassium Level 3.6 3.6-5.0 MMOL/L Chloride Level 108 H 98-107 MMOL/L Carbon Dioxide Level 22 21-32 MMOL/L Anion Gap 11 5-14 MMOL/L Blood Urea Nitrogen 10 7-18 MG/DL Creatinine 0.86 0.60-1.30 MG/DL Estimat Glomerular Filtration Rate > 60 BUN/Creatinine Ratio 12 Glucose Level 100 70-105 MG/DL Calcium Level 9.1 8.5-10.1 MG/DL Corrected Calcium 9.0 8.5-10.1 MG/DL Magnesium Level 2.0 1.6-2.4 MG/DL Total Bilirubin 0.3 0.1-1.0 MG/DL Aspartate Amino Transf (AST/SGOT) 17 5-34 U/L Alanine Aminotransferase (ALT/SGPT) 11 0-55 U/L Alkaline Phosphatase 110 40-136 U/L Total Protein 7.3 6.4-8.2 GM/DL Albumin 4.1 3.2-4.5 GM/DL TSH Geary Testing 1.79 0.35-4.94 UIU/ML Serum Test, Qualitative NEGATIVE NEGATIVE My Orders Orders - FRANCOIS NEGRO MD Ed Iv/Invasive Line Start (03/13/20 21:15) Ekg Tracing (03/13/20 21:15) Monitor-Rhythm Ecg Trace Only (03/13/20 21:15) Cbc With Automated Diff (03/13/20 21:15) Comprehensive Metabolic Panel (03/13/20 21:15) Magnesium (03/13/20 21:15) Thyroid Analyzer (03/13/20 21:15) Hcg,Qualitative Serum (03/13/20 21:19) Vital Signs/I&O 03/13/20 21:05 Temp 36.4 Pulse 60 Resp 20 B/P (MAP) 146/102 (117) Pulse Ox 99 O2 Delivery Room Air Blood Pressure Mean: 117 Progress Progress Note : Progress Note Work-up was unremarkable. Patient symptoms subsided. We will change her nifedipine to propranolol in an effort to help control tachycardia and anxiety. I advised that she discuss her right upper quadrant pain with your primary care provider and eat a low-fat diet until she can have her gallbladder evaluated with ultrasound. Initial ECG Impression Date: Mar 13, 2020 Initial ECG Impression Time: 21:07 Initial ECG Rate: 63 Initial ECG Rhythm: Normal Sinus Initial ECG Intervals: Normal Initial ECG Impression: Normal Comment Normal sinus rhythm with no ST elevation or depression. No abnormal intervals or axis deviation. Departure Impression Primary Impression: Palpitations Additional Impression: Right upper quadrant pain Disposition: 01 HOME, SELF-CARE Condition: Improved Departure-Patient Inst. Decision time for Depature: 22:48 Referrals: ALBERT HEREDIA MD (PCP/Family) Primary Care Physician Patient Instructions: Palpitations Add. Discharge Instructions: Try stopping nifedipine and replacing with propranolol as prescribed. This should help prevent rapid heart rate and sensation of racing heart. If your rapid heart rate and palpitations persist despite changing medications, discussed the possibility of an outpatient heart monitor with your doctor. Follow-up with your primary care provider soon as possible. The intermittent pain in your right upper belly could be related to the gallbladder. Eat a diet low in fats, greases, and oils. Discuss obtaining a gallbladder ultrasound with your doctor. Belly pain that radiates into the chest may also be caused by acid reflux. Consider treating this with an antacid medication such as famotidine (Pepcid) or Prilosec (omeprazole). Call with questions or concerns. Return to the emergency room with worsening symptoms. All discharge instructions reviewed with patient and/or family. Voiced understanding. Scripts Propranolol HCl (Propranolol HCl) 40 Mg Tablet 40 MG PO BID, #60 TAB Prov: FRANCOIS NEGRO MD 03/13/20 Copy Copies To 1: ALBERT HEREDIA MD, JOSHUA T MD Mar 13, 2020 22:52
== END ==
LOC: EDUNIT# 20:43 → ER 20:45
DX: R00.2 Palpitations (principal); R10.11 Right upper quadrant pain; I10 Essential (primary) hypertension; Z87.891 Personal history of nicotine dependence; Z88.8 Allergy status to other drugs, medicaments and biological substances
CPT/HCPCS: 36415; 80053; 83735; 84443; 84703; 85025; 93005; 93041

== ENCOUNTER 2020-04-05 03:07 | Emergency (ER) | payer OTHER ==
[~2020-04-05] VITALS: Ht 170 cm; Wt 77.0 kg
--- NOTE | 2020-04-05 03:50 | ED General ---
General Chief Complaint: Neurological Problems Stated Complaint: MCBRIDE,NUMB ON LEFT SIDE OF BODY Source of Information: Patient Exam Limitations: No Limitations History of Present Illness Date Seen by Provider: Apr 05, 2020 Time Seen by Provider: 03:25 Initial Comments Patient is a 25-year-old female who presents to the emergency department today with a chief complaint of numbness to the left side of her body. Patient states that she was sleeping tonight and was awakened by a numb sensation to the left side of her neck. Patient states that she has had the symptoms since December 2019. Patient states that she has had multiple visits to the emergency department as well as her primary care physician for evaluation of the symptoms. Patient states that she last saw her primary care doctor, Dr. Heredia about a week and a half ago and was scheduled to have "scan" but they have not called her for the appointment yet. Patient states that she is also had a chronic ongoing headache for the last 3-1/2 months. Patient states that laying down seems to make it better sitting up makes it worse. Patient also states that she feels like she cannot catch her breath at night when she is sleeping and she has to sleep sitting up. She denies any chest pain, shortness of breath currently. She states she has some vague abdominal discomfort on the left. She denies any recent fevers, chills, productive cough. No nausea, vomiting or diarrhea. No genitourinary symptoms. Patient states that she is on control and her last normal menstrual cycle was 1 month ago. Patient denies any visual changes or speech difficulties. She is quite tearful during my examination. All other review of systems reviewed and negative except as stated. Timing/Duration: Constant Severity: Moderate Associated Systoms: Headaches Allergies and Home Medications Allergies Coded Allergies: labetalol (Verified Allergy, Mild, itching, 06/19/19) Home Medications Cyclobenzaprine HCl 5 Mg Tablet, 5 MG PO TID PRN for PAIN-SEVERE (8-10) Prescribed by: SORAYA MARTINEZ on 12/26/192229 Hydrocodone/Acetaminophen 1 Each Tablet, 1-2 TAB PO Q6HR PRN for PAIN-MODERATE (5-7) Prescribed by: KANE WORTHY on 06/19/19 1228 Ibuprofen 600 Mg Tablet, 600 MG PO Q6HR Prescribed by: KANE WORTHY on 06/19/19 1228 Propranolol HCl 40 Mg Tablet, 40 MG PO BID Prescribed by: FRANCOIS LEES on 03/13/20 3781 Patient Home Medication List Home Medication List Reviewed: Yes Review of Systems Review of Systems Constitutional: see HPI EENTM: no symptoms reported Respiratory: short of breath (When lying flat) Cardiovascular: no symptoms reported Gastrointestinal: no symptoms reported Genitourinary: no symptoms reported : No Musculoskeletal: no symptoms reported Skin: no symptoms reported Psychiatric/Neurological: Anxiety, Numbness (Entire left side of her body including her face, neck, left arm, the left side of her torso, left lower extremity.) All Other Systems Reviewed Negative Unless Noted: Yes Past Ldnlhac-Ovvdzx-Ikjqra Hx Patient Social History Type Used: Cigarettes Former Smoker, Quit: Nov 18, 2018 2nd Hand Smoke Exposure: No Recent Hopitalizations: No Immunizations Up To Date Tetanus Booster (TDap): Less than 5yrs Seasonal Allergies Seasonal Allergies: No Past Medical History Surgeries: Yes ( X 2) Section Respiratory: No Currently Using CPAP: No Currently Using BIPAP: No Cardiac: Yes (HTN R/T PRE-ECLAMPSIA DURING LAST ) Hypertension Neurological: No Reproductive Disorders: Yes (PRE-ECLAMPSIA WITH , DELIVERED 7WK EARLY 12/04) Female Reproductive Disorders: Denies Genitourinary: No Gastrointestinal: No Musculoskeletal: No Endocrine: No HEENT: No Cancer: No Psychosocial: No Integumentary: No Blood Disorders: No Family Medical History Patient reports no known family medical history. Other Conditions/Hx Physical Exam Vital Signs Vital Signs - First Documented 04/05/20 03:20 Temp 36.5 Pulse 60 Resp 18 B/P (MAP) 149/105 (120) Pulse Ox 99 O2 Delivery Room Air Capillary Refill : Height, Weight, BMI Height: 5'7.00" Weight: 170lbs. 6.0oz. 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-XII Norm as Tested; No Abnormal strategic communications specialist II-XII, No Abnormal Gait; Depressed Affect; No EOM Palsy, No Facial Droop, No Motor Weakness; Sensory Deficit (Patient states that the sensation to her left leg is less than her right leg) Skin: Normal Color, Warm/Dry Progress/Results/Core Measures Suspected Sepsis SIRS Temperature: Pulse: Respiratory Rate: Blood Pressure / Mean: Results/Orders My Orders Orders - DESHAWN GREER MD Ketorolac Injection (Toradol Injection) (04/05/20 04:15) Orphenadrine Inj (Ed Only) (Norflex Inje (04/05/20 04:15) Ct Head Wo (04/05/20 04:08) Medications Given in ED Current Medications Medications Dose Ordered Sig/Suzette Route Start Time Stop Time Status Last Admin Dose Admin Ketorolac Tromethamine 30 mg ONCE ONCE IM 04/05/20 04:15 04/05/20 04:16 DC 04/05/20 04:41 30 MG Orphenadrine Citrate 60 mg ONCE ONCE IM 04/05/20 04:15 04/05/20 04:16 DC 04/05/20 04:40 60 MG Vital Signs/I&O 04/05/20 03:20 Temp 36.5 Pulse 60 Resp 18 B/P (MAP) 149/105 (120) Pulse Ox 99 O2 Delivery Room Air Capillary Refill : Progress Note : Time: 03:49 Progress Note Patient is a 25-year-old female who presents to the emergency department today with a chief complaint of headache and numbness to the left side of her body. Evaluation today includes a physical exam. I will also review the patient's medical records in order to see what type of a work-up has been done in the past. The patient has no acute focal neurological deficits. She does state that she has some subjective decrease in sensation over the left lower extr emity. 0409 Patient is very preoccupied with the intensity of her headaches. She states that they are daily. Patient states that they are debilitating. Patient states she cannot get up off her couch when her head is hurting at its maximum. Patient states that she takes Tylenol and ibuprofen "all the time". Patient points to the nape of her neck as the source of her headaches and they radiate around to the front of her head. Occasionally she states they are at the occiput. Patient again denies any vision changes, speech difficulties, inability to move an arm or leg, incontinence. Patient states that nothing really makes them any worse or any better. Patient is very anxious about her health. She is a single mom with 2 young children and works at a [employer] She states that she used to be in therapy but is not currently. She is not sure what she might be having anxiety over her or panic over but it sounds like she has quite a bit of anxiety over her health. Patient has a good support system. I am going to go ahead and obtain a CT scan of her head without contrast at this time. 0459 CT brain noncontrast shows no acute intracranial abnormalities. Patient is reevaluated after the CT scan and after Norflex and Toradol and states that she feels much better. Patient is encouraged to follow-up with her primary care physician this week. She verbalizes understanding. Patient has no clinical or objective findings to warrant further studies from the emergency department at this time. All questions are sought and answered. Patient is stable for discharge. Departure Impression Primary Impression: Headache Qualified Codes: G44.209 - Tension-type headache, unspecified, not intractable Additional Impression: Anxiety about health Disposition: 01 HOME, SELF-CARE Condition: Stable Departure-Patient Inst. Decision time for Depature: 05:00 Referrals: ALBERT HEREDIA MD (PCP/Family) Primary Care Physician Patient Instructions: Anxiety, Adult (DC), Tension Headache (DC) Add. Discharge Instructions: Try [id number] Aleve/naproxen. Take 2 pills in the morning with food and 2 pills in the evening with food as needed for severe headache. Please call your primary care physician's office today for a follow-up appointment. Return to the emergency room for any worsening symptoms or new, emergent concerns. DESHAWN GREER MD Apr 05, 2020 03:50
[2020-04-05] MEDS ORDERED: KETOROLAC 30 MG/ML VIAL IM ONE (04:15)
[2020-04-05] MEDS ORDERED: ORPHENADRINE 60 MG/2 ML (NORFLEX) AMP (ED ONLY) IM ONE (04:15)
[2020-04-05 05:10] VITALS: BP 140/101
--- NOTE | 2020-04-05 06:03 | Diagnostic Imaging Report ---
INDICATION: Left-sided paresthesias. Headache. TECHNIQUE: Routine non contrast-enhanced axial images were obtained from the skull base to the vertex. Auto Exposure Controls were utilized during the CT exam to meet ALARA standards for radiation dose reduction COMPARISON: 01/28/2016 FINDINGS: The ventricles and cortical sulci are normal in size and contour. There is no midline shift or mass-effect. No acute intra-axial hemorrhage is seen. There are no abnormal areas of increased or decreased density to suggest acute hemorrhage or edema. No extra-axial masses or collections are present. The bony calvarium is intact. The visualized paranasal sinuses are unremarkable. The mastoid air cells are clear. IMPRESSION: 1. No acute intracranial abnormality. No CT evidence of mass, acute infarct or intracranial hemorrhage. Dictated by: Dictated on workstation # [id number]
== END 2020-04-05 05:10 | disposition home or self-care (01) ==
LOC: EDUNIT# 03:07 → ER 03:09
DX: G44.209 Tension-type headache, unspecified, not intractable (principal); F41.1 Generalized anxiety disorder; R20.0 Anesthesia of skin; I10 Essential (primary) hypertension; Z87.891 Personal history of nicotine dependence; Z88.8 Allergy status to other drugs, medicaments and biological substances
CPT/HCPCS: 70450

== ENCOUNTER → 2020-05-12 | Outpatient (CLI) | payer OTHER ==
[~2020-05-12] MED LIST changes: +CATHETER FLUSH 10 ML SYR IV PRN; +HOLD METFORMIN - RECEIVED CONTRAST 20 ML VIAL IV SCH; +IOHEXOL 350 MG/ML 100 ML (OMNIPAQUE 350) VIAL IV ONE; +NS 100 ML (IVPB) BAG IV ONE
--- NOTE | 2020-05-12 14:21 | Diagnostic Imaging Report ---
PROCEDURE: CT chest and abdomen with contrast. TECHNIQUE: Multiple contiguous axial images were obtained through the chest and abdomen after the administration of intravenous contrast. Auto Exposure Controls were utilized during the CT exam to meet ALARA standards for radiation dose reduction. INDICATION: Chest pain The previous CTA chest exam of 06/24/2019 failed to show any sign of an acute cardiopulmonary abnormality. On this exam, there is no sign of an aneurysm of the aorta, nor is there any sign of a dissection. There is no defect within the pulmonary arteries to indicate a pulmonary embolus either. The heart size is within normal limits and stable when compared to the prior study. There is no mediastinal or hilar adenopathy noted. The thyroid gland where visualized is unremarkable. There does seem to be some residual thymic tissue in the anterior mediastinum. This finding is unchanged when compared to the prior study. The lungs are generally clear. There is no sign of failure, pneumonia or pleural effusion. There is no parenchymal lung mass identified either. There is no obvious breast mass. The fibroglandular tissue in both breasts is quite dense however. The sections through the upper abdomen show no sign of an acute abnormality. The liver is of lower density than usually seen and this does suggest fatty metamorphosis. There is no focal mass involving the liver. The spleen, pancreas, adrenals, kidneys, gallbladder, aorta and inferior vena cava are unremarkable for an acute abnormality. The appendix was visualized and is not abnormally thickened. The stomach is not well-distended and consequently difficult to assess.. There are a few fluid-filled segments of small bowel in the left upper quadrant and near midline in the lower abdomen. These findings are nonspecific. There is no evidence for a bowel obstruction. The bone windows are unremarkable for an acute fracture or for destructive lesion. IMPRESSION: 1. There is no acute cardiopulmonary abnormality noted. In particular, there is no sign of any aortic dissection or of a pulmonary embolus. 2. There is no acute abnormality of the abdomen noted either. Dictated by: Dictated on workstation # [id number]
== END ==
LOC: RAD 08:58
PROVIDERS: ATTEND Family Medicine
DX: R10.11 Right upper quadrant pain (principal); R07.9 Chest pain, unspecified
CPT/HCPCS: 71260; 74160

== ENCOUNTER 2021-01-24 21:52 | Outpatient (CLI) | payer OTHER ==
[~2021-01-24] VITALS: Ht 167.7 cm; Wt 92.8 kg
[~2021-01-24 21:52] MED LIST changes: -CATHETER FLUSH 10 ML SYR IV PRN; -DCS100C PO; +DOCU-239 PO; -HOLD METFORMIN - RECEIVED CONTRAST 20 ML VIAL IV SCH; -IOHEXOL 350 MG/ML 100 ML (OMNIPAQUE 350) VIAL IV ONE; -NS 100 ML (IVPB) BAG IV ONE
[2021-01-24 22:25] VITALS: BP 131/76
[2021-01-24 22:28] LABS: BILIRUBIN,URINE NEGATIVE (NEGATIVE); CLARITY,URINE CLEAR; COLOR,URINE YELLOW; GLUCOSE, URINE (UA) NEGATIVE (NEGATIVE); KETONES,URINE NEGATIVE (NEGATIVE); LEUKOCYTE ESTERASE ,URINE NEGATIVE (NEGATIVE); NITRITE,URINE NEGATIVE (NEGATIVE); PROTEIN,URINE NEGATIVE (NEGATIVE)
[2021-01-24 22:30] VITALS: BP 131/76
[2021-01-24 22:38] LABS: BACTERIA,URINE TRACE /HPF; WBC,URINE 0-2 /HPF
[2021-01-24] MEDS ORDERED: ONDANSETRON 4 MG (ZOFRAN) ORAL DISSOLVE TAB PO STA (22:40)
[2021-01-24] MEDS ORDERED: ONDANSETRON 4 MG (ZOFRAN) ORAL DISSOLVE TAB ONE (22:51)
[2021-01-25] MEDS ORDERED: PRENATAL VITAMIN 1 EA TAB PO SCH (07:00)
--- NOTE | 2021-01-25 07:53 | Physician Query-Final Dx ---
CHARLES,01/25/21 0753: Clinic Account Progress/Dx Physician Query: Please give diagnosis Please include # weeks gestation Date of Service Jan 24, 2021 at 21:52 ALBERT HEREDIA MD 01/25/21 2155: Clinic Account Progress/Dx DIAGNOSIS: Diagnosis Third trimester 28 week gestation abdominal pain in CHARLES,FebJan 25, 2021 07:53 ALBERT HEREDIA MD Jan 25, 2021 21:55
== END 2021-01-24 23:25 ==
LOC: LDRP 21:52 → WSo 21:52
PROVIDERS: ATTEND Family Medicine
DX: O26.893 Other specified pregnancy related conditions, third trimester (principal); R10.9 Unspecified abdominal pain; Z3A.28 28 weeks gestation of pregnancy
CPT/HCPCS: 81000; 99212

== ENCOUNTER 2021-03-14 19:16 | Outpatient (CLI) | payer OTHER ==
[2021-03-14] VITALS (9 sets, daily range): BP systolic 128–172; BP diastolic 87–110
[2021-03-14] MEDS ORDERED: SERT50TA2 PO (19:35)
[2021-03-14] MEDS ORDERED: PREN-102 PO (19:35)
[2021-03-14] MEDS ORDERED: LORA10TA7 PO (19:35)
[2021-03-14 20:03] LABS: BILIRUBIN,URINE NEGATIVE (NEGATIVE); CLARITY,URINE CLEAR; COLOR,URINE YELLOW; GLUCOSE, URINE (UA) NEGATIVE (NEGATIVE); KETONES,URINE NEGATIVE (NEGATIVE); LEUKOCYTE ESTERASE ,URINE NEGATIVE (NEGATIVE); NITRITE,URINE NEGATIVE (NEGATIVE); PROTEIN,URINE NEGATIVE (NEGATIVE)
[2021-03-14 20:12] LABS: BACTERIA,URINE FEW /HPF; WBC,URINE 0-2 /HPF
[2021-03-14 20:42] LABS: BASOPHILS % (AUTO) 0 % (0-10); EOSINOPHILS # (AUTO) 0.1 10^3/uL (0.0-0.3); EOSINOPHILS % (AUTO) 2 % (0-10); HEMATOCRIT 31 % (35-52); HEMOGLOBIN 10.4 g/dL (11.5-16.0); LYMPHOCYTES # (AUTO) 1.7 10^3/uL (1.0-4.0); LYMPHOCYTES % (AUTO) 25 % (12-44); MEAN CORPUSCULAR HEMOGLOBIN 29 pg (25-34); MEAN CORPUSCULAR HGB CONC 34 g/dL (32-36); MEAN CORPUSCULAR VOLUME 85 fL (80-99); MEAN PLATELET VOLUME 10.5 fL (9.0-12.2); MONOCYTES # (AUTO) 0.5 10^3/uL (0.0-1.0); MONOCYTES % (AUTO) 8 % (0-12); NEUTROPHILS # (AUTO) 4.4 10^3/uL (1.8-7.8); NEUTROPHILS % (AUTO) 65 % (42-75); PLATELET COUNT 183 10^3/uL (130-400); WHITE BLOOD COUNT 6.8 10^3/uL (4.3-11.0)
[2021-03-14 21:10] LABS: ALBUMIN 3.1 GM/DL (3.2-4.5); BILIRUBIN,TOTAL 0.4 MG/DL (0.1-1.0); CALCIUM 8.4 MG/DL (8.5-10.1); CREATININE SERUM 0.61 MG/DL (0.60-1.30); POTASSIUM 3.3 MMOL/L (3.6-5.0); TOTAL PROTEIN 6.3 GM/DL (6.4-8.2)
[2021-03-14] MEDS ORDERED: NIFEdipine 10 MG CAPS (WOMEN'S SERVICES ONLY!!!) PO ONE ×2 (21:38→21:45)
--- NOTE | 2021-03-15 07:50 | Physician Query-Final Dx ---
CHARLES,03/15/21 0749: Clinic Account Progress/Dx Physician Query: Please give diagnosis Please include # weeks gestation Date of Service Mar 14, 2021 at 19:16 LIBERTAD ALVAREZ MD 03/16/21 0724: Clinic Account Progress/Dx DIAGNOSIS: Diagnosis 1. IUP in 3rd trimester 2. HTN in CHARLES,FebMar 15, 2021 07:49 LIBERTAD ALVAREZ MD Mar 16, 2021 07:24
== END 2021-03-14 23:10 | disposition home or self-care (01) ==
LOC: WSo 19:16 → LDRP 19:16 → WSo 23:10
PROVIDERS: ATTEND Family Medicine
DX: O13.3 Gestational [pregnancy-induced] hypertension without significant proteinuria, third trimester (principal); Z3A.00 Weeks of gestation of pregnancy not specified
CPT/HCPCS: 36415; 80053; 81000; 85025; 99213

== ENCOUNTER 2021-03-15 18:19 | Outpatient (CLI) | payer OTHER ==
[2021-03-15] VITALS (13 sets, daily range): BP systolic 138–180; BP diastolic 90–104
[~2021-03-15 18:19] MED LIST changes: +LORA10TA7 PO; +PREN-102 PO; +SERT50TA2 PO
[2021-03-15] MEDS ORDERED: NIFEdipine 10 MG CAPS (WOMEN'S SERVICES ONLY!!!) PO ONE ×2 (19:15→19:21)
--- NOTE | 2021-03-16 08:36 | Physician Query-Final Dx ---
CHARLES03/16/21 0836: Clinic Account Progress/Dx Physician Query: Please give diagnosis Please include # weeks gestation Date of Service Mar 15, 2021 at 18:19 LIBERTAD ALVAREZ MD 03/17/21 0724: Clinic Account Progress/Dx DIAGNOSIS: Diagnosis 1. IUP in 3rd trimester 2. Hypertension in CHARLES,FebMar 16, 2021 08:36 LIBERTAD ALVAREZ MD Mar 17, 2021 07:24
== END 2021-03-15 20:50 | disposition home or self-care (01) ==
LOC: LDRP 18:19 → WSo 18:19
PROVIDERS: ATTEND Family Medicine
DX: Z34.90 Encounter for supervision of normal pregnancy, unspecified, unspecified trimester (principal); Z3A.00 Weeks of gestation of pregnancy not specified
CPT/HCPCS: 99213

== ENCOUNTER → 2021-03-17 | Outpatient (CLI) | payer OTHER ==
[2021-03-17 16:52] LABS: BASOPHILS % (AUTO) 0 % (0-10); EOSINOPHILS # (AUTO) 0.1 10^3/uL (0.0-0.3); EOSINOPHILS % (AUTO) 1 % (0-10); HEMATOCRIT 34 % (35-52); HEMOGLOBIN 11.5 g/dL (11.5-16.0); LYMPHOCYTES # (AUTO) 1.4 10^3/uL (1.0-4.0); LYMPHOCYTES % (AUTO) 21 % (12-44); MEAN CORPUSCULAR HEMOGLOBIN 29 pg (25-34); MEAN CORPUSCULAR HGB CONC 34 g/dL (32-36); MEAN CORPUSCULAR VOLUME 86 fL (80-99); MEAN PLATELET VOLUME 10.1 fL (9.0-12.2); MONOCYTES # (AUTO) 0.5 10^3/uL (0.0-1.0); MONOCYTES % (AUTO) 8 % (0-12); NEUTROPHILS # (AUTO) 4.4 10^3/uL (1.8-7.8); NEUTROPHILS % (AUTO) 69 % (42-75); PLATELET COUNT 197 10^3/uL (130-400); WHITE BLOOD COUNT 6.4 10^3/uL (4.3-11.0)
[2021-03-17 17:05] LABS: ALBUMIN 3.4 GM/DL (3.2-4.5)
[2021-03-17 17:06] LABS: POTASSIUM 3.6 MMOL/L (3.6-5.0)
[2021-03-17 17:07] LABS: CALCIUM 8.9 MG/DL (8.5-10.1)
[2021-03-17 17:08] LABS: TOTAL PROTEIN 6.9 GM/DL (6.4-8.2)
[2021-03-17 17:10] LABS: BILIRUBIN,TOTAL 0.4 MG/DL (0.1-1.0)
[2021-03-17 17:12] LABS: CREATININE SERUM 0.64 MG/DL (0.60-1.30)
[2021-03-17 17:21] LABS: URINE CREATININE FOR RATIO 34 MG/DL (30-125)
[2021-03-17 17:22] LABS: URINE PROTEIN FOR RATIO ONLY < 6 MG/DL (6-12)
== END ==
LOC: LAB 16:22
PROVIDERS: ATTEND Family Medicine
DX: O16.3 Unspecified maternal hypertension, third trimester (principal)
CPT/HCPCS: 36415; 80053; 82570; 83605; 83615; 84156; 85025

== ENCOUNTER 2021-03-23 17:40 | Observation (INO) | payer OTHER ==
[2021-03-23] VITALS (12 sets, daily range): BP systolic 121–155; BP diastolic 63–97
[~2021-03-23] VITALS: Ht 170.2 cm; Wt 92.2 kg
[2021-03-23 18:24] LABS: BILIRUBIN,URINE NEGATIVE (NEGATIVE); CLARITY,URINE CLEAR; COLOR,URINE YELLOW; GLUCOSE, URINE (UA) NEGATIVE (NEGATIVE); KETONES,URINE NEGATIVE (NEGATIVE); LEUKOCYTE ESTERASE ,URINE NEGATIVE (NEGATIVE); NITRITE,URINE NEGATIVE (NEGATIVE); PROTEIN,URINE NEGATIVE (NEGATIVE)
[2021-03-23 18:32] LABS: BACTERIA,URINE TRACE /HPF; WBC,URINE RARE /HPF
[2021-03-23 18:54] LABS: HEMATOCRIT 32 % (35-52); HEMOGLOBIN 10.9 g/dL (11.5-16.0); MEAN CORPUSCULAR HEMOGLOBIN 29 pg (25-34); MEAN CORPUSCULAR HGB CONC 34 g/dL (32-36); MEAN CORPUSCULAR VOLUME 85 fL (80-99); MEAN PLATELET VOLUME 10.8 fL (9.0-12.2); PLATELET COUNT 220 10^3/uL (130-400); WHITE BLOOD COUNT 7.5 10^3/uL (4.3-11.0)
[2021-03-23 19:03] LABS: ALBUMIN 3.5 GM/DL (3.2-4.5); POTASSIUM 3.2 MMOL/L (3.6-5.0)
[2021-03-23 19:04] LABS: CALCIUM 8.8 MG/DL (8.5-10.1)
[2021-03-23 19:07] LABS: BILIRUBIN,TOTAL 0.3 MG/DL (0.1-1.0)
[2021-03-23 19:09] LABS: CREATININE SERUM 0.58 MG/DL (0.60-1.30)
[2021-03-23 19:12] LABS: URIC ACID 4.1 MG/DL (2.6-7.2)
[2021-03-23] MEDS ORDERED: KCL 20 MEQ TAB (K-DUR) PO ONE ×2 (19:30→19:57)
[2021-03-23] MEDS ORDERED: ACETAMINOPHEN 500 MG TAB (TYLENOL) PO ONE (23:30)
[2021-03-24] VITALS (23 sets, daily range): BP systolic 112–140; BP diastolic 67–96
[2021-03-24 06:20] LABS: BASOPHILS % (AUTO) 0 % (0-10); EOSINOPHILS # (AUTO) 0.3 10^3/uL (0.0-0.3); EOSINOPHILS % (AUTO) 4 % (0-10); HEMATOCRIT 31 % (35-52); HEMOGLOBIN 10.6 g/dL (11.5-16.0); LYMPHOCYTES # (AUTO) 1.9 10^3/uL (1.0-4.0); LYMPHOCYTES % (AUTO) 29 % (12-44); MEAN CORPUSCULAR HEMOGLOBIN 29 pg (25-34); MEAN CORPUSCULAR HGB CONC 34 g/dL (32-36); MEAN CORPUSCULAR VOLUME 85 fL (80-99); MEAN PLATELET VOLUME 10.5 fL (9.0-12.2); MONOCYTES # (AUTO) 0.6 10^3/uL (0.0-1.0); MONOCYTES % (AUTO) 9 % (0-12); NEUTROPHILS # (AUTO) 3.8 10^3/uL (1.8-7.8); NEUTROPHILS % (AUTO) 58 % (42-75); PLATELET COUNT 208 10^3/uL (130-400); WHITE BLOOD COUNT 6.6 10^3/uL (4.3-11.0)
[2021-03-24 06:39] LABS: ALBUMIN 3.1 GM/DL (3.2-4.5); BILIRUBIN,TOTAL 0.4 MG/DL (0.1-1.0); CREATININE SERUM 0.62 MG/DL (0.60-1.30); POTASSIUM 3.5 MMOL/L (3.6-5.0); TOTAL PROTEIN 6.4 GM/DL (6.4-8.2); URIC ACID 4.2 MG/DL (2.6-7.2)
[2021-03-24] MEDS ORDERED: KCL 20 MEQ TAB (K-DUR) PO ONE (07:00)
--- NOTE | 2021-03-24 11:09 | Diagnostic Imaging Report ---
INDICATION: Preeclampsia. There is a single live fetus in the cephalic presentation. heart rate was recorded at 126 bpm. Placenta is anterior. Amniotic fluid index is 7.0 cm. Biophysical profile was performed. Biophysical profile score is normal at 8 out of 8. IMPRESSION: Normal biophysical profile score 8 out of 8. Dictated by: Dictated on workstation # [id number]
--- NOTE | 2021-03-24 12:32 | History & Physical-OB ---
OB - Chief Complaint & HPI Date/Time Date of Admission: Date of Admission: Date seen by a Provider: Mar 24, 2021 Time Seen by a Provider: 09:10 Chief Complaint/History OB-Reason for Admission/Chief: Obstetrical Complication Hx : 4 Hx Para: 2 Expected Date of Delivery: Apr 24, 2021 Gestational Age in Weeks: 35 Gestational Age in Days: 3 Other reason for admission: at 35w3d presented to Labor and Delivery yesterday afternoon due to headache with spots in vision and blood pressure 138/105 at home. She has developed high blood pressure in the last few weeks, and is taking nifedipine. She has a history of preeclampsia with her first , had to deliver at 32 weeks. She is allergic to labetalol, gets terrible itching. She says her headache is gone this morning, and denies upper abdominal pain, but has some pain in her chest area. She denies shortness of breath, nausea, vomiting, diarrhea. She has some congestion which she has had for months, and occasionally coughs since she had COVID at the end of January 2021. Allergies and Home Medications Allergies Coded Allergies: labetalol (Verified Allergy, Mild, itching, 06/19/19) Patient Home Medication List Home Medication List Reviewed: Yes Aspirin (Adult Low Dose Aspirin EC) 81 Mg Tablet.dr, 81 MG PO DAILY, (Reported) Entered as Reported by: BLAS GUTIERREZ on 03/24/211233 Last Action: Reviewed Azelastine HCl (Azelastine HCl) 137 Mcg/0.137 Ml [place].pump, 137 MCG NS BID, (Reported) Entered as Reported by: BLAS GUTIERREZ on 03/24/211233 Last Action: Reviewed Fluticasone Propionate (24 Hour Allergy Relief) 15.8 Ml [place].susp, 2 SPRAY NS DAILY, (Reported) Entered as Reported by: BLAS GUTIERREZ on 03/24/211233 Last Action: Reviewed Loratadine (Loratadine) 10 Mg Tablet, 10 MG PO DAILY, (Reported) Entered as Reported by: CHIQUITA CORNEJO on 03/14/211934 Last Action: Held Nifedipine (Procardia Xl) 30 Mg Tab.er.24, 30 MG PO DAILY, (Reported) Entered as Reported by: BLAS GUTIERREZ on 2/4/22 1234 Last Action: Continued Vits #93/Iron Fum/FA ( Formula Tablet) 1 Each Tablet, 1 EACH PO DAILY, (Reported) Entered as Reported by: CHIQUITA CORNEJO on 03/14/211934 Last Action: Converted Sertraline HCl (Zoloft) 50 Mg Tablet, 50 MG PO DAILY, (Reported) Entered as Reported by: CHIQUITA CORNEJO on 03/14/211934 Last Action: Continued OB - History Hx of Present Care: Yes Ultrasounds: Normal mid trimester US Obstetrical Complications: Gestational Hypertension Medical Complications: None Information Induced Hypertension: Yes Maternal Gestational Diabetes: No Hemorrhage: No Obstetrical History Hx : 4 Hx Para: 2 Hx # Term Pregnancies: 1 Hx # Pregnancies: 1 Number of Living Children: 2 Hx Total # of Abortions (Spona: 1 Hx Multiple Gestation: No Hx Ectopic : No Hx Stillbirth: No Hx Complication: Yes Hx Induced Hypertens: Yes Hx Maternal Gestational Diabet: No Hx Hemorrhage: No Delivery History Hx Dystocia: No Hx Forceps Assisted Delivery: No Hx Vacuum Extraction Assisted: No Hx Placenta Abnormality: No Hx Distress: No Hx Large For Gestational Age I: No Hx Small for Gestational Age I: No Hx Section: Yes Hx Vaginal Delivery Post C-Sec: No Hx Blood Disorders: No Adverse Rxn to Tranfusion: No Patient Past Medical History PMHx: GERD Depression PSurgHx: x 2 Social History/Family History Alcohol Use: Denies Use Recreational Drug Use: No Smoking Cessation: Never smoker 2nd Hand Smoke Exposure: No Immunizations Influenza Vaccine Up-to-Date: Yes; Up-to-Date Tetanus Booster (TDap): Less than 5yrs Rubella: immune RPR/VDRL: Negative GBS Status: Unknown HBsAG: Negative OB - Admission Exam Physical Exam Vitals: Vital Signs 03/23/21 03/23/21 03/24/21 18:33 19:15 11:03 Temp 36.7 Pulse 95 Resp 18 B/P (MAP) 127/89 (102) Pulse Ox 100 O2 Delivery Room Air HEENT: NCAT Heart: Rhythm Normal Lungs: Clear Abdomen: Non tender Extremities: Normal Heart Rate: 120's Decelerations: No Decelerations Sausage Meat Trimmer Variability: Minimal (3-5) (at time of my exam, however had moderate variability and accels shortly before) Contractions on Admission: None Labs Laboratory Tests Test 03/23/21 18:00 03/23/21 18:35 03/24/21 05:41 Range/Units Urine Color YELLOW Urine Clarity CLEAR Urine pH 7.0 5-9 Urine Specific [place] 1.010 L 1.016-1.022 Urine Protein NEGATIVE NEGATIVE Urine Glucose (UA) NEGATIVE NEGATIVE Urine Ketones NEGATIVE NEGATIVE Urine Nitrite NEGATIVE NEGATIVE Urine Bilirubin NEGATIVE NEGATIVE Urine Urobilinogen 0.2 < = 1.0 MG/DL Urine Leukocyte Esterase NEGATIVE NEGATIVE Urine RBC (Auto) NEGATIVE NEGATIVE Urine RBC NONE /HPF Urine WBC RARE /HPF Urine Squamous Epithelial Cells 5-10 /HPF Urine Crystals NONE /LPF Urine Bacteria TRACE /HPF Urine Casts NONE /LPF Urine Mucus NEGATIVE /LPF Urine Culture Indicated NO Urine Creatinine 24 L 30-125 MG/DL Urine Protein/Creatinine Ratio 2.83 White Blood Count 7.5 6.6 4.3-11.0 10^3/uL Red Blood Count 3.82 3.71 L 3.80-5.11 10^6/uL Hemoglobin 10.9 L 10.6 L 11.5-16.0 g/dL Hematocrit 32 L 31 L 35-52 % Mean Corpuscular Volume 85 85 80-99 fL Mean Corpuscular Hemoglobin 29 29 25-34 pg Mean Corpuscular Hemoglobin Concent 34 34 32-36 g/dL Red Cell Distribution Width 13.7 13.6 10.0-14.5 % Platelet Count 220 208 130-400 10^3/uL Mean Platelet Volume 10.8 10.5 9.0-12.2 fL Sodium Level 138 139 135-145 MMOL/L Potassium Level 3.2 L 3.5 L 3.6-5.0 MMOL/L Chloride Level 109 H 111 H 98-107 MMOL/L Carbon Dioxide Level 17 L 17 L 21-32 MMOL/L Anion Gap 12 11 5-14 MMOL/L Blood Urea Nitrogen 4 L 7 7-18 MG/DL Creatinine 0.58 L 0.62 0.60-1.30 MG/DL Estimat Glomerular Filtration Rate 130 127 BUN/Creatinine Ratio 7 11 Glucose Level 80 82 70-105 MG/DL Uric Acid 4.1 4.2 2.6-7.2 MG/DL Calcium Level 8.8 9.0 8.5-10.1 MG/DL Corrected Calcium 9.2 9.7 8.5-10.1 MG/DL Total Bilirubin 0.3 0.4 0.1-1.0 MG/DL Aspartate Amino Transf (AST/SGOT) 16 15 5-34 U/L Alanine Aminotransferase (ALT/SGPT) 14 13 0-55 U/L Alkaline Phosphatase 109 90 40-136 U/L Total Protein 7.0 6.4 6.4-8.2 GM/DL Albumin 3.5 3.1 L 3.2-4.5 GM/DL Immature Granulocyte % (Auto) 0 % Neutrophils (%) (Auto) 58 42-75 % Lymphocytes (%) (Auto) 29 12-44 % Monocytes (%) (Auto) 9 0-12 % Eosinophils (%) (Auto) 4 0-10 % Basophils (%) (Auto) 0 0-10 % Neutrophils # (Auto) 3.8 1.8-7.8 10^3/uL Lymphocytes # (Auto) 1.9 1.0-4.0 10^3/uL Monocytes # (Auto) 0.6 0.0-1.0 10^3/uL Eosinophils # (Auto) 0.3 0.0-0.3 10^3/uL Basophils # (Auto) 0.0 0.0-0.1 10^3/uL Immature Granulocyte # (Auto) 0.0 0.0-0.1 10^3/uL Lactate Dehydrogenase 198 125-220 U/L OB - Assessment/Plan/Diagnosis Assessment Assessment: observation Admission Dx with intrauterine at 35 weeks gestation Gestational hypertension with suspected superimposed preeclampsia History of x 2 Admission Status: Observation Plan Problems: (1) Gestational hypertension Assessment & Plan: Preeclampsia labs on arrival with pr/cr ration above 2, no elevation in LFTs or renal function, normal platelets. Blood pressure not at severe levels since arrival, given status, discussed with Dr. Lucero who is planned to perform her repeat , and started 24 hour urine collection last night. Repeat labs this am remain normal and her symptoms are improved. -Daily CBC, CMP, awaiting 24 hour urine protein -BPP this am, if okay, change to qshift NST -Continue home nifedipine Qualifiers: Qualified Codes: O13.3 - Gestational [-induced] hypertension without significant proteinuria, third trimester BLAS GUTIERREZ MD Mar 24, 2021 12:32
[2021-03-24] MEDS ORDERED: FLUT15.87 NS (12:34)
[2021-03-24] MEDS ORDERED: AZEL137S11 NS (12:34)
[2021-03-24] MEDS ORDERED: NIFE30TA2 PO (12:34)
[2021-03-24] MEDS ORDERED: ASPI-479 PO (12:34)
[2021-03-24 22:15] LABS: PROTEIN URINE MG/DL < 6 MG/DL (6-12)
[2021-03-24 22:16] LABS: TOTAL VOLUME,URINE 4325 ML
[2021-03-24] MEDS: SERTRALINE 50 MG (ZOLOFT) TABLET PO SCH (23:05)
[2021-03-25 06:38] LABS: HEMATOCRIT 32 % (35-52); HEMOGLOBIN 10.8 g/dL (11.5-16.0); MEAN CORPUSCULAR HEMOGLOBIN 29 pg (25-34); MEAN CORPUSCULAR HGB CONC 34 g/dL (32-36); MEAN CORPUSCULAR VOLUME 84 fL (80-99); MEAN PLATELET VOLUME 10.3 fL (9.0-12.2); PLATELET COUNT 203 10^3/uL (130-400); WHITE BLOOD COUNT 7.2 10^3/uL (4.3-11.0)
[2021-03-25 06:51] LABS: ALBUMIN 3.2 GM/DL (3.2-4.5); POTASSIUM 3.3 MMOL/L (3.6-5.0)
[2021-03-25 06:53] LABS: CALCIUM 8.8 MG/DL (8.5-10.1)
[2021-03-25 06:54] LABS: TOTAL PROTEIN 6.7 GM/DL (6.4-8.2)
[2021-03-25 06:56] LABS: BILIRUBIN,TOTAL 0.4 MG/DL (0.1-1.0)
[2021-03-25 06:57] LABS: CREATININE SERUM 0.6 MG/DL (0.60-1.30)
[2021-03-25] MEDS ORDERED: PRENATAL VITAMIN 1 EA TAB PO SCH (07:00)
[2021-03-25] MEDS ORDERED: NIFEdipine ER 30 MG (PROCARDIA XL) TAB PO SCH (09:00)
[2021-03-25] MEDS ORDERED: SERTRALINE 50 MG (ZOLOFT) TABLET PO SCH (09:00)
[2021-03-25 09:48] VITALS: BP 140/96
[2021-03-25] MEDS ORDERED: KCL 20 MEQ TAB (K-DUR) PO ONE (09:51)
[2021-03-25] MEDS: SERTRALINE 50 MG (ZOLOFT) TABLET PO SCH (09:53)
[2021-03-25 10:48] VITALS: BP 125/86
--- NOTE | 2021-03-25 11:48 | Progress Note ---
Subjective Subjective/Events-last exam Patient reports feeling improved since admission. She reports she has anxiety which at times causes similar symptoms to elevated bp. Pt has been on bedrest since admission, BP has generally been normal. Highest BP 140/96, generally running <130/90. Labs normal including 24h urine protein <6. Patient reports she has 2 small children at home and though she has help, it is difficult to not be active. pt denies any contraction, abdominal pain, bleeding. +FM. Objective Exam Last Set of Vital Signs Vital Signs Date Time Temp Pulse Resp B/P (MAP) Pulse Ox O2 Delivery O2 Flow Rate FiO2 03/24/21 22:00 84 121/69 (86) 03/24/21 14:54 36.9 03/23/21 19:15 18 100 Room Air Capillary Refill : Less Than 3 Seconds General: Alert, Oriented X3, Cooperative Lungs: Other (no respiratory distress) Abdomen: Other (gravid, NTTP) Psych/Mental Status: Mood NL Results/Procedures Lab Laboratory Tests 03/25/21 06:26: White Blood Count 7.2, Red Blood Count 3.79L, Hemoglobin 10.8L, Hematocrit 32L, Mean Corpuscular Volume 84, Mean Corpuscular Hemoglobin 29, Mean Corpuscular Hemoglobin Concent 34, Red Cell Distribution Width 13.7, Platelet Count 203, Mean Platelet Volume 10.3, Sodium Level 136, Potassium Level 3.3L, Chloride Level 109H, Carbon Dioxide Level 17L, Anion Gap 10, Blood Urea Nitrogen 6L, Creatinine 0.60, Estimat Glomerular Filtration Rate 128, BUN/Creatinine Ratio 10, Glucose Level 85, Calcium Level 8.8, Corrected Calcium 9.4, Total Bilirubin 0.4, Aspartate Amino Transf (AST/SGOT) 14, Alanine Aminotransferase (ALT/SGPT) 12, Alkaline Phosphatase 104, Total Protein 6.7, Albumin 3.2 Assessment/Plan Assessment/Plan (1) Gestational hypertension Assessment & Plan: 35w4d GA with gestational hypertension, currently treated with po nifedipine hx of pre-eclampsia with prior pregnancies resulting in delivery Labs have remained normal. spot Protein:Cr was elevated at 2.85 but 24h urine protein normal <6 (long dip UA was negative for protein) BP have been controlled with reduced activity in the hospital. BPP/NST normal Plan: increase activity in hospital and observe BP, if stable will consider DC home with close OP follow-up Qualifiers: Qualified Codes: O13.3 - Gestational [-induced] hypertension without significant proteinuria, third trimester CHANEL GIBBONS DO Mar 25, 2021 11:48
[2021-03-25 14:10] VITALS: BP 141/88
[2021-03-25 16:24] VITALS: BP 121/73
[2021-03-25 17:34] VITALS: BP 122/80
--- NOTE | 2021-03-25 17:46 | Short Stay Summary ---
Discharge Summary Hospital Course Problems/Dx: (1) Gestational hypertension Assessment & Plan: Preeclampsia labs on arrival with pr/cr ration above 2, no elevation in LFTs or renal function, normal platelets. Blood pressure not at severe levels since arrival, given status, discussed with Dr. Lucero who is planned to perform her repeat , and started 24 hour urine collection last night. Repeat labs this am remain normal and her symptoms are improved. -Daily CBC, CMP, awaiting 24 hour urine protein -BPP this am, if okay, change to qshift NST -Continue home nifedipine 03/25/21: (1) Gestational hypertension Assessment & Plan: 35w4d GA with gestational hypertension, currently treated with po nifedipine hx of pre-eclampsia with prior pregnancies resulting in delivery Labs have remained normal. spot Protein:Cr was elevated at 2.85 but 24h urine protein normal <6 (long dip UA was negative for protein) BP have been controlled with reduced activity in the hospital. BPP/NST normal Plan: increase activity in hospital and observe BP, if stable will consider DC home with close OP follow-up UPDATED: - BP has remained normal despite increased activity. Asymptomatic. - DC home, monitor home BP. - Keep f/u with Dr. Rondon for Saturday or follow-up sooner/return to hospital for increased BP of symptoms. Qualifiers: Qualified Codes: O13.3 - Gestational [-induced] hypertension without significant proteinuria, third trimester Final Diagnosis: see problem list Hospital Course Date of Admission: Mar 23, 2021 at 18:08 Date of Discharge: 03/25/21 Labs and Pending Lab Test: Laboratory Tests Laboratory Tests 03/23/21 18:00: Urine Color YELLOW, Urine Clarity CLEAR, Urine pH 7.0, Urine Specific [place] 1.010L, Urine Protein NEGATIVE, Urine Glucose (UA) NEGATIVE, Urine Ketones NEGATIVE, Urine Nitrite NEGATIVE, Urine Bilirubin NEGATIVE, Urine Urobilinogen 0.2, Urine Leukocyte Esterase NEGATIVE, Urine RBC (Auto) NEGATIVE, Urine RBC NONE, Urine WBC RARE, Urine Squamous Epithelial Cells 5-10, Urine Crystals NONE, Urine Bacteria TRACE, Urine Casts NONE, Urine Mucus NEGATIVE, Urine Culture Indicated NO, Urine Creatinine 24L, Urine Protein/Creatinine Ratio 2.83 03/23/21 18:35: White Blood Count 7.5, Red Blood Count 3.82, Hemoglobin 10.9L, Hematocrit 32L, Mean Corpuscular Volume 85, Mean Corpuscular Hemoglobin 29, Mean Corpuscular Hemoglobin Concent 34, Red Cell Distribution Width 13.7, Platelet Count 220, Mean Platelet Volume 10.8, Sodium Level 138, Potassium Level 3.2L, Chloride Level 109H, Carbon Dioxide Level 17L, Anion Gap 12, Blood Urea Nitrogen 4L, Creatinine 0.58L, Estimat Glomerular Filtration Rate 130, BUN/Creatinine Ratio 7, Glucose Level 80, Uric Acid 4.1, Calcium Level 8.8, Corrected Calcium 9.2, Total Bilirubin 0.3, Aspartate Amino Transf (AST/SGOT) 16, Alanine Aminotra nsferase (ALT/SGPT) 14, Alkaline Phosphatase 109, Total Protein 7.0, Albumin 3.5 03/23/21 23:10: Urine Total Volume 4325, Urine Total Protein mg/dL < 6L, Urine Total Protein 24 Hour 03/24/21 05:41: White Blood Count 6.6, Red Blood Count 3.71L, Hemoglobin 10.6L, Hematocrit 31L, Mean Corpuscular Volume 85, Mean Corpuscular Hemoglobin 29, Mean Corpuscular Hemoglobin Concent 34, Red Cell Distribution Width 13.6, Platelet Count 208, Mean Platelet Volume 10.5, Sodium Level 139, Potassium Level 3.5L, Chloride Level 111H, Carbon Dioxide Level 17L, Anion Gap 11, Blood Urea Nitrogen 7, Creatinine 0.62, Estimat Glomerular Filtration Rate 127, BUN/Creatinine Ratio 11, Glucose Level 82, Uric Acid 4.2, Calcium Level 9.0, Corrected Calcium 9.7, Total Bilirubin 0.4, Aspartate Amino Transf (AST/SGOT) 15, Alanine Aminotransferase (ALT/SGPT) 13, Alkaline Phosphatase 90, Total Protein 6.4, Albumin 3.1L, Immature Granulocyte % (Auto) 0, Neutrophils (%) (Auto) 58, Lymphocytes (%) (Auto) 29, Monocytes (%) (Auto) 9, Eosinophils (%) (Auto) 4, Basophils (%) (Auto) 0, Neutrophils # (Auto) 3.8, Lymphocytes # (Auto) 1.9, M onocytes # (Auto) 0.6, Eosinophils # (Auto) 0.3, Basophils # (Auto) 0.0, Immature Granulocyte # (Auto) 0.0, Lactate Dehydrogenase 198 2/5/22 06:26: White Blood Count 7.2, Red Blood Count 3.79L, Hemoglobin 10.8L, Hematocrit 32L, Mean Corpuscular Volume 84, Mean Corpuscular Hemoglobin 29, Mean Corpuscular Hemoglobin Concent 34, Red Cell Distribution Width 13.7, Platelet Count 203, Mean Platelet Volume 10.3, Sodium Level 136, Potassium Level 3.3L, Chloride Level 109H, Carbon Dioxide Level 17L, Anion Gap 10, Blood Urea Nitrogen 6L, Creatinine 0.60, Estimat Glomerular Filtration Rate 128, BUN/Creatinine Ratio 10, Glucose Level 85, Calcium Level 8.8, Corrected Calcium 9.4, Total Bilirubin 0.4, Aspartate Amino Transf (AST/SGOT) 14, Alanine Aminotransferase (ALT/SGPT) 12, Alkaline Phosphatase 104, Total Protein 6.7, Albumin 3.2 Home Meds Active Reported Adult Low Dose Aspirin EC (Aspirin) 81 Mg Tablet.dr 81 Mg PO DAILY Azelastine HCl 137 Mcg/0.137 Ml [place].pump 137 Mcg NS BID 24 Hour Allergy Relief (Fluticasone Propionate) 15.8 Ml [place].susp 2 [place] NS DAILY Procardia Xl (Nifedipine) 30 Mg Tab.er.24 30 Mg PO DAILY Formula Tablet ( Vits #93/Iron Fum/FA) 1 Each Tablet 1 Each PO DAILY Zoloft (Sertraline HCl) 50 Mg Tablet 50 Mg PO DAILY Loratadine 10 Mg Tablet 10 Mg PO DAILY Assessment/Pt Instructions - monitor home BP. - Keep f/u with Dr. Rondon for Saturday or follow-up sooner/return to hospital for increased BP of symptoms. Discharge Instructions Discharge Diet: No Restrictions Discharge Physical Examination General Appearance: Alert, Oriented X3, Cooperative Psych/Mental Status: Mood NL Allergies: Coded Allergies: labetalol (Verified Allergy, Mild, itching, 06/19/19) Copy Copies To 1: ALBERT RONDON MD Discharge Summary Date of Admission Mar 23, 2021 at 18:08 Date of Discharge Discharge Diagnosis (1) Gestational hypertension Assessment & Plan: Preeclampsia labs on arrival with pr/cr ration above 2, no elevation in LFTs or renal function, normal platelets. Blood pressure not at severe levels since arrival, given status, discussed with Dr. Lucero who is planned to perform her repeat , and started 24 hour urine collection last night. Repeat labs this am remain normal and her symptoms are improved. -Daily CBC, CMP, awaiting 24 hour urine protein -BPP this am, if okay, change to qshift NST -Continue home nifedipine Qualifiers: Qualified Codes: O13.3 - Gestational [-induced] hypertension without significant proteinuria, third trimester CHANEL GIBBONS DO Mar 25, 2021 17:46
== END 2021-03-25 18:02 | disposition home or self-care (01) ==
LOC: LDRP 17:40 → WSo 17:40 → LDRP 18:08 → SUATTDRO 03-24 17:01
PROVIDERS: ADMIT Family Medicine; ATTEND Family Medicine
DX: O13.3 Gestational [pregnancy-induced] hypertension without significant proteinuria, third trimester (principal); F32.A Depression, unspecified; Z3A.35 35 weeks gestation of pregnancy; Z79.899 Other long term (current) drug therapy; Z79.82 Long term (current) use of aspirin; Z87.59 Personal history of other complications of pregnancy, childbirth and the puerperium
CPT/HCPCS: 36415; 76819; 80053; 81000; 82570; 83615; 84156; 84550; 85025; 85027

== ENCOUNTER → 2021-03-29 | Outpatient (CLI) | payer OTHER ==
[~2021-03-29] VITALS: Ht 170.2 cm; Wt 93.7 kg
[~2021-03-29] MED LIST changes: +ASPI-479 PO; +AZEL137S11 NS; +FLUT15.87 NS; +NIFE30TA2 PO; +NIFE30TA89 PO
== END | disposition home or self-care (01) ==
LOC: PREOP 05:39
PROVIDERS: ATTEND Obstetrics & Gynecology
DX: Z01.818 Encounter for other preprocedural examination (principal)

== ENCOUNTER 2021-04-03 07:43 | Inpatient (IN) | payer OTHER ==
[~2021-04-03] VITALS: Ht 170.2 cm; Wt 92.8 kg
[2021-04-03] VITALS (12 sets, daily range): BP systolic 115–151; BP diastolic 77–103
[2021-04-03 08:56] LABS: BASOPHILS % (AUTO) 0 % (0-10); EOSINOPHILS # (AUTO) 0.2 10^3/uL (0.0-0.3); EOSINOPHILS % (AUTO) 2 % (0-10); HEMATOCRIT 36 % (35-52); LYMPHOCYTES # (AUTO) 1.7 10^3/uL (1.0-4.0); LYMPHOCYTES % (AUTO) 22 % (12-44); MEAN CORPUSCULAR HEMOGLOBIN 28 pg (25-34); MEAN CORPUSCULAR HGB CONC 34 g/dL (32-36); MEAN CORPUSCULAR VOLUME 84 fL (80-99); MEAN PLATELET VOLUME 10.8 fL (9.0-12.2); MONOCYTES # (AUTO) 0.7 10^3/uL (0.0-1.0); MONOCYTES % (AUTO) 9 % (0-12); NEUTROPHILS % (AUTO) 67 % (42-75); PLATELET COUNT 204 10^3/uL (130-400); WHITE BLOOD COUNT 7.5 10^3/uL (4.3-11.0)
[2021-04-03] MEDS ORDERED: CITRIC ACID/SOB CIT (BICITRA) 30 ML UDC PO ONE (09:00)
[2021-04-03] MEDS ORDERED: CATHETER FLUSH 10 ML SYR IV PRN (09:00)
[2021-04-03] MEDS ORDERED: METOCLOPRAMIDE INJ 10 MG/2 ML (REGLAN) IV ONE (09:00)
[2021-04-03] MEDS ORDERED: LACTATED RINGERS 1,000 ML IV PRN (09:00)
[2021-04-03] MEDS ORDERED: FAMOTIDINE 20MG/2ML IV (PEPCID) IV ONE (09:00)
[2021-04-03] MEDS: LACTATED RINGERS 1,000 ML IV PRN ×2 (09:03→09:43)
[2021-04-03] MEDS ORDERED: ceFAZolin 2 GM IV Premixed 50 ML ONE (09:31)
[2021-04-03] MEDS ORDERED: ceFAZolin 2 GM/50 ML (PRE-MIXED) IV ONE (09:45)
--- NOTE | 2021-04-03 10:09 | History & Physical-OB ---
OB - Chief Complaint & HPI Date/Time Date of Admission: Date of Admission: Apr 03, 2021 at 07:43 Date seen by a Provider: Apr 03, 2021 Time Seen by a Provider: 10:00 Chief Complaint/History OB-Reason for Admission/Chief: Section Hx : 4 Hx Para: 2 Expected Date of Delivery: Apr 24, 2021 Gestational Age in Weeks: 37 Gestational Age in Days: 0 Indication for : desires repeat Other reason for admission: Patient here for RLTCS due to 37 week and diagnosis of mild preE. Admission Nurse Assessment Rev: Yes History of Labs Vital Sign - Last 24 Hours 04/03/21 09:07 Temp 37.4 Pulse 84 Resp 16 Pulse Ox 100 O2 Delivery Room Air Allergies and Home Medications Allergies Coded Allergies: labetalol (Verified Allergy, Mild, itching, 06/19/19) Patient Home Medication List Home Medication List Reviewed: Yes Aspirin (Adult Low Dose Aspirin EC) 81 Mg Tablet.dr, 81 MG PO DAILY, (Reported) Entered as Reported by: BLAS GUTIERREZ on 03/24/211233 Last Action: Last Taken Edited Azelastine HCl (Azelastine HCl) 137 Mcg/0.137 Ml [place].pump, 137 MCG NS BID, (Reported) Entered as Reported by: BLAS GUTIERREZ on 03/24/211233 Last Action: Last Taken Edited Fluticasone Propionate (24 Hour Allergy Relief) 15.8 Ml [place].susp, 2 SPRAY NS DAILY, (Reported) Entered as Reported by: BLAS GUTIERREZ on 03/24/211233 Last Action: Last Taken Edited Loratadine (Loratadine) 10 Mg Tablet, 10 MG PO DAILY, (Reported) Entered as Reported by: CHIQUITA CORNEJO on 03/14/211934 Nifedipine (Nifedipine ER) 30 Mg Tablet.er, 30 MG PO BID, (Reported) Entered as Reported by: BRANNON PRINCE on 03/29/211707 Last Action: Last Taken Edited Vits #93/Iron Fum/FA ( Formula Tablet) 1 Each Tablet, 1 EACH PO DAILY, (Reported) Entered as Reported by: CHIQUITA CORNEJO on 03/14/211934 Last Action: Last Taken Edited Sertraline HCl (Zoloft) 50 Mg Tablet, 50 MG PO DAILY, (Reported) Entered as Reported by: CHIQUITA CORNEJO on 03/14/21 193 Last Action: Last Taken Edited Discontinued Medications Nifedipine (Procardia Xl) 30 Mg Tab.er.24, 30 MG PO DAILY, (Reported) Discontinued Reason: No Longer Taking Entered as Reported by: BLAS GUTIERREZ on 03/24/21 7494 OB - History Hx of Present Care: Yes Ultrasounds: Normal mid trimester US Obstetrical Complications: None Medical Complications: None Obstetrical History Hx Multiple Gestation: No Hx Stillbirth: No Hx Complication: Yes Hx Induced Hypertens: Yes Hx Maternal Gestational Diabet: No Delivery History Hx Dystocia: No Hx Large For Gestational Age I: No Hx Small for Gestational Age I: No Hx Section: Yes Hx Vaginal Delivery Post C-Sec: No Hx Blood Disorders: No Adverse Rxn to Tranfusion: No Patient Past Medical History PMHx: GERD Depression PSurgHx: x 2 Social History/Family History 2nd Hand Smoke Exposure: No Immunizations Influenza Vaccine Up-to-Date: Yes; Up-to-Date Hepatitis A: No Hepatitis B: No Tetanus Booster (TDap): Less than 5yrs OB - Admission Exam Physical Exam Vitals: Vital Signs 04/03/21 09:07 Temp 37.4 Pulse 84 Resp 16 Pulse Ox 100 O2 Delivery Room Air HEENT: NCAT Heart: Rhythm Normal Lungs: Clear Abdomen: Gravid Extremities: Normal Reflexes: Normal Heart Rate: 130's Accelerations: Accelerations Present Decelerations: No Decelerations Short Term Variability: Present Trading Analyst Variability: Average (6-25) Contractions on Admission: >10 Minutes Apart Intensity: Mild Labs Laboratory Tests Test 04/03/21 08:40 Range/Units White Blood Count 7.5 4.3-11.0 10^3/uL Red Blood Count 4.22 3.80-5.11 10^6/uL Hemoglobin 12.0 11.5-16.0 g/dL Hematocrit 36 35-52 % Mean Corpuscular Volume 84 80-99 fL Mean Corpuscular Hemoglobin 28 25-34 pg Mean Corpuscular Hemoglobin Concent 34 32-36 g/dL Red Cell Distribution Width 14.0 10.0-14.5 % Platelet Count 204 130-400 10^3/uL Mean Platelet Volume 10.8 9.0-12.2 fL Immature Granulocyte % (Auto) 0 % Neutrophils (%) (Auto) 67 42-75 % Lymphocytes (%) (Auto) 22 12-44 % Monocytes (%) (Auto) 9 0-12 % Eosinophils (%) (Auto) 2 0-10 % Basophils (%) (Auto) 0 0-10 % Neutrophils # (Auto) 5.0 1.8-7.8 10^3/uL Lymphocytes # (Auto) 1.7 1.0-4.0 10^3/uL Monocytes # (Auto) 0.7 0.0-1.0 10^3/uL Eosinophils # (Auto) 0.2 0.0-0.3 10^3/uL Basophils # (Auto) 0.0 0.0-0.1 10^3/uL Immature Granulocyte # (Auto) 0.0 0.0-0.1 10^3/uL OB - Assessment/Plan/Diagnosis Assessment Assessment: section Admission Dx 26 yo @ 37 weeks Previous Mild PreE Admission Status: Inpatient Order (span 2 midnights) Reason for Inpatient Admission: Repeat at 37 weeks Plan Plan: Section KANE WORTHY DO Apr 03, 2021 10:09
[2021-04-03] MEDS ORDERED: fentaNYL INJ 100 MCG/2 ML AMP ONE (10:16)
[2021-04-03] MEDS ORDERED: OXYTOCIN PRE-MIX DRIP 1,000 ML IV ONE (10:16)
[2021-04-03] MEDS ORDERED: ONDANSETRON 4 MG/2 ML (SDV) Z0FRAN IVP PRN (10:30)
[2021-04-03] MEDS ORDERED: TETANUS,DIPTH,PERTUSS P/F (BOOSTRIX) 0.5 ML VIAL IM SCH (10:30)
[2021-04-03] MEDS ORDERED: MEASLES,MUMPS,RUBELLA 1 EA INJ SC SCH (10:30)
[2021-04-03] MEDS ORDERED: NALOXONE 0.4 MG/ML 1 ML (NARCAN) VIAL IV PRN (10:30)
[2021-04-03] MEDS ORDERED: PHENYLEPHRINE 100 MCG/ML 10 ML (ANESTHESIA) SYR ONE (11:00)
[2021-04-03] MEDS ORDERED: BUPIVACAINE 0.5% 30 ML (SENSORCAINE) VIAL ONE (11:20)
--- NOTE | 2021-04-03 11:47 | Discharge Inst-Women's Service ---
Discharge Inst-Women's Serv Depart Medication/Instructions New, Converted or Re-Newed RX: Transmitted to Pharmacy Final Diagnosis POD 2 RLTCS Problems Reviewed?: Yes Consults/Follow Up Additional Follow Up: Yes Orders/Referrals Dr. Lucero in 7-[address] Rondon in 6 weeks Activity Activity: Activity as Tolerated Driving Instructions: No Driving for 1 Week NO SMOKING: NO SMOKING Nothing Inside Vagina: No Douching, No [place], No Tampons Diet Discharge Diet: No Restrictions Symptoms to Report to : Bleeding Excessive, Pain Increased, Fever Over 101 Degrees F, Vaginal Bleeding Increase, Questions/Concerns For Any Problems or Questions: Contact Your Physician Skin/Wound Care Infection Signs and Symptoms: Increased Redness, Foul Odor of Wound, Increased Drainage, Skin Itchy or Has a Rash, Increased Swelling, Temperature Above 101 F Operative Area Clean and Dry: Keep Incision Clean/Dry Stitches/Deepika/Dermabond: Dermabond, Care of Stitches Bathing Instructions: KANE Ryan DO Apr 03, 2021 11:47
[2021-04-03] MEDS ORDERED: IBUP-844 PO (11:48)
[2021-04-03] MEDS ORDERED: DOCU100C37 PO (11:48)
[2021-04-03] MEDS ORDERED: ACHD5005 PO (11:48)
[2021-04-03] MEDS: OXYTOCIN PRE-MIX DRIP 500 ML IV SCH ×2 (12:07→15:18)
[2021-04-03] MEDS: KETOROLAC 30 MG/ML VIAL IV SCH ×2 (12:29→18:37)
[2021-04-03] MEDS: HYDROcodone/APAP 5 MG/325 MG (LORTAB) TAB PO PRN ×3 (13:28→20:17)
[2021-04-03] MEDS: CATHETER FLUSH 10 ML SYR IV SCH (14:00)
[2021-04-03] MEDS ORDERED: amLODIPine 5 MG (NORVASC) TAB PO NR (14:00)
[2021-04-03] MEDS ORDERED: amLODIPine 5 MG (NORVASC) TAB ONE (14:00)
--- NOTE | 2021-04-03 16:30 | OPERATIVE REPORT ---
DATE OF SERVICE: PREOPERATIVE DIAGNOSES: 1. A 26-year-old G4, P2 at 37 weeks' gestation. 2. Mild preeclampsia. POSTOPERATIVE DIAGNOSES: 1. A 26-year-old G4, P2 at 37 weeks' gestation. 2. Mild preeclampsia. PROCEDURE: Repeat low transverse section. SURGEON: Jose Worthy DO ANESTHESIA: Spinal. ESTIMATED BLOOD LOSS: 500 mL. URINE OUTPUT: 50 mL clear at the end of procedure. FLUIDS: 2100 mL lactated Ringer's solution. FINDINGS: A live female infant, weighing 6 pounds 12 ounces, Apgars of 8 and 9. Grossly normal appearing uterus, bilateral fallopian tubes and ovaries. SPECIMEN SENT: Placenta. INDICATIONS FOR PROCEDURE: This 26-year-old female patient who is consulted to me by Dr. Rondon at the [facility] for repeat . Her was complicated by mild preeclampsia. Therefore, we opted to bump up her delivery date by 2 weeks. I discussed with the patient her preoperative consultation, the risk of including risk of bleeding, infection, damaging structures including, but not limited to bowel, bladder, or kidneys, possible need for reoperation, postoperative complications that may occur, risk from anesthesia and even . After everything was discussed with the patient in detail, consent was obtained, the patient was taken to the operating room. OPERATIVE REPORT IN DETAIL: Once in the operating room, spinal analgesia was found to be adequate, placed in supine position with leftward tilt, prepped and draped in normal sterile fashion where a timeout was performed and anesthesia was tested. I then make a Pfannenstiel skin incision through the previously existing scar using knife and carried down to layer of fascia using Bovie cautery. The fascial incision extended laterally using Bovie cautery. Superior aspect of fascial incision was then grasped with Humera clamps, tented up and dissected off the underlying rectus muscles. The inferior aspect of fascial incision was then grasped with Humera clamps, tented up and dissected off the underlying rectus muscles. The rectus muscles were then dissected down the midline using sharp dissection, which exposed the peritoneum, which I entered bluntly and extended using blunt traction. An Finesse ring retractor was placed in the peritoneal incision, which offered excellent lateral sidewall retraction. I identified the lower uterine segment, which was found to be thinned out and make a low transverse incision to the vesicouterine peritoneum and bluntly dissected off the vesicouterine peritoneum, creating a bladder flap. I then proceeded with my myotomy until membranes are visualized, at which point I extended the uterine incision laterally and superiorly using bandage scissors. Amniotomy was then performed using Allis clamp. Clear fluid was noted. was found in vertex presentation. With gentle fundal pressure, the infant's head was elevated up the incision were delivered through the incision. The nares and oropharynx were bulb suctioned. An anterior and posterior shoulders were delivered. Infant was then brought to the operative field with cord doubly clamped and cut and infant was handed off to waiting nurses in attendance. Cord blood was collected, 3-vessel cord with intact placenta was delivered spontaneously thereafter. IV Pitocin is initiated to facilitate uterine contraction. Uterine fundus confirmed by manual massage. Uterus was then exteriorized and cleared of all endometrial clots and debris. I then proceeded with closing the uterine incision using 0 Vicryl suture in running locked fashion. Second layer of imbricating 0 Monocryl was placed. Excellent hemostasis was noted after doing this. I then placed the uterus back in the pelvis and copiously irrigated the pelvis using normal saline. Once again, there was no active bleeding noted from any of my dissection planes. I placed Interceed antiadhesive over my low transverse incision. I then removed the Finesse ring retractor and then proceeded with closing the peritoneum and rectus muscles in one layer using 0 Vicryl suture in a running fashion. The fascia was reapproximated using 0 Vicryl suture in running fashion. Subcutaneous tissue was very thin and does not need reapproximation. Therefore, I reapproximated the skin using 4-0 Monocryl running subcuticular. Dermabond was applied to incision and sterile dressing with adhesive white tape. Two grams of Ancef given preoperatively for infection prophylaxis. The patient tolerated the procedure well and sent to recovery in stable condition. Lap and sponge counts were correct at the end of the procedure. Instrument counts correct as well. Job ID: [id number] DocumentID: [id number] Dictated Date: 04/03/2021 11:16:37 Deicer Repairer Date: 04/03/2021 16:29:21 Dictated By: JOSE WORTHY DO
[2021-04-03] MEDS: DOCUSATE SODIUM 100 MG (COLACE) CAP PO SCH (20:17)
[2021-04-04 00:36] VITALS: BP 123/73
[2021-04-04] MEDS: KETOROLAC 30 MG/ML VIAL IV SCH ×2 (00:36→07:08)
[2021-04-04] MEDS: CATHETER FLUSH 10 ML SYR IV SCH ×2 (00:36→07:08)
[2021-04-04 04:30] VITALS: BP 122/75
[2021-04-04 07:33] LABS: BASOPHILS % (AUTO) 0 % (0-10); EOSINOPHILS # (AUTO) 0.3 10^3/uL (0.0-0.3); EOSINOPHILS % (AUTO) 3 % (0-10); HEMATOCRIT 30 % (35-52); HEMOGLOBIN 10.1 g/dL (11.5-16.0); LYMPHOCYTES # (AUTO) 1.7 10^3/uL (1.0-4.0); LYMPHOCYTES % (AUTO) 23 % (12-44); MEAN CORPUSCULAR HEMOGLOBIN 29 pg (25-34); MEAN CORPUSCULAR HGB CONC 34 g/dL (32-36); MEAN CORPUSCULAR VOLUME 85 fL (80-99); MONOCYTES # (AUTO) 0.7 10^3/uL (0.0-1.0); MONOCYTES % (AUTO) 9 % (0-12); NEUTROPHILS # (AUTO) 4.9 10^3/uL (1.8-7.8); NEUTROPHILS % (AUTO) 64 % (42-75); PLATELET COUNT 183 10^3/uL (130-400); WHITE BLOOD COUNT 7.6 10^3/uL (4.3-11.0)
[2021-04-04] MEDS ORDERED: amLODIPine 5 MG (NORVASC) TAB PO SCH (09:00)
--- NOTE | 2021-04-04 09:38 | Anesthesia-Regional Post-Op ---
Regional Patient Condition Mental Status: Alert, Oriented x3 Circulation: Same as Pre-Op Headache: Absent Sensation: Full Recovery Motor Block: Absent Post Op Complications Complications None Follow Up Care/Instructions Patient Instructions None needed. Anesthesia/Patient Condition Patient is doing well, no complaints, stable vital signs, no apparent adverse anesthesia problems. No complications reported per nursing. TOY LEA CRNA Apr 04, 2021 09:38
[2021-04-04] MEDS: HYDROcodone/APAP 5 MG/325 MG (LORTAB) TAB PO PRN ×2 (09:41→18:27)
[2021-04-04] MEDS: amLODIPine 5 MG (NORVASC) TAB PO SCH (09:41)
[2021-04-04] MEDS: DOCUSATE SODIUM 100 MG (COLACE) CAP PO SCH ×2 (09:41→22:20)
[2021-04-04 09:44] VITALS: BP 139/88
--- NOTE | 2021-04-04 10:41 | Postpartum Progress Note ---
Note Note Day # 1 Subjective: Patient is without complaints. Ambulating, voiding. Tolerating a regular diet without nausea or vomiting. Normal lochia. Pain is well controlled with oral pain medications. Objective: Physical Exam: General - Alert and oriented, no apparent distress Abdomen - Soft, appropriately tender to palpation, non-distended, fundus firm at umbilicus; incision c/d/i Extremities - no edema, negative Dayana's bilaterally Assessment: Post- day # 1, status post RLTCS. Recovering well, hemodynamically stable Acute blood loss anemia Plan: Routine care. Encourage breast feeding. Encourage ambulation. Ferrous sulfate supplementation. Plan for discharge tomorrow Vitals - Labs Vital Signs - I&O Vital Signs Date Time Temp Pulse Resp B/P (MAP) Pulse Ox O2 Delivery O2 Flow Rate FiO2 04/04/21 09:44 36.3 88 18 139/88 (105) 99 Room Air 04/04/21 04:30 36.4 92 18 122/75 (91) 98 Room Air 04/04/21 00:36 36.4 77 16 123/73 (90) 98 Room Air 04/03/21 20:17 36.7 69 16 148/102 (117) 98 Room Air 04/03/21 16:31 36.4 70 16 142/88 (106) 98 Room Air 04/03/21 13:15 36.5 71 16 150/94 (112) 100 Room Air 04/03/21 12:30 36.1 88 16 141/96 (111) 100 Room Air 04/03/21 12:00 Room Air 04/03/21 12:00 36.1 16 124/88 (100) 98 Room Air 04/03/21 11:45 36.2 16 117/84 (95) 98 Room Air 04/03/21 11:45 Room Air 04/03/21 11:30 36.4 16 126/83 (97) 99 Room Air 04/03/21 11:30 Room Air 04/03/21 11:20 Room Air 04/03/21 11:20 36.1 16 115/77 (90) 98 Room Air I & O0 04/04/21 07:00 Intake Total 3010 ml Output Total 2150 ml Balance 860 ml Labs Laboratory Tests 04/04/21 07:21: White Blood Count 7.6, Red Blood Count 3.50L, Hemoglobin 10.1L, Hematocrit 30L, Mean Corpuscular Volume 85, Mean Corpuscular Hemoglobin 29, Mean Corpuscular Hemoglobin Concent 34, Red Cell Distribution Width 14.3, Platelet Count 183, Mean Platelet Volume 11.0, Immature Granulocyte % (Auto) 0, Neutrophils (%) (Auto) 64, Lymphocytes (%) (Auto) 23, Monocytes (%) (Auto) 9, Eosinophils (%) (Auto) 3, Basophils (%) (Auto) 0, Neutrophils # (Auto) 4.9, Lymphocytes # (Auto) 1.7, Monocytes # (Auto) 0.7, Eosinophils # (Auto) 0.3, Basophils # (Auto) 0.0, Immature Granulocyte # (Auto) 0.0 NELLY CASANOVA APRN Apr 04, 2021 10:41
[2021-04-04] MEDS: IBUPROFEN 600 MG (MOTRIN) TAB PO SCH ×2 (13:02→18:28)
[2021-04-04 13:04] VITALS: BP 153/103
[2021-04-04 18:26] VITALS: BP 141/95
[2021-04-05 00:51] VITALS: BP 140/84
[2021-04-05] MEDS: IBUPROFEN 600 MG (MOTRIN) TAB PO SCH ×3 (00:51→12:14)
[2021-04-05 06:25] VITALS: BP 131/82
[2021-04-05] MEDS ORDERED: AMLO-250 PO (08:15)
--- NOTE | 2021-04-05 08:16 | Postpartum Progress Note ---
Note Note Day # 2 Subjective: Patient is without complaints. Ambulating, voiding. Tolerating a regular diet without nausea or vomiting. Normal lochia. Pain is well controlled with oral pain medications. Objective: Physical Exam: General - Alert and oriented, no apparent distress Abdomen - Soft, appropriately tender to palpation, non-distended, fundus firm at umbilicus Extremities - no edema, negative Dayana's bilaterally Incision- c/d/i Assessment: POD 2 RLTCS Mild preE- bp controlled on Norvasc 5 mg Plan: Routine care. Encourage breast feeding. Encourage ambulation. Ferrous sulfate supplementation. Plan for discharge today Vitals - Labs Vital Signs - I&O Vital Signs Date Time Temp Pulse Resp B/P (MAP) Pulse Ox O2 Delivery O2 Flow Rate FiO2 04/05/21 06:25 36.6 85 18 131/82 (98) Room Air 04/05/21 00:51 36.1 91 18 140/84 (102) 98 Room Air 04/04/21 18:26 36.4 77 18 141/95 (110) 98 Room Air 04/04/21 13:04 36.5 83 18 153/103 (120) Room Air 04/04/21 09:44 36.3 88 18 139/88 (105) 99 Room Air I & O 04/05/21 07:00 Intake Total 2200 ml Output Total 1200 ml Balance 1000 ml KANE WORTHY DO Apr 05, 2021 08:16
[2021-04-05 09:00] VITALS: BP 139/100
[2021-04-05] MEDS ORDERED: amLODIPine 5 MG (NORVASC) TAB PO SCH (09:00)
[2021-04-05] MEDS: amLODIPine 5 MG (NORVASC) TAB PO SCH (09:00)
[2021-04-05] MEDS: DOCUSATE SODIUM 100 MG (COLACE) CAP PO SCH (09:00)
[2021-04-05] MEDS: HYDROcodone/APAP 5 MG/325 MG (LORTAB) TAB PO PRN (12:15)
== END 2021-04-05 14:00 | disposition home or self-care (01) | DRG 787 ==
LOC: LDRP 07:43
PROVIDERS: ADMIT Obstetrics & Gynecology; ATTEND Obstetrics & Gynecology
PROC: 10D00Z1 Extraction of Products of Conception, Low, Open Approach (ICD-10-PCS; principal; 2021-04-03 10:18)
DX: O14.04 Mild to moderate pre-eclampsia, complicating childbirth (principal); D62 Acute posthemorrhagic anemia; Z3A.37 37 weeks gestation of pregnancy; Z37.0 Single live birth; O34.211 Maternal care for low transverse scar from previous cesarean delivery; O99.343 Other mental disorders complicating pregnancy, third trimester; F32.9 Major depressive disorder, single episode, unspecified; O90.81 Anemia of the puerperium; Z79.82 Long term (current) use of aspirin
CPT/HCPCS: 36415; 85025; 85027; 86850; 86900; 86901

== ENCOUNTER 2021-04-09 16:30 | Emergency (ER) | payer OTHER ==
[~2021-04-09] VITALS: Ht 170 cm; Wt 86.1 kg
[~2021-04-09 16:30] MED LIST changes: +AMLO-250 PO; +DOCU100C37 PO
[2021-04-09] MEDS ORDERED: NIFEdipine ER 30 MG (PROCARDIA XL) TAB PO ONE ×2 (16:45→19:30)
[2021-04-09] MEDS ORDERED: hydrALAZINE (APESOLINE) 20 MG/ML VIAL IV ONE (16:45)
--- NOTE | 2021-04-09 16:50 | ED General ---
General Chief Complaint: (<6 weeks) Stated Complaint: HIGH BP Source of Information: Patient Exam Limitations: No Limitations History of Present Illness Date Seen by Provider: Apr 09, 2021 Time Seen by Provider: 16:46 Initial Comments To ER with high blood pressure up to 170 systolic at home. She had a vaginal delivery here by Dr. Lucero 6 days ago. She feels "like shit" currently. C/o headache and back ache rated at 5/10, does report some chest heaviness. She is on Norvasc 5 mg daily. Prior to delivery she had been on Procardia but even with she was typically no lower than 140/85. She does have a history of preeclampsia with her son. Timing/Duration: 1-2 Days Severity: Moderate Associated Systoms: Malaise Allergies and Home Medications Allergies Coded Allergies: labetalol (Verified Allergy, Mild, itching, 06/19/19) Patient Home Medication List Home Medication List Reviewed: Yes Amlodipine Besylate (Amlodipine Besylate) 5 Mg Tablet, 5 MG PO DAILY Prescribed by: KANE LUCERO on 04/05/21 0815 Azelastine HCl (Azelastine HCl) 137 Mcg/0.137 Ml [place].pump, 137 MCG NS BID, (Reported) Entered as Reported by: BLAS GUTIERREZ on 03/24/21 1234 Docusate Sodium (Docusate Sodium) 100 Mg Capsule, 100 MG PO BID Prescribed by: KANE LUCERO on 04/03/21 1148 Fluticasone Propionate (24 Hour Allergy Relief) 15.8 Ml [place].susp, 2 SPRAY NS DAILY, (Reported) Entered as Reported by: BLAS GUTIERREZ on 03/24/21 1234 Furosemide (Lasix) 20 Mg Tablet, 20 MG PO DAILY Prescribed by: KAIA JACOBSON on 04/09/21 1934 Hydrocodone Bit/Acetaminophen (HYDROcodone/APAP 5 MG/325 MG TAB) 1 Tab Tab, 1-2 EA PO Q6HR PRN for PAIN-MODERATE (5-7) Prescribed by: KANE LUCERO on 04/03/21 1148 Ibuprofen (Ibu) 600 Mg Tablet, 600 MG PO Q6HR Prescribed by: KANE LUCERO on 04/03/21 1148 Loratadine (Loratadine) 10 Mg Tablet, 10 MG PO DAILY, (Reported) Entered as Reported by: CHIQUITA CORNEJO on 03/14/211934 Vits #93/Iron Fum/FA ( Formula Tablet) 1 Each Tablet, 1 EACH PO DAILY, (Reported) Entered as Reported by: CHIQUITA CORNEJO on 03/14/211934 Sertraline HCl (Zoloft) 50 Mg Tablet, 50 MG PO DAILY, (Reported) Entered as Reported by: CHIQUITA CORNEJO on 03/14/211934 Discontinued Medications Aspirin (Adult Low Dose Aspirin EC) 81 Mg Tablet.dr, 81 MG PO DAILY, (Reported) Entered as Reported by: BLAS GUTIERREZ on 03/24/21 1234 Nifedipine (Nifedipine ER) 30 Mg Tablet.er, 30 MG PO BID, (Reported) Entered as Reported by: BRANNON PRINCE on 03/29/21 1708 Review of Systems Review of Systems Constitutional: see HPI EENTM: see HPI Respiratory: no symptoms reported Cardiovascular: no symptoms reported Genitourinary: no symptoms reported Musculoskeletal: no symptoms reported Skin: no symptoms reported Psychiatric/Neurological: No Symptoms Reported Hematologic/Lymphatic: No Symptoms Reported Past Edsxepa-Ysktof-Zbanuv Hx Patient Social History Tobacco Use?: No Substance use?: No Alcohol Use?: No Immunizations Up To Date Tetanus Booster (TDap): Less than 5yrs Seasonal Allergies Seasonal Allergies: No Past Medical History Surgery/Hospitalization HX: c section x 2 Surgeries: Yes ( X 2) Section Respiratory: Yes (lingering cough from covid in jan 2021) Currently Using CPAP: No Currently Using BIPAP: No Cardiac: Yes (HTN R/T PRE-ECLAMPSIA DURING LAST ) Hypertension Neurological: No Reproductive Disorders: Yes (PRE-ECLAMPSIA WITH , DELIVERED 7WK EARLY 12/04) Female Reproductive Disorders: Denies Genitourinary: No Gastrointestinal: No Musculoskeletal: No Endocrine: No HEENT: No Cancer: No Psychosocial: Yes Anxiety Integumentary: No Blood Disorders: No Adverse Reaction/Blood Tranf: No Family Medical History Patient reports no known family medical history. Other Conditions/Hx Physical Exam Vital Signs Vital Signs - First Documented 04/09/21 16:40 Temp 36.4 Pulse 93 Resp 18 B/P (MAP) 171/117 (135) Pulse Ox 97 Capillary Refill : Less Than 3 Seconds Height, Weight, BMI Height: 5'7.00" Weight: 170lbs. 6.0oz. 77.292962iu; 32.03 BMI Method:Stated General Appearance: No Apparent Distress, WD/WN, Other (Blood pressure 171/117 heart rate 90s) Eyes: Bilateral Eye Normal Inspection, Bilateral Eye PERRL, Bilateral Eye EOMI Neck: Full Range of Motion, Normal Inspection Respiratory: No Accessory Muscle Use, No Respiratory Distress Cardiovascular: Regular Rate, Rhythm, Normal Peripheral Pulses Gastrointestinal: Non Tender, Soft Extremity: Normal Capillary Refill, Normal Inspection Neurologic/Psychiatric: Alert, Oriented x3 Skin: Normal Color, Warm/Dry Progress/Results/Core Measures Suspected Sepsis SIRS Temperature: Pulse: Respiratory Rate: Laboratory Tests 04/09/21 16:42: White Blood Count 6.6 Blood Pressure / Mean: Laboratory Tests 04/09/21 16:42: Creatinine 0.67, INR Comment 0.9, Platelet Count 291, Total Bilirubin 0.4 Results/Orders Lab Results Laboratory Tests Test 04/09/21 16:42 04/09/21 16:45 Range/Units White Blood Count 6.6 4.3-11.0 10^3/uL Red Blood Count 4.27 3.80-5.11 10^6/uL Hemoglobin 12.1 11.5-16.0 g/dL Hematocrit 36 35-52 % Mean Corpuscular Volume 85 80-99 fL Mean Corpuscular Hemoglobin 28 25-34 pg Mean Corpuscular Hemoglobin Concent 34 32-36 g/dL Red Cell Distribution Width 14.2 10.0-14.5 % Platelet Count 291 130-400 10^3/uL Mean Platelet Volume 10.2 9.0-12.2 fL Immature Granulocyte % (Auto) 0 % Neutrophils (%) (Auto) 62 42-75 % Lymphocytes (%) (Auto) 27 12-44 % Monocytes (%) (Auto) 7 0-12 % Eosinophils (%) (Auto) 3 0-10 % Basophils (%) (Auto) 0 0-10 % Neutrophils # (Auto) 4.1 1.8-7.8 10^3/uL Lymphocytes # (Auto) 1.8 1.0-4.0 10^3/uL Monocytes # (Auto) 0.5 0.0-1.0 10^3/uL Eosinophils # (Auto) 0.2 0.0-0.3 10^3/uL Basophils # (Auto) 0.0 0.0-0.1 10^3/uL Immature Granulocyte # (Auto) 0.0 0.0-0.1 10^3/uL Prothrombin Time 12.7 12.2-14.7 SEC INR Comment 0.9 0.8-1.4 Fibrinogen 488 221-496 MG/DL Sodium Level 138 135-145 MMOL/L Potassium Level 3.7 3.6-5.0 MMOL/L Chloride Level 107 98-107 MMOL/L Carbon Dioxide Level 17 L 21-32 MMOL/L Anion Gap 14 5-14 MMOL/L Blood Urea Nitrogen 8 7-18 MG/DL Creatinine 0.67 0.60-1.30 MG/DL Estimat Glomerular Filtration Rate 124 BUN/Creatinine Ratio 12 Glucose Level 98 70-105 MG/DL Calcium Level 9.0 8.5-10.1 MG/DL Corrected Calcium 9.2 8.5-10.1 MG/DL Total Bilirubin 0.4 0.1-1.0 MG/DL Aspartate Amino Transf (AST/SGOT) 22 5-34 U/L Alanine Aminotransferase (ALT/SGPT) 20 0-55 U/L Alkaline Phosphatase 114 40-136 U/L Troponin I < 0.028 <0.028 NG/ML Total Protein 7.6 6.4-8.2 GM/DL Albumin 3.7 3.2-4.5 GM/DL Urine Color YELLOW Urine Clarity SL CLOUDY Urine pH 6.0 5-9 Urine Specific Center 1.015 L 1.016-1.022 Urine Protein NEGATIVE NEGATIVE Urine Glucose (UA) NEGATIVE NEGATIVE Urine Ketones NEGATIVE NEGATIVE Urine Nitrite NEGATIVE NEGATIVE Urine Bilirubin NEGATIVE NEGATIVE Urine Urobilinogen 1.0 < = 1.0 MG/DL Urine Leukocyte Esterase NEGATIVE NEGATIVE Urine RBC (Auto) 3+ H NEGATIVE Urine RBC 0-2 /HPF Urine WBC 0-2 /HPF Urine Squamous Epithelial Cells 2-5 /HPF Urine Renal Epithelial Cells NONE /HPF Urine Crystals NONE /LPF Urine Bacteria FEW H /HPF Urine Casts NONE /LPF Urine Mucus NEGATIVE /LPF Urine Culture Indicated NO My Orders Orders - KAIA JACOBSON APRN Hydralazine Injection (Apresoline Inject (04/09/21 16:45) Nifedipine Xl Tablet (Procardia Xl Tab (04/09/21 16:45) Ekg Tracing (04/09/21 17:05) Lisinopril Tablet (Zestril Tablet) (04/09/21 17:45) Troponin I [place] (04/09/21 17:33) General/Regular (04/09/21 Dinner) Nifedipine Xl Tablet (Procardia Xl Tab (04/09/21 19:30) Furosemide Injection (Lasix Injection) (04/09/21 19:30) Medications Given in ED Current Medications Medications Dose Ordered Sig/Suzette Route Start Time Stop Time Status Last Admin Dose Admin Furosemide 20 mg ONCE ONCE IVP 04/09/21 19:30 04/09/21 19:32 DC 04/09/21 19:56 20 MG Hydralazine HCl 10 mg ONCE ONCE IV 04/09/21 16:45 04/09/21 16:46 DC 04/09/21 16:52 10 MG Lisinopril 10 mg ONCE ONCE PO 04/09/21 17:45 04/09/21 17:46 DC 04/09/21 17:43 10 MG Nifedipine 30 mg ONCE ONCE PO 04/09/21 16:45 04/09/21 16:46 DC 04/09/21 17:02 30 MG Nifedipine 30 mg ONCE ONCE PO 04/09/21 19:30 04/09/21 19:32 DC 04/09/21 19:55 30 MG Vital Signs/I&O 04/09/21 16:40 Temp 36.4 Pulse 93 Resp 18 B/P (MAP) 171/117 (135) Pulse Ox 97 Capillary Refill : Less Than 3 Seconds Departure Communication (Admissions) 1701-after 10mg iv hydralazine BP at 141/76 . 1721-BP 156/101. Given 30mg Nifedipine XL PO. She does report that she is a little scared to go home without discussing a higher dose of Procardia or komal tion of a different medication because she does not feel like the Procardia is adequately controlling her hypertension though it did seem to be more helpful than the Norvasc. 1931-still has a headache. Blood pressure has fallen and stayed consistently in the 150/[address] Lucero. Recommend going home, 20 mg of Lasix daily for the next week, increase her Norvasc from 5 mg daily up to 10 mg daily. Impression Primary Impression: hypertension Disposition: 01 HOME, SELF-CARE Condition: Stable Departure-Patient Inst. Decision time for Depature: 19:31 Referrals: ALBERT HEREDIA MD (PCP/Family) Primary Care Physician Patient Instructions: High Blood Pressure and Add. Discharge Instructions: 1. I spoke with Dr. Lucero who is on-call and is the one that did your C- section. Lets increase your Norvasc dose from 5 mg a day up to 10 mg a day. We are also going to add Lasix, a diuretic for 5 days. This will be 20 mg a day and would be best to be taken in the mornings because it will cause frequent urination. Keep your appointment with Dr. Heredia and return to ER for any worsening. All discharge instructions reviewed with patient and/or family. Voiced understanding. Scripts Furosemide (Lasix) 20 Mg Tablet 20 MG PO DAILY, #5 TAB Prov: KAIA JACOBSON APRN 04/09/21 Copy Copies To 1: KANE LUCERO DO; ALBERT HEREDIA MD, PETER J APRN Apr 09, 2021 16:50
[2021-04-09 17:04] LABS: BASOPHILS % (AUTO) 0 % (0-10); EOSINOPHILS # (AUTO) 0.2 10^3/uL (0.0-0.3); EOSINOPHILS % (AUTO) 3 % (0-10); HEMATOCRIT 36 % (35-52); HEMOGLOBIN 12.1 g/dL (11.5-16.0); LYMPHOCYTES # (AUTO) 1.8 10^3/uL (1.0-4.0); LYMPHOCYTES % (AUTO) 27 % (12-44); MEAN CORPUSCULAR HEMOGLOBIN 28 pg (25-34); MEAN CORPUSCULAR HGB CONC 34 g/dL (32-36); MEAN CORPUSCULAR VOLUME 85 fL (80-99); MEAN PLATELET VOLUME 10.2 fL (9.0-12.2); MONOCYTES # (AUTO) 0.5 10^3/uL (0.0-1.0); MONOCYTES % (AUTO) 7 % (0-12); NEUTROPHILS # (AUTO) 4.1 10^3/uL (1.8-7.8); NEUTROPHILS % (AUTO) 62 % (42-75); PLATELET COUNT 291 10^3/uL (130-400); WHITE BLOOD COUNT 6.6 10^3/uL (4.3-11.0)
[2021-04-09 17:15] LABS: INR 0.9 (0.8-1.4); PROTHROMBIN TIME PATIENT 12.7 SEC (12.2-14.7)
[2021-04-09 17:17] LABS: BILIRUBIN,URINE NEGATIVE (NEGATIVE); CLARITY,URINE SL CLOUDY; COLOR,URINE YELLOW; GLUCOSE, URINE (UA) NEGATIVE (NEGATIVE); KETONES,URINE NEGATIVE (NEGATIVE); LEUKOCYTE ESTERASE ,URINE NEGATIVE (NEGATIVE); NITRITE,URINE NEGATIVE (NEGATIVE); PROTEIN,URINE NEGATIVE (NEGATIVE)
[2021-04-09 17:17] LABS: ALBUMIN 3.7 GM/DL (3.2-4.5); POTASSIUM 3.7 MMOL/L (3.6-5.0)
[2021-04-09 17:19] LABS: BACTERIA,URINE FEW /HPF; RBC,URINE 0-2 /HPF; WBC,URINE 0-2 /HPF
[2021-04-09 17:20] LABS: TOTAL PROTEIN 7.6 GM/DL (6.4-8.2)
[2021-04-09 17:22] LABS: BILIRUBIN,TOTAL 0.4 MG/DL (0.1-1.0)
[2021-04-09 17:24] LABS: CREATININE SERUM 0.67 MG/DL (0.60-1.30)
[2021-04-09] MEDS ORDERED: lisINopril 10 MG (PRINIVIL) TABLET PO ONE (17:45)
[2021-04-09] MEDS ORDERED: FUROSEMIDE 40 MG/4 ML INJ (LASIX) IVP ONE (19:30)
[2021-04-09] MEDS ORDERED: FURO-125 PO (19:34)
[2021-04-09 20:17] VITALS: BP 138/99
== END 2021-04-09 20:17 | disposition home or self-care (01) ==
LOC: EDUNIT# 16:30 → ER 16:31
DX: O16.5 Unspecified maternal hypertension, complicating the puerperium (principal); F41.9 Anxiety disorder, unspecified; Z79.899 Other long term (current) drug therapy
CPT/HCPCS: 36415; 80053; 81000; 84484; 85025; 85384; 85610; 93005

== ENCOUNTER 2021-05-29 12:00 | Emergency (ER) | payer OTHER ==
[~2021-05-29] VITALS: Ht 170 cm; Wt 82.0 kg
[~2021-05-29 12:00] MED LIST changes: +FURO-125 PO; +POTA-51 PO
[2021-05-29] MEDS ORDERED: MECLIZINE 25 MG (ANTIVERT) TAB PO ONE (12:30)
--- NOTE | 2021-05-29 12:56 | Diagnostic Imaging Report ---
EXAMINATION: CT head without contrast. TECHNIQUE: Multiple contiguous axial images were obtained through the brain without the use of intravenous contrast. All CT scans use one or more of the following dose optimizing techniques: automated exposure control, MA and/or KvP adjustment based on patient size and exam type or iterative reconstruction. HISTORY: dizziness, visual changes COMPARISON: 04/05/2020 FINDINGS: The ventricles and sulci are normal. No abnormal attenuation of brain parenchyma is present. No acute intracranial hemorrhage or abnormal extra-axial fluid collections are present. No hyperdense vessel. The calvarium is intact. The mastoid air cells are clear. The visualized paranasal sinuses are clear. The orbits are normal. IMPRESSION: 1. No acute intracranial abnormality. Dictated by: Dictated on workstation # [id number]
--- NOTE | 2021-05-29 12:57 | ED Headache ---
General Chief Complaint: Head/Cervical Problems Stated Complaint: HEADACHE / VISION CHANGES Nursing Triage Note: Pt here with headache and visual disturbance. Source: patient Exam Limitations: no limitations History of Present Illness Date Seen by Provider: May 29, 2021 Time Seen by Provider: 12:54 Initial Comments Patient is a 26-year-old female presents ED with left-sided head pain, left neck pain, left posterior head pain. Symptoms started last night after taking Keflex. Was seen here on the eighth diagnosed with right mastitis which states has improved. Pain is described as pressure with a sharp pain behind the left eye. History of migraines and states today's pain feels somewhat similar however she has not had the dizziness associated visual changes which developed as well. She had 2 episodes last night where it felt like things were spinning difficulty focusing. This lasted a few seconds. More frequent dizzy with visual changes today. She states she has times where she has difficulty focusing on objects especially with head movement. She reports nausea without vomiting. No unilateral muscle weakness or sensory changes facial droop, visual loss, chest pain, shortness of breath. She did have delivery in March. She is 2 months . She denies taking thing for her head pain. Allergies and Home Medications Allergies Coded Allergies: labetalol (Verified Allergy, Mild, itching, 06/19/19) Patient Home Medication List Home Medication List Reviewed: Yes Amlodipine Besylate (Amlodipine Besylate) 5 Mg Tablet, 5 MG PO DAILY Prescribed by: KANE WORTHY on 04/05/21 0815 Amoxicillin/Potassium Clav (Augmentin 500-125 Tablet) 1 Each Tablet, 1 EACH PO BID Prescribed by: MARI GRAHAM on 05/29/21 1357 Azelastine HCl (Azelastine HCl) 137 Mcg/0.137 Ml [place].pump, 137 MCG NS BID, (Reported) Entered as Reported by: BLAS GUTIERREZ on 03/24/21 1234 Cephalexin (Cephalexin) 500 Mg Tablet, 500 MG PO QID Prescribed by: KAIA JACOBSON on 05/26/21 1618 Docusate Sodium (Docusate Sodium) 100 Mg Capsule, 100 MG PO BID Prescribed by: KANE WORTHY on 04/03/21 1148 Fluticasone Propionate (24 Hour Allergy Relief) 15.8 Ml [place].susp, 2 SPRAY NS DAILY, (Reported) Entered as Reported by: BLAS GUTIERREZ on 03/24/21 1234 Furosemide (Lasix) 20 Mg Tablet, 20 MG PO DAILY Prescribed by: KAIA JACOBSON on 04/09/21 193 Hydrocodone Bit/Acetaminophen (HYDROcodone/APAP 5 MG/325 MG TAB) 1 Tab Tab, 1-2 EA PO Q6HR PRN for PAIN-MODERATE (5-7) Prescribed by: KANE WORTHY on 04/03/21 1148 Ibuprofen (Ibu) 600 Mg Tablet, 600 MG PO Q6HR Prescribed by: KANE WORTHY on 04/03/21 1148 Loratadine (Loratadine) 10 Mg Tablet, 10 MG PO DAILY, (Reported) Entered as Reported by: CHIQUITA CORNEJO on 03/14/211934 Meclizine HCl (Meclizine HCl) 25 Mg Tablet, 25 MG PO Q8H PRN for DIZZINESS Prescribed by: MARI GRAHAM on 05/29/21 1357 Potassium Chloride (Potassium Chloride) 20 Meq Tablet.er, 20 MEQ PO BID Prescribed by: KAIA JACOBSON on 05/26/21 1618 Vits #93/Iron Fum/FA ( Formula Tablet) 1 Each Tablet, 1 EACH PO DAILY, (Reported) Entered as Reported by: CHIQUITA CORNEJO on 03/14/211934 Sertraline HCl (Zoloft) 50 Mg Tablet, 50 MG PO DAILY, (Reported) Entered as Reported by: CHIQUITA CORNEJO on 03/14/211934 Review of Systems Review of Systems Constitutional: No chills, No diaphoresis; dizziness; No fever, No malaise, No weakness Eyes: Denies Blurred Vision, Denies Drainage, Denies Decreased Acuity; Vision Changes Ears, Nose, Mouth, Throat: ear pain; denies ear discharge Respiratory: No cough, No dyspnea on exertion, No orthopnea, No short of breath Cardiovascular: No chest pain, No edema Gastrointestinal: No abdominal pain; nausea; No vomiting Genitourinary: No decreased output, No discharge Musculoskeletal: No back pain, No gout, No joint pain Skin: No change in color, No change in hair/nails All Other Systems Reviewed Negative Unless Noted: Yes Past Oampsky-Rizuxv-Nkzzxh Hx Immunizations Up To Date Tetanus Booster (TDap): Less than 5yrs Seasonal Allergies Seasonal Allergies: No Past Medical History Surgery/Hospitalization HX: c section x 2 Surgeries: Yes ( X 2) Section Respiratory: Yes (lingering cough from covid in jan 2021) Currently Using CPAP: No Currently Using BIPAP: No Cardiac: Yes (HTN R/T PRE-ECLAMPSIA DURING LAST ) Hypertension Neurological: No Reproductive Disorders: Yes (PRE-ECLAMPSIA WITH , DELIVERED 7WK EARLY 12/04) Female Reproductive Disorders: Denies Genitourinary: No Gastrointestinal: No Musculoskeletal: No Endocrine: No HEENT: No Cancer: No Psychosocial: Yes Anxiety Integumentary: No Blood Disorders: No Adverse Reaction/Blood Tranf: No Family Medical History Patient reports no known family medical history. Other Conditions/Hx Physical Exam Vital Signs Vital Signs - First Documented 05/29/21 12:11 Temp 37.0 Pulse 69 Resp 18 B/P (MAP) 134/95 (108) Pulse Ox 98 O2 Delivery Room Air Capillary Refill : Height, Weight, BMI Height: 5'7.00" Weight: 170lbs. 6.0oz. 77.064567dc; 28.00 BMI Method:Stated General Appearance: WD/WN, no apparent distress HEENT: PERRL/EOMI, normal ENT inspection, TMs normal, pharynx normal Neck: non-tender, full range of motion, supple, normal inspection Cardiovascular: regular rate, rhythm, no edema, no gallop, no JVD, no murmur Respiratory: chest non-tender, lungs clear, normal breath sounds, no respiratory distress, no accessory muscle use Gastrointestinal: normal bowel sounds, non tender, soft, no organomegaly, no pulsatile mass Back: normal inspection, no CVA tenderness, no vertebral tenderness Extremities: normal range of motion, non-tender, normal inspection, no pedal edema, no calf tenderness Psychiatric: alert, oriented x 3 Motor/Sensory: no motor deficit, no sensory deficit Skin: normal color, warm/dry Progress/Results/Core Measures Results/Orders Lab Results Laboratory Tests Test 05/29/21 13:04 05/29/21 13:40 Range/Units White Blood Count 4.3 4.3-11.0 10^3/uL Red Blood Count 4.05 3.80-5.11 10^6/uL Hemoglobin 11.3 L 11.5-16.0 g/dL Hematocrit 33 L 35-52 % Mean Corpuscular Volume 82 80-99 fL Mean Corpuscular Hemoglobin 28 25-34 pg Mean Corpuscular Hemoglobin Concent 34 32-36 g/dL Red Cell Distribution Width 13.8 10.0-14.5 % Platelet Count 207 130-400 10^3/uL Mean Platelet Volume 10.0 9.0-12.2 fL Immature Granulocyte % (Auto) 0 % Neutrophils (%) (Auto) 51 42-75 % Lymphocytes (%) (Auto) 37 12-44 % Monocytes (%) (Auto) 9 0-12 % Eosinophils (%) (Auto) 3 0-10 % Basophils (%) (Auto) 0 0-10 % Neutrophils # (Auto) 2.2 1.8-7.8 10^3/uL Lymphocytes # (Auto) 1.6 1.0-4.0 10^3/uL Monocytes # (Auto) 0.4 0.0-1.0 10^3/uL Eosinophils # (Auto) 0.1 0.0-0.3 10^3/uL Basophils # (Auto) 0.0 0.0-0.1 10^3/uL Immature Granulocyte # (Auto) 0.0 0.0-0.1 10^3/uL Sodium Level 142 135-145 MMOL/L Potassium Level 3.6 3.6-5.0 MMOL/L Chloride Level 109 H 98-107 MMOL/L Carbon Dioxide Level 18 L 21-32 MMOL/L Anion Gap 15 H 5-14 MMOL/L Blood Urea Nitrogen 6 L 7-18 MG/DL Creatinine 0.64 0.60-1.30 MG/DL Estimat Glomerular Filtration Rate 126 BUN/Creatinine Ratio 9 Glucose Level 89 70-105 MG/DL Calcium Level 9.3 8.5-10.1 MG/DL Corrected Calcium 9.3 8.5-10.1 MG/DL Total Bilirubin 0.5 0.1-1.0 MG/DL Aspartate Amino Transf (AST/SGOT) 22 5-34 U/L Alanine Aminotransferase (ALT/SGPT) 26 0-55 U/L Alkaline Phosphatase 76 40-136 U/L Total Protein 7.2 6.4-8.2 GM/DL Albumin 4.0 3.2-4.5 GM/DL Urine Color YELLOW Urine Clarity CLEAR Urine pH 5.0 5-9 Urine Specific [place] 1.015 L 1.016-1.022 Urine Protein NEGATIVE NEGATIVE Urine Glucose (UA) NEGATIVE NEGATIVE Urine Ketones 1+ H NEGATIVE Urine Nitrite NEGATIVE NEGATIVE Urine Bilirubin NEGATIVE NEGATIVE Urine Urobilinogen 0.2 < = 1.0 MG/DL Urine Leukocyte Esterase TRACE H NEGATIVE Urine RBC (Auto) NEGATIVE NEGATIVE Urine RBC NONE /HPF Urine WBC 5-10 H /HPF Urine Squamous Epithelial Cells 10-25 H /HPF Urine Crystals NONE /LPF Urine Bacteria NEGATIVE /HPF Urine Casts NONE /LPF Urine Mucus NEGATIVE /LPF Urine Culture Indicated YES Urine Test NEGATIVE NEGATIVE My Orders Orders - ROSSANA MARIN Cbc With Automated Diff (05/29/21 12:19) Comprehensive Metabolic Panel (05/29/21 12:19) Meclizine Tablet (Antivert Tablet) (05/29/21 12:30) Ct Head Wo (05/29/21 12:19) Ua Culture If Indicated (05/29/21 12:19) Hcg,Qualitative Urine (05/29/21 12:19) Urine Culture (05/29/21 13:40) Medications Given in ED Current Medications Medications Dose Ordered Sig/Suzette Route Start Time Stop Time Status Last Admin Dose Admin Meclizine HCl 25 mg ONCE ONCE PO 05/29/21 12:30 05/29/21 12:31 DC 05/29/21 12:37 25 MG Vital Signs/I&O 05/29/21 05/29/21 12:11 14:10 Temp 37.0 37.0 Pulse 69 69 Resp 18 18 B/P (MAP) 134/95 (108) 134/95 Pulse Ox 98 98 O2 Delivery Room Air Room Air Blood Pressure Mean: 108 Departure Communication (PCP) Patient complaining of left-sided headache with a history of migraines. She states the head pain feels similar however she has not had dizziness and having difficulty focusing her eyes on a image. Appears to be with head movement. Perform Shantanu's maneuver and she had some mild horizontal nystagmus with left- sided head movement. No symptoms or nystagmus with right-sided movement. This only lasted for 15 to 20 seconds. Improves when her head is still. Bilateral TMs clear. No fever. No recent URI. She is normotensive. she has no focal neural deficits. CT scan of the head unremarkable. Lab work was otherwise reassuring. Currently on Keflex for right sided mastitis. Currently breast- feeding. She was given a dose of meclizine which at lower doses less frequent is safe for breast-feeding. Patient states her symptoms improved significantly. She had no bruits noted. She is not tachycardic or worst headache of her life. Not concerning for SAH. She has no fever or meningeal signs suggesting infectious etiology or meningitis. She does have some left-sided dental pain but does not appear to be related to her dizziness. She is concerned that the antibiotic is a result of this dizziness. Would not suspect Keflex having any form of otic toxicity or form of vertigo. She is requesting change in antibi otic. Will discharge with Augmentin. stop keflex. Mastitis improving. Provided meclizine for a few days as needed. Discussed the risk of taking this medication with breast-feeding. She acknowledges. If symptoms are worsening she would likely benefit with ENT follow-up. Patient visual exam otherwise unremarkable. No trauma. Return precautions were discussed with patient. P atient feels much better at this time. Impression Primary Impression: Dizziness Disposition: 01 HOME, SELF-CARE Condition: Stable Departure-Patient Inst. Decision time for Depature: 13:56 Referrals: ALBERT HEREDIA MD (PCP/Family) Primary Care Physician Patient Instructions: Dizziness, Adult ED Scripts Meclizine HCl (Meclizine HCl) 25 Mg Tablet 25 MG PO Q8H PRN for DIZZINESS, #8 TAB Prov: ROSSANA MARIN 05/29/21 Amoxicillin/Potassium Clav (Augmentin 500-125 Tablet) 1 Each Tablet 1 EACH PO BID for 7 Days, #14 TAB Prov: ROSSANA MARIN 05/29/21 ROSSANA MARIN May 29, 2021 12:57
[2021-05-29 13:12] LABS: BASOPHILS % (AUTO) 0 % (0-10); EOSINOPHILS # (AUTO) 0.1 10^3/uL (0.0-0.3); EOSINOPHILS % (AUTO) 3 % (0-10); HEMATOCRIT 33 % (35-52); HEMOGLOBIN 11.3 g/dL (11.5-16.0); LYMPHOCYTES # (AUTO) 1.6 10^3/uL (1.0-4.0); LYMPHOCYTES % (AUTO) 37 % (12-44); MEAN CORPUSCULAR HEMOGLOBIN 28 pg (25-34); MEAN CORPUSCULAR HGB CONC 34 g/dL (32-36); MEAN CORPUSCULAR VOLUME 82 fL (80-99); MONOCYTES # (AUTO) 0.4 10^3/uL (0.0-1.0); MONOCYTES % (AUTO) 9 % (0-12); NEUTROPHILS # (AUTO) 2.2 10^3/uL (1.8-7.8); NEUTROPHILS % (AUTO) 51 % (42-75); PLATELET COUNT 207 10^3/uL (130-400); WHITE BLOOD COUNT 4.3 10^3/uL (4.3-11.0)
[2021-05-29 13:21] LABS: POTASSIUM 3.6 MMOL/L (3.6-5.0)
[2021-05-29 13:23] LABS: CALCIUM 9.3 MG/DL (8.5-10.1)
[2021-05-29 13:24] LABS: TOTAL PROTEIN 7.2 GM/DL (6.4-8.2)
[2021-05-29 13:26] LABS: BILIRUBIN,TOTAL 0.5 MG/DL (0.1-1.0)
[2021-05-29 13:27] LABS: CREATININE SERUM 0.64 MG/DL (0.60-1.30)
[2021-05-29] MEDS ORDERED: MECL-149 PO (13:57)
[2021-05-29] MEDS ORDERED: AMOX-355 PO (13:57)
[2021-05-29 14:09] LABS: BILIRUBIN,URINE NEGATIVE (NEGATIVE); CLARITY,URINE CLEAR; COLOR,URINE YELLOW; GLUCOSE, URINE (UA) NEGATIVE (NEGATIVE); KETONES,URINE 1+ (NEGATIVE); LEUKOCYTE ESTERASE ,URINE TRACE (NEGATIVE); NITRITE,URINE NEGATIVE (NEGATIVE); PROTEIN,URINE NEGATIVE (NEGATIVE)
[2021-05-29 14:10] VITALS: BP 134/95
[2021-05-29 14:13] LABS: BACTERIA,URINE NEGATIVE /HPF
== END 2021-05-29 14:11 | disposition home or self-care (01) ==
LOC: EDUNIT# 12:00 → ER 12:01
DX: R42 Dizziness and giddiness (principal)
CPT/HCPCS: 36415; 70450; 80053; 81000; 84703; 85025; 87088

== ENCOUNTER 2021-09-09 08:17 | Emergency (ER) | payer OTHER ==
[~2021-09-09] VITALS: Ht 170 cm; Wt 76.6 kg
[~2021-09-09 08:17] MED LIST changes: +AMOX-355 PO; +MECL-149 PO
[2021-09-09 08:58] LABS: CHLORIDE 108 MMOL/L (98-107); POTASSIUM 3.2 MMOL/L (3.6-5.0); SODIUM 142 MMOL/L (135-145)
[2021-09-09 08:59] LABS: ALBUMIN 4.6 GM/DL (3.2-4.5)
[2021-09-09 09:00] LABS: CALCIUM 10.3 MG/DL (8.5-10.1)
[2021-09-09 09:01] LABS: GLUCOSE 94 MG/DL (70-105)
[2021-09-09 09:02] LABS: CARBON DIOXIDE 19 MMOL/L (21-32); TOTAL PROTEIN 8.2 GM/DL (6.4-8.2)
[2021-09-09 09:03] LABS: BILIRUBIN,TOTAL 1.3 MG/DL (0.1-1.0)
[2021-09-09 09:05] LABS: ALKALINE PHOSPHATASE 128 U/L (40-136); GFR ESTIMATED 123
[2021-09-09 09:06] LABS: BUN/CREATININE RATIO 7
[2021-09-09 09:07] LABS: BASOPHILS % (AUTO) 0 % (0-10); EOSINOPHILS # (AUTO) 0.1 10^3/uL (0.0-0.3); EOSINOPHILS % (AUTO) 1 % (0-10); HEMATOCRIT 38 % (35-52); HEMOGLOBIN 13.5 g/dL (11.5-16.0); LYMPHOCYTES # (AUTO) 2.2 10^3/uL (1.0-4.0); LYMPHOCYTES % (AUTO) 25 % (12-44); MEAN CORPUSCULAR HEMOGLOBIN 30 pg (25-34); MEAN CORPUSCULAR HGB CONC 35 g/dL (32-36); MEAN CORPUSCULAR VOLUME 84 fL (80-99); MEAN PLATELET VOLUME 9.5 fL (9.0-12.2); MONOCYTES # (AUTO) 0.4 10^3/uL (0.0-1.0); MONOCYTES % (AUTO) 5 % (0-12); NEUTROPHILS % (AUTO) 69 % (42-75); PLATELET COUNT 222 10^3/uL (130-400); WHITE BLOOD COUNT 8.7 10^3/uL (4.3-11.0)
[2021-09-09 09:08] LABS: ALANINE AMINOTRANSFERASE 15 U/L (0-55); SALICYLATE < 5.0 MG/DL (5.0-20.0)
[2021-09-09 09:11] LABS: ACETAMINOPHEN < 10 UG/ML (10-30)
[2021-09-09] MEDS ORDERED: ACETAMINOPHEN 500 MG TAB (TYLENOL) PO ONE (09:30)
[2021-09-09] MEDS ORDERED: KCL 10 MEQ TAB (MICRO K) PO ONE (10:15)
[2021-09-09] MEDS ORDERED: POTA-51 PO ×2 (10:47→12:11)
[2021-09-09] MEDS ORDERED: CITA20TA12 PO ×2 (10:47→12:11)
--- NOTE | 2021-09-09 10:49 | ED Psychosocial ---
General Chief Complaint: Psych/Social Disorder Stated Complaint: PSYCH -SI Nursing Triage Note: PT AMB TO RM 8 WITH C/O FEELING "VERY SAD." PT REPORTS HAS FELT THIS WAY SINCE HER BABY WAS BORN 5 MONTHS AGO. SHE DENIES ANY SUICIDAL IDEATIONS AT THIS TIME. PT STATES SHE HAS NO PLAN TO HARM HERSELF THIS AM. LAST NIGH PT REPORTS WAS VERY SAD AND THINKING A/B SUICIDE BUT DENIED PLAN. PT CALLED THE SAVE LINE THIS AM. 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 PT STATES WOULD NOT HARM HERSELF BECACUSE OF HER CHILDREN. PT CONFIRMS KIDS ARE WITH OTHER FAMILY MEMEBERS AT THIS TIME. SHE STATES HAS NOT EATTEN OR DRANK VERY WELL IN THE PAST COUPLE OF DAYS. PT REPORTS SMOKING POT DAILY. Source: patient, old records Exam Limitations: no limitations History of Present Illness Date Seen by Provider: Sep 09, 2021 Time Seen by Provider: 08:22 Initial Comments This 26-year-old young lady presents to the emergency room with complaints of extreme sadness and depression. She is very tearful and sobbing during much of the encounter. She is 5 months and explains she has had progressive sadness since the of her child. She had a lesser depression wi th a prior delivery. She currently has 3 children. She felt suicidal last night but denies any suicidal ideology today. She contacted the [facility] crisis line this morning and was referred to the ER. She did not have any plan for suicide. She has difficult psychosocial circumstances regarding relationships with the fathers of her children. 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 She does admit to unhealthy coping mechanisms including daily marijuana use. She has not been eating or drinking well recently. She has not yet discussed her situation with Dr. Heredia since delivery. Allergies and Home Medications Allergies Coded Allergies: labetalol (Verified Allergy, Mild, itching, 06/19/19) Patient Home Medication List Home Medication List Reviewed: Yes Amlodipine Besylate (Amlodipine Besylate) 5 Mg Tablet, 5 MG PO DAILY Prescribed by: KANE WORTHY on 04/05/21 0815 Amoxicillin/Potassium Clav (Augmentin 500-125 Tablet) 1 Each Tablet, 1 EACH PO BID Prescribed by: MARI GRAHAM on 05/29/21 1357 Azelastine HCl (Azelastine HCl) 137 Mcg/0.137 Ml [place].pump, 137 MCG NS BID, (Reported) Entered as Reported by: BLAS GUTIERREZ on 03/24/21 1234 Cephalexin (Cephalexin) 500 Mg Tablet, 500 MG PO QID Prescribed by: KAIA JACOBSON on 05/26/21 161 Citalopram Hydrobromide (Celexa) 20 Mg Tablet, 20 MG PO DAILY Prescribed by: FRANCOIS LEES on 09/09/21 1211 Docusate Sodium (Docusate Sodium) 100 Mg Capsule, 100 MG PO BID Prescribed by: KANE WORTHY on 04/03/21 1148 Fluticasone Propionate (24 Hour Allergy Relief) 15.8 Ml [place].susp, 2 SPRAY NS DAILY, (Reported) Entered as Reported by: BLAS GUTIERREZ on 03/24/21 1234 Furosemide (Lasix) 20 Mg Tablet, 20 MG PO DAILY Prescribed by: KAIA JACOBSON on 04/09/21 193 Hydrocodone Bit/Acetaminophen (HYDROcodone/APAP 5 MG/325 MG TAB) 1 Tab Tab, 1-2 EA PO Q6HR PRN for PAIN-MODERATE (5-7) Prescribed by: KANE WORTHY on 04/03/21 114 Ibuprofen (Ibu) 600 Mg Tablet, 600 MG PO Q6HR Prescribed by: KANE WORTHY on 04/03/21 1148 Loratadine (Loratadine) 10 Mg Tablet, 10 MG PO DAILY, (Reported) Entered as Reported by: CHIQUITA CORNEJO on 03/14/211934 Meclizine HCl (Meclizine HCl) 25 Mg Tablet, 25 MG PO Q8H PRN for DIZZINESS Prescribed by: MARI GRAHAM on 05/29/21 1357 Potassium Chloride (Potassium Chloride) 20 Meq Tablet.er, 20 MEQ PO BID Prescribed by: KAIA JACOBSON on 05/26/21 1618 Potassium Chloride (Potassium Chloride) 20 Meq Tablet.er, 20 MEQ PO DAILY Prescribed by: FRANCOIS LEES on 09/09/21 1211 Vits #93/Iron Fum/FA ( Formula Tablet) 1 Each Tablet, 1 EACH PO DAILY, (Reported) Entered as Reported by: CHIQUITA CORNEJO on 03/14/211934 Sertraline HCl (Zoloft) 50 Mg Tablet, 50 MG PO DAILY, (Reported) Entered as Reported by: CHIQUITA CORNEJO on 03/14/211934 Review of Systems Constitutional: no symptoms reported EENTM: no symptoms reported Respiratory: no symptoms reported Cardiovascular: no symptoms reported Gastrointestinal: see HPI Genitourinary: no symptoms reported Musculoskeletal: no symptoms reported Skin: no symptoms reported Psychiatric/Neurological: See HPI Past Kusgvrf-Yoncwl-Ermiou Hx Patient Social History Tobacco Use?: Yes Tobacco type used: Cigarettes Smoking Status: Current Everyday Smoker Substance use?: Yes Substance type: Marijuana Substance frequency: Daily Alcohol Use?: No Pt feels they are or have been: No Immunizations Up To Date Tetanus Booster (TDap): Less than 5yrs Seasonal Allergies Seasonal Allergies: No Past Medical History Surgery/Hospitalization HX: c section x 3 Surgeries: Yes ( X 2) Section Respiratory: Yes (lingering cough from covid in jan 2021) Currently Using CPAP: No Currently Using BIPAP: No Cardiac: Yes (HTN R/T PRE-ECLAMPSIA DURING LAST ) Hypertension Neurological: No Reproductive Disorders: Yes (PRE-ECLAMPSIA WITH , DELIVERED 7WK EARLY 12/04) Female Reproductive Disorders: Denies Genitourinary: No Gastrointestinal: No Musculoskeletal: No Endocrine: No HEENT: No Cancer: No Psychosocial: Yes Anxiety, Depression Integumentary: No Blood Disorders: No Adverse Reaction/Blood Tranf: No Family Medical History Patient reports no known family medical history. Other Conditions/Hx Physical Exam Vital Signs - First Documented 09/09/21 08:25 Temp 36.7 Pulse 115 Resp 20 B/P (MAP) 135/105 (115) Pulse Ox 99 O2 Delivery Room Air Capillary Refill : Less Than 3 Seconds Height, Weight, BMI Height: 5'7.00" Weight: 170lbs. 6.0oz. 77.823675rm; 26.00 BMI Method:Stated General Appearance: WD/WN, no apparent distress HEENT: PERRL/EOMI, normal ENT inspection Neck: normal inspection Respiratory: lungs clear, normal breath sounds, no respiratory distress Cardiovascular: regular rate, rhythm, no edema, no murmur Gastrointestinal: normal bowel sounds, non tender, soft Extremities: normal inspection, no pedal edema Neurologic/Psychiatric: foxpro developer II-XII nml as tested, no motor/sensory deficits, alert, oriented x 3, other (Significant depression and anxiety without present suicidal ideation or homicidal ideation.) Appearance/Memory: appropriate appearance, appropriate insight, neat Behavior/Eye Contact: cooperative, good eye contact Thoughts/Hallucinations: normal thought pattern, no apparent hallucination Skin: normal color, warm/dry Suicide Risk Suicide Risk Suicide Risk Level / RN Screen: Low Low Suicide Risk Level []Suicidal Ideation WITHOUT method, intent, plan or behavior more than a month ago []]Modifiable risk factors and strong protective factors []No reported history of suicidal ideation or behavior []Patient reports/exhibits symptoms consistent with psychosis []Patient reports a plan that would be unrealistic/impossible to complete and intent []Suicide attempt prior to arrival (Indicates at LEAST Low Suicide Risk, consider other risk factors) Moderate Suicide Risk Level: []Suicidal ideation with method, WITHOUT plan, intent or behavior in the past month []Multiple risk factors and few protective factors []Patient reports intent to follow through on plan to end life if allowed to leave hospital, and has attempted to elope from the hospital High Suicide Risk Level: [] Suicidal ideation with intent or intent with a plan in the past month [] Patient has harmed self or attempted suicide while in the hospital [] Patient has hx of or current Command Auditory hallucinations to harm self or others that they follow without hesitation [] Patient refuses to disclose plan, and indicates intent to complete [] Patient reports plan that is possible to accomplish and/or has means to complete Risk factors supporting recommendation: [] Non-compliance with treatment (acute or chronic) [] Patient has access to or owns firearms and/or stockpiled medications [] Hx Impulsive behavior [] Pending incarceration or homelessness [] Sexual abuse [] Family history and/or exposure to suicide [] Adverse childhood experiences [] Exposure to violence or negative socio-political cultural, and economic forces [] Current or hx of substance use/abuse [] Chronic physical pain or other acute medical problem (AIDS, COPD, Cancer, etc) [] Perceived burden on family or others [] Patient has attempted to elope [] Unable to answer and/or unable to identify [] Refuses to agree to a safety plan Protective Factors supporting recommendation: [] Identifies reasons for living [] Future plans/goals [] Engaged in work or School [] Good family support network [] Good social support network [] Responsibility to family [] Belief that suicide is immoral, against their mandaeism beliefs [] High spirituality and involvement in synagogue community [] Fear of or dying due to pain and suffering [] Established outpt psychiatric services [] Unable to answer and/or unable to identify Risk Assessment Tool Score: Low Progress/Results/Core Measures Results/Orders Lab Results My Orders Medications Given in ED Vital Signs/I&O Blood Pressure Mean: 115 Progress Progress Note : Progress Note Patient is not presently suicidal. I spent at least 30 minutes in consultation with her and arranging follow-up. We discussed use of medication and realistic expectations of medication usage. I discussed the importance of close monitoring during the first few weeks of SSRI medication use. We talked about healthy coping mechanisms and the importance of follow-up. We discussed the need to find other coping mechanisms to replace to the marijuana use. I did contact [facility] who will arrange expedited outpatient behavioral health support. Celexa was prescribed. Patient was ultimately discharged after verbally kathleen for safety. Potassium was replaced orally. Initial ECG Impression Date: Sep 09, 2021 Initial ECG Impression Time: 08:48 Initial ECG Rate: 92 Initial ECG Rhythm: Normal Sinus Initial ECG Intervals: Normal Initial ECG Impression: Normal Comment Normal sinus rhythm with no ST elevation or depression. No abnormal intervals or axis deviation. Departure Impression Primary Impression: Depression Qualified Codes: F32.A - Depression, unspecified Additional Impressions: Other social stressor Hypokalemia Disposition: 01 HOME, SELF-CARE Condition: Stable Departure-Patient Inst. Decision time for Depature: 10:44 Referrals: ALBERT HEREDIA MD (PCP/Family) Primary Care Physician Patient Instructions: Depression During and After , Suicide Prevention Add. Discharge Instructions: 1. Contacted the [facility] crisis line at [phone] if you have worsening mental health or develop suicidal thinking. Alternatively, you may present to the emergency room or call 911. 2. Schedule follow-up appointment with your primary care provider soon as possible. Please note a vitamin D level was ordered through the ER and should be followed up on by your primary care provider. 3. Start Celexa as prescribed. Monitor your mental health very closely during the first few weeks on this medication as you may have significant changes in mood during that time. 4. Start weaning off marijuana use and make a list of healthy coping mechanisms that you can revert to instead. 5. Establish with a behavioral health counselor as soon as possible. The [facility] office should be calling you. If you do not hear from them by Saturday morning, please call at [phone]. 6. Return to the ER if you have other significant worsening health or mental health symptoms that require urgent attention. Call with questions or concerns. 7. Because you have persistent low potassium levels, use the potassium supplement as prescribed. Discuss this further with your primary care provider. All discharge instructions reviewed with patient and/or family. Voiced understanding. Scripts Potassium Chloride (Potassium Chloride) 20 Meq Tablet.er 20 MEQ PO DAILY, #30 TAB Prov: FRANCOIS NEGRO MD 09/09/21 Citalopram Hydrobromide (Celexa) 20 Mg Tablet 20 MG PO DAILY, #30 TAB Prov: FRANCOIS NEGRO MD 09/09/21 Work/School Note: Work Release Form Date Seen in the Emergency Department: Sep 09, 2021 Return to Work: Sep 11, 2021 Other Restrictions Listed Below: May need time off for follow-up appointments. Copy Copies To 1: ALBERT HEREDIA MD, JOSHUA T MD Sep 09, 2021 10:49
[2021-09-09 10:52] LABS: BILIRUBIN,URINE NEGATIVE (NEGATIVE); CLARITY,URINE SL CLOUDY; COLOR,URINE YELLOW; GLUCOSE, URINE (UA) NEGATIVE (NEGATIVE); KETONES,URINE TRACE (NEGATIVE); LEUKOCYTE ESTERASE ,URINE NEGATIVE (NEGATIVE); NITRITE,URINE NEGATIVE (NEGATIVE); PH,URINE 6.5 (5-9); PROTEIN,URINE 2+ (NEGATIVE)
[2021-09-09 10:58] LABS: BACTERIA,URINE NEGATIVE /HPF
[2021-09-09 11:01] LABS: AMPHETAMINE SCREEN, URINE NEGATIVE (NEGATIVE); BARBITURATE SCREEN URINE NEGATIVE (NEGATIVE); BENZODIAZEPINES SCREEN URINE NEGATIVE (NEGATIVE); CANNABINOID SCREEN, URINE POSITIVE (NEGATIVE); COCAINE SCREEN URINE NEGATIVE (NEGATIVE); METHADONE STAT NEGATIVE (NEGATIVE); OPIATE SCREEN URINE NEGATIVE (NEGATIVE); OXYCODONE STAT NEGATIVE (NEGATIVE); PROPOXYPHENE STAT NEGATIVE (NEGATIVE); TRICYCLIC ANTIDEPRESSANTS SCRE NEGATIVE (NEGATIVE)
[2021-09-09 12:03] VITALS: BP 135/105
== END 2021-09-09 12:03 | disposition home or self-care (01) ==
LOC: EDUNIT# 08:17 → ER 08:19
DX: F32.A Depression, unspecified (principal); F43.9 Reaction to severe stress, unspecified; E87.6 Hypokalemia; F17.210 Nicotine dependence, cigarettes, uncomplicated; Z86.16 Personal history of COVID-19; Z28.310 Unvaccinated for COVID-19
CPT/HCPCS: 80053; 80306; 81000; 82306; 84443; 85025; 93005; 99283; G0480 ×3; 36415; 80320; 80329

== ENCOUNTER 2022-01-14 20:40 | Emergency (ER) | payer OTHER ==
[~2022-01-14] VITALS: Ht 167.7 cm; Wt 77.1 kg
[~2022-01-14 20:40] MED LIST changes: +CITA20TA12 PO; -LABE100T6 PO; +LABE100T9 PO
--- NOTE | 2022-01-14 21:03 | ED GU-Female ---
General Stated Complaint: VAG/BACK/ABD PAIN UTI SYMPTOMS History of Present Illness Date Seen by Provider: Jan 14, 2022 Time Seen by Provider: 21:03 Initial Comments 24-year-old female is here with complaints of pelvic pain, bilateral flank pain radiating down to her groin for the past few days. Patient has a new boyfriend and she is unsure if she may have a STD. Patient's partner does not have any symptoms as per patient. Patient has been having some clear vaginal discharge but she is unsure of its routine STD or just normal. Patient states that she feels like she is feverish sometimes but has not checked her temperature at home. Patient had her tubes tied in October 2021. Denies nausea and vomiting, diarrhea, dysuria, hematuria, chest pain. Allergies and Home Medications Allergies Coded Allergies: labetalol (Verified Allergy, Mild, itching, 06/19/19) Patient Home Medication List Home Medication List Reviewed: Yes Amlodipine Besylate (Amlodipine Besylate) 5 Mg Tablet, 5 MG PO DAILY Prescribed by: KANE WORTHY on 04/05/21 0815 Amoxicillin/Potassium Clav (Augmentin 500-125 Tablet) 1 Each Tablet, 1 EACH PO BID Prescribed by: MARI GRAHAM on 05/29/21 1357 Azelastine HCl (Azelastine HCl) 137 Mcg/0.137 Ml [place].pump, 137 MCG NS BID, (Reported) Entered as Reported by: BLAS GTUIERREZ on 03/24/21 1234 Cephalexin (Cephalexin) 500 Mg Tablet, 500 MG PO QID Prescribed by: KAIA JACOBSON on 05/26/21 1618 Citalopram Hydrobromide (Celexa) 20 Mg Tablet, 20 MG PO DAILY Prescribed by: FRANCOIS LEES on 09/09/21 1211 Docusate Sodium (Docusate Sodium) 100 Mg Capsule, 100 MG PO BID Prescribed by: KANE WORTHY on 04/03/21 1148 Fluticasone Propionate (24 Hour Allergy Relief) 15.8 Ml [place].susp, 2 SPRAY NS DAILY, (Reported) Entered as Reported by: BLAS GUTIERREZ on 03/24/21 1234 Furosemide (Lasix) 20 Mg Tablet, 20 MG PO DAILY Prescribed by: KAIA JACOBSON on 04/09/21 1934 Hydrocodone Bit/Acetaminophen (HYDROcodone/APAP 5 MG/325 MG TAB) 1 Tab Tab, 1-2 EA PO Q6HR PRN for PAIN-MODERATE (5-7) Prescribed by: KANE WORTHY on 04/03/21 114 Ibuprofen (Ibu) 600 Mg Tablet, 600 MG PO Q6HR Prescribed by: KANE WORTHY on 04/03/21 1148 Loratadine (Loratadine) 10 Mg Tablet, 10 MG PO DAILY, (Reported) Entered as Reported by: CHIQUITA CORNEJO on 03/14/211934 Meclizine HCl (Meclizine HCl) 25 Mg Tablet, 25 MG PO Q8H PRN for DIZZINESS Prescribed by: MARI GRAHAM on 05/29/21 1357 Potassium Chloride (Potassium Chloride) 20 Meq Tablet.er, 20 MEQ PO BID Prescribed by: KAIA JACOBSON on 05/26/21 1618 Potassium Chloride (Potassium Chloride) 20 Meq Tablet.er, 20 MEQ PO DAILY Prescribed by: FRANCOIS LEES on 09/09/21 1211 Vits #93/Iron Fum/FA ( Formula Tablet) 1 Each Tablet, 1 EACH PO DAILY, (Reported) Entered as Reported by: CHIQUITA CORNEJO on 03/14/211934 Sertraline HCl (Zoloft) 50 Mg Tablet, 50 MG PO DAILY, (Reported) Entered as Reported by: CHIQUITA CORNEJO on 03/14/211934 Review of Systems Review of Systems Constitutional: no symptoms reported EENTM: no symptoms reported Respiratory: no symptoms reported Cardiovascular: no symptoms reported Gastrointestinal: no symptoms reported Genitourinary: see HPI, discharge, pain : No Musculoskeletal: no symptoms reported Skin: no symptoms reported Psychiatric/Neurological: No Symptoms Reported Endocrine: No Symptoms Reported Hematologic/Lymphatic: No Symptoms Reported Past Dsepzse-Wcfoek-Dqbjjv Hx Immunizations Up To Date Tetanus Booster (TDap): Less than 5yrs Seasonal Allergies Seasonal Allergies: No Past Medical History Surgery/Hospitalization HX: c section x 3 Surgeries: Yes ( X 2) Section Respiratory: Yes (lingering cough from covid in jan 2021) Currently Using CPAP: No Currently Using BIPAP: No Cardiac: Yes (HTN R/T PRE-ECLAMPSIA DURING LAST ) Hypertension Neurological: No Reproductive Disorders: Yes (PRE-ECLAMPSIA WITH , DELIVERED 7WK EARLY 12/04) Female Reproductive Disorders: Denies Genitourinary: No Gastrointestinal: No Musculoskeletal: No Endocrine: No HEENT: No Cancer: No Psychosocial: Yes Anxiety, Depression Integumentary: No Blood Disorders: No Adverse Reaction/Blood Tranf: No Family Medical History Patient reports no known family medical history. Other Conditions/Hx Physical Exam Vital Signs Vital Signs - First Documented 01/14/22 21:00 Pulse 100 B/P (MAP) 157/107 (124) Pulse Ox 99 O2 Delivery Room Air Capillary Refill : Height, Weight, BMI Height: 5'7.00" Weight: 170lbs. 6.0oz. [id number]; 26.00 BMI Method:Stated General Appearance: WD/WN, no apparent distress HEENT: PERRL/EOMI Neck: full range of motion Cardiovascular: regular rate, rhythm Respiratory: lungs clear, normal breath sounds Gastrointestinal: normal bowel sounds, non tender, soft Genital/Rectal: normal genital exam, normal vaginal exam (Clear discharge seen) Pelvic: normal external exam, no cerv. motion tender, no masses, discharge Back: CVA tenderness (R), CVA tenderness (L) Extremities: normal range of motion Neurologic/Psychiatric: alert, oriented x 3 Skin: normal color Focused Exam Lactate Level 01/14/22 22:23: Lactic Acid Level 0.54 Lactic Acid Level Laboratory Tests Test 01/14/22 22:23 Lactic Acid Level 0.54 MMOL/L (0.50-2.00) Progress/Results/Core Measures Suspected Sepsis SIRS Temperature: Pulse: Respiratory Rate: Laboratory Tests 01/14/22 22:23: White Blood Count 3.9L Blood Pressure / Mean: 01/14/22 22:23: Lactic Acid Level 0.54 Laboratory Tests 01/14/22 22:23: Creatinine 0.68, Platelet Count 160, Total Bilirubin 0.5 Results/Orders Lab Results Laboratory Tests Test 01/14/22 21:05 01/14/22 22:23 Range/Units Urine Color YELLOW Urine Clarity CLEAR Urine pH 6.0 5-9 Urine Specific [place] 1.010 L 1.016-1.022 Urine Protein NEGATIVE NEGATIVE Urine Glucose (UA) NEGATIVE NEGATIVE Urine Ketones 2+ H NEGATIVE Urine Nitrite NEGATIVE NEGATIVE Urine Bilirubin NEGATIVE NEGATIVE Urine Urobilinogen 0.2 < = 1.0 MG/DL Urine Leukocyte Esterase NEGATIVE NEGATIVE Urine RBC (Auto) NEGATIVE NEGATIVE Urine RBC NONE /HPF Urine WBC 0-2 /HPF Urine Squamous Epithelial Cells 0-2 /HPF Urine Crystals NONE /LPF Urine Bacteria TRACE /HPF Urine Casts NONE /LPF Urine Mucus SMALL H /LPF Urine Culture Indicated NO Urine Opiates Screen NEGATIVE NEGATIVE Urine Oxycodone Screen NEGATIVE NEGATIVE Urine Methadone Screen NEGATIVE NEGATIVE Urine Propoxyphene Screen NEGATIVE NEGATIVE Urine Barbiturates Screen NEGATIVE NEGATIVE Ur Tricyclic Antidepressants Screen NEGATIVE NEGATIVE Urine Phencyclidine Screen NEGATIVE NEGATIVE Urine Amphetamines Screen NEGATIVE NEGATIVE Urine Methamphetamines Screen NEGATIVE NEGATIVE Urine Benzodiazepines Screen NEGATIVE NEGATIVE Urine Cocaine Screen NEGATIVE NEGATIVE Urine Cannabinoids Screen POSITIVE H NEGATIVE White Blood Count 3.9 L 4.3-11.0 10^3/uL Red Blood Count 3.75 L 3.80-5.11 10^6/uL Hemoglobin 11.0 L 11.5-16.0 g/dL Hematocrit 32 L 35-52 % Mean Corpuscular Volume 85 80-99 fL Mean Corpuscular Hemoglobin 29 25-34 pg Mean Corpuscular Hemoglobin Concent 35 32-36 g/dL Red Cell Distribution Width 12.4 10.0-14.5 % Platelet Count 160 130-400 10^3/uL Mean Platelet Volume 9.7 9.0-12.2 fL Immature Granulocyte % (Auto) 0 % Neutrophils (%) (Auto) 60 42-75 % Lymphocytes (%) (Auto) 23 12-44 % Monocytes (%) (Auto) 12 0-12 % Eosinophils (%) (Auto) 5 0-10 % Basophils (%) (Auto) 0 0-10 % Neutrophils # (Auto) 2.3 1.8-7.8 10^3/uL Lymphocytes # (Auto) 0.9 L 1.0-4.0 10^3/uL Monocytes # (Auto) 0.5 0.0-1.0 10^3/uL Eosinophils # (Auto) 0.2 0.0-0.3 10^3/uL Basophils # (Auto) 0.0 0.0-0.1 10^3/uL Immature Granulocyte # (Auto) 0.0 0.0-0.1 10^3/uL Sodium Level 138 135-145 MMOL/L Potassium Level 3.1 L 3.6-5.0 MMOL/L Chloride Level 106 98-107 MMOL/L Carbon Dioxide Level 18 L 21-32 MMOL/L Anion Gap 14 5-14 MMOL/L Blood Urea Nitrogen 5 L 7-18 MG/DL Creatinine 0.68 0.60-1.30 MG/DL Estimat Glomerular Filtration Rate 124 BUN/Creatinine Ratio 7 Glucose Level 88 70-105 MG/DL Lactic Acid Level 0.54 0.50-2.00 MMOL/L Calcium Level 9.1 8.5-10.1 MG/DL Corrected Calcium 9.1 8.5-10.1 MG/DL Total Bilirubin 0.5 0.1-1.0 MG/DL Aspartate Amino Transf (AST/SGOT) 22 5-34 U/L Alanine Aminotransferase (ALT/SGPT) 15 0-55 U/L Alkaline Phosphatase 68 40-136 U/L Total Protein 7.4 6.4-8.2 GM/DL Albumin 4.0 3.2-4.5 GM/DL Lipase 8 8-78 U/L My Orders Orders - JOHN VILLALTA MD Ua Culture If Indicated (01/14/22 21:03) Cbc With Automated Diff (01/14/22 22:09) Comprehensive Metabolic Panel (01/14/22 22:09) Drug Screen Stat (Urine) (01/14/22 22:09) Lactic Acid Analyzer (01/14/22 22:09) Lipase (01/14/22 22:09) Chlamydia Trachomatis Urine (01/14/22 22:09) Neis Christopher Dna Urine Test (01/14/22 22:09) Ct Abdomen/Pelvis Wo (01/14/22 22:09) Wet Prep (01/14/22 23:34) Vital Signs/I&O 01/14/22 21:00 Pulse 100 B/P (MAP) 157/107 (124) Pulse Ox 99 O2 Delivery Room Air Capillary Refill : Progress Note : Progress Note 1. ACUTE COLITIS/ STD SCREEN/ MARIJUANA ABUSE: - CT ABD & PELVIS: see report - Urine chlamydia/ GC sent - Wet prep sent - CBC/ CMP: unremarkable Pt takes potassium supplements at home and usually has low potassium - UA/ UDS: no infection, marijuana positive -Patient does not want to have prophylactic STD treatment at this time. She wants to wait until her test results are back. -[place] diet/adequate hydration/advised to stop using marijuana as this can trigger abdominal pain. -Follow-up with PCP and [facility] within the next 3 to 7 days. -The patient was seen in the ED, and treated appropriately to presentation at a specific point in time. Patient is informed that there is a possibility that disease and illness can evolve and change in acuity rapidly or slowly after patient is discharged from the ER. Precautionary advice given to the patient for immediate return to ER if symptoms worsen or do not resolve, and to seek emergency care sooner rather than later. Pt also advised on the importance of PCP follow up and compliance with management and follow up plan with PCP and/or specialist, as this is part of the management plan. Pt verbally expressed understanding. Diagnostic Imaging Diagonstic Imaging: CT Plain Films/CT/US/NM/MRI: abdomen Comments Faxed report of CT abdomen shows probable mild right-sided colitis, normal appendix, limited evaluation of the uterus and ovaries, pelvic ultrasound to be considered as indicated, for further evaluation. No stones Departure Impression Primary Impression: Right sided colitis Additional Impressions: Screen for STD (sexually transmitted disease) Marijuana abuse Disposition: 01 HOME, SELF-CARE Condition: Stable Departure-Patient Inst. Referrals: ALBERT HEREDIA MD (PCP/Family) Primary Care Physician Patient Instructions: Colitis (DC), Cannabis Hyperemesis Syndrome, Marijuana Use and Addiction, Screening for Sexually Transmitted Infections Add. Discharge Instructions: -[place] diet/adequate hydration/advised to stop using marijuana as this can trigger abdominal pain. -Follow-up with PCP and [facility] within the next 3 to 7 days. JOHN VILLALTA MD Jan 14, 2022 21:03
[2022-01-14 21:10] LABS: BILIRUBIN,URINE NEGATIVE (NEGATIVE); CLARITY,URINE CLEAR; COLOR,URINE YELLOW; GLUCOSE, URINE (UA) NEGATIVE (NEGATIVE); KETONES,URINE 2+ (NEGATIVE); LEUKOCYTE ESTERASE ,URINE NEGATIVE (NEGATIVE); NITRITE,URINE NEGATIVE (NEGATIVE); PROTEIN,URINE NEGATIVE (NEGATIVE)
[2022-01-14 21:21] LABS: BACTERIA,URINE TRACE /HPF; SQUAMOUS EPITHELIAL CELL,UR 0-2 /HPF; WBC,URINE 0-2 /HPF
[2022-01-14 22:30] LABS: AMPHETAMINE SCREEN, URINE NEGATIVE (NEGATIVE); BARBITURATE SCREEN URINE NEGATIVE (NEGATIVE); BENZODIAZEPINES SCREEN URINE NEGATIVE (NEGATIVE); CANNABINOID SCREEN, URINE POSITIVE (NEGATIVE); COCAINE SCREEN URINE NEGATIVE (NEGATIVE); METHADONE STAT NEGATIVE (NEGATIVE); OPIATE SCREEN URINE NEGATIVE (NEGATIVE); OXYCODONE STAT NEGATIVE (NEGATIVE); PROPOXYPHENE STAT NEGATIVE (NEGATIVE); TRICYCLIC ANTIDEPRESSANTS SCRE NEGATIVE (NEGATIVE)
[2022-01-14 22:31] LABS: BASOPHILS % (AUTO) 0 % (0-10); EOSINOPHILS # (AUTO) 0.2 10^3/uL (0.0-0.3); EOSINOPHILS % (AUTO) 5 % (0-10); HEMATOCRIT 32 % (35-52); LYMPHOCYTES # (AUTO) 0.9 10^3/uL (1.0-4.0); LYMPHOCYTES % (AUTO) 23 % (12-44); MEAN CORPUSCULAR HEMOGLOBIN 29 pg (25-34); MEAN CORPUSCULAR HGB CONC 35 g/dL (32-36); MEAN CORPUSCULAR VOLUME 85 fL (80-99); MEAN PLATELET VOLUME 9.7 fL (9.0-12.2); MONOCYTES # (AUTO) 0.5 10^3/uL (0.0-1.0); MONOCYTES % (AUTO) 12 % (0-12); NEUTROPHILS # (AUTO) 2.3 10^3/uL (1.8-7.8); NEUTROPHILS % (AUTO) 60 % (42-75); PLATELET COUNT 160 10^3/uL (130-400); WHITE BLOOD COUNT 3.9 10^3/uL (4.3-11.0)
[2022-01-14 22:49] LABS: BILIRUBIN,TOTAL 0.5 MG/DL (0.1-1.0); CALCIUM 9.1 MG/DL (8.5-10.1); CREATININE SERUM 0.68 MG/DL (0.60-1.30); POTASSIUM 3.1 MMOL/L (3.6-5.0); TOTAL PROTEIN 7.4 GM/DL (6.4-8.2)
[2022-01-15 00:38] VITALS: BP 151/113
--- NOTE | 2022-01-15 08:40 | Diagnostic Imaging Report ---
PROCEDURE: CT abdomen and pelvis without contrast. TECHNIQUE: Multiple contiguous axial images were obtained through the abdomen and pelvis without the use of intravenous contrast. Auto Exposure Controls were utilized during the CT exam to meet ALARA standards for radiation dose reduction. INDICATION: Pelvic pain. COMPARISON: 01/14/2022 FINDINGS: Included portions of lung bases again show 6 to 7 mm micronodular density within the subpleural medial margins of the left lower lobe. This is stable compared to prior exam. CT ABDOMEN: The kidneys, adrenal glands, spleen, pancreas, and liver have an unremarkable noncontrast CT appearance. Small bowel loops are nondistended. Normal appendix is identified. There is no loculated fluid collection, free fluid or free air within the abdomen. No abnormal mesenteric or retroperitoneal adenopathy is seen. Osseous structures show no acute abnormalities. CT PELVIS: Small amount of free fluid is noted. There is no loculated fluid collection or free air. No abnormal adenopathy is identified. Osseous structures show no acute abnormalities. IMPRESSION: 1. Small amount of free fluid in the pelvis; possibly physiologic. 2. Otherwise, unremarkable CT of the abdomen and pelvis. Dictated by: Dictated on workstation # [id number]
== END 2022-01-15 00:36 | disposition home or self-care (01) ==
LOC: EDUNIT# 20:40 → ER 20:43
DX: K52.9 Noninfective gastroenteritis and colitis, unspecified (principal); F12.10 Cannabis abuse, uncomplicated; Z11.3 Encounter for screening for infections with a predominantly sexual mode of transmission; Z28.310 Unvaccinated for COVID-19
CPT/HCPCS: 36415; 74176; 80053; 80306; 81000; 83605; 83690; 85025; 87210; 87491; 87591

== ENCOUNTER 2022-06-27 13:31 | Emergency (ER) | payer SELFPAY ==
[~2022-06-27] VITALS: Ht 170.2 cm; Wt 77.1 kg
[~2022-06-27 13:31] MED LIST changes: +HYDR-700 PO
--- NOTE | 2022-06-27 13:46 | ED Psychosocial ---
General Chief Complaint: Psych/Social Disorder Stated Complaint: ANXIETY Nursing Triage Note: PT BROUGHT IN BY [facility] FROM HOME WITH COMPLAINT OF PANIC ATTACK. STATES SHE ALSO HAS A TOOTH ACHE AND HEADACHE. STATES SHE FEELS LIKE HER TOOTH PAIN HAS CONTRIBUTED TO HER ANXIETY. HAD BEEN TAKING HYDROXYZINE FOR ANXIETY, AND QUIT TAKING IT DUE TO FEELING BETTER. STATES SHE HAD A THERAPY APPOINTMENT WITH [facility] TODAY, BUT IT WAS CANCELLED. HAS A MEDICATION APPT WITH THEM TOMORROW. Source: patient Exam Limitations: no limitations History of Present Illness Date Seen by Provider: June 27, 2022 Time Seen by Provider: 13:45 Allergies and Home Medications Allergies Coded Allergies: labetalol (Verified Allergy, Mild, itching, 06/19/19) Patient Home Medication List Amlodipine Besylate (Amlodipine Besylate) 5 Mg Tablet, 5 MG PO DAILY Prescribed by: KANE WORTHY on 04/05/21 0815 Amoxicillin/Potassium Clav (Augmentin 500-125 Tablet) 1 Each Tablet, 1 EACH PO BID Prescribed by: MARI GRAHAM on 05/29/21 1357 Azelastine HCl (Azelastine HCl) 137 Mcg/0.137 Ml [place].pump, 137 MCG NS BID, (Reported) Entered as Reported by: BLAS GUTIERREZ on 03/24/21 1234 Cephalexin (Cephalexin) 500 Mg Tablet, 500 MG PO QID Prescribed by: KAIA JACOBSON on 05/26/21 1618 Citalopram Hydrobromide (Celexa) 20 Mg Tablet, 20 MG PO DAILY Prescribed by: FRANCOIS LEES on 09/09/21 1211 Docusate Sodium (Docusate Sodium) 100 Mg Capsule, 100 MG PO BID Prescribed by: KANE WORTHY on 04/03/21 1148 Fluticasone Propionate (24 Hour Allergy Relief) 15.8 Ml [place].susp, 2 SPRAY NS DAILY, (Reported) Entered as Reported by: BLAS GUTIERREZ on 03/24/21 1234 Furosemide (Lasix) 20 Mg Tablet, 20 MG PO DAILY Prescribed by: KAIA JACOBSON on 04/09/21 1934 Hydrocodone Bit/Acetaminophen (HYDROcodone/APAP 5 MG/325 MG TAB) 1 Tab Tab, 1-2 EA PO Q6HR PRN for PAIN-MODERATE (5-7) Prescribed by: KANE WORTHY on 04/03/21 1148 Hydroxyzine HCl (Hydroxyzine HCl) 25 Mg Tablet, 25 MG PO Q4H PRN for ANXIETY Prescribed by: FRANCOIS LEES on 06/20/22 1607 Ibuprofen (Ibu) 600 Mg Tablet, 600 MG PO Q6HR Prescribed by: KANE WORTHY on 04/03/21 1148 Loratadine (Loratadine) 10 Mg Tablet, 10 MG PO DAILY, (Reported) Entered as Reported by: CHIQUITA CORNEJO on 03/14/211934 Meclizine HCl (Meclizine HCl) 25 Mg Tablet, 25 MG PO Q8H PRN for DIZZINESS Prescribed by: MARI GRAHAM on 05/29/21 1357 Potassium Chloride (Potassium Chloride) 20 Meq Tablet.er, 20 MEQ PO BID Prescribed by: KAIA JACOBSON on 05/26/21 1618 Potassium Chloride (Potassium Chloride) 20 Meq Tablet.er, 20 MEQ PO DAILY Prescribed by: FRANCOIS LEES on 09/09/21 1211 Vits #93/Iron Fum/FA ( Formula Tablet) 1 Each Tablet, 1 EACH PO DAILY, (Reported) Entered as Reported by: CHIQUITA CORNEJO on 03/14/211934 Sertraline HCl (Zoloft) 50 Mg Tablet, 50 MG PO DAILY, (Reported) Entered as Reported by: CHIQUITA CORNEJO on 03/14/211934 Past Fbthgac-Cqedzw-Jfapdp Hx Immunizations Up To Date Tetanus Booster (TDap): Less than 5yrs Seasonal Allergies Seasonal Allergies: No Past Medical History Surgery/Hospitalization HX: c section x 3 Surgeries: Yes ( X 3) Section Respiratory: Yes (lingering cough from covid in jan 2021) Currently Using CPAP: No Currently Using BIPAP: No Cardiac: Yes (HTN R/T PRE-ECLAMPSIA DURING LAST ) Hypertension Neurological: No Reproductive Disorders: Yes (PRE-ECLAMPSIA WITH , DELIVERED 7WK EARLY 12/04) Female Reproductive Disorders: Denies Genitourinary: No Gastrointestinal: No Musculoskeletal: No Endocrine: No HEENT: No Cancer: No Psychosocial: Yes Anxiety, Depression Integumentary: No Blood Disorders: No Adverse Reaction/Blood Tranf: No Family Medical History Patient reports no known family medical history. Other Conditions/Hx Physical Exam Vital Signs - First Documented 06/27/22 13:35 Pulse 85 Resp 16 B/P (MAP) 138/80 (99) Pulse Ox 100 O2 Delivery Room Air Capillary Refill : Less Than 3 Seconds Height, Weight, BMI Height: 5'7.00" Weight: 170lbs. 6.0oz. 77.172740yo; 26.00 BMI Method:Stated Progress/Results/Core Measures Results/Orders Lab Results Laboratory Tests Test 06/27/22 14:32 Range/Units Urine Color YELLOW Urine Clarity CLEAR Urine pH 7.0 5-9 Urine Specific [place] <=1.005 1.016-1.022 Urine Protein NEGATIVE NEGATIVE Urine Glucose (UA) NEGATIVE NEGATIVE Urine Ketones NEGATIVE NEGATIVE Urine Nitrite NEGATIVE NEGATIVE Urine Bilirubin NEGATIVE NEGATIVE Urine Urobilinogen 0.2 < = 1.0 MG/DL Urine Leukocyte Esterase TRACE H NEGATIVE Urine RBC (Auto) 1+ H NEGATIVE Urine RBC 2-5 H /HPF Urine WBC 2-5 /HPF Urine Crystals NONE /LPF Urine Bacteria NEGATIVE /HPF Urine Casts NONE /LPF Urine Mucus NEGATIVE /LPF Urine Culture Indicated YES My Orders Orders - DESHAWN GREER MD Urinalysis (06/27/22 13:59) Urine Bedside (06/27/22 13:59) Ondansetron Oral Dissolve Tab (Zofran (06/27/22 13:59) Hydroxyzine Cap/Tab (Vistaril) (06/27/22 14:00) Urine Culture (06/27/22 14:32) Medications Given in ED Current Medications Medications Dose Ordered Sig/Suzette Route Start Time Stop Time Status Last Admin Dose Admin Hydroxyzine Pamoate 50 mg ONCE ONCE PO 06/27/22 14:00 06/27/22 14:01 DC 06/27/22 14:29 50 MG Vital Signs/I&O 06/27/22 13:35 Pulse 85 Resp 16 B/P (MAP) 138/80 (99) Pulse Ox 100 O2 Delivery Room Air Blood Pressure Mean: 99 Departure Impression Primary Impression: Panic attack Disposition: 01 HOME, SELF-CARE Condition: Improved Departure-Patient Inst. Decision time for Depature: 15:54 Referrals: ALBERT HEREDIA MD (PCP/Family) Primary Care Physician Patient Instructions: Panic Attack ED Add. Discharge Instructions: Keep your appointment for your medications for mental health tomorrow. Continue the hydroxyzine 1 to 2 tablets every 6 hours as needed for anxiety. Drink plenty of fluids to stay well-hydrated. Return to the emergency department for any new, concerning or emergent complaints. Copy Copies To 1: ALBERT HEREDIA MD, KATHRYN M MD June 27, 2022 13:46
[2022-06-27] MEDS ORDERED: ONDANSETRON 4 MG (ZOFRAN) ORAL DISSOLVE TAB PO STA (13:59)
[2022-06-27] MEDS ORDERED: hydrOXYzine (VISTARIL/ATARAX) 25 MG capsule/tablet PO ONE (14:00)
[2022-06-27 14:35] LABS: BILIRUBIN,URINE NEGATIVE (NEGATIVE); CLARITY,URINE CLEAR; COLOR,URINE YELLOW; GLUCOSE, URINE (UA) NEGATIVE (NEGATIVE); KETONES,URINE NEGATIVE (NEGATIVE); LEUKOCYTE ESTERASE ,URINE TRACE (NEGATIVE); NITRITE,URINE NEGATIVE (NEGATIVE); PROTEIN,URINE NEGATIVE (NEGATIVE)
[2022-06-27 14:43] LABS: BACTERIA,URINE NEGATIVE /HPF
[2022-06-27 16:08] VITALS: BP 129/76
== END 2022-06-27 16:08 | disposition home or self-care (01) ==
LOC: EDUNIT# 13:31 → ER 13:33
DX: F41.0 Panic disorder [episodic paroxysmal anxiety] (principal)
CPT/HCPCS: 81000; 84703; 87077; 87088; 99283

== ENCOUNTER 2022-07-11 08:02 | Emergency (ER) | payer SELFPAY ==
[~2022-07-11] VITALS: Ht 170 cm; Wt 70.0 kg
--- NOTE | 2022-07-11 08:20 | ED Cough/URI ---
General Chief Complaint: Dizziness/Syncope Stated Complaint: LIGHTHEADED | NAUSEA | WEAKNESS Source: patient Exam Limitations: no limitations History of Present Illness Date Seen by Provider: July 11, 2022 Time Seen by Provider: 08:09 Initial Comments 27-year-old female presents to the emergency department today for shortness of breath. Symptoms started about 2 weeks ago and have been persistent though not worsening. She denies any fevers or chills. No real cough. No chest pain. She denies any sick contacts. He states when she gets short of breath she gets slightly lightheaded. She also describes having episodes of "full body numbness" for the last 3 years after she had her daughter. She tells me she has had extensive outpatient work-up and no one has been able to figure out the source. All other systems reviewed and negative except documented per HPI. Voice recognition software was used to help create this chart Allergies and Home Medications Allergies Coded Allergies: labetalol (Verified Allergy, Mild, itching, 06/19/19) Patient Home Medication List Home Medication List Reviewed: Yes Amlodipine Besylate (Amlodipine Besylate) 5 Mg Tablet, 5 MG PO DAILY Prescribed by: KANE WORTHY on 04/05/21 0815 Amoxicillin/Potassium Clav (Augmentin 500-125 Tablet) 1 Each Tablet, 1 EACH PO BID Prescribed by: MARI GRAHAM on 05/29/21 1357 Azelastine HCl (Azelastine HCl) 137 Mcg/0.137 Ml [place].pump, 137 MCG NS BID, (Reported) Entered as Reported by: BLAS GUTIERREZ on 03/24/21 1234 Cephalexin (Cephalexin) 500 Mg Tablet, 500 MG PO QID Prescribed by: KAIA JACOBSON on 05/26/21 1618 Citalopram Hydrobromide (Celexa) 20 Mg Tablet, 20 MG PO DAILY Prescribed by: FRANCOIS LEES on 09/09/21 1211 Docusate Sodium (Docusate Sodium) 100 Mg Capsule, 100 MG PO BID Prescribed by: KANE WORTHY on 04/03/21 1148 Fluticasone Propionate (24 Hour Allergy Relief) 15.8 Ml [place].susp, 2 SPRAY NS DAILY, (Reported) Entered as Reported by: BLAS GUTIERREZ on 03/24/21 1234 Furosemide (Lasix) 20 Mg Tablet, 20 MG PO DAILY Prescribed by: KAIA JACOSBON on 04/09/21 193 Hydrocodone Bit/Acetaminophen (HYDROcodone/APAP 5 MG/325 MG TAB) 1 Tab Tab, 1-2 EA PO Q6HR PRN for PAIN-MODERATE (5-7) Prescribed by: KANE WORTHY on 04/03/21 1148 Hydroxyzine HCl (Hydroxyzine HCl) 25 Mg Tablet, 25 MG PO Q4H PRN for ANXIETY Prescribed by: FRANCOIS LEES on 06/20/22 1607 Ibuprofen (Ibu) 600 Mg Tablet, 600 MG PO Q6HR Prescribed by: KANE WORTHY on 04/03/21 1148 Loratadine (Loratadine) 10 Mg Tablet, 10 MG PO DAILY, (Reported) Entered as Reported by: CHIQUITA CORNEJO on 03/14/211934 Meclizine HCl (Meclizine HCl) 25 Mg Tablet, 25 MG PO Q8H PRN for DIZZINESS Prescribed by: MARI GRAHAM on 05/29/21 1357 Potassium Chloride (Potassium Chloride) 20 Meq Tablet.er, 20 MEQ PO BID Prescribed by: KAIA JACOBSON on 05/26/21 1618 Potassium Chloride (Potassium Chloride) 20 Meq Tablet.er, 20 MEQ PO DAILY Prescribed by: FRANCOIS LEES on 09/09/21 1211 Vits #93/Iron Fum/FA ( Formula Tablet) 1 Each Tablet, 1 EACH PO DAILY, (Reported) Entered as Reported by: CHIQUITA CORNEJO on 03/14/211934 Sertraline HCl (Zoloft) 50 Mg Tablet, 50 MG PO DAILY, (Reported) Entered as Reported by: CHIQUITA CORNEJO on 03/14/211934 Review of Systems Review of Systems Constitutional: see HPI Past Euzmqob-Jawwct-Krojse Hx Patient Social History Tobacco Use?: No Use of E-Cig and/or Vaping dev: No Substance use?: Yes Substance type: Marijuana Immunizations Up To Date Tetanus Booster (TDap): Less than 5yrs Seasonal Allergies Seasonal Allergies: No Past Medical History Surgery/Hospitalization HX: c section x 3 Surgeries: Yes ( X 3) Section Respiratory: Yes (lingering cough from covid in jan 2021) Currently Using CPAP: No Currently Using BIPAP: No Cardiac: Yes (HTN R/T PRE-ECLAMPSIA DURING LAST ) Hypertension Neurological: No Reproductive Disorders: Yes (PRE-ECLAMPSIA WITH , DELIVERED 7WK EARLY 12/04) Female Reproductive Disorders: Denies Genitourinary: No Gastrointestinal: No Musculoskeletal: No Endocrine: No HEENT: No Cancer: No Psychosocial: Yes Anxiety, Depression Integumentary: No Blood Disorders: No Adverse Reaction/Blood Tranf: No Family Medical History Patient reports no known family medical history. Other Conditions/Hx Physical Exam Vital Signs - First Documented 07/11/22 08:05 Temp 36.7 Pulse 88 Resp 16 B/P (MAP) 135/89 (104) Pulse Ox 100 O2 Delivery Room Air Capillary Refill : Height: 5'7.00" Weight: 170lbs. 6.0oz. 77.623919il; 26.00 BMI Method:Stated General Appearance: WD/WN, no apparent distress HEENT: PERRL/EOMI, normal ENT inspection, TMs normal, pharynx normal Neck: non-tender, full range of motion, supple, normal inspection Respiratory: chest non-tender, lungs clear, normal breath sounds, no respiratory distress, no accessory muscle use Cardiovascular: regular rate, rhythm, no murmur Gastrointestinal: normal bowel sounds, non tender, soft, no organomegaly Extremities: normal range of motion, non-tender, normal inspection, no pedal edema, no calf tenderness, normal capillary refill Neurologic/Psychiatric: skirt clipper II-XII nml as tested, no motor/sensory deficits, alert, normal mood/affect, oriented x 3 Skin: normal color, warm/dry Progress/Results/Core Measures Suspected Sepsis SIRS Temperature: Pulse: Respiratory Rate: Blood Pressure / Mean: Results/Orders My Orders Orders - LANG AREVALO DO Chest Pa/Lat (2 View) (07/11/22 08:17) Vital Signs/I&O 07/11/22 08:05 Temp 36.7 Pulse 88 Resp 16 B/P (MAP) 135/89 (104) Pulse Ox 100 O2 Delivery Room Air Capillary Refill : Departure Impression Primary Impression: Dyspnea Qualified Codes: R06.00 - Dyspnea, unspecified Disposition: 01 HOME, SELF-CARE Condition: Stable Departure-Patient Inst. Referrals: ALBERT HEREDIA MD (PCP/Family) Primary Care Physician Patient Instructions: Shortness of breath (dyspnea) Add. Discharge Instructions: No emergent medical conditions are identified. Your chest x-ray is normal. It is unclear what is causing your symptoms. If it continues I recommend following up with your primary doctor for further evaluation and treatment recommendations. Return to the emergency department for any severe concerns. All discharge instructions reviewed with patient and/or family. Voiced understanding. LANG AREVALO DO July 11, 2022 08:20
--- NOTE | 2022-07-11 08:55 | Diagnostic Imaging Report ---
PATIENT HISTORY: SOB. TECHNIQUE: Two views of the chest. COMPARISON: 05/26/2021 FINDINGS: The lung volumes are normal. No focal consolidation is seen. No large pleural effusion or pneumothorax is seen. The cardiomediastinal silhouette is normal in size and contour. No acute osseous abnormality is seen. IMPRESSION: No acute pulmonary abnormality seen. Dictated by: Dictated on workstation # [id number]
[2022-07-11 09:10] VITALS: BP 132/95
== END 2022-07-11 09:12 | disposition home or self-care (01) ==
LOC: EDUNIT# 08:02 → ER 08:04
DX: R06.02 Shortness of breath (principal); Z86.16 Personal history of COVID-19
CPT/HCPCS: 71046

== ENCOUNTER 2022-07-19 14:00 | Emergency (ER) | payer SELFPAY ==
[~2022-07-19] VITALS: Ht 170 cm; Wt 71.0 kg
[2022-07-19 14:44] LABS: HEMATOCRIT 34 % (35-52); HEMOGLOBIN 11.7 g/dL (11.5-16.0); MEAN CORPUSCULAR HEMOGLOBIN 29 pg (25-34); MEAN CORPUSCULAR HGB CONC 35 g/dL (32-36); MEAN CORPUSCULAR VOLUME 85 fL (80-99); MEAN PLATELET VOLUME 9.1 fL (9.0-12.2); PLATELET COUNT 236 10^3/uL (130-400); WHITE BLOOD COUNT 4.4 10^3/uL (4.3-11.0)
--- NOTE | 2022-07-19 14:57 | Diagnostic Imaging Report ---
PROCEDURE: CT head and CT cervical spine without contrast. TECHNIQUE: Multiple contiguous axial images were obtained through the brain and cervical spine without the use of intravenous contrast. Sagittal and coronal reformations through the cervical spine were then performed. Auto Exposure Controls were utilized during the CT exam to meet ALARA standards for radiation dose reduction. INDICATION: Headache and left-sided neck pain. COMPARISON: Correlation is made with prior head CT from 05/29/2021. CT HEAD: FINDINGS: Ventricles and sulci are within normal limits. No sulcal effacement or midline shift is identified. No acute intra-axial or extra-axial hemorrhage is detected. Cisterns are patent. The visualized paranasal sinuses are clear. IMPRESSION: No acute intracranial process is detected. CT CERVICAL SPINE: FINDINGS: There is straightening of the normal cervical lordotic curvature. No fracture or subluxation is identified. The prevertebral tissues are within normal limits. The odontoid is intact. IMPRESSION: No acute bony abnormality is detected. Dictated by: Dictated on workstation # [id number]
[2022-07-19 15:00] LABS: ALBUMIN 4.1 GM/DL (3.2-4.5); CHLORIDE 110 MMOL/L (98-107); POTASSIUM 3.5 MMOL/L (3.6-5.0); SODIUM 140 MMOL/L (135-145)
[2022-07-19 15:01] LABS: CALCIUM 9.7 MG/DL (8.5-10.1)
[2022-07-19 15:02] LABS: GLUCOSE 92 MG/DL (70-105); TOTAL PROTEIN 7.5 GM/DL (6.4-8.2)
[2022-07-19 15:03] LABS: CARBON DIOXIDE 20 MMOL/L (21-32)
[2022-07-19 15:04] LABS: BILIRUBIN,TOTAL 0.3 MG/DL (0.1-1.0)
[2022-07-19 15:06] LABS: ALKALINE PHOSPHATASE 64 U/L (40-136); CREATININE SERUM 0.73 MG/DL (0.60-1.30); GFR ESTIMATED 116
[2022-07-19 15:07] LABS: BUN/CREATININE RATIO 10
[2022-07-19 15:09] LABS: ALANINE AMINOTRANSFERASE 21 U/L (0-55); MAGNESIUM 2.3 MG/DL (1.6-2.4)
[2022-07-19 15:10] LABS: CREATINE KINASE 112 U/L (29-168)
[2022-07-19 15:12] LABS: ERYTHROCYTE SEDIMENTATION RATE 17 MM/HR (0-20)
[2022-07-19 15:19] LABS: BILIRUBIN,URINE NEGATIVE (NEGATIVE); CLARITY,URINE CLEAR; COLOR,URINE YELLOW; GLUCOSE, URINE (UA) NEGATIVE (NEGATIVE); KETONES,URINE 1+ (NEGATIVE); LEUKOCYTE ESTERASE ,URINE 1+ (NEGATIVE); NITRITE,URINE NEGATIVE (NEGATIVE); PROTEIN,URINE NEGATIVE (NEGATIVE)
[2022-07-19 15:26] LABS: BACTERIA,URINE MODERATE /HPF
[2022-07-19 15:29] LABS: TSH (THYROID ANALYZER) 1.55 UIU/ML (0.35-4.94)
[2022-07-19 15:32] LABS: AMPHETAMINE SCREEN, URINE NEGATIVE (NEGATIVE); BENZODIAZEPINES SCREEN URINE NEGATIVE (NEGATIVE); CANNABINOID SCREEN, URINE POSITIVE (NEGATIVE); COCAINE SCREEN URINE NEGATIVE (NEGATIVE)
[2022-07-19 15:33] LABS: BARBITURATE SCREEN URINE NEGATIVE (NEGATIVE); METHADONE STAT NEGATIVE (NEGATIVE); OPIATE SCREEN URINE NEGATIVE (NEGATIVE); OXYCODONE STAT NEGATIVE (NEGATIVE); PROPOXYPHENE STAT NEGATIVE (NEGATIVE); TRICYCLIC ANTIDEPRESSANTS SCRE NEGATIVE (NEGATIVE)
--- NOTE | 2022-07-19 17:09 | ED Neurological Problem ---
General Chief Complaint: General Problems/Pain Stated Complaint: LT SIDE NUMBNESS | Nursing Triage Note: PT AMB TO RM 1 PT CO OF MIGRAINE MCBRIDE AND NECK PAIN HAS BEEN GOING ON FOR APPROX 3 WEEKS WHEN STARTED ON TEGRETOL. PT STOPPED TEGRETOL APPROX 3 DAYS AGO AND WAS STARTED ON LAMICTAL AND HYDROXAZINE. PT CO OF L SIDED AND FACE NUMBNESS FOR APPROX 4 DAYS. PT STATES HAS GENERALIZED BODY ACHES. PT ALSO CO OF SOME CONFUSION FOR A FEW WEEKS Source: patient Exam Limitations: no limitations History of Present Illness Date Seen by Provider: Jul 19, 2022 Time Seen by Provider: 14:16 Initial Comments This 27 year old woman presents to the ER with primary complaints of headache, neck ache, and left sided numbness and weakness. She has secondary complaints of generalized aching, difficulty concentrating and feeling cold often. She notes tingling in her left extremities has been present for a couple of years, but weakness is new with her most recent headache that started about 4 days ago. Patient noted some of these symptoms started after beginning Tegretol for bipolar treatment. She no longer takes the Tegretol. She reports history of Vit D deficiency that Dr. Hereida is monitoring. She presented to the [facility] clinic today. She was given an injection of Toradol. Symptoms did not improve so she came to the ER. On exam she has very subtle weakness of the left extremities. She is otherwise neurologically intact. She note family history of MS and lup us. She denies drug or alcohol use. Allergies and Home Medications Allergies Coded Allergies: labetalol (Verified Allergy, Mild, itching, 06/19/19) Patient Home Medication List Home Medication List Reviewed: Yes Amlodipine Besylate (Amlodipine Besylate) 5 Mg Tablet, 5 MG PO DAILY Prescribed by: KANE WORTHY on 04/05/21 0815 Amoxicillin/Potassium Clav (Augmentin 500-125 Tablet) 1 Each Tablet, 1 EACH PO BID Prescribed by: MARI GRAHAM on 05/29/21 1357 Azelastine HCl (Azelastine HCl) 137 Mcg/0.137 Ml [place].pump, 137 MCG NS BID, (Reported) Entered as Reported by: BLAS GUTIERREZ on 03/24/21 1234 Cephalexin (Cephalexin) 500 Mg Tablet, 500 MG PO QID Prescribed by: KAIA JACOBSON on 05/26/21 1618 Citalopram Hydrobromide (Celexa) 20 Mg Tablet, 20 MG PO DAILY Prescribed by: FRANCOIS LEES on 09/09/21 1211 Docusate Sodium (Docusate Sodium) 100 Mg Capsule, 100 MG PO BID Prescribed by: KANE WORTHY on 04/03/21 1148 Fluticasone Propionate (24 Hour Allergy Relief) 15.8 Ml [place].susp, 2 SPRAY NS DAILY, (Reported) Entered as Reported by: BLAS GUTIERREZ on 03/24/21 1234 Furosemide (Lasix) 20 Mg Tablet, 20 MG PO DAILY Prescribed by: KAIA JACOBSON on 04/09/21 193 Hydrocodone Bit/Acetaminophen (HYDROcodone/APAP 5 MG/325 MG TAB) 1 Tab Tab, 1-2 EA PO Q6HR PRN for PAIN-MODERATE (5-7) Prescribed by: KANE WORTHY on 04/03/21 1148 Hydroxyzine HCl (Hydroxyzine HCl) 25 Mg Tablet, 25 MG PO Q4H PRN for ANXIETY Prescribed by: FRANCOIS LEES on 06/20/22 1607 Ibuprofen (Ibu) 600 Mg Tablet, 600 MG PO Q6HR Prescribed by: KANE WORTHY on 04/03/21 1148 Loratadine (Loratadine) 10 Mg Tablet, 10 MG PO DAILY, (Reported) Entered as Reported by: CHIQUITA CORNEJO on 03/14/211934 Meclizine HCl (Meclizine HCl) 25 Mg Tablet, 25 MG PO Q8H PRN for DIZZINESS Prescribed by: MARI GRAHAM on 05/29/21 1357 Potassium Chloride (Potassium Chloride) 20 Meq Tablet.er, 20 MEQ PO BID Prescribed by: KAIA JACOBSON on 05/26/21 1618 Potassium Chloride (Potassium Chloride) 20 Meq Tablet.er, 20 MEQ PO DAILY Prescribed by: FRANCOIS LEES on 09/09/21 1211 Vits #93/Iron Fum/FA ( Formula Tablet) 1 Each Tablet, 1 EACH PO DAILY, (Reported) Entered as Reported by: CHIQUITA CORNEJO on 03/14/211934 Sertraline HCl (Zoloft) 50 Mg Tablet, 50 MG PO DAILY, (Reported) Entered as Reported by: CHIQUITA CORNEJO on 03/14/211934 Review of Systems Review of Systems Constitutional: see HPI Eyes: No Symptoms Reported Ears, Nose, Mouth, Throat: see HPI (left facial numbness or paresthesia) Respiratory: no symptoms reported Cardiovascular: no symptoms reported Gastrointestinal: no symptoms reported Genitourinary: no symptoms reported : No Musculoskeletal: see HPI Skin: no symptoms reported Psychiatric/Neurological: See HPI Endocrine: See HPI Hematologic/Lymphatic: No Symptoms Reported Past Zjnilym-Xlwfzz-Kmugqp Hx Patient Social History Tobacco Use?: No Smoking Status: Former Smoker Substance use?: No Alcohol Use?: No Pt feels they are or have been: No Immunizations Up To Date Tetanus Booster (TDap): Less than 5yrs Seasonal Allergies Seasonal Allergies: No Past Medical History Surgery/Hospitalization HX: c section x 3, TUBAL Surgeries: Yes ( X 3) Section, Tubal Ligation Respiratory: Yes (lingering cough from covid in jan 2021) Currently Using CPAP: No Currently Using BIPAP: No Cardiac: Yes (HTN R/T PRE-ECLAMPSIA DURING LAST ) Hypertension Neurological: No Reproductive Disorders: Yes (PRE-ECLAMPSIA WITH , DELIVERED 7WK EARLY 12/04) Female Reproductive Disorders: Denies Genitourinary: No Gastrointestinal: No Musculoskeletal: No Endocrine: Yes (Vit D Deficiency) HEENT: No Cancer: No Psychosocial: Yes Anxiety, Bipolar, Depression Integumentary: No Blood Disorders: No Adverse Reaction/Blood Tranf: No Family Medical History Patient reports no known family medical history. Other Conditions/Hx Physical Exam Vital Signs Vital Signs - First Documented 07/19/22 14:15 Temp 37.1 Pulse 81 Resp 18 B/P (MAP) 148/90 (109) Pulse Ox 95 O2 Delivery Room Air Capillary Refill : Less Than 3 Seconds Height, Weight, BMI Height: 5'7.00" Weight: 170lbs. 6.0oz. 77.285374fp; 24.00 BMI Method:Stated General Appearance: WD/WN, no apparent distress HEENT: PERRL/EOMI, normal ENT inspection, TMs normal, pharynx normal Neck: normal inspection Respiratory: lungs clear, normal breath sounds, no respiratory distress Cardiovascular: regular rate, rhythm, no edema, no murmur Gastrointestinal: normal bowel sounds, non tender, soft Extremities: normal inspection, no pedal edema Neurologic/Psychiatric: alert, normal mood/affect, oriented x 3, other (subtle senstaion of numbness of the left face and extremities. Subtle weakness of the left extremities) Crainal Nerves: normal hearing, normal speech, PERRL Skin: normal color, warm/dry Progress/Results/Core Measures Results/Orders Lab Results Laboratory Tests Test 07/19/22 14:35 07/19/22 15:13 07/19/22 16:27 Range/Units White Blood Count 4.4 4.3-11.0 10^3/uL Red Blood Count 3.99 3.80-5.11 10^6/uL Hemoglobin 11.7 11.5-16.0 g/dL Hematocrit 34 L 35-52 % Mean Corpuscular Volume 85 80-99 fL Mean Corpuscular Hemoglobin 29 25-34 pg Mean Corpuscular Hemoglobin Concent 35 32-36 g/dL Red Cell Distribution Width 12.5 10.0-14.5 % Platelet Count 236 130-400 10^3/uL Mean Platelet Volume 9.1 9.0-12.2 fL Erythrocyte Sedimentation Rate 17 0-20 MM/HR Sodium Level 140 135-145 MMOL/L Potassium Level 3.5 L 3.6-5.0 MMOL/L Chloride Level 110 H 98-107 MMOL/L Carbon Dioxide Level 20 L 21-32 MMOL/L Anion Gap 10 5-14 MMOL/L Blood Urea Nitrogen 7 7-18 MG/DL Creatinine 0.73 0.60-1.30 MG/DL Estimat Glomerular Filtration Rate 116 BUN/Creatinine Ratio 10 Glucose Level 92 70-105 MG/DL Calcium Level 9.7 8.5-10.1 MG/DL Corrected Calcium 9.6 8.5-10.1 MG/DL Magnesium Level 2.3 1.6-2.4 MG/DL Total Bilirubin 0.3 0.1-1.0 MG/DL Aspartate Amino Transf (AST/SGOT) 21 5-34 U/L Alanine Aminotransferase (ALT/SGPT) 21 0-55 U/L Alkaline Phosphatase 64 40-136 U/L Total Creatine Kinase 112 29-168 U/L C-Reactive Protein High Sensitivity 0.03 0.00-0.50 MG/DL Total Protein 7.5 6.4-8.2 GM/DL Albumin 4.1 3.2-4.5 GM/DL TSH [place] Testing 1.55 0.35-4.94 UIU/ML Serum Test, Qualitative NEGATIVE NEGATIVE Serum Alcohol < 10 <10 MG/DL Urine Color YELLOW Urine Clarity CLEAR Urine pH 6.0 5-9 Urine Specific [place] 1.010 L 1.016-1.022 Urine Protein NEGATIVE NEGATIVE Urine Glucose (UA) NEGATIVE NEGATIVE Urine Ketones 1+ H NEGATIVE Urine Nitrite NEGATIVE NEGATIVE Urine Bilirubin NEGATIVE NEGATIVE Urine Urobilinogen 0.2 < = 1.0 MG/DL Urine Leukocyte Esterase 1+ H NEGATIVE Urine RBC (Auto) 3+ H NEGATIVE Urine RBC 10-25 H /HPF Urine WBC 10-25 H /HPF Urine Squamous Epithelial Cells 5-10 /HPF Urine Crystals NONE /LPF Urine Bacteria MODERATE H /HPF Urine Casts NONE /LPF Urine Mucus NEGATIVE /LPF Urine Culture Indicated YES Urine Opiates Screen NEGATIVE NEGATIVE Urine Oxycodone Screen NEGATIVE NEGATIVE Urine Methadone Screen NEGATIVE NEGATIVE Urine Propoxyphene Screen NEGATIVE NEGATIVE Urine Barbiturates Screen NEGATIVE NEGATIVE Ur Tricyclic Antidepressants Screen NEGATIVE NEGATIVE Urine Phencyclidine Screen NEGATIVE NEGATIVE Urine Amphetamines Screen NEGATIVE NEGATIVE Urine Methamphetamines Screen NEGATIVE NEGATIVE Urine Benzodiazepines Screen NEGATIVE NEGATIVE Urine Cocaine Screen NEGATIVE NEGATIVE Urine Cannabinoids Screen POSITIVE H NEGATIVE Influenza Type A (RT-PCR) Not Detected Not Detecte Influenza Type B (RT-PCR) Not Detected Not Detecte SARS-CoV-2 RNA (RT-PCR) Not Detected Not Detecte My Orders Orders - FRANCOIS NEGRO MD Alcohol (07/19/22 14:27) Cbc No Diff (07/19/22 14:27) Comprehensive Metabolic Panel (07/19/22 14:27) Creatine Kinase (07/19/22 14:27) Hs C Reactive Protein (07/19/22 14:27) Erythrocyte Sedimentation Rate (07/19/22 14:27) Drug Screen Stat (Urine) (07/19/22 14:27) Hcg,Qualitative Serum (07/19/22 14:27) Magnesium (07/19/22 14:27) Thyroid Analyzer (07/19/22 14:27) Ua Culture If Indicated (07/19/22 14:27) Ed Iv/Invasive Line Start (07/19/22 14:27) Ct Head/Cervical Spine Wo (07/19/22 14:27) Urine Culture (07/19/22 15:13) Covid 19 Inhouse Test (07/19/22 16:07) Influenza A And B By Pcr (07/19/22 16:07) Lactated Ringers (Lr 1000 Ml Iv Solution (07/19/22 17:45) Ketorolac Injection (Toradol Injection) (07/19/22 17:45) Diphenhydramine Tablet (Benadryl Tablet) (07/19/22 17:45) Promethazine Injection (Phenergan Injec (07/19/22 17:45) Orphenadrine Inj (Ed Only) (Norflex Inje (07/19/22 17:45) Medications Given in ED Vital Signs/I&O 07/19/22 07/19/22 14:15 19:01 Temp 37.1 37.1 Pulse 81 81 Resp 18 18 B/P (MAP) 148/90 (109) 148/90 Pulse Ox 95 95 O2 Delivery Room Air Room Air Blood Pressure Mean: 109 Progress Progress Note : Progress Note Thorough work-up was pursued. Stroke activation was not paged as symptoms of weakness were reported to be 4 days in duration with no worsening. She additionally reports progression of vague symptoms which would suggest this is a chronic issue with some subacute symptoms. Work-up included CBC, CMP, Mag, ESR, CRP, Thyroid analyzer, Serum test, and toxicology. Labs were unremarkable except for toxicology screen positive for THC. CT of the head and C-spine was unremarkable both by my interpretation and the radiologist's read. Patient was treated with a migraine cocktail of IV LR, Phenergan, Toradol, Benadryl, and Norflex. She was discharge with discussion of return precautions and advise to discuss further work-up with her PCP which may includ MRI of the C-spine and brain. See discharge instructions for further discussion. Diagnostic Imaging Diagonstic Imaging: CT Plain Films/CT/US/NM/MRI: c-spine, head Comments NAME: TOMER KERN MED REC#: [id number] PT STATUS: REG ER : 1995 PHYSICIAN: FRANCOIS NEGRO MD ADMIT DATE: 07/19/22/ER Signed Date of Exam:07/19/22 CT HEAD/CERVICAL SPINE WO PROCEDURE: CT head and CT cervical spine without contrast. TECHNIQUE: Multiple contiguous axial images were obtained through the brain and cervical spine without the use of intravenous contrast. Sagittal and coronal reformations through the cervical spine were then performed. Auto Exposure Controls were utilized during the CT exam to meet ALARA standards for radiation dose reduction. INDICATION: Headache and left-sided neck pain. COMPARISON: Correlation is made with prior head CT from 05/29/2021. CT HEAD: FINDINGS: Ventricles and sulci are within normal limits. No sulcal effacement or midline shift is identified. No acute intra-axial or extra-axial hemorrhage is detected. Cisterns are patent. The visualized paranasal sinuses are clear. IMPRESSION: No acute intracranial process is detected. CT CERVICAL SPINE: FINDINGS: There is straightening of the normal cervical lordotic curvature. No fracture or subluxation is identified. The prevertebral tissues are within normal limits. The odontoid is intact. IMPRESSION: No acute bony abnormality is detected. Dictated by: Dictated on workstation # [id number] Dict: 07/19/22 1453 Trans: 07/19/22 1608 [id number] Interpreted by: DORETHA RAMOS MD Electronically signed by: DORETHA RAMOS MD 07/19/22 1608 Departure Impression Primary Impression: Left-sided weakness Additional Impressions: Left sided numbness Headache Qualified Codes: R51.9 - Headache, unspecified Disposition: 01 HOME, SELF-CARE Condition: Improved Departure-Patient Inst. Decision time for Depature: 18:05 Referrals: ALBERT HEREDIA MD (PCP/Family) Primary Care Physician Patient Instructions: Headache, Adult ED, Paresthesia (DC) Add. Discharge Instructions: Follow-up with your primary care provider about your numbness, weakness, and headaches as soon as possible. Discuss options for further work-up. Consider MRI of the brain and cervical spine as an option for further evaluation. In the meantime, stay well-hydrated by drinking plenty of clear liquids. Eat a well-balanced diet. You may treat pain with ibuprofen up to 600 mg every 6 hours as needed as well as Tylenol (acetaminophen) up to 1000 mg every 6 hours as needed. Follow your primary care provider's recommendations regarding vitamin D replacement. You should at a minimum take a multivitamin daily to provide vitamin D support. Return to the emergency room if you have worsening symptoms including progressive weakness, numbness, or pain despite following these instructions. All discharge instructions reviewed with patient and/or family. Voiced underst anding. Copy Copies To 1: ALBERT HEREDIA MD, JOSHUA T MD Jul 19, 2022 17:09
[2022-07-19] MEDS ORDERED: KETOROLAC 30 MG/ML VIAL IVP ONE (17:45)
[2022-07-19] MEDS ORDERED: PROMETHAZINE INJ 25 MG/ML (PHENERGAN) AMP IVP ONE (17:45)
[2022-07-19] MEDS ORDERED: diphenhydrAMINE 25 MG TAB (BENADRYL) PO ONE (17:45)
[2022-07-19] MEDS ORDERED: ORPHENADRINE 60 MG/2 ML (NORFLEX) AMP (ED ONLY) IV ONE (17:45)
[2022-07-19] MEDS ORDERED: LACTATED RINGERS 1,000 ML IV ONE (17:45)
[2022-07-19 19:01] VITALS: BP 148/90
== END 2022-07-19 19:02 | disposition home or self-care (01) ==
LOC: EDUNIT# 14:00 → ER 14:02
DX: R53.1 Weakness (principal); R20.0 Anesthesia of skin; G43.909 Migraine, unspecified, not intractable, without status migrainosus; Z87.891 Personal history of nicotine dependence; Z20.822 Contact with and (suspected) exposure to COVID-19
CPT/HCPCS: 70450; 72125; 80053; 80306; 81000; 82550; 83735; 84443; 84703; 85027; 85652; 86141; 87088; 87636; 99284; G0480; 36415; 80320

== ENCOUNTER 2022-07-21 07:33 | Emergency (ER) | payer SELFPAY ==
[~2022-07-21] VITALS: Ht 170 cm; Wt 71.0 kg
--- NOTE | 2022-07-21 08:19 | ED General ---
General Chief Complaint: Head/Cervical Problems Stated Complaint: WEAKNESS, NECK AND SHOULDER PAIN Nursing Triage Note: PT AMB TO RM 5 PT CO OF HEAD ACHE, L SIDE NECK PAIN, L SHOULDER. RATES PAIN 10/10. PT CO OF SLEEPING ALOT. WEAKNESS. PT STATES MCBRIDE MORE BEHIND EYES. L SIDE WEAKNESS OF ARM.PT CO OF NAUSEA. 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 Source of Information: Patient, Old Records Exam Limitations: No Limitations History of Present Illness Date Seen by Provider: Jul 21, 2022 Time Seen by Provider: 07:58 Allergies and Home Medications Allergies Coded Allergies: labetalol (Verified Allergy, Mild, itching, 06/19/19) Patient Home Medication List Amlodipine Besylate (Amlodipine Besylate) 5 Mg Tablet, 5 MG PO DAILY Prescribed by: KANE WORTHY on 04/05/21 0815 Amoxicillin/Potassium Clav (Augmentin 500-125 Tablet) 1 Each Tablet, 1 EACH PO BID Prescribed by: MARI GRAHAM on 05/29/21 1357 Azelastine HCl (Azelastine HCl) 137 Mcg/0.137 Ml [place].pump, 137 MCG NS BID, (Reported) Entered as Reported by: BLAS GUTIERREZ on 03/24/21 1234 Cephalexin (Cephalexin) 500 Mg Tablet, 500 MG PO QID Prescribed by: KAIA JACOBSON on 05/26/21 1618 Citalopram Hydrobromide (Celexa) 20 Mg Tablet, 20 MG PO DAILY Prescribed by: FRANCOIS LEES on 09/09/21 1211 Docusate Sodium (Docusate Sodium) 100 Mg Capsule, 100 MG PO BID Prescribed by: KANE WORTHY on 04/03/21 1148 Fluticasone Propionate (24 Hour Allergy Relief) 15.8 Ml [place].susp, 2 SPRAY NS DAILY, (Reported) Entered as Reported by: BLAS GUTIERREZ on 03/24/21 1234 Furosemide (Lasix) 20 Mg Tablet, 20 MG PO DAILY Prescribed by: KAIA JACOBSON on 04/09/21 1934 Hydrocodone Bit/Acetaminophen (HYDROcodone/APAP 5 MG/325 MG TAB) 1 Tab Tab, 1-2 EA PO Q6HR PRN for PAIN-MODERATE (5-7) Prescribed by: KANE WORTHY on 04/03/21 1148 Hydroxyzine HCl (Hydroxyzine HCl) 25 Mg Tablet, 25 MG PO Q4H PRN for ANXIETY Prescribed by: FRANCOIS LEES on 06/20/22 1607 Ibuprofen (Ibu) 600 Mg Tablet, 600 MG PO Q6HR Prescribed by: KANE WORTHY on 04/03/21 1148 Loratadine (Loratadine) 10 Mg Tablet, 10 MG PO DAILY, (Reported) Entered as Reported by: CHIQUITA CORNEJO on 03/14/211934 Meclizine HCl (Meclizine HCl) 25 Mg Tablet, 25 MG PO Q8H PRN for DIZZINESS Prescribed by: MARI GRAHAM on 05/29/21 1357 Potassium Chloride (Potassium Chloride) 20 Meq Tablet.er, 20 MEQ PO BID Prescribed by: KAIA JACOBSON on 05/26/21 1618 Potassium Chloride (Potassium Chloride) 20 Meq Tablet.er, 20 MEQ PO DAILY Prescribed by: FRANCOIS LEES on 09/09/21 1211 Vits #93/Iron Fum/FA ( Formula Tablet) 1 Each Tablet, 1 EACH PO DAILY, (Reported) Entered as Reported by: CHIQUITA CORNEJO on 03/14/211934 Sertraline HCl (Zoloft) 50 Mg Tablet, 50 MG PO DAILY, (Reported) Entered as Reported by: CHIQUITA CORNEJO on 03/14/211934 Past Tfeddvt-Fxocax-Gubxfw Hx Patient Social History Tobacco Use?: No Smoking Status: Former Smoker Substance use?: No Alcohol Use?: No Pt feels they are or have been: No Immunizations Up To Date Tetanus Booster (TDap): Less than 5yrs Seasonal Allergies Seasonal Allergies: No Past Medical History Surgery/Hospitalization HX: c section x 3, TUBAL Surgeries: Yes ( X 3) Section, Tubal Ligation Respiratory: Yes (lingering cough from covid in jan 2021) Currently Using CPAP: No Currently Using BIPAP: No Cardiac: Yes (HTN R/T PRE-ECLAMPSIA DURING LAST ) Hypertension Neurological: No Reproductive Disorders: Yes (PRE-ECLAMPSIA WITH , DELIVERED 7WK EARLY 12/04) Female Reproductive Disorders: Denies Genitourinary: No Gastrointestinal: No Musculoskeletal: No Endocrine: Yes (Vit D Deficiency) HEENT: No Cancer: No Psychosocial: Yes Anxiety, Bipolar, Depression Integumentary: No Blood Disorders: No Adverse Reaction/Blood Tranf: No Family Medical History Patient reports no known family medical history. Other Conditions/Hx Physical Exam Vital Signs Vital Signs - First Documented 07/21/22 07:50 Temp 37.0 Pulse 76 Resp 16 B/P (MAP) 140/96 (111) Pulse Ox 100 O2 Delivery Room Air Capillary Refill : Less Than 3 Seconds Height, Weight, BMI Height: 5'7.00" Weight: 170lbs. 6.0oz. 77.818553ha; 24.00 BMI Method:Stated Progress/Results/Core Measures Suspected Sepsis SIRS Temperature: Pulse: 76 Respiratory Rate: 16 Laboratory Tests 07/21/22 08:25: White Blood Count 3.0L Blood Pressure 140 /96 Mean: 111 Laboratory Tests 07/21/22 08:25: Creatinine 0.78, Platelet Count 230 Results/Orders Lab Results Laboratory Tests Test 07/21/22 08:25 Range/Units White Blood Count 3.0 L 4.3-11.0 10^3/uL Red Blood Count 3.89 3.80-5.11 10^6/uL Hemoglobin 11.5 11.5-16.0 g/dL Hematocrit 33 L 35-52 % Mean Corpuscular Volume 84 80-99 fL Mean Corpuscular Hemoglobin 30 25-34 pg Mean Corpuscular Hemoglobin Concent 35 32-36 g/dL Red Cell Distribution Width 12.3 10.0-14.5 % Platelet Count 230 130-400 10^3/uL Mean Platelet Volume 9.2 9.0-12.2 fL Immature Granulocyte % (Auto) 0 % Neutrophils (%) (Auto) 52 42-75 % Lymphocytes (%) (Auto) 38 12-44 % Monocytes (%) (Auto) 9 0-12 % Eosinophils (%) (Auto) 1 0-10 % Basophils (%) (Auto) 0 0-10 % Neutrophils # (Auto) 1.5 L 1.8-7.8 10^3/uL Lymphocytes # (Auto) 1.1 1.0-4.0 10^3/uL Monocytes # (Auto) 0.3 0.0-1.0 10^3/uL Eosinophils # (Auto) 0.0 0.0-0.3 10^3/uL Basophils # (Auto) 0.0 0.0-0.1 10^3/uL Immature Granulocyte # (Auto) 0.0 0.0-0.1 10^3/uL Erythrocyte Sedimentation Rate 22 H 0-20 MM/HR Sodium Level 141 135-145 MMOL/L Potassium Level 3.3 L 3.6-5.0 MMOL/L Chloride Level 110 H 98-107 MMOL/L Carbon Dioxide Level 21 21-32 MMOL/L Anion Gap 10 5-14 MMOL/L Blood Urea Nitrogen 8 7-18 MG/DL Creatinine 0.78 0.60-1.30 MG/DL Estimat Glomerular Filtration Rate 107 BUN/Creatinine Ratio 10 Glucose Level 89 70-105 MG/DL Calcium Level 9.6 8.5-10.1 MG/DL Magnesium Level 1.9 1.6-2.4 MG/DL Total Creatine Kinase 98 29-168 U/L C-Reactive Protein High Sensitivity 0.02 0.00-0.50 MG/DL My Orders Orders - FRANCOIS NEGRO MD Basic Metabolic Panel (07/21/22 08:16) Cbc With Automated Diff (07/21/22 08:16) Hs C Reactive Protein (07/21/22 08:16) Magnesium (07/21/22 08:16) Erythrocyte Sedimentation Rate (07/21/22 08:16) Ed Iv/Invasive Line Start (07/21/22 08:16) Ketorolac Injection (Toradol Injection) (07/21/22 08:30) Orphenadrine Inj (Ed Only) (Norflex Inje (07/21/22 08:30) Ondansetron Injection (Zofran Injectio (07/21/22 08:30) Lactated Ringers (Lr 1000 Ml Iv Solution (07/21/22 08:30) Dexamethasone Injection (Decadron Injec (07/21/22 08:30) Creatine Kinase (07/21/22 08:16) Potassium Chloride (Tablet) (Klor Con Ta (07/21/22 10:00) Medications Given in ED Current Medications Medications Dose Ordered Sig/Suzette Route Start Time Stop Time Status Last Admin Dose Admin Dexamethasone Sodium Phosphate 4 mg ONCE ONCE IV 07/21/22 08:30 07/21/22 08:31 DC 07/21/22 08:30 4 MG Ketorolac Tromethamine 30 mg ONCE ONCE IVP 07/21/22 08:30 07/21/22 08:31 DC 07/21/22 08:30 30 MG Lactated Ringer's 1,000 ml @ 0 mls/hr Q0M ONCE IV 07/21/22 08:30 07/21/22 08:31 DC 07/21/22 08:30 1,000 MLS/HR Ondansetron HCl 4 mg ONCE ONCE IVP 07/21/22 08:30 07/21/22 08:31 DC 07/21/22 08:31 4 MG Orphenadrine Citrate 30 mg ONCE ONCE IV 07/21/22 08:30 07/21/22 08:31 DC 07/21/22 08:30 30 MG Potassium Chloride 20 meq ONCE ONCE PO 07/21/22 10:00 07/21/22 10:01 DC 07/21/22 10:06 20 MEQ Vital Signs/I&O 07/21/22 07/21/22 07:50 10:09 Temp 37.0 Pulse 76 68 Resp 16 16 B/P (MAP) 140/96 (111) 132/74 Pulse Ox 100 100 O2 Delivery Room Air Room Air Capillary Refill : Less Than 3 Seconds Blood Pressure Mean: 111 Departure Impression Primary Impression: Acute headache Qualified Codes: R51.9 - Headache, unspecified Additional Impressions: Muscle spasms of neck Nausea Adverse reaction to drug Qualified Codes: T50.905A - Adverse effect of unspecified drugs, medicaments and biological substances, initial encounter Eustachian tube dysfunction Qualified Codes: H69.81 - Other specified disorders of eustachian tube, right ear Disposition: 01 HOME, SELF-CARE Condition: Improved Departure-Patient Inst. Decision time for Depature: 10:04 Referrals: ALBERT HEREDIA MD (PCP/Family) Primary Care Physician Patient Instructions: Muscle Spasms (DC) Add. Discharge Instructions: Drink plenty of clear liquids to stay well-hydrated. To treat pain in your neck, you may take ibuprofen up to 600 mg every 6 hours as needed. You may additionally take Tylenol (acetaminophen) up to 1000 mg every 6 hours as needed. Using gentle heat and gentle stretching on your tense muscles may also be helpful. Consider alternative therapies such as massage, chiropractic treatment, or acupuncture. Follow-up with your primary care provider to discuss treatment options. Stop Lamictal and Tegretol. Several of your symptoms are listed adverse reactions for these medications. Stay off of these medications until you have an opportunity to discuss with your prescriber. Avoid use of any illicit or mind altering substances such as alcohol, marijuana, etc. Use the Zofran (ondansetron) as prescribed for nausea or vomiting. Use prednisone as prescribed. This should help prevent rebound of headache, help relax your neck muscles, and help with allergies. Take early in the morning to avoid sleep disturbance and take with food or milk to avoid stomach upset. You may use a long-acting nondrowsy antihistamine such as Claritin (loratadine) or Zyrtec (cetirizine) for her allergy symptoms. Use Flonase (fluticasone) nasal spray to help with nasal congestion and eustachian tube dysfunction. Return to the emergency room if you have worsening symptoms despite following these instructions. All discharge instructions reviewed with patient and/or family. Voiced understanding. Scripts Ondansetron (Ondansetron Odt) 4 Mg Tab.rapdis 4 MG SL Q4H PRN for NAUSEA/VOMITING, #10 TAB Prov: FRANCOIS NEGRO MD 07/21/22 Prednisone (Prednisone) 20 Mg Tab 20 MG PO DAILY, #3 TAB 0 Refills Prov: FRANCOIS NEGRO MD 07/21/22 FRANCOIS NEGRO MD Jul 21, 2022 08:19
[2022-07-21] MEDS ORDERED: ONDANSETRON 4 MG/2 ML (SDV) Z0FRAN IVP ONE (08:30)
[2022-07-21] MEDS ORDERED: LACTATED RINGERS 1,000 ML IV ONE (08:30)
[2022-07-21] MEDS ORDERED: ORPHENADRINE 60 MG/2 ML (NORFLEX) AMP (ED ONLY) IV ONE (08:30)
[2022-07-21] MEDS ORDERED: KETOROLAC 30 MG/ML VIAL IVP ONE (08:30)
[2022-07-21 08:31] LABS: BASOPHILS % (AUTO) 0 % (0-10); EOSINOPHILS % (AUTO) 1 % (0-10); HEMATOCRIT 33 % (35-52); HEMOGLOBIN 11.5 g/dL (11.5-16.0); LYMPHOCYTES # (AUTO) 1.1 10^3/uL (1.0-4.0); LYMPHOCYTES % (AUTO) 38 % (12-44); MEAN CORPUSCULAR HEMOGLOBIN 30 pg (25-34); MEAN CORPUSCULAR HGB CONC 35 g/dL (32-36); MEAN CORPUSCULAR VOLUME 84 fL (80-99); MEAN PLATELET VOLUME 9.2 fL (9.0-12.2); MONOCYTES # (AUTO) 0.3 10^3/uL (0.0-1.0); MONOCYTES % (AUTO) 9 % (0-12); NEUTROPHILS # (AUTO) 1.5 10^3/uL (1.8-7.8); NEUTROPHILS % (AUTO) 52 % (42-75); PLATELET COUNT 230 10^3/uL (130-400)
[2022-07-21 08:41] LABS: POTASSIUM 3.3 MMOL/L (3.6-5.0)
[2022-07-21 08:43] LABS: CALCIUM 9.6 MG/DL (8.5-10.1)
[2022-07-21 08:47] LABS: CREATININE SERUM 0.78 MG/DL (0.60-1.30)
[2022-07-21 08:49] LABS: MAGNESIUM 1.9 MG/DL (1.6-2.4)
[2022-07-21 08:59] LABS: ERYTHROCYTE SEDIMENTATION RATE 22 MM/HR (0-20)
[2022-07-21] MEDS ORDERED: KCL 10 MEQ TAB (MICRO K) PO ONE (10:00)
[2022-07-21 10:09] VITALS: BP 132/74
[2022-07-21] MEDS ORDERED: PRD20T PO (10:16)
[2022-07-21] MEDS ORDERED: ONDA4TAB11 SL (10:16)
== END 2022-07-21 10:31 | disposition home or self-care (01) ==
LOC: EDUNIT# 07:33 → ER 07:35
DX: R51.9 Headache, unspecified (principal); M62.838 Other muscle spasm; R11.0 Nausea; T50.905A Adverse effect of unspecified drugs, medicaments and biological substances, initial encounter; H69.90 Unspecified Eustachian tube disorder, unspecified ear; N76.0 Acute vaginitis; Z87.891 Personal history of nicotine dependence; Z86.16 Personal history of COVID-19
CPT/HCPCS: 36415; 80048; 82550; 83735; 85025; 85652; 86141

== ENCOUNTER → 2022-12-04 | Outpatient (CLI) | payer MEDICAID ==
[~2022-12-04] MED LIST changes: +HOLD METFORMIN - RECEIVED CONTRAST 20 ML VIAL IV SCH; +IOHEXOL 350 MG/ML 100 ML (OMNIPAQUE 350) VIAL IV ONE; -MECL-149 PO; +MECL-291 PO; +NIFE-55 PO; -NIFE30TA89 PO; +NS 100 ML (IVPB) BAG IV ONE; +ONDA4TAB11 SL; +POTA-330 PO; -POTA-51 PO; +PRD20T PO
[2022-12-04 10:07] LABS: CREATININE SERUM 0.74 MG/DL (0.60-1.30)
--- NOTE | 2022-12-04 14:28 | Diagnostic Imaging Report ---
The CT Sinus without CT SINUS COMPLETE W WO DATE: 12/04/2022 10:28 AM INDICATION: Chronic sinus disease. COMPARISON: None. TECHNIQUE: CT images of the paranasal sinuses were obtained with and without intravenous contrast. Coronal and sagittal reformatted images were performed at a separate workstation and reviewed. One or more of the following dose reduction techniques were utilized: Automated exposure control (AEC), Adjustment of mA and/or kV according to patient size, Use of iterative reconstruction technique such as ASiR, CT scan done according to ALARA and image gently/image wisely FINDINGS: Large bilateral middle turbinate ivette bullosa with associated mucous retention cyst within the right conchal bullosa. The maxillary, ethmoid, sphenoid, and frontal sinuses are clear. No air-fluid levels. No significant mucoperiosteal thickening. The osteomeatal units are patent. Leftward nasal septal deviation.. The visualized osseous structures are otherwise normal. The visualized orbits and globes are normal. The visualized brain parenchyma is normal in attenuation. IMPRESSION: Large bilateral middle turbinate ivette bullosa with associated mucous retention cyst within the right conchal bullosa. Leftward nasal septal deviation. Dictated by: Dictated on workstation # [id number]
== END ==
LOC: RAD 09:17
PROVIDERS: ATTEND Otolaryngology Otolaryngology/Facial Plastic Surgery
DX: J34.1 Cyst and mucocele of nose and nasal sinus (principal); J32.9 Chronic sinusitis, unspecified
CPT/HCPCS: 36415; 70488; 82565; 84520